=== PATIENT | male | born 1950 | race Caucasian/White ===

== ENCOUNTER → 2018-08-13 09:35 | Outpatient (CLI) | payer MEDICARE, MEDICAID, SELFPAY ==
[2018-08-13 10:54] LABS: Appearance Urine UA CLEAR; Bilirubin Urine UA NEGATIVE (NEGATIVE); Color Urine UA YELLOW; Glucose Urine UA NEGATIVE (Normal); Ketones Urine UA NEGATIVE (NEGATIVE); Leukocyte Esterase Urine UA NEGATIVE (NEGATIVE); Nitrite Urine UA Negative (Negative); Occult Blood Urine UA NEGATIVE (Negative); Protein Urine UA NEGATIVE (Negative); Specific Gravity Urine UA 1.015 (1.000-1.035); Urobilinogen Urine UA 0.2 E.U./dL (0.2)
[2018-08-13 10:59] LABS: Add Manual Diff / Slide Review NO; Basophils Percent Auto 0.4 % (0-2); Eosinophils Percent Auto 0.4 % (2-4); Hematocrit 31.2 % (41-53); Hemoglobin 10.9 g/dL (13.5-17.5); Lymphocytes Percent Auto 13.9 % (25-40); Mean Corpuscular Hemoglobin 32.1 PG (26-34); Mean Corpuscular Volume 91.8 fL (80-100); Neutrophils Absolute Auto 5700 /uL (3000-5900); Neutrophils Percent Auto 78.3 % (50-75); Platelet Count 258 X10^3/uL (150-400); Red Cell Distribution Width 13.4 % (11.6-14.8); White Blood Cell Count 7.2 X10^3/uL (4.5-11.0)
[2018-08-13 11:09] LABS: Alanine Aminotransferase 27 IU/L (21-72); Albumin 4.4 g/dL (3.5-5.0); Albumin Globulin Ratio 1.3 (1.0-2.8); Alkaline Phosphatase 69 U/L (38-126); Aspartate Aminotransferase 29 IU/L (17-59); BUN Creatinine Ratio 32.5 (6-22); Bilirubin Total 0.5 mg/dL (0.2-1.3); Blood Urea Nitrogen 26 mg/dL (9-20); Calcium 9.3 mg/dL (8.4-10.2); Carbon Dioxide 28 mmol/L (22-32); Chloride 100 mmol/L (98-107); Cholesterol 166 mg/dL (140-199); Estimated Glomerular Filt Rate > 60.0 mL/min (>60); Globulin 3.3 g/dL (1.7-4.1); Glucose 90 mg/dL (80-110); HDL Cholesterol 64 mg/dL (40-60); HEMOLYSIS < 15 (0-50); LDL Cholesterol Calculated 90 mg/dL (<100); Potassium 4.5 mmol/L (3.4-5.1); Sodium 139 mmol/L (137-145); Total Protein 7.7 g/dL (6.3-8.2); Triglycerides 59 mg/dL (35-150)
[2018-08-13 12:18] LABS: Thyroid Stimulating Hormone 0.93 uIU/mL (0.47-4.68)
== END ==
PROVIDERS: PCP Family Medicine; Visit Provider Family Medicine
DX: I10 Essential (primary) hypertension (principal); Z51.81 Encounter for therapeutic drug level monitoring; Z12.5 Encounter for screening for malignant neoplasm of prostate
CPT/HCPCS: 36415; 80053; 80061; 81003; 84153; 84443; 85025

== ENCOUNTER 2018-10-02 11:14 | Day surgery (SDC) | payer MEDICARE, MEDICAID, SELFPAY ==
[2018-10-02] VITALS (9 sets, daily range): BP systolic 77–160; BP diastolic 39–63; PULSE 51–57; RESP 12–17; TEMP 35.8–36.3; O2SAT 98–100; BMI 25.2
--- NOTE | 2018-10-02 | PATH_ITS ---
[facility] Accession Number: [id number] . 01 Material submitted: . SCHATZKI RING BIOPSIES . 02 Diagnosis: Schatzki Ring, Biopsies: Squamocolumnar junction mucosa with chronic inflammation and reactive epithelial changes, but negative for dysplasia and malignancy. Negative for specialized metaplasia of Daley's type esophagus. Negative for squamous intraepithelial eosinophils. MRV/10/03/2018 . 02 Electronically signed: . Reji Wilburn MD, Pathologist NPI- [id number] . 01 Gross description: . Received in one formalin-filled container labeled with the patient's name and labeled Schatzki's ring, are four 0.1-0.4 cm portions of tissue, entirely submitted in cassette A. ([id number]) /FRR . 02 Pathologist provided ICD-10: R13.10 . 02 CPT . 513234 Specimen Comment: A duplicate report has been generated due to demographic updates. Performed at: 01 [facility] [address] [facility], [place], [place] [id number] MD Akash Sandhu MD Phone: [phone] Performed at: 02 [facility] [address] [place], [place] [id number] MD Norma Altamirano MD Phone: [phone]
--- NOTE | 2018-10-02 | DI.RAD.S_ITS ---
PROCEDURE: XR CHEST 1V INDICATIONS: Abdominal pain post colonoscopy rule out free air TECHNIQUE: One view of the chest was acquired. COMPARISON: None. FINDINGS: Surgical changes and devices: None. Lungs and pleura: No pleural effusions or pneumothorax. Lungs are clear. Mediastinum: Mediastinal contours appear normal. Heart size is normal. Bones and chest wall: In this patient with this given history, scrutiny is given to air within the abdomen. None can be seen. No suspicious bony lesions. IMPRESSION: No abdominal free air is seen. If there is strong clinical concern for free intra-abdominal gas, then please consider a dedicated CT of the abdomen and pelvis for further evaluation. Dictated by: Tonny Brower M.D. on 10/02/2018 at 13:56 Approved by: Tonny Brower M.D. on 10/02/2018 at 13:57
[2018-10-02] MEDS: LACTATED RINGERS 1,000 ML 200 ML IV ×2 (12:22→14:05)
--- NOTE | 2018-10-02 12:38 | PM.PREOP ---
Pre-operative Note Interval Note Pre-op Check: Yes History & Physical Reviewed by Physician and Yes Exam Performed Changes: No
[2018-10-02] MEDS: TETRACAINE/BENZOCAINE/BUTAMBEN (CETACAINE) BOTTLE 1 SPRAY TOP (13:04)
--- NOTE | 2018-10-02 14:20 | PM.OP.ENDO ---
Operative Date/Time/Diagnoses Date of procedure: 10/02/18 Time of procedure: 14:10 Pre-op diagnosis: Anemia. Post-op diagnosis: same (Extensive sigmoid diverticulosis with stricture. Schatzki ring of the distal esophagus. Small hiatal hernia) Procedure & Clinicians Study performed: EGD with cold biopsy and balloon dilatation through the scope. Colonoscopy. Indications: Try to determine cause of anemia Surgeon: Zack Mendoza Procedure Notes SCOAP/Timeout: Performed Procedure in detail: The patient had topical anesthetic applied to oropharynx. She was placed in the supine position and underwent monitored anesthesia care. We avoided the use of narcotics due to his reaction to them in the past. The anesthesiologist was involved because of his developmental delay and limited ability to cooperate. A bite block was inserted and the scope was advanced through it into the esophagus. The patient since anatomy near the laryngeal area was completely distorted. It was very difficult to see his epiglottis cords arytenoids clearly. I ultimately was able to cannulate the esophagus. The esophagus was unremarkable until I reached the distal extent. At about 40 cm near the GE junction there was a obvious Schatzki ring. However there was not a great deal of narrowing of the opening.. The stomach insufflated well. There were no lesions seen in the body, antrum or at the incisura. The patient was noted to have a small hiatal hernia. The pyloric channel was patent. The duodenum was unremarkable to the 4th part. The scope was brought back into the stomach and retroflexed. The proximal stomach was remarkable for a hiatal hernia seen from below.. The scope was straightened and brought out through the esophagus again. I biopsied the Schatzki ring and then dilated it with a through the scope balloon dilated to an 18 mm size. This was done gradually. No other lesions were seen. The scope was removed and the patient tolerated the procedure well. The patient was then repositioned in left lateral decubitus position and digital exam of the anus was unremarkable. His prostate is normal in size without a mass. The scope was inserted. I had a very difficult time getting through the sigmoid colon due to very extensive sigmoid diverticulosis. There was stricture ring and tortuosity. Ice and finally made my way through into the descending transverse and ascending colon. Pressure was applied and a stiffener inserted in order to get to the cecum. It was very difficult to see the ileocecal valve but the appendix was obviously visible. The scope was gradually brought out. I could identify no other me significant findings on the way out. The scope was brought very slowly through the anal canal and no lesions were seen except some small hemorrhoids near the anal verge. Scope withdrawal time: Over 7 min. Sedation minutes: 0 Findings: diverticulosis (Sigmoid. Extensive with stricture and tortuosity.) and internal hemorrhoids (Small) Specimen(s): other (GE junction biopsies at the Schatzki ring sent) Complications: none Recommendations: Colonscopy in 10 years Follow up: as needed Disposition: PACU
[2018-10-02] MEDS: ONDANSETRON 4 MG/2 ML INJ IV (14:42)
--- NOTE | 2018-10-02 14:44 | SUR.PHASEI ---
airway out, pt gradually awake, belly semi soft and pt states it its tender, rubs upper and lower abdomen, dr kunz made aware chest xray ordered and taken read by dr kunz. pt needs to pass gas, explained to pt, pt turned on l side and knees brought up to chest. pt c/o nausea, zofran given.
--- NOTE | 2018-10-02 15:00 | SUR.PHASEI ---
addendum: bp low on arrival, treated with fluids, eventually came wnl.
--- NOTE | 2018-10-02 15:04 | SUR.PHASEI ---
second addendum, pt with + flatus on arrival to pacu.
--- NOTE | 2018-10-02 15:30 | SUR.PHASEII ---
Report received. Pt reported side pain, abd soft. Ambulated to bathroom, 2 person assist. Passed very small bm. Ambulated back to bed. Reported side pain improving. Offered po intake, pt declined. Call light within reach.
--- NOTE | 2018-10-02 17:20 | SUR.PHASEII ---
1645: pt up to restroom and was able to pass a bowel movement and pass gas as well and several burps. Pt reports that he feels, much better. This was reported to Dr. Mendoza who gave a verbal order to discharge pt to home.
== END 2018-10-02 17:18 | disposition home or self-care (01) ==
PROVIDERS: PCP Family Medicine; Visit Provider Specialist
PROC: 0DJ08ZZ Inspection of Upper Intestinal Tract, Via Natural or Artificial Opening Endoscopic (ICD-10-PCS; CPT 43235; principal; 2018-10-02 12:30)
PROC: 0DJD8ZZ Inspection of Lower Intestinal Tract, Via Natural or Artificial Opening Endoscopic (ICD-10-PCS; CPT 45378; 2018-10-02 12:30)
DX: D64.9 Anemia, unspecified (principal); K57.30 Diverticulosis of large intestine without perforation or abscess without bleeding; K44.9 Diaphragmatic hernia without obstruction or gangrene; K22.2 Esophageal obstruction; K64.8 Other hemorrhoids; R62.50 Unspecified lack of expected normal physiological development in childhood
CPT/HCPCS: 43249; 45378; 43239; 71045; 88305; J2405; J2704

== ENCOUNTER → 2019-01-09 13:59 | Outpatient (CLI) | payer MEDICARE, MEDICAID, SELFPAY ==
[2019-01-09 15:14] LABS: Alanine Aminotransferase 73 IU/L (21-72); Albumin 4.4 g/dL (3.5-5.0); Albumin Globulin Ratio 1.2 (1.0-2.8); Alkaline Phosphatase 90 U/L (38-126); Aspartate Aminotransferase 61 IU/L (17-59); BUN Creatinine Ratio 41.4 (6-22); Bilirubin Total 0.3 mg/dL (0.2-1.3); Blood Urea Nitrogen 29 mg/dL (9-20); Calcium 9.8 mg/dL (8.4-10.2); Carbon Dioxide 26 mmol/L (22-32); Chloride 101 mmol/L (98-107); Estimated Glomerular Filt Rate > 60.0 mL/min (>60); Globulin 3.6 g/dL (1.7-4.1); Glucose 76 mg/dL (80-110); HEMOLYSIS < 15 (0-50); Sodium 135 mmol/L (137-145)
[2019-01-09 15:22] LABS: Potassium 5.6 mmol/L (3.4-5.1)
[2019-01-09 16:17] LABS: Folate 19.7 ng/mL (2.76-20.0); Vitamin B12 703 pg/mL (239-931)
== END ==
PROVIDERS: PCP Family Medicine; Visit Provider Nurse Practitioner Family
DX: R41.89 Other symptoms and signs involving cognitive functions and awareness (principal); R46.89 Other symptoms and signs involving appearance and behavior
CPT/HCPCS: 36415; 80053; 82607; 82746

== ENCOUNTER → 2019-01-13 11:07 | Outpatient (CLI) | payer MEDICARE, MEDICAID, SELFPAY ==
[2019-01-13 11:39] LABS: Appearance Urine UA CLEAR; Bilirubin Urine UA NEGATIVE (NEGATIVE); Color Urine UA YELLOW; Glucose Urine UA NEGATIVE (Negative); Ketones Urine UA NEGATIVE (NEGATIVE); Leukocyte Esterase Urine UA NEGATIVE (NEGATIVE); Nitrite Urine UA NEGATIVE (Negative); Occult Blood Urine UA NEGATIVE (Negative); Protein Urine UA NEGATIVE (Negative); Specific Gravity Urine UA 1.015 (1.000-1.035); Urobilinogen Urine UA 0.2 E.U./dL (0.2)
[2019-01-13 11:45] LABS: HEMOLYSIS < 15 (0-50)
[2019-01-13 11:46] LABS: Potassium 5.4 mmol/L (3.4-5.1)
[2019-01-13 11:48] LABS: HEMOLYSIS < 15 (0-50); Iron 70 ug/dL (49-181)
[2019-01-13 11:50] LABS: Add Manual Diff / Slide Review NO; Basophils Absolute Auto 0 /uL (0-100); Basophils Percent Auto 0.6 % (0-2); Eosinophils Absolute Auto 0 /uL (0-450); Eosinophils Percent Auto 0.4 % (2-4); Hematocrit 32.4 % (41-53); Hemoglobin 11.3 g/dL (13.5-17.5); Lymphocytes Absolute Auto 600 /uL (1100-4500); Lymphocytes Percent Auto 11.7 % (25-40); Mean Corpuscular HGB Conc 34.9 % (30-36); Mean Corpuscular Hemoglobin 31.1 PG (26-34); Mean Corpuscular Volume 89.1 fL (80-100); Monocytes Absolute Auto 700 /uL (0-900); Monocytes Percent Auto 12.2 % (3-14); Neutrophils Absolute Auto 4200 /uL (1500-7000); Neutrophils Percent Auto 75.1 % (50-75); Platelet Count 238 X10^3/uL (150-400); Red Blood Cell Count 3.63 X10^6/uL (4.5-5.9); Red Cell Distribution Width 14.2 % (11.6-14.8); White Blood Cell Count 5.6 X10^3/uL (4.5-11.0)
[2019-01-13 11:59] LABS: Percent Iron Saturation 21 % (20-50); Total Iron Binding Capacity 328 ug/dL (261-462); Transferrin 274 mg/dL (206-381)
[2019-01-13 12:19] LABS: TSH w/ Reflex to FT4 2.12 uIU/mL (0.47-4.68)
== END ==
PROVIDERS: PCP Family Medicine; Visit Provider Nurse Practitioner Family
DX: R41.89 Other symptoms and signs involving cognitive functions and awareness (principal); E87.5 Hyperkalemia; D64.9 Anemia, unspecified
CPT/HCPCS: 36415; 81003; 83540; 83550; 84132; 84443; 85025

== ENCOUNTER → 2019-01-15 10:43 | Outpatient (CLI) | payer MEDICARE, MEDICAID, SELFPAY ==
--- NOTE | 2019-01-15 10:44 | DI.US.S_ITS ---
PROCEDURE: US ABDOMEN COMPLETE INDICATIONS: ELEVATED LIVER ENZYMES TECHNIQUE: Real-time scanning was performed of the abdominal and retroperitoneal organs, with image documentation. COMPARISON: None. FINDINGS: This study is limited by body habitus. Liver: Liver overall demonstrates normal size. The liver demonstrates a coarse echotexture. No focal liver lesions are seen. Gallbladder: Potential sludge can be seen within the gallbladder lumen, yet without shadowing stones. Differential diagnosis includes artifact. The gallbladder wall is not thickened, measuring 3 mm or less. No specific pericholecystic fluid is seen. The sonographic Cisneros sign is negative. Biliary ducts: Intrahepatic bile ducts are non-dilated. Extrahepatic bile duct caliber measures 9 mm. Normal is 6-7 mm or less in diameter, or 10 mm or less post-cholecystectomy. Pancreas: Not well-seen Spleen: Not seen. Kidneys: Kidneys are not well-seen. There is a potential 2.9 cm complicated cyst seen on the left side. Aorta: Not seen, obscured by overlying bowel gas. Iliacs: Not seen, obscured by overlying bowel gas. IVC: Intrahepatic inferior vena cava is patent. Miscellaneous: No free abdominal fluid. IMPRESSION: Highly limited study, secondary to body habitus and bowel gas. Sludge versus artifact seen within the gallbladder lumen. The common bile duct appears mildly dilated at 9 mm. Likely 2.9 cm complex cyst in the left kidney. If clinically appropriate, please consider a dedicated CT study for further evaluation. Dictated by: Tonny Brower M.D. on 01/15/2019 at 12:18 Approved by: Tonny Brower M.D. on 01/15/2019 at 12:21
[2019-01-15 12:03] LABS: Ammonia (NH3) < 9.0 umol/L (9-30)
== END ==
PROVIDERS: PCP Family Medicine; Visit Provider Nurse Practitioner Family
DX: R74.8 Abnormal levels of other serum enzymes (principal); R41.89 Other symptoms and signs involving cognitive functions and awareness; R46.89 Other symptoms and signs involving appearance and behavior; N28.1 Cyst of kidney, acquired
CPT/HCPCS: 36415; 76700; 82140

== ENCOUNTER 2019-01-19 11:22 | Inpatient (IN) | payer MEDICARE, MEDICAID, SELFPAY ==
--- NOTE | 2019-01-19 | DI.MRI.S_ITS ---
PROCEDURE: MR HEAD/BRAIN WO CON INDICATIONS: recurrent falls TECHNIQUE: Non-contrast axial T1 spin echo, axial T2 fast spin echo, sagittal and axial FLAIR, coronal T2 fast spin echo, axial gradient echo, axial diffusion and ADC through the brain. COMPARISON: [facility], CT, CT HEAD/BRAIN WO CON, 01/19/2019, 12:32. FINDINGS: Image quality: Severe limited examination (unable to use head coil). CSF spaces: Ventricles appear prominent but symmetric in size and shape. Basal cisterns are patent. No extra-axial fluid collections. Brain: No intracranial bleeds or mass effects. There is cerebral volume loss for age. There are periventricular and deep white matter chronic small vessel ischemic changes. Brainstem appears normal. Diffusion-weighted images show no acute ischemic insults. No chronic ischemic insults. Normal intravascular flow voids are present. Skull and face: Calvarial bone marrow is normal in signal. Orbits are normal. Sinuses: Sinuses and mastoids are clear. IMPRESSION: 1. No acute intracranial abnormalities. 2. Cerebral volume loss and chronic microvascular ischemic changes. 3. Ventricular dilation may be secondary to central atrophy or normal pressure hydrocephalus. 4. Severely limited examination due to inability to perform the exam with a head coil. Dictated by: Pietro Snell M.D. on 01/20/2019 at 9:37 Approved by: Pietro Snell M.D. on 01/20/2019 at 9:41
[2019-01-19 11:30] VITALS: BP 110/53; PULSE 51; RESP 16; TEMP 36; O2SAT 100
--- NOTE | 2019-01-19 11:47 | DI.RAD.S_ITS ---
PROCEDURE: XR CHEST 1V INDICATIONS: weakness falls TECHNIQUE: One view of the chest was acquired. COMPARISON: [facility], CR, XR CHEST 1V, 10/02/2018, 14:37. FINDINGS: Surgical changes and devices: None. Lungs and pleura: Lungs are clear. No pleural effusions or pneumothorax. Mediastinum: Mediastinal contours appear normal. Heart size is normal. Bones and chest wall: No suspicious bony lesions. Within the visualized right upper quadrant of the abdomen, there is a gas-distended structure which may represent partially dilated colon loops but the appearance is nonspecific. IMPRESSION: 1. No acute cardiopulmonary disease. 2. Gas-distended structure in the right upper quadrant of the visualized abdomen may represent partially visualized dilated colon with filling defects. However, consider further evaluation with CT if there are clinical symptoms referrable to this region. Dictated by: Akash Enamorado M.D. on 01/19/2019 at 12:10 Approved by: Akash Enamorado M.D. on 01/19/2019 at 12:16
[2019-01-19 12:08] LABS: Add Manual Diff / Slide Review NO; Basophils Absolute Auto 0 /uL (0-100); Basophils Percent Auto 0.2 % (0-2); Eosinophils Absolute Auto 0 /uL (0-450); Eosinophils Percent Auto 0.3 % (2-4); Hematocrit 33.1 % (41-53); Lymphocytes Absolute Auto 900 /uL (1100-4500); Lymphocytes Percent Auto 9.1 % (25-40); Mean Corpuscular HGB Conc 33.3 % (30-36); Monocytes Absolute Auto 900 /uL (0-900); Monocytes Percent Auto 9.8 % (3-14); Neutrophils Absolute Auto 7600 /uL (1500-7000); Neutrophils Percent Auto 80.6 % (50-75); Platelet Count 228 X10^3/uL (150-400); Red Blood Cell Count 3.55 X10^6/uL (4.5-5.9); Red Cell Distribution Width 14.8 % (11.6-14.8); White Blood Cell Count 9.5 X10^3/uL (4.5-11.0)
[2019-01-19 12:20] LABS: BUN Creatinine Ratio 45.7 (6-22); Blood Urea Nitrogen 32 mg/dL (9-20); Calcium 9.6 mg/dL (8.4-10.2); Carbon Dioxide 26 mmol/L (22-32); Chloride 97 mmol/L (98-107); Estimated Glomerular Filt Rate > 60.0 mL/min (>60); Glucose 125 mg/dL (80-110); HEMOLYSIS 20 (0-50); Sodium 130 mmol/L (137-145)
[2019-01-19 12:23] LABS: Potassium 5.4 mmol/L (3.4-5.1)
--- NOTE | 2019-01-19 12:28 | DI.CT.S_ITS ---
PROCEDURE: CT HEAD/BRAIN WO CON INDICATIONS: Weakness and increased confusion TECHNIQUE: Noncontrast 4.5 mm thick angled axial sections acquired from the foramen magnum to the vertex, with coronal and sagittal reformats. For radiation dose reduction, the following was used: automated exposure control, adjustment of mA and/or kV according to patient size. COMPARISON: None. FINDINGS: Image quality: Excellent. CSF spaces: Basal cisterns are patent. No extra-axial fluid collections. The ventricles are symmetric in shape. Ventricles are slightly prominent relative to sulci. Brain: No intracranial bleeds or masses. There is mild cerebral volume loss for age, with resultant ventricular and sulcal prominence. There are mild periventricular and deep white matter chronic small vessel ischemic changes. There is intracranial internal carotid artery atherosclerosis. Skull and face: Calvarium and visualized facial bones appear intact, without suspicious lesions. Multiple dental caries noted. Sinuses: Mild mucosal thickening noted in the left maxillary sinus. The mastoids are clear. IMPRESSION: 1. No acute intracranial disease process. 2. Mild ventriculomegaly which could be due to central volume loss versus normal pressure hydrocephalus. Please correlate with clinical findings. 3. A mild, diffuse cerebral unless. 4. Mild periventricular and subcortical white matter chronic microvascular ischemic changes. 5. Extensive dental disease. Dictated by: Janice Costello MD, PhD on 01/19/2019 at 12:55 Approved by: Janice Costello MD, PhD on 01/19/2019 at 13:00
--- NOTE | 2019-01-19 12:28 | DI.CT.S_ITS ---
PROCEDURE: CT ABDOMEN PELVIS W CON INDICATIONS: Weakness and confusion TECHNIQUE: After the administration of intravenous contrast, 5 mm thick sections acquired from the diaphragm to the symphysis. 5 mm coronal and sagittal reformats were acquired. For radiation dose reduction, the following was used: automated exposure control, adjustment of mA and/or kV according to patient size. COMPARISON: [facility], CR, XR CHEST 1V, 10/02/2018, 14:37. [facility], CR, XR CHEST 1V, 01/19/2019, 11:59. FINDINGS: Image quality: Excellent. ABDOMEN: Lung bases: Lung bases are clear. Heart size is normal. Solid organs: Liver is normal in size and enhancement. Gallbladder appears normal. Biliary system is non dilated. Pancreas enhances normally. Spleen is normal in size and enhancement. No adrenal nodules on the left but there is a 2.3 x 3.4 cm benign-appearing right adrenal adenoma. Kidneys demonstrate normal size and enhancement, without hydronephrosis. Peritoneum and bowel: Bowel loops demonstrate normal wall thickness and caliber but there is relatively prominent colonic obstipation involving the right colon which appears elongated with the cecum directed cephalad towards the right diaphragm. On an old set of chest plain films this pattern was also present including in September 2018. No free fluid or air. Nodes and vessels: No retroperitoneal or mesenteric adenopathy by size criteria. Aorta and inferior vena cava are normal in size. Miscellaneous: No ventral hernias. PELVIS: Genitourinary: Bladder wall thickness is normal. Miscellaneous: No inguinal hernias or adenopathy. Bones: No suspicious bony lesions. No vertebral body compression fractures. IMPRESSION: Colonic obstipation. 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 Incidental note is made of a benign-appearing low density adrenal adenoma measuring up to 2.3 x 3.4 cm. Dictated by: Misael Simmons M.D. on 01/19/2019 at 13:25 Approved by: Misael Simmons M.D. on 01/19/2019 at 13:40
[2019-01-19 12:31] LABS: Troponin I 0.015 ng/mL (0.01-0.034)
--- NOTE | 2019-01-19 13:02 | PC.NURSE ---
Patient has had frequent falls for the past 2 weeks. Unknown etiology and not witnessed. Parent and caregiver state they have found him on the ground in the barn and in the field. He is developmentally delayed at baseline, but family states this is very abnormal for him. He has had a workup and blood work done over the last two weeks and they found hyperkalemia, which was not treated. No other findings. Upon assessment, he will follow commands, but does not answer questions. Having intermittent bradycardia going down as low as 26 bpm.
[2019-01-19] MEDS: SODIUM CHLORIDE 0.9% 1,000 ML 150 ML IV ×2 (13:10→17:43)
[2019-01-19 13:27] LABS: Procalcitonin 0.13 ng/mL (<0.5)
--- NOTE | 2019-01-19 13:32 | DI.RAD.S_ITS ---
PROCEDURE: XR HIP W PEL IF DONE BILAT 2V INDICATIONS: Ground level fall swelling to left hip TECHNIQUE: AP pelvis with lateral view(s) of the right and left hip(s). COMPARISON: None. FINDINGS: Bones: No fractures or dislocations. Pelvic ring appears intact. No suspicious bony lesions. 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 There is irregularity in greater trochanters bilaterally, likely related to enthesopathy. Soft tissues: The visualized bowel gas pattern is normal. No suspicious soft tissue calcifications. There is a Hernandez catheter in bladder. IMPRESSION: No fracture or dislocation. Dictated by: Pietro Snell M.D. on 01/19/2019 at 14:15 Approved by: Pietro Snell M.D. on 01/19/2019 at 14:24
[2019-01-19 13:45] LABS: Lactate (Lactic Acid) 1.1 mmol/L (0.7-2.1)
--- NOTE | 2019-01-19 14:09 | ED.WEAKNESS ---
HPI - Weakness <BAKARI Acharya - Last Filed: 01/19/19 22:13> General Chief complaint: Weakness Stated complaint: NAUSEA/VOMITING/FALLING DOWN Time Seen by Provider: 01/19/19 12:03 Source: family Mode of arrival: wheelchair Limitations: no limitations History of Present Illness HPI Narrative: 68-year-old male with history of developmental delay and hypertension that is a nonsmoker brought in by family due to increased weakness over the past week to 2 weeks. Family states that he has been having difficulty ambulating over the past couple of days he has had multiple ground level falls over the past several days. They state that he was found out in the past her lying on the ground and was having difficulty getting up. They also report that he has had increased confusion over the past week as well. He is tolerating p.o. intake and fluids well. No known fevers. He was seen by his primary care provider today and was sent here for further evaluation of the weakness and confusion with hope of admission for further evaluation and referral for [facility] facility as family is having difficult time and caring for him at this timeframe. 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 He is not verbal with me at this time. He is awake and alert. Family states that his heart rate has been lower than normal as of recently and due to this they have not wanted to change much as far as blood pressure medications due to his heart rate. No known head injury he does have multiple contusions to his extremities from recent falls. No known discomfort. Related Data Home Medications Medication Instructions Recorded Confirmed brimonidine-timolol [Combigan] 1 drp OPHTHALMIC (EYE) DIRECTED 03/25/17 01/19/19 #0 amlodipine [Norvasc] 5 mg PO DAILY 01/19/19 01/19/19 lisinopril 40 mg PO DAILY 01/19/19 01/19/19 Previous Rx's Medication Instructions Recorded [Men's Depends] See Rx Instructions .ROUTE BID #60 10/02/18 Allergies Allergy/AdvReac Type Severity Reaction Status Date / Time codeine [CODEINE] Allergy Mild n/v Verified 01/19/19 11:30 hydrocodone AdvReac Mild UPSET Verified 01/19/19 11:30 STOMACH Review of Systems <BAKARI Acharya - Last Filed: 01/19/19 22:13> Constitutional Denies fatigue and Reports weakness Eyes Denies change in vision, Denies eye discharge and Denies irritation ENT Ears, Nose, Mouth, and Throat: Denies change in voice, Denies neck pain and Denies sore throat Cardiovascular Denies dyspnea and Denies dyspnea on exertion Comments: Low heart rate Respiratory Denies cough, Denies dyspnea, Denies dyspnea on exertion and Denies wheezing Gastrointestinal Gastrointestinal: Denies abdominal pain, Denies change in bowel habits, Denies diarrhea, Denies nausea and Denies vomiting Genitourinary Denies hematuria, Denies flank pain, Denies urinary incontinence and Denies urinary urgency Musculoskeletal Denies neck pain Integumentary/Breasts Denies pruritus, Denies erythema, Denies rash and Denies wounds Neurologic Denies confusion and Reports weakness Comments: Increased confusion Psychiatric Denies anxiety, Denies confusion, Denies depression, Denies homicidal ideation and Denies suicidal ideation Endocrine Denies fatigue and Denies flushing Hematologic/Lymphatic Denies easy bruising Allergic/Immunologic Denies wheezing PFSH <BAKARI Acharya - Last Filed: 01/19/19 22:13> Medical History Diverticulosis (Acute) Obstipation (Acute) Schatzki's ring of distal esophagus (Acute) Developmental disability (Chronic) Glaucoma (Chronic) Hypertension (Chronic) Partial blindness (Chronic) Surgical History History of colonoscopy (Acute) History of esophagogastroduodenoscopy (EGD) (Acute) Status post hernia repair (12/2015) Family History Father Hypertension Heart disease Mother No problems noted. Social History household members: family Smoking Status: Never smoker alcohol intake: never Family History Father Hypertension Heart disease Mother No problems noted. Social History household members: family Smoking Status: Never smoker alcohol intake: never Exam <BAKARI Acharya - Last Filed: 01/19/19 22:13> Initial Vital Signs Initial Vital Signs: Vital Signs Temperature 96.8 F L 01/19/19 11:30 Pulse Rate 51 L 01/19/19 11:30 Respiratory Rate 16 01/19/19 11:30 Blood Pressure 110/53 L 01/19/19 11:30 Pulse Oximetry 100 01/19/19 11:30 Const General: frail appearing Orientation: alert, awake and not oriented x3 HENMT Mouth: oral mucosae normal and moist mucous membranes Eyes General: appearance normal, both eyes and all related structures Eyelids: eyelids normal Conjunctivae: conjunctivae normal Sclera: sclerae normal Pupils: dilated bilaterally and not reactive Neck Neck: normal visual inspection, trachea midline, No lymphadenopathy, No midline deformity and No JVD Lymphatic: No lymphedema Cardio Rate: bradycardic Rhythm: regular rhythm Heart Sounds: no click, no gallops, no murmurs and no rubs Pulses: normal peripheral pulses GI Inspection: non-distended Palpation: soft, no hepatosplenomegaly, No guarding, No pulsatile mass and No tender Auscultation: normal bowel sounds Skin General: no rashes or lesions noted, No jaundice and No petechiae Neuro General: alert, awake, not oriented x3 and unable to assess gait Cognition: abnormal cognition (Response to verbal stimuli. ) Motor: muscle tone normal throughout Sensory Exam: no sensory deficits noted Extrem General: full ROM, no clubbing, cyanosis or edema, no pedal edema and no calf tenderness Other: Distal sensation is intact to all extremities. Distal pulses are intact upper extremities. Distal cap refill is intact to lower extremities. Distal range of motion is intact lower extremities. Psych Speech and Movement: other <Roni Eckert MD - Last Filed: 01/21/19 02:41> Initial Vital Signs Initial Vital Signs: Vital Signs Temperature 96.8 F L 01/19/19 11:30 Pulse Rate 51 L 01/19/19 11:30 Respiratory Rate 16 01/19/19 11:30 Blood Pressure 110/53 L 01/19/19 11:30 Pulse Oximetry 100 01/19/19 11:30 Course <BAKARI Acharya - Last Filed: 01/19/19 22:13> Orders Ordered: ED Orders 01/21/19 05:00 Basic Metabolic Panel Routine Acetaminophen (Tylenol) 650 mg PO Q6HR PRN PRN Reason: As Needed for Fever/Mild Pain Amlodipine Besylate (Norvasc) 5 mg PO DAILY [facility] Last Admin: 01/20/19 10:17 Dose: 5 mg Enoxaparin Sodium (Lovenox) 40 mg SUBCUT DAILY [facility] Fluconazole (Diflucan) 400 mg PO DAILY [facility] Sodium Chloride (Normal Saline 0.9%) 1,000 mls @ 100 mls/hr IV CONT [facility] Last Infusion: 01/20/19 20:31 Dose: 0 mls/hr Admin: 01/20/19 13:19 Dose: 100 mls/hr Infusion: 01/20/19 02:19 Dose: 0 mls/hr Infusion: 01/19/19 18:00 Dose: 100 mls/hr Admin: 01/19/19 17:43 Dose: 150 mls/hr Infusion: 01/19/19 17:43 Dose: 150 mls/hr Infusion: 01/19/19 15:45 Dose: 150 mls/hr Admin: 01/19/19 13:10 Dose: 150 mls/hr Lisinopril (Zestril) 20 mg PO DAILY [facility] Last Admin: 01/20/19 10:17 Dose: 20 mg Magnesium Hydroxide (Milk Of Magnesia) 30 ml PO DAILY PRN PRN Reason: Constipation Discontinued Medications Carbidopa/Levodopa (Sinemet 10/100) 0.5 each PO TIDWM [facility] Last Admin: 01/20/19 13:17 Dose: Not Given Admin: 01/20/19 10:18 Dose: 0.5 each Admin: 01/19/19 19:57 Dose: 0.5 each Carbidopa/Levodopa (Sinemet 25-100 Tab) 0.5 each PO TIDWM [facility] Last Admin: 01/20/19 20:06 Dose: Not Given Fentanyl (Sublimaze) 50 mcg IV Q5MIN PRN PRN Reason: Pain, Moderate (4-6) Ondansetron HCl (Zofran) 4 mg IV NOW PRN PRN Reason: Nausea And Vomiting Polyethylene Glycol (Miralax) 17 gm PO NOW ONE Stop: 01/19/19 18:51 Last Admin: 01/19/19 19:57 Dose: 17 gm Sodium Biphosphate/Sodium Phosphate (Fleet Enema) 1 each OH NOW ONE Stop: 01/20/19 12:07 Last Admin: 01/20/19 13:19 Dose: 1 each Vital Signs - 8 hr 01/20/19 20:02 01/20/19 20:07 01/20/19 20:11 Temperature 98 F 98 F 98 F Pulse Rate 61 64 60 Respiratory Rate 22 17 15 Blood Pressure 84/38 L 76/42 L 83/40 L Pulse Oximetry 95 93 95 01/20/19 20:21 01/20/19 20:25 01/20/19 20:35 Temperature 98 F 98 F 97.1 F L Pulse Rate 58 L 62 61 Respiratory Rate 18 15 16 Blood Pressure 87/42 L 95/55 L 101/46 L Pulse Oximetry 94 94 93 01/20/19 21:08 01/20/19 21:46 01/20/19 22:35 Temperature 97.8 F 97.3 F L 97.5 F L Pulse Rate 60 61 62 Respiratory Rate 16 16 16 Blood Pressure 99/52 L 108/47 L 111/52 L Pulse Oximetry 97 98 98 01/20/19 23:35 Temperature 97.6 F Pulse Rate 67 Respiratory Rate 18 Blood Pressure 100/45 L Pulse Oximetry 97 <Roni Eckert MD - Last Filed: 01/21/19 02:41> Orders Ordered: ED Orders 01/21/19 05:00 Basic Metabolic Panel Routine Acetaminophen (Tylenol) 650 mg PO Q6HR PRN PRN Reason: As Needed for Fever/Mild Pain Amlodipine Besylate (Norvasc) 5 mg PO DAILY [facility] Last Admin: 01/20/19 10:17 Dose: 5 mg Enoxaparin Sodium (Lovenox) 40 mg SUBCUT DAILY [facility] Fluconazole (Diflucan) 400 mg PO DAILY [facility] Sodium Chloride (Normal Saline 0.9%) 1,000 mls @ 100 mls/hr IV CONT [facility] Last Infusion: 01/20/19 20:31 Dose: 0 mls/hr Admin: 01/20/19 13:19 Dose: 100 mls/hr Infusion: 01/20/19 02:19 Dose: 0 mls/hr Infusion: 01/19/19 18:00 Dose: 100 mls/hr Admin: 01/19/19 17:43 Dose: 150 mls/hr Infusion: 01/19/19 17:43 Dose: 150 mls/hr Infusion: 01/19/19 15:45 Dose: 150 mls/hr Admin: 01/19/19 13:10 Dose: 150 mls/hr Lisinopril (Zestril) 20 mg PO DAILY [facility] Last Admin: 01/20/19 10:17 Dose: 20 mg Magnesium Hydroxide (Milk Of Magnesia) 30 ml PO DAILY PRN PRN Reason: Constipation Discontinued Medications Carbidopa/Levodopa (Sinemet 10/100) 0.5 each PO TIDWM [facility] Last Admin: 01/20/19 13:17 Dose: Not Given Admin: 01/20/19 10:18 Dose: 0.5 each Admin: 01/19/19 19:57 Dose: 0.5 each Carbidopa/Levodopa (Sinemet 25-100 Tab) 0.5 each PO TIDWM [facility] Last Admin: 01/20/19 20:06 Dose: Not Given Fentanyl (Sublimaze) 50 mcg IV Q5MIN PRN PRN Reason: Pain, Moderate (4-6) Ondansetron HCl (Zofran) 4 mg IV NOW PRN PRN Reason: Nausea And Vomiting Polyethylene Glycol (Miralax) 17 gm PO NOW ONE Stop: 01/19/19 18:51 Last Admin: 01/19/19 19:57 Dose: 17 gm Sodium Biphosphate/Sodium Phosphate (Fleet Enema) 1 each OH NOW ONE Stop: 01/20/19 12:07 Last Admin: 01/20/19 13:19 Dose: 1 each Vital Signs - 8 hr 01/20/19 20:02 01/20/19 20:07 01/20/19 20:11 Temperature 98 F 98 F 98 F Pulse Rate 61 64 60 Respiratory Rate 22 17 15 Blood Pressure 84/38 L 76/42 L 83/40 L Pulse Oximetry 95 93 95 01/20/19 20:21 01/20/19 20:25 01/20/19 20:35 Temperature 98 F 98 F 97.1 F L Pulse Rate 58 L 62 61 Respiratory Rate 18 15 16 Blood Pressure 87/42 L 95/55 L 101/46 L Pulse Oximetry 94 94 93 01/20/19 21:08 01/20/19 21:46 01/20/19 22:35 Temperature 97.8 F 97.3 F L 97.5 F L Pulse Rate 60 61 62 Respiratory Rate 16 16 16 Blood Pressure 99/52 L 108/47 L 111/52 L Pulse Oximetry 97 98 98 01/20/19 23:35 Temperature 97.6 F Pulse Rate 67 Respiratory Rate 18 Blood Pressure 100/45 L Pulse Oximetry 97 MDM - Weakness <BAKARI Acharya - Last Filed: 01/19/19 22:13> Lab Data Result diagrams: 01/19/19 11:50 01/19/19 11:50 Lab Results 01/19/19 01/19/19 01/19/19 Range/Units 11:50 11:50 12:46 WBC 9.5 (4.5-11.0) X10^3/uL RBC 3.55 L (4.5-5.9) X10^6/uL Hgb 11.0 L (13.5-17.5) g/dL Hct 33.1 L (41-53) % MCV 93.0 D (80-100) fL MCH 31.0 (26-34) PG MCHC 33.3 (30-36) % RDW 14.8 (11.6-14.8) % Plt Count 228 (150-400) X10^3/uL Neut % (Auto) 80.6 H (50-75) % Lymph % (Auto) 9.1 L (25-40) % [place] % (Auto) 9.8 (3-14) % Eos % (Auto) 0.3 L (2-4) % Baso % (Auto) 0.2 (0-2) % Neut # (Auto) 7600 H (7309-7102) /uL Lymph # (Auto) 900 L (1827-9290) /uL [place] # (Auto) 900 (0-900) /uL Eos # (Auto) 0 (0-450) /uL Baso # (Auto) 0 (0-100) /uL Sodium 130 L (137-145) mmol/L Potassium 5.4 H (3.4-5.1) mmol/L Chloride 97 L (98-107) mmol/L Carbon Dioxide 26 (22-32) mmol/L BUN 32 H (9-20) mg/dL Creatinine 0.70 (0.66-1.25) mg/dL Estimated GFR > 60.0 (>60) mL/min BUN/Creatinine Ratio 45.7 H (6-22) Glucose 125 H (80-110) mg/dL Lactate (0.7-2.1) mmol/L Calcium 9.6 (8.4-10.2) mg/dL Troponin I 0.015 (0.01-0.034) ng/mL Procalcitonin 0.13 (<0.5) ng/mL Urine Color Urine Appearance Urine pH (4.5-8.0) Ur Specific [place] (1.000-1.035) Urine Protein (Negative) Urine Glucose (UA) (Negative) g/dL Urine Ketones (NEGATIVE) Urine Occult Blood (Negative) Urine Nitrate (Negative) Urine Bilirubin (NEGATIVE) Urine Urobilinogen (0.2) E.U./dL Ur Leukocyte Esterase (NEGATIVE) Urine RBC (0-5/HPF) Urine WBC (0-5/HPF) Ur Squamous Epith Cells Urine Bacteria (None) Hyaline Casts (None) Ur Culture Indicated? 01/19/19 01/19/19 Range/Units 13:08 13:30 WBC (4.5-11.0) X10^3/uL RBC (4.5-5.9) X10^6/uL Hgb (13.5-17.5) g/dL Hct (41-53) % MCV (80-100) fL MCH (26-34) PG MCHC (30-36) % RDW (11.6-14.8) % Plt Count (150-400) X10^3/uL Neut % (Auto) (50-75) % Lymph % (Auto) (25-40) % [place] % (Auto) (3-14) % Eos % (Auto) (2-4) % Baso % (Auto) (0-2) % Neut # (Auto) (3319-3233) /uL Lymph # (Auto) (9712-3047) /uL [place] # (Auto) (0-900) /uL Eos # (Auto) (0-450) /uL Baso # (Auto) (0-100) /uL Sodium (137-145) mmol/L Potassium (3.4-5.1) mmol/L Chloride (98-107) mmol/L Carbon Dioxide (22-32) mmol/L BUN (9-20) mg/dL Creatinine (0.66-1.25) mg/dL Estimated GFR (>60) mL/min BUN/Creatinine Ratio (6-22) Glucose (80-110) mg/dL Lactate 1.1 (0.7-2.1) mmol/L Calcium (8.4-10.2) mg/dL Troponin I (0.01-0.034) ng/mL Procalcitonin (<0.5) ng/mL Urine Color Yellow Urine Appearance Sl cloudy Urine pH 5.0 (4.5-8.0) Ur Specific [place] 1.025 (1.000-1.035) Urine Protein Negative (Negative) Urine Glucose (UA) Negative (Negative) g/dL Urine Ketones Negative (NEGATIVE) Urine Occult Blood 1+ H (Negative) Urine Nitrate Negative (Negative) Urine Bilirubin Negative (NEGATIVE) Urine Urobilinogen 0.2 (0.2) E.U./dL Ur Leukocyte Esterase Negative (NEGATIVE) Urine RBC 0-1/hpf (0-5/HPF) Urine WBC 0-1/hpf (0-5/HPF) Ur Squamous Epith Cells 0-1 /hpf Urine Bacteria Occasional (0-1) (None) Hyaline Casts 30-100/lpf (None) Ur Culture Indicated? Cult not indicated Imaging Data CT scan - abdomen: Radiologist's impression: [place] [address] CT Scan Report Signed Patient: Bridger Rogers#: [id number] : 1950Acct:[id number] Age/Sex: 68 / MDate of Service: 01/19/19 Loc: ED Accession Number: [id number] Procedure: CT abdomen pelvis w con Ordering Provider: Abram Shore PROCEDURE: CT ABDOMEN PELVIS W CON INDICATIONS: Weakness and confusion TECHNIQUE: After the administration of intravenous contrast, 5 mm thick sections acquired from the diaphragm to the symphysis. 5 mm coronal and sagittal reformats were acquired. For radiation dose reduction, the following was used: automated exposure control, adjustment of mA and/or kV according to patient size. COMPARISON: [facility], CR, XR CHEST 1V, 10/02/2018, 14:37. [facility], CR, XR CHEST 1V, 01/19/2019, 11:59. FINDINGS: Image quality: Excellent. ABDOMEN: Lung bases: Lung bases are clear. Heart size is normal. Solid organs: Liver is normal in size and enhancement. Gallbladder appears normal. Biliary system is non dilated. Pancreas enhances normally. Spleen is normal in size and enhancement. No adrenal nodules on the left but there is a 2.3 x 3.4 cm benign-appearing right adrenal adenoma. Kidneys demonstrate normal size and enhancement, without hydronephrosis. Peritoneum and bowel: Bowel loops demonstrate normal wall thickness and caliber but there is relatively prominent colonic obstipation involving the right colon which appears elongated with the cecum directed cephalad towards the right diaphragm. On an old set of chest plain films this pattern was also present including in September 2018. No free fluid or air. Nodes and vessels: No retroperitoneal or mesenteric adenopathy by size criteria. Aorta and inferior vena cava are normal in size. Miscellaneous: No ventral hernias. PELVIS: Genitourinary: Bladder wall thickness is normal. Miscellaneous: No inguinal hernias or adenopathy. Bones: No suspicious bony lesions. No vertebral body compression fractures. IMPRESSION: Colonic obstipation. 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 Incidental note is made of a benign-appearing low density adrenal adenoma measuring up to 2.3 x 3.4 cm. Dictated by: Misael Simmons M.D. on 01/19/2019 at 13:25 Approved by: Misael Simmons M.D. on 01/19/2019 at 13:40 CT scan - head: Radiologist's impression: [place] [address] CT Scan Report Signed Patient: Bridger Rogers#: [id number] : 1950Acct:[id number] Age/Sex: 68 / MDate of Service: 01/19/19 Loc: ED Accession Number: [id number] Procedure: CT head/brain wo con Ordering Provider: Abram Shore PROCEDURE: CT HEAD/BRAIN WO CON INDICATIONS: Weakness and increased confusion TECHNIQUE: Noncontrast 4.5 mm thick angled axial sections acquired from the foramen magnum to the vertex, with coronal and sagittal reformats. For radiation dose reduction, the following was used: automated exposure control, adjustment of mA and/or kV according to patient size. COMPARISON: None. FINDINGS: Image quality: Excellent. CSF spaces: Basal cisterns are patent. No extra-axial fluid collections. The ventricles are symmetric in shape. Ventricles are slightly prominent relative to sulci. Brain: No intracranial bleeds or masses. There is mild cerebral volume loss for age, with resultant ventricular and sulcal prominence. There are mild periventricular and deep white matter chronic small vessel ischemic changes. There is intracranial internal carotid artery atherosclerosis. Skull and face: Calvarium and visualized facial bones appear intact, without suspicious lesions. Multiple dental caries noted. Sinuses: Mild mucosal thickening noted in the left maxillary sinus. The mastoids are clear. IMPRESSION: 1. No acute intracranial disease process. 2. Mild ventriculomegaly which could be due to central volume loss versus normal pressure hydrocephalus. Please correlate with clinical findings. 3. A mild, diffuse cerebral unless. 4. Mild periventricular and subcortical white matter chronic microvascular ischemic changes. 5. Extensive dental disease. Dictated by: Janice Costello MD, PhD on 01/19/2019 at 12:55 Approved by: Janice Costello MD, PhD on 01/19/2019 at 13:00 ECG Data Interpretation: EKG shows sinus bradycardia no ST elevation or depression. No ectopy. Ventricular rate of 51. QRS duration of 109. QTC of 393. MDM Narrative Medical decision making narrative: CT scan of the abdomen shows findings of some a colonic obstipation with no signs of a blockage and no acute findings. Incidental findings of chronic lung a meza of the cecum extending up to the pre hepatic space.CT scan of the head was obtained and shows mild ventriculomegaly which could be due to central volume loss or or hydro megaly otherwise no other acute findings are found. Chest x-ray was negative for any acute findings. hip and pelvis x-ray was negative for any acute findings. CBC was negative for elevated white count. CBC does show anemia which is consistent with prior lab values. BMP shows hyponatremia and hyperkalemia of 5.4. Hyperkalemia is consistent with his prior lab values. EKG shows sinus bradycardia with no ST elevation or depression heart rate is consistent with a prior vital signs readings for for the last few months. troponin was obtained was negative. Procalcitonin was negative. Lactate was normal. Urinalysis was negative for urinary tract infection. Emergent causes of his symptoms are not found in the emergency room. Primary care provider desires admission for further care with hope of getting him into [facility] facility in the next few days. Family states that MRI is pending for head for further evaluation and discussion of possible neurology consult. patient is admitted to observation <Roni Eckert MD - Last Filed: 01/21/19 02:41> Lab Data Lab Results 01/19/19 01/19/19 01/19/19 Range/Units 11:50 11:50 12:46 WBC 9.5 (4.5-11.0) X10^3/uL RBC 3.55 L (4.5-5.9) X10^6/uL Hgb 11.0 L (13.5-17.5) g/dL Hct 33.1 L (41-53) % MCV 93.0 D (80-100) fL MCH 31.0 (26-34) PG MCHC 33.3 (30-36) % RDW 14.8 (11.6-14.8) % Plt Count 228 (150-400) X10^3/uL Neut % (Auto) 80.6 H (50-75) % Lymph % (Auto) 9.1 L (25-40) % [place] % (Auto) 9.8 (3-14) % Eos % (Auto) 0.3 L (2-4) % Baso % (Auto) 0.2 (0-2) % Neut # (Auto) 7600 H (9724-0812) /uL Lymph # (Auto) 900 L (0204-6146) /uL [place] # (Auto) 900 (0-900) /uL Eos # (Auto) 0 (0-450) /uL Baso # (Auto) 0 (0-100) /uL Sodium 130 L (137-145) mmol/L Potassium 5.4 H (3.4-5.1) mmol/L Chloride 97 L (98-107) mmol/L Carbon Dioxide 26 (22-32) mmol/L BUN 32 H (9-20) mg/dL Creatinine 0.70 (0.66-1.25) mg/dL Estimated GFR > 60.0 (>60) mL/min BUN/Creatinine Ratio 45.7 H (6-22) Glucose 125 H (80-110) mg/dL Lactate (0.7-2.1) mmol/L Calcium 9.6 (8.4-10.2) mg/dL Troponin I 0.015 (0.01-0.034) ng/mL Procalcitonin 0.13 (<0.5) ng/mL Urine Color Urine Appearance Urine pH (4.5-8.0) Ur Specific [place] (1.000-1.035) Urine Protein (Negative) Urine Glucose (UA) (Negative) g/dL Urine Ketones (NEGATIVE) Urine Occult Blood (Negative) Urine Nitrate (Negative) Urine Bilirubin (NEGATIVE) Urine Urobilinogen (0.2) E.U./dL Ur Leukocyte Esterase (NEGATIVE) Urine RBC (0-5/HPF) Urine WBC (0-5/HPF) Ur Squamous Epith Cells Urine Bacteria (None) Hyaline Casts (None) Ur Culture Indicated? 01/19/19 01/19/19 Range/Units 13:08 13:30 WBC (4.5-11.0) X10^3/uL RBC (4.5-5.9) X10^6/uL Hgb (13.5-17.5) g/dL Hct (41-53) % MCV (80-100) fL MCH (26-34) PG MCHC (30-36) % RDW (11.6-14.8) % Plt Count (150-400) X10^3/uL Neut % (Auto) (50-75) % Lymph % (Auto) (25-40) % [place] % (Auto) (3-14) % Eos % (Auto) (2-4) % Baso % (Auto) (0-2) % Neut # (Auto) (0013-1995) /uL Lymph # (Auto) (3208-9841) /uL [place] # (Auto) (0-900) /uL Eos # (Auto) (0-450) /uL Baso # (Auto) (0-100) /uL Sodium (137-145) mmol/L Potassium (3.4-5.1) mmol/L Chloride (98-107) mmol/L Carbon Dioxide (22-32) mmol/L BUN (9-20) mg/dL Creatinine (0.66-1.25) mg/dL Estimated GFR (>60) mL/min BUN/Creatinine Ratio (6-22) Glucose (80-110) mg/dL Lactate 1.1 (0.7-2.1) mmol/L Calcium (8.4-10.2) mg/dL Troponin I (0.01-0.034) ng/mL Procalcitonin (<0.5) ng/mL Urine Color Yellow Urine Appearance Sl cloudy Urine pH 5.0 (4.5-8.0) Ur Specific [place] 1.025 (1.000-1.035) Urine Protein Negative (Negative) Urine Glucose (UA) Negative (Negative) g/dL Urine Ketones Negative (NEGATIVE) Urine Occult Blood 1+ H (Negative) Urine Nitrate Negative (Negative) Urine Bilirubin Negative (NEGATIVE) Urine Urobilinogen 0.2 (0.2) E.U./dL Ur Leukocyte Esterase Negative (NEGATIVE) Urine RBC 0-1/hpf (0-5/HPF) Urine WBC 0-1/hpf (0-5/HPF) Ur Squamous Epith Cells 0-1 /hpf Urine Bacteria Occasional (0-1) (None) Hyaline Casts 30-100/lpf (None) Ur Culture Indicated? Cult not indicated Discharge Plan Departure Patient Disposition: Admitted as Observation Clinical Impression: Weakness, Confusion Discharge Date/Time: 01/19/19 15:46 Interventions: ED Discharge Assessment Last Done: 01/19/19 15:46 Admit Date/Time: 01/20/19 10:33 Admit Provider: Jonathan Mancia <Roni Eckert MD - Last Filed: 01/21/19 02:41> Cosign ED Attending Cosdeonature Attestation: I was present in the ER at the time this patient's care. I was available for verbal consultation or to see the patient directly if requested. I agree with the assessment and management plan.
[2019-01-19 14:14] LABS: Appearance Urine UA SL CLOUDY; Bilirubin Urine UA NEGATIVE (NEGATIVE); Color Urine UA YELLOW; Glucose Urine UA NEGATIVE (Negative); Ketones Urine UA NEGATIVE (NEGATIVE); Leukocyte Esterase Urine UA NEGATIVE (NEGATIVE); Nitrite Urine UA NEGATIVE (Negative); Occult Blood Urine UA 1+ (Negative); Protein Urine UA NEGATIVE (Negative); Specific Gravity Urine UA 1.025 (1.000-1.035); Urobilinogen Urine UA 0.2 E.U./dL (0.2)
--- NOTE | 2019-01-19 14:19 | ED_ITS ---
HPI - Weakness <BAKARI Acharya - Last Filed: 01/19/19 22:13> General Chief complaint: Weakness Stated complaint: NAUSEA/VOMITING/FALLING DOWN Time Seen by Provider: 01/19/19 12:03 Source: family Mode of arrival: wheelchair Limitations: no limitations History of Present Illness HPI Narrative: 68-year-old male with history of developmental delay and hypertension that is a nonsmoker brought in by family due to increased weakness over the past week to 2 weeks. Family states that he has been having difficulty ambulating over the past couple of days he has had multiple ground level falls over the past several days. They state that he was found out in the past her lying on the ground and was having difficulty getting up. They also report that he has had increased confusion over the past week as well. He is tolerating p.o. intake and fluids well. No known fevers. He was seen by his primary care provider today and was sent here for further evaluation of the weakness and confusion with hope of admission for further evaluation and referral for [facility] facility as family is having difficult time and caring for him at this timeframe. 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 He is not verbal with me at this time. He is awake and alert. Family states that his heart rate has been lower than normal as of recently and due to this they have not wanted to change much as far as blood pressure medications due to his heart rate. No known head injury he does have multiple contusions to his extremities from recent falls. No known discomfort. Related Data Home Medications Medication Instructions Recorded Confirmed brimonidine-timolol [Combigan] 1 drp OPHTHALMIC (EYE) DIRECTED 03/25/17 01/19/19 #0 amlodipine [Norvasc] 5 mg PO DAILY 01/19/19 01/19/19 lisinopril 40 mg PO DAILY 01/19/19 01/19/19 Previous Rx's Medication Instructions Recorded [Men's Depends] See Rx Instructions .ROUTE BID #60 10/02/18 Allergies Allergy/AdvReac Type Severity Reaction Status Date / Time codeine [CODEINE] Allergy Mild n/v Verified 01/19/19 11:30 hydrocodone AdvReac Mild UPSET Verified 01/19/19 11:30 STOMACH Review of Systems <BAKARI Acharya - Last Filed: 01/19/19 22:13> Constitutional Denies fatigue and Reports weakness Eyes Denies change in vision, Denies eye discharge and Denies irritation ENT Ears, Nose, Mouth, and Throat: Denies change in voice, Denies neck pain and Denies sore throat Cardiovascular Denies dyspnea and Denies dyspnea on exertion Comments: Low heart rate Respiratory Denies cough, Denies dyspnea, Denies dyspnea on exertion and Denies wheezing Gastrointestinal Gastrointestinal: Denies abdominal pain, Denies change in bowel habits, Denies diarrhea, Denies nausea and Denies vomiting Genitourinary Denies hematuria, Denies flank pain, Denies urinary incontinence and Denies u rinary urgency Musculoskeletal Denies neck pain Integumentary/Breasts Denies pruritus, Denies erythema, Denies rash and Denies wounds Neurologic Denies confusion and Reports weakness Comments: Increased confusion Psychiatric Denies anxiety, Denies confusion, Denies depression, Denies homicidal ideation and Denies suicidal ideation Endocrine Denies fatigue and Denies flushing Hematologic/Lymphatic Denies easy bruising Allergic/Immunologic Denies wheezing PFSH <BAKARI Acharya - Last Filed: 01/19/19 22:13> Medical History Diverticulosis (Acute) Obstipation (Acute) Schatzki's ring of distal esophagus (Acute) Developmental disability (Chronic) Glaucoma (Chronic) Hypertension (Chronic) Partial blindness (Chronic) Surgical History History of colonoscopy (Acute) History of esophagogastroduodenoscopy (EGD) (Acute) Status post hernia repair (12/2015) Family History Father Hypertension Heart disease Mother No problems noted. Social History household members: family Smoking Status: Never smoker alcohol intake: never Family History Father Hypertension Heart disease Mother No problems noted. Social History household members: family Smoking Status: Never smoker alcohol intake: never Exam <BAKARI Acharya - Last Filed: 01/19/19 22:13> Initial Vital Signs Initial Vital Signs: Vital Signs Temperature 96.8 F L 01/19/19 11:30 Pulse Rate 51 L 01/19/19 11:30 Respiratory Rate 16 01/19/19 11:30 Blood Pressure 110/53 L 01/19/19 11:30 Pulse Oximetry 100 01/19/19 11:30 Const General: frail appearing Orientation: alert, awake and not oriented x3 HENMT Mouth: oral mucosae normal and moist mucous membranes Eyes General: appearance normal, both eyes and all related structures Eyelids: eyelids normal Conjunctivae: conjunctivae normal Sclera: sclerae normal Pupils: dilated bilaterally and not reactive Neck Neck: normal visual inspection, trachea midline, No lymphadenopathy, No midline deformity and No JVD Lymphatic: No lymphedema Cardio Rate: bradycardic Rhythm: regular rhythm Heart Sounds: no click, no gallops, no murmurs and no rubs Pulses: normal peripheral pulses GI Inspection: non-distended Palpation: soft, no hepatosplenomegaly, No guarding, No pulsatile mass and No tender Auscultation: normal bowel sounds Skin General: no rashes or lesions noted, No jaundice and No petechiae Neuro General: alert, awake, not oriented x3 and unable to assess gait Cognition: abnormal cognition (Response to verbal stimuli. ) Motor: muscle tone normal throughout Sensory Exam: no sensory deficits noted Extrem General: full ROM, no clubbing, cyanosis or edema, no pedal edema and no calf tenderness Other: Distal sensation is intact to all extremities. Distal pulses are intact upper extremities. Distal cap refill is intact to lower extremities. Distal range of motion is intact lower extremities. Psych Speech and Movement: other <Roni Eckert MD - Last Filed: 01/21/19 02:41> Initial Vital Signs Initial Vital Signs: Vital Signs Temperature 96.8 F L 01/19/19 11:30 Pulse Rate 51 L 01/19/19 11:30 Respiratory Rate 16 01/19/19 11:30 Blood Pressure 110/53 L 01/19/19 11:30 Pulse Oximetry 100 01/19/19 11:30 Course <BAKARI Acharya - Last Filed: 01/19/19 22:13> Orders Ordered: ED Orders 01/21/19 05:00 Basic Metabolic Panel Routine Acetaminophen (Tylenol) 650 mg PO Q6HR PRN PRN Reason: As Needed for Fever/Mild Pain Amlodipine Besylate (Norvasc) 5 mg PO DAILY [facility] Last Admin: 01/20/19 10:17 Dose: 5 mg Enoxaparin Sodium (Lovenox) 40 mg SUBCUT DAILY [facility] Fluconazole (Diflucan) 400 mg PO DAILY [facility] Sodium Chloride (Normal Saline 0.9%) 1,000 mls @ 100 mls/hr IV CONT [facility] Last Infusion: 01/20/19 20:31 Dose: 0 mls/hr Admin: 01/20/19 13:19 Dose: 100 mls/hr Infusion: 01/20/19 02:19 Dose: 0 mls/hr Infusion: 01/19/19 18:00 Dose: 100 mls/hr Admin: 01/19/19 17:43 Dose: 150 mls/hr Infusion: 01/19/19 17:43 Dose: 150 mls/hr Infusion: 01/19/19 15:45 Dose: 150 mls/hr Admin: 01/19/19 13:10 Dose: 150 mls/hr Lisinopril (Zestril) 20 mg PO DAILY [facility] Last Admin: 01/20/19 10:17 Dose: 20 mg Magnesium Hydroxide (Milk Of Magnesia) 30 ml PO DAILY PRN PRN Reason: Constipation Discontinued Medications Carbidopa/Levodopa (Sinemet 10/100) 0.5 each PO TIDWM [facility] Last Admin: 01/20/19 13:17 Dose: Not Given Admin: 01/20/19 10:18 Dose: 0.5 each Admin: 01/19/19 19:57 Dose: 0.5 each Carbidopa/Levodopa (Sinemet 25-100 Tab) 0.5 each PO TIDWM [facility] Last Admin: 01/20/19 20:06 Dose: Not Given Fentanyl (Sublimaze) 50 mcg IV Q5MIN PRN PRN Reason: Pain, Moderate (4-6) Ondansetron HCl (Zofran) 4 mg IV NOW PRN PRN Reason: Nausea And Vomiting Polyethylene Glycol (Miralax) 17 gm PO NOW ONE Stop: 01/19/19 18:51 Last Admin: 01/19/19 19:57 Dose: 17 gm Sodium Biphosphate/Sodium Phosphate (Fleet Enema) 1 each MT NOW ONE Stop: 01/20/19 12:07 Last Admin: 01/20/19 13:19 Dose: 1 each Vital Signs - 8 hr 01/20/19 20:02 01/20/19 20:07 01/20/19 20:11 Temperature 98 F 98 F 98 F Pulse Rate 61 64 60 Respiratory Rate 22 17 15 Blood Pressure 84/38 L 76/42 L 83/40 L Pulse Oximetry 95 93 95 01/20/19 20:21 01/20/19 20:25 01/20/19 20:35 Temperature 98 F 98 F 97.1 F L Pulse Rate 58 L 62 61 Respiratory Rate 18 15 16 Blood Pressure 87/42 L 95/55 L 101/46 L Pulse Oximetry 94 94 93 01/20/19 21:08 01/20/19 21:46 01/20/19 22:35 Temperature 97.8 F 97.3 F L 97.5 F L Pulse Rate 60 61 62 Respiratory Rate 16 16 16 Blood Pressure 99/52 L 108/47 L 111/52 L Pulse Oximetry 97 98 98 01/20/19 23:35 Temperature 97.6 F Pulse Rate 67 Respiratory Rate 18 Blood Pressure 100/45 L Pulse Oximetry 97 <Roni Eckert MD - Last Filed: 01/21/19 02:41> Orders Ordered: ED Orders 01/21/19 05:00 Basic Metabolic Panel Routine Acetaminophen (Tylenol) 650 mg PO Q6HR PRN PRN Reason: As Needed for Fever/Mild Pain Amlodipine Besylate (Norvasc) 5 mg PO DAILY [facility] Last Admin: 01/20/19 10:17 Dose: 5 mg Enoxaparin Sodium (Lovenox) 40 mg SUBCUT DAILY [facility] Fluconazole (Diflucan) 400 mg PO DAILY [facility] Sodium Chloride (Normal Saline 0.9%) 1,000 mls @ 100 mls/hr IV CONT [facility] Last Infusion: 01/20/19 20:31 Dose: 0 mls/hr Admin: 01/20/19 13:19 Dose: 100 mls/hr Infusion: 01/20/19 02:19 Dose: 0 mls/hr Infusion: 01/19/19 18:00 Dose: 100 mls/hr Admin: 01/19/19 17:43 Dose: 150 mls/hr Infusion: 01/19/19 17:43 Dose: 150 mls/hr Infusion: 01/19/19 15:45 Dose: 150 mls/hr Admin: 01/19/19 13:10 Dose: 150 mls/hr Lisinopril (Zestril) 20 mg PO DAILY [facility] Last Admin: 01/20/19 10:17 Dose: 20 mg Magnesium Hydroxide (Milk Of Magnesia) 30 ml PO DAILY PRN PRN Reason: Constipation Discontinued Medications Carbidopa/Levodopa (Sinemet 10/100) 0.5 each PO TIDWM [facility] Last Admin: 01/20/19 13:17 Dose: Not Given Admin: 01/20/19 10:18 Dose: 0.5 each Admin: 01/19/19 19:57 Dose: 0.5 each Carbidopa/Levodopa (Sinemet 25-100 Tab) 0.5 each PO TIDWM [facility] Last Admin: 01/20/19 20:06 Dose: Not Given Fentanyl (Sublimaze) 50 mcg IV Q5MIN PRN PRN Reason: Pain, Moderate (4-6) Ondansetron HCl (Zofran) 4 mg IV NOW PRN PRN Reason: Nausea And Vomiting Polyethylene Glycol (Miralax) 17 gm PO NOW ONE Stop: 01/19/19 18:51 Last Admin: 01/19/19 19:57 Dose: 17 gm Sodium Biphosphate/Sodium Phosphate (Fleet Enema) 1 each MT NOW ONE Stop: 01/20/19 12:07 Last Admin: 01/20/19 13:19 Dose: 1 each Vital Signs - 8 hr 01/20/19 20:02 01/20/19 20:07 01/20/19 20:11 Temperature 98 F 98 F 98 F Pulse Rate 61 64 60 Respiratory Rate 22 17 15 Blood Pressure 84/38 L 76/42 L 83/40 L Pulse Oximetry 95 93 95 01/20/19 20:21 01/20/19 20:25 01/20/19 20:35 Temperature 98 F 98 F 97.1 F L Pulse Rate 58 L 62 61 Respiratory Rate 18 15 16 Blood Pressure 87/42 L 95/55 L 101/46 L Pulse Oximetry 94 94 93 01/20/19 21:08 01/20/19 21:46 01/20/19 22:35 Temperature 97.8 F 97.3 F L 97.5 F L Pulse Rate 60 61 62 Respiratory Rate 16 16 16 Blood Pressure 99/52 L 108/47 L 111/52 L Pulse Oximetry 97 98 98 01/20/19 23:35 Temperature 97.6 F Pulse Rate 67 Respiratory Rate 18 Blood Pressure 100/45 L Pulse Oximetry 97 [facility] - Weakness <BAKARI Acharya - Last Filed: 01/19/19 22:13> Lab Data Result diagrams: 01/19/19 11:50 01/19/19 11:50 Lab Results 01/19/19 01/19/19 01/19/19 Range/Units 11:50 11:50 12:46 WBC 9.5 (4.5-11.0) X10^3/uL RBC 3.55 L (4.5-5.9) X10^6/uL Hgb 11.0 L (13.5-17.5) g/dL Hct 33.1 L (41-53) % MCV 93.0 D (80-100) fL MCH 31.0 (26-34) PG MCHC 33.3 (30-36) % RDW 14.8 (11.6-14.8) % Plt Count 228 (150-400) X10^3/uL Neut % (Auto) 80.6 H (50-75) % Lymph % (Auto) 9.1 L (25-40) % Sandoval % (Auto) 9.8 (3-14) % Eos % (Auto) 0.3 L (2-4) % Baso % (Auto) 0.2 (0-2) % Neut # (Auto) 7600 H (0426-4468) /uL Lymph # (Auto) 900 L (8731-3879) /uL Sandoval # (Auto) 900 (0-900) /uL Eos # (Auto) 0 (0-450) /uL Baso # (Auto) 0 (0-100) /uL Sodium 130 L (137-145) mmol/L Potassium 5.4 H (3.4-5.1) mmol/L Chloride 97 L (98-107) mmol/L Carbon Dioxide 26 (22-32) mmol/L BUN 32 H (9-20) mg/dL Creatinine 0.70 (0.66-1.25) mg/dL Estimated GFR > 60.0 (>60) mL/min BUN/Creatinine Ratio 45.7 H (6-22) Glucose 125 H (80-110) mg/dL Lactate (0.7-2.1) mmol/L Calcium 9.6 (8.4-10.2) mg/dL Troponin I 0.015 (0.01-0.034) ng/mL Procalcitonin 0.13 (<0.5) ng/mL Urine Color Urine Appearance Urine pH (4.5-8.0) Ur Specific [place] (1.000-1.035) Urine Protein (Negative) Urine Glucose (UA) (Negative) g/dL Urine Ketones (NEGATIVE) Urine Occult Blood (Negative) Urine Nitrate (Negative) Urine Bilirubin (NEGATIVE) Urine Urobilinogen (0.2) E.U./dL Ur Leukocyte Esterase (NEGATIVE) Urine RBC (0-5/HPF) Urine WBC (0-5/HPF) Ur Squamous Epith Cells Urine Bacteria (None) Hyaline Casts (None) Ur Culture Indicated? 01/19/19 01/19/19 Range/Units 13:08 13:30 WBC (4.5-11.0) X10^3/uL RBC (4.5-5.9) X10^6/uL Hgb (13.5-17.5) g/dL Hct (41-53) % MCV (80-100) fL MCH (26-34) PG MCHC (30-36) % RDW (11.6-14.8) % Plt Count (150-400) X10^3/uL Neut % (Auto) (50-75) % Lymph % (Auto) (25-40) % Sandoval % (Auto) (3-14) % Eos % (Auto) (2-4) % Baso % (Auto) (0-2) % Neut # (Auto) (6267-9837) /uL Lymph # (Auto) (4209-2379) /uL Sandoval # (Auto) (0-900) /uL Eos # (Auto) (0-450) /uL Baso # (Auto) (0-100) /uL Sodium (137-145) mmol/L Potassium (3.4-5.1) mmol/L Chloride (98-107) mmol/L Carbon Dioxide (22-32) mmol/L BUN (9-20) mg/dL Creatinine (0.66-1.25) mg/dL Estimated GFR (>60) mL/min BUN/Creatinine Ratio (6-22) Glucose (80-110) mg/dL Lactate 1.1 (0.7-2.1) mmol/L Calcium (8.4-10.2) mg/dL Troponin I (0.01-0.034) ng/mL Procalcitonin (<0.5) ng/mL Urine Color Yellow Urine Appearance Sl cloudy Urine pH 5.0 (4.5-8.0) Ur Specific [place] 1.025 (1.000-1.035) Urine Protein Negative (Negative) Urine Glucose (UA) Negative (Negative) g/dL Urine Ketones Negative (NEGATIVE) Urine Occult Blood 1+ H (Negative) Urine Nitrate Negative (Negative) Urine Bilirubin Negative (NEGATIVE) Urine Urobilinogen 0.2 (0.2) E.U./dL Ur Leukocyte Esterase Negative (NEGATIVE) Urine RBC 0-1/hpf (0-5/HPF) Urine WBC 0-1/hpf (0-5/HPF) Ur Squamous Epith Cells 0-1 /hpf Urine Bacteria Occasional (0-1) (None) Hyaline Casts 30-100/lpf (None) Ur Culture Indicated? Cult not indicated Imaging Data CT scan - abdomen: Radiologist's impression: [place] [address] CT Scan Report Signed Patient: Bridger Rogers#: [id number] : 1950Acct:[id number] Age/Sex: 68 / MDate of Service: 01/19/19 Loc: ED Accession Number: [id number] Procedure: CT abdomen pelvis w con Ordering Provider: Abram Shore PROCEDURE: CT ABDOMEN PELVIS W CON INDICATIONS: Weakness and confusion TECHNIQUE: After the administration of intravenous contrast, 5 mm thick sections acquired from the diaphragm to the symphysis. 5 mm coronal and sagittal reformats were acquired. For radiation dose reduction, the following was used: automated exposure control, a djustment of mA and/or kV according to patient size. COMPARISON: [facility], CR, XR CHEST 1V, 10/02/2018, 14:37. [facility], CR, XR CHEST 1V, 01/19/2019, 11:59. FINDINGS: Image quality: Excellent. ABDOMEN: Lung bases: Lung bases are clear. Heart size is normal. Solid organs: Liver is normal in size and enhancement. Gallbladder appears normal. Biliary system is non dilated. Pancreas enhances normally. Spleen is normal in size and enhancement. No adrenal nodules on the left but there is a 2.3 x 3.4 cm benign- appearing right adrenal adenoma. Kidneys demonstrate normal size and enhancement, without hydronephrosis. Peritoneum and bowel: Bowel loops demonstrate normal wall thickness and caliber but there is relatively prominent colonic obstipation involving the right colon which appears elongated with the cecum directed cephalad towards the right diaphragm. On an old set of chest plain films this pattern was also present including in September 2018. No free fluid or air. Nodes and vessels: No retroperitoneal or mesenteric adenopathy by size criteria. Aorta and inferior vena cava are normal in size. Miscellaneous: No ventral hernias. PELVIS: Genitourinary: Bladder wall thickness is normal. Miscellaneous: No inguinal hernias or adenopathy. Bones: No suspicious bony lesions. No vertebral body compression fractures. IMPRESSION: Colonic obstipation. 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 Incidental note is made of a benign-appearing low density adrenal adenoma measuring up to 2.3 x 3.4 cm. Dictated by: Misael Simmons M.D. on 01/19/2019 at 13:25 Approved by: Misael Simmons M.D. on 01/19/2019 at 13:40 CT scan - head: Radiologist's impression: [place] [address] CT Scan Report Signed Patient: Bridger Rogers#: [id number] : 1950Acct:[id number] Age/Sex: 68 / MDate of Service: 01/19/19 Loc: ED Accession Number: [id number] Procedure: CT head/brain wo con Ordering Provider: Abram Sohre PROCEDURE: CT HEAD/BRAIN WO CON INDICATIONS: Weakness and increased confusion TECHNIQUE: Noncontrast 4.5 mm thick angled axial sections acquired from the foramen magnum to the vertex, with coronal and sagittal reformats. For radiation dose reduction, the following was used: automated exposure control, adjustment of mA and/or kV according to patient size. COMPARISON: None. FINDINGS: Image quality: Excellent. CSF spaces: Basal cisterns are patent. No extra-axial fluid collections. The ventricles are symmetric in shape. Ventricles are slightly prominent relative to sulci. Brain: No intracranial bleeds or masses. There is mild cerebral volume loss for age, with resultant ventricular and sulcal prominence. There are mild periventricular and deep white matter chronic small vessel ischemic changes. There is intracranial internal carotid artery atherosclerosis. Skull and face: Calvarium and visualized facial bones appear intact, without suspicious lesions. Multiple dental caries noted. Sinuses: Mild mucosal thickening noted in the left maxillary sinus. The mastoids are clear. IMPRESSION: 1. No acute intracranial disease process. 2. Mild ventriculomegaly which could be due to central volume loss versus normal pressure hydrocephalus. Please correlate with clinical findings. 3. A mild, diffuse cerebral unless. 4. Mild periventricular and subcortical white matter chronic microvascular ischemic changes. 5. Extensive dental disease. Dictated by: Janice Costello MD, PhD on 01/19/2019 at 12:55 Approved by: Janice Costello MD, PhD on 01/19/2019 at 13:00 ECG Data Interpretation: EKG shows sinus bradycardia no ST elevation or depression. No ectopy. Ventricular rate of 51. QRS duration of 109. QTC of 393. MDM Narrative Medical decision making narrative: CT scan of the abdomen shows findings of some a colonic obstipation with no signs of a blockage and no acute findings. Incidental findings of chronic lung a meza of the cecum extending up to the pre hepatic space.CT scan of the head was obtained and shows mild ventriculomegaly which could be due to central volume loss or or hydro megaly otherwise no other acute findings are found. Chest x-ray was negative for any acute findings. hip and pelvis x-ray was negative for any acute findings. CBC was negative for elevated white count. CBC does show anemia which is consistent with prior lab values. BMP shows hyponatremia and hyperkalemia of 5.4. Hyperkalemia is consistent with his prior lab values. EKG shows sinus bradycardia with no ST elevation or depression heart rate is consistent with a prior vital signs readings for for the last few months. troponin was obtained was negative. Procalcitonin was negative. Lactate was normal. Urinalysis was negative for urinary tract infection. Emergent causes of his symptoms are not found in the emergency room. Primary care provider desires admission for further care with hope of getting him into [facility] in the next few days. Family states that MRI is pending for head for further evaluation and discussion of possible neurology consult. patient is admitted to observation <Roni Eckert MD - Last Filed: 01/21/19 02:41> Lab Data Lab Results 01/19/19 01/19/19 01/19/19 Range/Units 11:50 11:50 12:46 WBC 9.5 (4.5-11.0) X10^3/uL RBC 3.55 L (4.5-5.9) X10^6/uL Hgb 11.0 L (13.5-17.5) g/dL Hct 33.1 L (41-53) % MCV 93.0 D (80-100) fL MCH 31.0 (26-34) PG MCHC 33.3 (30-36) % RDW 14.8 (11.6-14.8) % Plt Count 228 (150-400) X10^3/uL Neut % (Auto) 80.6 H (50-75) % Lymph % (Auto) 9.1 L (25-40) % Sandoval % (Auto) 9.8 (3-14) % Eos % (Auto) 0.3 L (2-4) % Baso % (Auto) 0.2 (0-2) % Neut # (Auto) 7600 H (3984-4805) /uL Lymph # (Auto) 900 L (1855-1333) /uL Sandoval # (Auto) 900 (0-900) /uL Eos # (Auto) 0 (0-450) /uL Baso # (Auto) 0 (0-100) /uL Sodium 130 L (137-145) mmol/L Potassium 5.4 H (3.4-5.1) mmol/L Chloride 97 L (98-107) mmol/L Carbon Dioxide 26 (22-32) mmol/L BUN 32 H (9-20) mg/dL Creatinine 0.70 (0.66-1.25) mg/dL Estimated GFR > 60.0 (>60) mL/min BUN/Creatinine Ratio 45.7 H (6-22) Glucose 125 H (80-110) mg/dL Lactate (0.7-2.1) mmol/L Calcium 9.6 (8.4-10.2) mg/dL Troponin I 0.015 (0.01-0.034) ng/mL Procalcitonin 0.13 (<0.5) ng/mL Urine Color Urine Appearance Urine pH (4.5-8.0) Ur Specific [place] (1.000-1.035) Urine Protein (Negative) Urine Glucose (UA) (Negative) g/dL Urine Ketones (NEGATIVE) Urine Occult Blood (Negative) Urine Nitrate (Negative) Urine Bilirubin (NEGATIVE) Urine Urobilinogen (0.2) E.U./dL Ur Leukocyte Esterase (NEGATIVE) Urine RBC (0-5/HPF) Urine WBC (0-5/HPF) Ur Squamous Epith Cells Urine Bacteria (None) Hyaline Casts (None) Ur Culture Indicated? 01/19/19 01/19/19 Range/Units 13:08 13:30 WBC (4.5-11.0) X10^3/uL RBC (4.5-5.9) X10^6/uL Hgb (13.5-17.5) g/dL Hct (41-53) % MCV (80-100) fL MCH (26-34) PG MCHC (30-36) % RDW (11.6-14.8) % Plt Count (150-400) X10^3/uL Neut % (Auto) (50-75) % Lymph % (Auto) (25-40) % Sandoval % (Auto) (3-14) % Eos % (Auto) (2-4) % Baso % (Auto) (0-2) % Neut # (Auto) (4151-5791) /uL Lymph # (Auto) (0371-3437) /uL Sandoval # (Auto) (0-900) /uL Eos # (Auto) (0-450) /uL Baso # (Auto) (0-100) /uL Sodium (137-145) mmol/L Potassium (3.4-5.1) mmol/L Chloride (98-107) mmol/L Carbon Dioxide (22-32) mmol/L BUN (9-20) mg/dL Creatinine (0.66-1.25) mg/dL Estimated GFR (>60) mL/min BUN/Creatinine Ratio (6-22) Glucose (80-110) mg/dL Lactate 1.1 (0.7-2.1) mmol/L Calcium (8.4-10.2) mg/dL Troponin I (0.01-0.034) ng/mL Procalcitonin (<0.5) ng/mL Urine Color Yellow Urine Appearance Sl cloudy Urine pH 5.0 (4.5-8.0) Ur Specific [place] 1.025 (1.000-1.035) Urine Protein Negative (Negative) Urine Glucose (UA) Negative (Negative) g/dL Urine Ketones Negative (NEGATIVE) Urine Occult Blood 1+ H (Negative) Urine Nitrate Negative (Negative) Urine Bilirubin Negative (NEGATIVE) Urine Urobilinogen 0.2 (0.2) E.U./dL Ur Leukocyte Esterase Negative (NEGATIVE) Urine RBC 0-1/hpf (0-5/HPF) Urine WBC 0-1/hpf (0-5/HPF) Ur Squamous Epith Cells 0-1 /hpf Urine Bacteria Occasional (0-1) (None) Hyaline Casts 30-100/lpf (None) Ur Culture Indicated? Cult not indicated Discharge Plan Departure Patient Disposition: Admitted as Observation Clinical Impression: Weakness, Confusion Discharge Date/Time: 01/19/19 15:46 Interventions: ED Discharge Assessment Last Done: 01/19/19 15:46 Admit Date/Time: 01/20/19 10:33 Admit Provider: Jonathan Mnacia <Roni Eckert MD - Last Filed: 01/21/19 02:41> Cosign ED Attending Cosignature Attestation: I was present in the ER at the time this patient's care. I was available for verbal consultation or to see the patient directly if requested. I agree with the assessment and management plan.
[2019-01-19 14:35] LABS: Bacteria Urine Occasional (0-1); Culture Indicated Urine Cult Not Indicated; Hyaline Casts Urine 30-100/LPF; RBC Urine 0-1/HPF (0-5/HPF); Squamous Epithelial Cell Urine 0-1 /HPF; WBC Urine 0-1/HPF (0-5/HPF)
[2019-01-19 15:28] VITALS: BP 125/41; PULSE 52; RESP 16; O2SAT 100
[2019-01-19 15:44] VITALS: BMI 28.2
[2019-01-19 16:27] VITALS: BP 130/42; PULSE 51; RESP 18; TEMP 36.6; O2SAT 100
--- NOTE | 2019-01-19 16:47 | PC.NURSE ---
Admit Pt is admitted to room 208, slide board to bed. Admission completed with assistance of sister who is primary caregiver. BA. Developmental delay, nearly blind. Multiple contusions to L side from increased falls. Shauna completed physical assessment.
--- NOTE | 2019-01-19 19:00 | PM.HP.1 ---
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 He has had multiple ground level falls over the past week. Also noted to have increase in confusion. Patient unable to give detailed history but noted to be in some discomfort and also pointing to his abdomen as area of discomfort. Noted to have contusion on the left hip and some swelling around left ankle. Evaluation in the ER noted sinus bradycardia with rate in the 30s to 50s on monitor. Labs looked okay except for mildly elevated BUN and potassium. Head CT with mild chronic microvascular disease, mild ventriculomegaly, extensive dental disease, without acute findings. Hip x-rays without fracture. Chest x-ray without acute cardiopulmonary disease. Abdomen and pelvic CT with contrast showed chronic elongation of the cecum with extension of cecum cephalad to the pre hepatic space and relatively prominent right-sided colonic obstipation. Patient History Medical History Developmental disability (Chronic) Glaucoma (Chronic) Hypertension (Chronic) Partial blindness (Chronic) Surgical History Status post hernia repair (12/2015) Family History Father Hypertension Heart disease Mother No problems noted. Social History household members: family Smoking Status: Never smoker alcohol intake: never Family & Social History Social History: household members family Safety & Behavioral: Feels Safe in Current Unwilling to Answer Environment Been Physically Hurt or Unwilling to Answer Threatened By a Person Suicide Plan Description No Plan Tobacco & Substance use: Smoking Status Never smoker alcohol intake never Meds Home Medications Medication Instructions Recorded Confirmed Type brimonidine-timolol [Combigan] 1 drp OPHTHALMIC (EYE) DIRECTED 03/25/17 01/19/19 History #0 [Men's Depends] See Rx Instructions .ROUTE BID #60 10/02/18 01/19/19 Rx amlodipine [Norvasc] 5 mg PO DAILY 01/19/19 01/19/19 History lisinopril 40 mg PO DAILY 01/19/19 01/19/19 History Allergies Allergy/AdvReac Type Severity Reaction Status Date / Time codeine [CODEINE] Allergy Mild n/v Verified 01/19/19 11:30 hydrocodone AdvReac Mild UPSET Verified 01/19/19 11:30 STOMACH Review of Systems Review of Systems All systems reviewed & are unremarkable except as noted in HPI and below Exam Vital Signs (past 8 hours): - 01/19/19 11:30 01/19/19 15:28 01/19/19 16:27 Temperature 96.8 F L 97.8 F Pulse Rate 51 L 52 L 51 L Respiratory Rate 16 16 18 Blood Pressure 110/53 L 130/42 L Blood Pressure [Right Arm] 125/41 L Pulse Oximetry 100 100 100 Oxygen Delivery Method Room Air Narrative Exam Narrative: GENERAL: Alert elderly male who appears in some discomfort HEAD: Atraumatic. Normocephalic. EYES: Pupils 4-5 mm equal, round. Extraocular motions intact. No scleral icterus. No injection or drainage. NECK: Trachea midline. No JVD or lymphadenopathy. CARDIOVASCULAR: Regular rhythm without murmurs, gallops, or rubs. RESPIRATORY: Clear to auscultation bilaterally. GASTROINTESTINAL: Abdomen with hypoactive bowel sounds, soft with mild superficial guarding, nonlocalized tenderness, no abdominal mass, no hepatosplenomegaly EXTREMITIES: Contusion noted on left hip, mild swelling of the left ankle without point tenderness or deformity NEUROLOGICAL: Patient in flexed posture and has extreme rigidity of all 4 extremities, noted also loss of facial features and some drooling typical of Parkinson's, no resting tremor but he does have bilateral tremor with attempted active extension of elbow SKIN: warm, dry, no rash Rectal: Enlarged prostate without nodule, no stool in rectum Objective Labs Result Diagrams: 01/19/19 11:50 01/19/19 11:50 Labs: Laboratory Results - last 24 hr 01/19/19 01/19/19 01/19/19 11:50 11:50 12:46 WBC 9.5 RBC 3.55 L Hgb 11.0 L Hct 33.1 L MCV 93.0 D MCH 31.0 MCHC 33.3 RDW 14.8 Plt Count 228 Neut % (Auto) 80.6 H Lymph % (Auto) 9.1 L [place] % (Auto) 9.8 Eos % (Auto) 0.3 L Baso % (Auto) 0.2 Neut # (Auto) 7600 H Lymph # (Auto) 900 L [place] # (Auto) 900 Eos # (Auto) 0 Baso # (Auto) 0 Sodium 130 L Potassium 5.4 H Chloride 97 L Carbon Dioxide 26 BUN 32 H Creatinine 0.70 Estimated GFR > 60.0 BUN/Creatinine Ratio 45.7 H Glucose 125 H Lactate Calcium 9.6 Troponin I 0.015 Procalcitonin 0.13 Urine Color Urine Appearance Urine pH Ur Specific [place] Urine Protein Urine Glucose (UA) Urine Ketones Urine Occult Blood Urine Nitrate Urine Bilirubin Urine Urobilinogen Ur Leukocyte Esterase Urine RBC Urine WBC Ur Squamous Epith Cells Urine Bacteria Hyaline Casts Ur Culture Indicated? 01/19/19 01/19/19 13:08 13:30 WBC RBC Hgb Hct MCV MCH MCHC RDW Plt Count Neut % (Auto) Lymph % (Auto) [place] % (Auto) Eos % (Auto) Baso % (Auto) Neut # (Auto) Lymph # (Auto) [place] # (Auto) Eos # (Auto) Baso # (Auto) Sodium Potassium Chloride Carbon Dioxide BUN Creatinine Estimated GFR BUN/Creatinine Ratio Glucose Lactate 1.1 Calcium Troponin I Procalcitonin Urine Color Yellow Urine Appearance Sl cloudy Urine pH 5.0 Ur Specific [place] 1.025 Urine Protein Negative Urine Glucose (UA) Negative Urine Ketones Negative Urine Occult Blood 1+ H Urine Nitrate Negative Urine Bilirubin Negative Urine Urobilinogen 0.2 Ur Leukocyte Esterase Negative Urine RBC 0-1/hpf Urine WBC 0-1/hpf Ur Squamous Epith Cells 0-1 /hpf Urine Bacteria Occasional (0-1) Hyaline Casts 30-100/lpf Ur Culture Indicated? Cult not indicated Assessment & Plan Assessment & Plan narrative: This is a 68-year-old male with developmental delay, legal blindness, hypertension brought in by family due to deterioration over past couple weeks with frequent falls and decrease in mental status. 1. Recurrent falls -patient has parkinsonian features with masked face, drooling, extreme rigidity of upper and lower extremities; cannot rule out small strokes not seen on CT; also has mild ventriculomegaly on head CT which could be cerebral volume loss versus NPH -obtain brain MRI -start Sinemet 1/2 tablet of 25/100 mg 3 times daily with meals and increase dose as tolerated -PT/OT consult -ST consult 2. Left hip contusion -no fracture on x-ray -Tylenol as needed for pain 3. Possible mild dehydration -note elevated BUN from baseline -provide hydration with normal saline 100 cc/hour 4. Hyperkalemia -serum K 5.4 on admit -decrease patient's lisinopril to 20 mg daily, provide IV hydration 5. Hypertension, controlled -continue amlodipine 5 mg daily but reduce lisinopril dose to 20 mg daily as noted above due to hyperkalemia 6. Possible right colonic obstipation -abdomen pelvic CT shows high riding in cecum with possible right-sided obstipation although this seems to be more of a chronic finding -ordered MiraLax 17 g x1 dose then reassess 7. Code status DNR Quality VTE Deep Vein Thrombosis/Pulmonary Embolism Present on Admission: No
[2019-01-19] MEDS: POLYETHYLENE GLYCOL 3350 17 GM POWD.PACK PO (19:57)
[2019-01-19] MEDS: CARBIDOPA-LEVODOPA 10/100 TABLET 0.5 EACH PO (19:57)
[2019-01-19 20:17] VITALS: BP 122/54; PULSE 57; RESP 18; TEMP 36.4; O2SAT 99
[2019-01-20] VITALS (18 sets, daily range): BP systolic 76–114; BP diastolic 38–64; PULSE 58–68; RESP 14–22; TEMP 36.1–36.6; O2SAT 93–98
--- NOTE | 2019-01-20 01:16 | PC.NURSE ---
2300- Pt admit for inc weakness/rigidity/falls @ home. Developmental delay present; upon assessment excessive drool found on pillow/bed. Pt repositioned, body remains rigid. Hernandez in place per MD order; jarret care complete. NS running into patent IV. VSS; tele on and in place. Pt unable to state needs at this time. 0100- Correct call light placed in pt's room (tactile squeeze call light).
[2019-01-20] MEDS: AMLODIPINE 5 MG TABLET PO (10:17)
[2019-01-20] MEDS: LISINOPRIL 20 MG TABLET PO (10:17)
[2019-01-20] MEDS: CARBIDOPA-LEVODOPA 10/100 TABLET 0.5 EACH PO (10:18)
--- NOTE | 2019-01-20 11:25 | PT.IIE ---
Surgical History (Last Reviewed 01/19/19 @ 14:14 by BAKARI Acharya) Status post hernia repair (12/2015) Medical History (Last Reviewed 01/19/19 @ 14:14 by BAKARI Acharya) Developmental disability (Chronic) Glaucoma (Chronic) Hypertension (Chronic) Partial blindness (Chronic) Physical Therapy Inpatient Evaluation/Re-Eval M1 PT/OT-IP Prior Functional Status Start: 01/20/19 12:30 Freq: NEEDED Status: Active Protocol: Document 01/20/19 11:25 AB (Rec: 01/20/19 12:50 AB [email or web address]) Medical Review Prior Functional Status Medical History Reviewed Yes Communication able to make needs known Mobility and Gait stated that he is modified independent with all mobilities and ambulation without AD Social History Household Members family Living Arrangements House Number of Stairs To Enter/Railing? no steps to enter Home Environment Standard Height Toilet Walk in Shower Additional Social History Comment has a recliner chair at home and stated that , that is where he usually stays. pt lives with his sister and [id number] M2 PT-IP Current Condition Start: 01/20/19 12:30 Freq: NEEDED Status: Active Protocol: Document 01/20/19 11:25 AB (Rec: 01/20/19 12:50 AB [email or web address]) Physical Therapy Current Condition Current Condition Evaluation Date 01/20/19 Treatment Diagnosis falls; tachycardia; difficulty in walking Onset Date 01/19/19 Precautions Other Precautions Falls; legally blind M3 PT-IP Subjective Start: 01/20/19 12:30 Freq: NEEDED Status: Active Protocol: Document 01/20/19 11:25 AB (Rec: 01/20/19 12:50 AB [email or web address]) Subjective Physical Therapy Visit Type Type Initial Evaluation Visit Start Time 11:25 Visit Stop Time 12:00 Total Visit Minutes 35 Number of CONTRACT ADMINISTRATION COORDINATOR Visits 0 Physical Therapy Visit Comments Patient Comments pt initially refusing to get up but agreed afterwards. M4 PT-IP Mobility and Gait Start: 01/20/19 12:30 Freq: NEEDED Status: Active Protocol: Document 01/20/19 11:25 AB (Rec: 01/20/19 12:50 AB [email or web address]) PT-Bed Mobility Assessment Supine to Sit Supine to Sit Maximum Assistance 1 Person Assistance Head of Bed Elevated Bedrails PT-Transfer Assessment Sit to and From Stand Sit to and from Stand Maximum Assistance Use of Upper Extremities Equipment Transfer Assistive Device Front Wheeled Walker Orthotic/Prosthetic Devices or Brace: No Transfers Transfer Destination Chair Transfer Technique Stand Step Pivot Transfer Ability Level of Assist Maximum Assistance 2 Person Assistance Comments Mobility Comments pt with (+) overall body rigidity. required cues for upright posture. pt required assist with weight shifting to be able to advance BLE forward. PT-Balance Assessment Sitting Balance and Reactions Static Sitting Balance Ability Fair Dynamic Sitting Balance Ability Fair Standing Balance and Reactions Static Standing Balance Ability Poor Dynamic Standing Balance Ability Poor Device Used FWW M5 PT-IP Objective Assessments Start: 01/20/19 12:30 Freq: NEEDED Status: Active Protocol: Document 01/20/19 11:25 AB (Rec: 01/20/19 12:50 AB [id number]) Orientation Orientation/Cognition Level of Alertness Alert Orientation Name Age Birthday Month Date Year Day of Week Place Situation Safety Awareness Decreased Safety Awareness Memory Description Short Term Impaired Assisted Impaired Gross Range of Motion Lower Extremity ROM Assessment Bilaterally Impaired Impairments decrease B ankle DF/PF Strength Lower Extremity Strength Assessment Bilaterally Impaired Knee 3-/5 Muscle Tone Muscle Tone WNL Yes Comments Muscle Tone Comments (+) UE rigidity M6 PT-IP Treatment Start: 01/20/19 12:30 Freq: NEEDED Status: Active Protocol: Document 01/20/19 11:25 AB (Rec: 01/20/19 12:50 AB [email or web address]) Physical Therapy Treatment Education Education Provided Safety M7 PT-IP Assessment and Plan Start: 01/20/19 12:30 Freq: NEEDED Status: Active Protocol: Document 01/20/19 11:25 AB (Rec: 01/20/19 12:50 AB [email or web address]) PT Summary Assessment and Plan Potential Rehabilitation Potential Fair Summary Impairments Pain ROM Strength Balance Coordination Sensation Tone Cognition Bed Mobility Transfers Gait Activity Tolerance Assessment Summary pt requiring 2 person assist with mobility and will require SNF rehab at this time to imprve strength and functional independence. Goals Transfer Goal Minimal Assistance Front Wheeled Walker Gait Goal Minimal Assistance Gait Distance 100 Days to Meet Goals 5 Frequency of Treatment Frequency Of Treatment Once a Day Treatment Plan Physical Therapy Treatment Plan Bed Mobility Training Transfer Training Gait Training Therapeutic Exercise Balance Retraining Discharge Planning Hot or Cold Pack Neuromuscular Re-ed Coordination Retraining Manual Therapy Other Recommendations and Next Treatment ambulation Focus
--- NOTE | 2019-01-20 12:07 | OT.IP.EVAL ---
Past Medical History (Last Reviewed 01/19/19 @ 14:14 by BAKARI Acharya) Developmental disability (Chronic) Glaucoma (Chronic) Hypertension (Chronic) Partial blindness (Chronic) Surgical History (Last Reviewed 01/19/19 @ 14:14 by BAKARI Acharya) Status post hernia repair (12/2015) Occupational Therapy Inpatient Evaluation/Re-Eval M1 PT/OT-IP Prior Functional Status Start: 01/20/19 12:30 Freq: NEEDED Status: Active Protocol: Document 01/20/19 12:07 PJUte (Rec: 01/20/19 13:34 [facility] [email or web address]) Medical Review Prior Functional Status Medical History Reviewed Yes Communication able to make needs known Mobility and Gait Pt states he ambulated without a device, RN reports pt's sister confirms this Activities of Daily Living and IADL's Pt states he was independent with all self care and stood to shower. Social History Household Members family Living Arrangements House Number of Stairs To Enter/Railing? no steps to enter Home Environment Standard Height Toilet Walk in Shower Additional Social History Comment Pt has hx of developmental delay and lives with sister and brother in law on small farm in [place]. Pt has had gradual worsening of abdominal pain, N/V and multiple falls over last 1-2 weeks, and was found down outside by family. M2 OT-IP Current Condition Start: 01/20/19 13:05 Freq: Status: Active Protocol: Document 01/20/19 12:07 PJM (Rec: 01/20/19 13:34 [facility] [email or web address]) Occupational Therapy Current Condition Current Condition Evaluation Date 01/20/19 Treatment Diagnosis decreased self care,mobility, BUE function due to possible new dx Parkinsons Diagnosis Onset Date 01/19/19 Post Operative Precautions Other Precautions fall risk, NPO due to severe dysphagia M3 OT- IP Subjective and Pain Start: 01/20/19 13:05 Freq: Status: Active Protocol: Document 01/20/19 12:07 PJM (Rec: 01/20/19 13:34 [facility] [email or web address]) OT- Subjective Occupational Therapy Visit Type Type Initial Evaluation Visit Start Time 11:31 Visit Stop Time 12:07 Total Visit Minutes 36 Occupational Therapy Visit Comments Patient Comments Pt responds with 1 word answers to questions in very soft voice. Patient/Caregiver Goals non verbalized this session OT Pain Assessment Pain When Pain Assessed After Treatment Pain Present Pain Present Pain Reported FLACC Pain Scale Face Occasional grimace/frown Legs Uneasy, restless, tense Activity Arching, rigid, jerking Cry No cry (awake or asleep) Consolability Reassurable with touch FLACC Total 5 Location Abdomen Scale Used pt has generalized rigidity M4 OT- IP ADL's Start: 01/20/19 13:05 Freq: Status: Active Protocol: Document 01/20/19 12:07 PJ (Rec: 01/20/19 13:34 [facility] [email or web address]) OT [id number] General Evaluation Diet Level for Self-Feeding NPO at present Comments OT Self-Feeding Comments pt having difficulty managing own secretions, drooling when head forward and coughing if head too far back in chair OT ADL-Grooming General Evaluation Grooming Ability Maximum Assistance Areas Needing Assistance Face Washing Comments OT Grooming Comments pt can wipe mouth briefly with either hand with fair thoroughness OT ADL-Oral Care General Eval Oral Care Ability Maximum Assistance OT ADL-Dressing General Eval Upper Body Dressing Ability Total Assistance Lower Body Dressing Ability Total Assistance OT ADL-Toileting General Evaluation Toileting Ability Total Assistance Areas Needing Assistance Empty Catheter or Colostomy Comments OT Toileting Comments stephens in place OT ADL-Bathing Bathing Type Bathing Type Bed Bath General Evaluation Bathing Ability Total Assistance M5 OT- IP IADL's Start: 01/20/19 13:05 Freq: Status: Active Protocol: Document 01/20/19 12:07 PJM (Rec: 01/20/19 13:34 [facility] [email or web address]) OT-Instrumental Activities of Daily Living Deficits IADL Deficits Identified Deficits Home Safety Awareness Awareness of Need for Assistance at Home Decreased Awareness Home Safety Comments pt's sister and brother in law provide assist with all IADLS at home Medication Management Medication Management Caregiver Administers Money Management Money Management Caregiver Provides Assistance Meal Preparation Meal Preparation Caregiver Provides Assist Director And Professor Director And Professor Caregiver Provides Assist Driving Driving Caregiver Provides Assist M6 OT- IP Functional Cognition Start: 01/20/19 13:05 Freq: Status: Active Protocol: Document 01/20/19 12:07 PJM (Rec: 01/20/19 13:34 [facility] [email or web address]) Cognitive Factors Limiting Selfcare Function Cognitive Ability Level of Alertness Drowsy Patient Orientation Name Age Birthday Month Year Place Ability to Follow Commands Able to Follow One Step Commands with Increased Time Cognitive Comments Cognitive Assessment Comments Pt presents with significantly slowed speed of processing but does follow one step commands. Very flat affect with minimal verbalizations. 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 M7 OT- IP Mobility and Balance Start: 01/20/19 13:05 Freq: Status: Active Protocol: Document 01/20/19 12:07 PJM (Rec: 01/20/19 13:34 [facility] [email or web address]) OT- Bed Mobility Assessment Rolling Type of Rolling Roll to Left Level of Assistance Maximum Assistance 1 Person Assistance Head of Bed Elevated Bedrails Supine to Sit Supine to Sit Assist Maximum Assistance Scooting Scooting to Edge of Bed Maximum Assistance OT-Transfer Assessment Sit to and From Stand Sit to and from Stand Maximum Assistance 2 Person Assistance Transfers Transfer Ability Maximum Assistance 2 Person Assistance Technique Transfer Destination Bed Chair Transfer Technique Stand Step Pivot Devices Transfer Assistive Devices Gait Belt Front Wheeled Walker Comments Mobility Comments pt has difficulty coming to full stand OT- Gait Assessment Gait Gait Assistance Required: Maximum Assistance 2 Person Assist Distance (Feet) 2 Assistive Devices Assistive Device Gait Belt Front Wheeled Walker Comments Gait Ability Comments shuffling steps with decreased weight shifting OT- Balance Assessment Sitting Balance and Reactions Static Sitting Balance Ability Fair Dynamic Sitting Balance Ability Poor Standing Balance and Reactions Static Standing Balance Ability Poor Dynamic Standing Balance Ability Poor M8 OT- IP Objective Assessments Start: 01/20/19 13:05 Freq: Status: Active Protocol: Document 01/20/19 12:07 PJ (Rec: 01/20/19 13:34 [facility] [email or web address]) OT Gross Range of Motion Upper Extremity Range of Motion Assessment Left Impaired ROM Impairments Severe BUE rigidity interferes with all AROM in BUE, LUE appears worse than RUE today. R shldr scaption to ~70 degrees, L shldr scaption to about 45. Pt has difficulty achieving full elbow extension due to flexor tone/rigidity and is about -30 degrees from full active extension in BUE. Can achieve full passive elbow extension with stretching and tone inhibition techniques. Pt has mass grasp and release in B hands. OT Strength Upper Extremity Strength Shoulder B 3-/5 Elbow B 3/5 flex, 3-/5 ext Hand B 3/5 mass finger flex/ extension Hand Certified Registered Nurse Anesthetist Strength Hand Dominance Left OT- Coordination Assessment Comments Coordination Comments Gross and fine coordination impaired by severe BUE rigidity. Pt has difficulty with isolated finger movement due to rigidity. OT-Muscle Tone Assessment Muscle Tone WNL No Muscle Tone Location Bilateral Upper Extremity Type of Tone Rigidity Flexor Severity of Tone Severe Comments Muscle Tone Comments Pt resting in bed with elbows and hands fisted. OT Sensation Assessment Comments Summary Comments Pt appears to detect lt touch in BUE and startles easily. M9 OT- IP Assessment and Plan Start: 01/20/19 13:05 Freq: Status: Active Protocol: Document 01/20/19 12:07 PJM (Rec: 01/20/19 13:34 [facility] [id number]) OT Summary Assessment and Plan Potential Rehabilitation Potential Fair Analytic Complexity at Evaluation Low Summary OT Impairments Pain Range of Motion Strength Balance Coordination Tone Functional Cognition Functional Mobility Self-Feeding Grooming Dressing Toileting Bathing Toilet Transfers Shower Transfers Assessment Summary Low complexity OT assessment completed on this 68 yr old man with hx of developmental delay admitted with new dx of possible Parkinsons vs normopressure hydrocephalus and with abdominal pain. Pt is legally blind at baseline from glaucoma. He is alert, but drowsy, and able to state name, place, month, year, date and age. He does follow one step commands with increased time. Pt presents with severe rigidity of all limbs with BUE's resting with elbows flexed and hands fisted with decreased AROM noted as described above. Pt currently requires max assist of 2 for all bed mobility and stand step transfer to chair. He is NPO due to inability to manage his own secretions and severe dysphagia. He is total assist with all self care at present due to decreased BUE function and rigidity. Pt is far below his recent baseline level of function. Recommend SNF at d/c for further rehab services and pt not safe to return home at present due to high care needs. Goals Grooming Goal Minimal Assistance Dressing Goal Moderate Assistance Toilet Transfer Goal Moderate Assistance Bedside Commode Days to Meet Goals 7 Frequency of Treatment Frequency Of Treatment Once a Day Treatment Plan OT Treatment Plan ADL Training Functional Cognition Training Functional Mobility Therapeutic Exercises Patient/Family Education Discharge Planning Discharge Recommendations OT Discharge Recommendations SNF Rehab Home Equipment Needs to be determined in next rehab setting
--- NOTE | 2019-01-20 12:24 | ST.IPIE ---
Care Team Visit Care Team Role Provider Type Cecelia Ortega DO Primary Care Provider Physician Specialty: Family Practice Address: [address] [place] [address], [id number] Email: [email or web address] BAKARI Acharya Emergency Provider Advanced Workforce Development Specialist Specialty: Emergency Medicine Address: [address] [place] [address], [facility] Email: Jonathan Mancia MD Admit Provider Physician Attending Provider Specialty: Internal Medicine Address: [address] [place] [address], [id number] Email: Past Medical History (Last Reviewed 01/19/19 @ 14:14 by BAKARI Acharya) Developmental disability (Chronic Medical) Glaucoma (Chronic Medical) Hypertension (Chronic Medical) Partial blindness (Chronic Medical) ST IP Initial Evaulation Report SENIOR COMMISSIONS ANALYST Clinical Swallow Evaluation Start: 01/20/19 10:33 Freq: Status: Active Protocol: Document 01/20/19 10:34 MARTA (Rec: 01/20/19 10:34 MARTA [id number]) Clinical Swallow Evaluation Session Time Visit Start Time 09:50 Visit Stop Time 10:28 Total Visit Minutes [address] Mancia Reason for Referral Difficulty swallowing Setting Assessment Location Acute Care Visit Type Note Type Initial Evaluation Next Note Type Next Note Type Treatment Note Patient Information Identification Type Name ID Card History Patient is 68-year-old male with history of developmental delay, legally blind due to glaucoma, hypertension brought to ER by family due to progressive weakness over the past couple of weeks. He has had multiple ground level falls over the past week. Also noted to have increase in confusion. Head CT with mild chronic microvascular disease, mild ventriculomegaly, extensive dental disease, without acute findings. Hip x -rays without fracture. Chest x-ray without acute cardiopulmonary disease. Abdomen and pelvic CT with contrast showed chronic elongation of the cecum with extension of cecum cephalad to the pre hepatic space and relatively prominent right- sided colonic obstipation. MRI Head w/o contrast: No acute intracranial abnormalities; Cerebral volume loss and chronic microvascular ischemic changes; Ventricular dilation may be secondary to central atrophy or normal pressure hydrocephalus; Severely limited examination due to inability to perform the exam with a head coil. Subjective Observations Pt was lying in bed awake having just returned from MRI upon SENIOR COMMISSIONS ANALYST's arrival. He appropriately greeted the clinician and was oriented to person, place and month/year. He reported difficulty swallowing both during and prior to hospital admittance, stating he sometimes had choking. He was positioned upright in bed and agreeable to swallow evaluation. Throughout the evaluation, the pt did not initiate conversation but did vocalize per SENIOR COMMISSIONS ANALYST's instructions (saying ah and counting to 5 independently). Evaluation Liquids Trialed Ice Chips Thin [place] Honey Solids Trialed Puree Mechanical Soft Administration Type Tea Spoon Cup Single Sip Controlled Cup Sip Self-Feeding Oral Impairment Moderately Impaired Oral Phase Comments Oral Peripheral Exam limited d /t pt's difficulty following directions and seeing demonstrations. Pt has natural but poor dentition with many teeth broken or worn to or near gumline. Lingual ROM within normal limits, reduced strength and coordination. Hyolaryngeal elevation/ excursion reduced per palpation. Unable to visualize velum. Oral Phase: Slowed movements with delay in a/p propulsion and swallow trigger up to 8 sec, likely with spillage to pharynx prior to swallow onset ; less so with greater bulk (e .g., yogurt vs applesauce or liquid). Pt only minimally responsive to verbal and tactile cues to swallow. Limited mastication observed with diced fruit x1 trial. Adequate oral clearance. Pharyngeal Impairment Moderately Impaired Pharyngeal Phase Comments Immediate cough and/or throat clearing observed with thin liquid trials via tsp and single cup sips. Delayed throat clearing ice chip, NTL via tsp and cup, and applesauce, with occasional delayed cough noted. No overt s/sx of aspiration observed with trials of yogurt and HTL. Assessed intake of small pills administered one at a time in yogurt followed by additional single bites of yogurt. Mild throat clearing present following administration of last pill. Approx 2-3 minutes after final intake, the pt burped and then vomited. Unclear if pt vomited medication, but presumably he did. NPO status implemented. SENIOR COMMISSIONS ANALYST to follow up again this afternoon. Pt was informed of swallow exam results, NPO status and ST POC. He verbalized agreement. Findings Dysphagia Type Moderate oropharyngeal dysphagia. Rehabilitation Potential Fair Impressions Dysphagia secondary to reduced oral awareness, airway protection secondary and strength, coordination, and/or ROM of swallow musculature. Pt limited in ability to follow cues for safe swallow strategies at present but may be stimulable to training. Swallow safety is complicated by vomit response likely secondary to colonic obstipation. Recommend NPO status at this time for pt safety. SENIOR COMMISSIONS ANALYST to closely follow for re-evaluation with hopeful return to oral intake as pt's general status stabilizes. Diet Recommendations Liquids Order NPO Diet Order NPO Medication Recommendations Not Recommended by Mouth Treatment Plan Appropriate for Therapy Yes Therapy Recommendations Ongoing evaluation of swallow function/safety with return to oral intake with least restrictive diet when appropriate. Training of safe swallow strategies and swallow exercises as tolerated by pt. Dysphagia Goals 1. Pt will participate in ongoing evaluation of swallow function/safety with return to oral intake with least restrictive diet when appropriate. 2. Pt will perform safe swallow strategies with verbal /tactile prompts as needed to reduce risk of aspiration. 3. Pt will perform swallow exercises with verbal/tactile prompts as needed to improve swallow function and reduce risk of aspiration. SENIOR COMMISSIONS ANALYST Follow Up Daily over course of hospital stay
[2019-01-20] MEDS: SODIUM CHLORIDE 0.9% 1,000 ML 100 ML IV (13:19)
[2019-01-20] MEDS: FLEETS ENEMA 1 EACH PR (13:19)
--- NOTE | 2019-01-20 15:31 | SLP.IPNOTE ---
Talked with Nsg to determine if appropriate for re-evaluation of swallow this afternoon. No real change has been seen in the pt and family is not present for case history or consultation. The has access to suction if needed for secretion management. ST will follow up again tomorrow.
--- NOTE | 2019-01-20 15:47 | CM.DANOTE ---
DCP/Assessment: Reviewed chart. Patient is a 68yr old male admitted to [facility] with n/v and unsteady gait. PCP listed is Dr. Ortega. Primary payor 1)Medicare 2)Medicaid. DPOA is sister/Quin Perez # [phone]. Attempted to meet with patient today. Patient with h/o developmental delay, and legally blind. Spoke with RN whom reports that patient not at all at his baseline. Patient currently NPO because of failing swallow evaluation today. RN reports that patient resides with family, they are not currently at bedside. Family reports to nursing that patient has been falling throughout the week. Sister/Quin is primary caregiver. Notified RN that CM team would follow up with patient/family on 04-23-19. Unclear at this time if patient will need surgery evaluation for PEG tube or if he will regain ability to swallow. P: INSULATION TECHNICIAN to evaluate when family/DPOA at bedside or by telephone. ONIEL Weaver Discharge Planning/Care Management Advanced directive, confirm from FAMILY Start: 01/19/19 17:47 Freq: Q24H Status: Active Protocol: Document 01/19/19 17:47 KMH (Rec: 01/19/19 20:36 KMH [id number]) Advance Directive, confirm on record Time 17:00 Person contacted sister Copy received No CM Discharge Assessment Start: 01/20/19 15:32 Freq: Status: Active Protocol: Document 01/20/19 15:32 KJS (Rec: 01/20/19 15:47 KJS [id number]) Discharge Planning Assessment Assigned Oven Press Tender ONIEL Weaver Contact Information Quin Perez (sister) Advance Directives? Yes History Provided By Medical Record Has Patient been admitted in last 30 No days? Prior Living Arrangements House Household Members family Type of transporation used prior to Relies on Others admit Independent with ADL's Currently needs assist w/ADL's per RN Is patient alert and oriented? No: Develpmentaly delayed Caregiver for Another No Comment Pending outcome of hospitalization Discharge Plan [facility] Facility Review Status In Process Please Provide Date Initial DC 01/20/19 Assessment Was Performed Next Review Type Continued Stay Review
--- NOTE | 2019-01-20 19:27 | P.CONS_ITS ---
History of Present Illness Date Patient Seen: 01/20/19 Time Patient Seen: 19:24 Chief complaint: NAUSEA/VOMITING/FALLING DOWN Reason for consult: dysphagia Requesting provider: Jonathan Mancia Narrative: 68-year-old developmentally delayed male admitted within the last couple a days for dysphagia, vague abdominal pain, constipation, and frequent falling. He has undergone extensive evaluation including speech therapy, MRI of the brain, and CT scan of the abdomen /pelvis with no obvious etiology for his symptoms. Patient really cannot offer any further history although he does admit to some vague abdominal pain. Per speech pathology, however, he has been unable to swallow safely even with various maneuvers. He has been NPO throughou t the day and has been sitting upright drooling. He has been unable to handle his own secretions as well. I have confirmed this with his attending nurse. Nonetheless patient denies any chest pain or shortness of breath. [facility] Medical History Diverticulosis (Acute) Obstipation (Acute) Schatzki's ring of distal esophagus (Acute) Developmental disability (Chronic) Glaucoma (Chronic) Hypertension (Chronic) Partial blindness (Chronic) Surgical History History of colonoscopy (Acute) History of esophagogastroduodenoscopy (EGD) (Acute) Status post hernia repair (12/2015) Family History Father Hypertension Heart disease Mother No problems noted. Social History household members: family Smoking Status: Never smoker alcohol intake: never Family History Father Hypertension Heart disease Mother No problems noted. Social History household members: family Smoking Status: Never smoker alcohol intake: never Comment: patient's medical [id number] and sinter press operator is his sister, Quin Wyatt Home Medications Medication Instructions Recorded Confirmed Type brimonidine-timolol [Combigan] 1 drp OPHTHALMIC (EYE) DIRECTED 03/25/17 01/19/19 History #0 [Men's Depends] See Rx Instructions .ROUTE BID #60 10/02/18 01/19/19 Rx amlodipine [Norvasc] 5 mg PO DAILY 01/19/19 01/19/19 History lisinopril 40 mg PO DAILY 01/19/19 01/19/19 History Allergies Allergy/AdvReac Type Severity Reaction Status Date / Time codeine [CODEINE] Allergy Mild n/v Verified 01/19/19 11:30 hydrocodone AdvReac Mild UPSET Verified 01/19/19 11:30 STOMACH Review of Systems Review of Systems unobtainable due to mental condition Exam Vital Signs (past 8 hours): - 01/20/19 12:23 01/20/19 15:39 Temperature 97.4 F L 96.9 F L Pulse Rate 58 L 61 Respiratory Rate 16 14 Blood Pressure 114/57 L 112/49 L Pulse Oximetry 96 97 Oxygen Delivery Method Room Air Oxygen Flow Rate 0 Narrative Exam Narrative: relatively thin male sitting upright in bed in no acute distress but he does appear uncomfortable. he is alert and able to answer my questions. No stridor. No wheezes. No hoarseness. He does point to the upper part of his chest near the sternal notch where he is complaining of some pain. Neck is supple however without lymphadenopathy or masses. Trachea is midline. No subcutaneous emphysema. No supraclavicular lymphadenopathy chest clear to auscultation abdomen is soft and nondistended. He is not tympanitic. He does not really demonstrate any tenderness on examination. No masses. extremities show no clubbing or cyanosis Objective Labs Result Diagrams: 01/19/19 11:50 01/19/19 11:50 Labs: I have personally reviewed his MRI of the brain, bilateral hip x-rays obtained after his recent fall, previous endoscopy notes from September 2018, and CT scan of the abdomen and pelvis this admission. All findings are as above. Assessment & Plan Assessment & Plan narrative: 68-year-old male with dysphagia and vague abdominal pain which potentially appears to be retrosternal pain although the patient is obviously not a reliable historian. His sister does give a history regarding the patient's eating habits where he does not chew his food thoroughly and will occasion have difficulty swallowing. However, he has no history of esophageal food impaction. Nonetheless the patient is unable to tolerate his own secretions this evening and he has no clear etiology for his dysphagia. Given the above history and known distal esophageal stricture there is a distinct possibility of esophageal food impaction. I believe it is imperative to evaluate for such this evening. Fortunately he has no evidence of airway compromise at this time. No evidence clinically of esophageal or gastric perforation. I recommended to the patient and his sister EGD this evening under anesthesia. Technical details were discussed. She understands he requires general anesthesia given his other comorbid medical conditions including developmental delay. In addition, he may require prolonged endoscopy procedure for removal of foreign body impaction which require general anesthesia as well. Risks, benefits, alternatives to the endoscopy were explained. Risks including but not limited to anesthesia, bleeding, aspiration, infection, pain, nondiagnostic study, need for dilatation, esophageal perforation, gastric perforation, duodenal perforation, recurrent stricture, need for major thoracic surgery, need for major abdominal surgery, and all attendant risks of major surgery were discussed with her at length over the telephone. She was unable to return to the hospital this evening. She also understands I may find an esophageal foreign body but be unable to remove it successfully under which circumstances he would require transfer to a tertiary level center with more advanced gastroenterology services. She understands these services are not available [facility]. All questions were answered to her satisfaction, and she voiced understanding. She wished to proceed on behalf of her brother. Verbal consent was given to me via telephone as well as the evening charge nurse, Munira. we will proceed urgently this evening as above.
--- NOTE | 2019-01-20 19:32 | PC.NURSE ---
Addendum entered by Sandra Martinez R.N. 01/20/19 23:09: Pt returned to room, minimal findings, canidaesis on scope, Per Dr Thompson, adding diflucan. Lungs are dim, Spo2 RA mid to high 90's. IVF infusing. Updated Quin, sister, after return from PACU. Original Note: Pm shift Pt remains strict NPO, denies pain. Able to answer simple yes and no questions. Not able to fully make needs known. Delay to speech, but compared to this RN's admission of Pt 24 hours ago, improved mentation. Appears to continue with difficulty managing secretions. Excessive drool, cough noted. Held PO meds. Dr Thompson into see Pt [id number], call into sister Quin to obtain consent to scope and assess for retained fb to esophogus. Consent over the phone with ux architect Renee and Dr Thompson. Pt down to OR 1914.
--- NOTE | 2019-01-20 19:36 | PM.PREOP ---
Pre-operative Note Interval Note History & Physical reviewed/Exam performed by Physician: Yes Changes to H&P: No H&P completed within 30 days and has changed as indicated here:: Patient seen and examined this evening. History and physical examination/consult note placed on the chart. Obviously, there have been no changes within the last hour. Proceed with urgent EGD under anesthesia as planned.
--- NOTE | 2019-01-20 20:03 | PM.OP.1 ---
Operative Date/Time/Diagnoses Date of procedure: 01/20/19 Time of procedure: 20:03 Pre-op diagnosis: dysphagia Post-op diagnosis: other ( nonobstructing Schatzki's ring and esophageal candidiasis) Procedure & Clinicians Procedure: 1. Esophagogastroduodenoscopy Same procedure as scheduled: Yes Indications: 68-year-old developmentally delayed male who presented recently with inexplicable dysphagia, inability to swallow secretions, repeated falls, and vague upper abdominal pain of unclear etiology. Examination and evaluation were suggestive of possible esophageal foreign body impaction. Therefore urgent EGD was recommended. Surgeon: Kamlesh Thompson Click Yes if Unassisted: Yes Anesthesia Type: General Operative Notes Findings: 1. normal upper esophagus and upper esophageal sphincter 2. Evidence of esophageal candidiasis with associated esophagitis through the distal 3rd of the esophagus including the gastroesophageal junction 3. Schatzki's ring which was otherwise widely patent and only mildly inflamed. No dilatation was performed. 4. Minimal gastritis mostly at the antrum 5. hiatal hernia 6. Widely patent pylorus with normal duodenum 7. No evidence of esophageal foreign body or other pathology except as above Closure Type: not applicable Specimen(s): none sent Prosthetic devices, grafts, tissues, transplants, or devices: none Estimated Blood Loss (mL): 2 Blood products transfused: none Procedure in detail: after obtaining informed consent from the patient's medical fstma-fo-ynhashao and sister, Quin, the patient was brought to the endoscopy suite. He was attached all appropriate cardiopulmonary monitors per the Anesthesiology Service. He required general anesthesia for his multiple comorbid medical conditions as previously documented in consult note on the chart from earlier today. SCOAP time out was performed per standard protocol. After satisfactory induction of anesthesia bite block was inserted. Gastroscope was placed over the tongue to the oropharynx and the upper esophageal sphincter was easily intubated. Under direct visualization of the esophageal lumen the scope was advanced distally into the stomach which was insufflated easily with air. Retroflexed view was performed. Pylorus was visualized and easily intubated. Scope was advanced to the distal 2nd portion the duodenum. Scope was slowly withdrawn and the bowel was meticulously and circumferentially examined. Again, all findings are as above. Stomach was suctioned of as much air and fluid as possible. Scope was withdrawn back into the esophagus which was meticulously and circumferentially examined for its entire length. Again, findings are as above. Scope was withdrawn through the mouth and the procedure terminated. Bite block was removed. Anesthesia was reversed and patient extubated in the operating room. He was taken recovery in stable condition. Complications: none Condition: stable Disposition: PACU Plan for aftercare: 1. Return to regular floor for ongoing convalescence and management per Internal Medicine service 2. will begin Diflucan for esophagitis 3. Consider Gastrografin enema for his unrelated obstipation and to evaluate for potential sigmoid stricture secondary to prior diverticulitis
--- NOTE | 2019-01-20 20:23 | P.PN_ITS ---
Subjective Date Patient Seen: 01/20/19 Interval history: This is a 68-year-old male with developmental delay, legal blindness, hypertension brought in by family due to deterioration over past couple weeks with frequent falls and decrease in mental status. Noted to have severe dysphagia and unable to manage secretions. Patient had a consult with Dr. Thompson who performed EGD which showed evidence of esophageal candidiasis with associated esophagitis through distal 3rd of esophagus including GE junction, patent Schatzki ring Exam Vital Signs (past 8 hours): - 01/20/19 12:23 01/20/19 15:39 01/20/19 20:02 Temperature 97.4 F L 96.9 F L 98 F Pulse Rate 58 L 61 61 Respiratory Rate 16 14 22 Blood Pressure 114/57 L 112/49 L 84/38 L Pulse Oximetry 96 97 95 01/20/19 20:07 01/20/19 20:11 Temperature 98 F 98 F Pulse Rate 64 60 Respiratory Rate 17 15 Blood Pressure 76/42 L 83/40 L Pulse Oximetry 93 95 Oxygen Delivery Method Nasal Cannula Oxygen Flow Rate 2 Narrative Exam Narrative: General: Alert but clearly uncomfortable male spitting up his secretions Lungs: Clear to auscultate Heart: Regular rate Abdomen: Generally tender with superficial guarding Extremities: No edema Objective Labs Result Diagrams: 01/19/19 11:50 01/19/19 11:50 Assessment & Plan Assessment & Plan narrative: This is a 68-year-old male with developmental delay, legal blindness, hypertension brought in by family due to acute deterioration over past couple weeks with frequent falls and decrease in mental status. Noted to have severe dysphagia and unable to manage secretions. Noted to have abdominal pain and tenderness on exam. 1. Esophageal candidiasis with distal 3rd esophagitis -EGD 01/20/[address] Thompson -this is likely a big contributor to patient's dysphagia and clinical decline over the past 2 weeks -patient previously had EGD on 10/02/2018 for anemia evaluation and had dilation of Schatzki ring which appears to be widely patent on current EGD -started Diflucan IV for esophageal candidiasis 2. Severe dysphagia -likely due to esophageal Jaclyn -NPO due to aspiration risk -maintain IV hydration -continue daily speech therapy evaluation 3. Obstipation -abdomen pelvic CT showed high riding in cecum with possible right-sided obstipation although the right colon findings were noted on previous imaging -outpatient colonoscopy 10/02/2018 was done to evaluate anemia, showed extensive sigmoid diverticulosis with stricture ring and tortuosity of the sigmoid, no colon lesions, entire colon examined -patient had medium bowel movement after fleets enema 01/20/2019 4. Recurrent ground level fall with left hip contusion -initial exam raised concern for possible undiagnosed Parkinson's due to patient's extreme rigidity and reported chest filling gait but on further thought his acute deterioration is more likely due to the GI issues, and diminished p.o. intake causing weakness, therefore discontinued prior order for Sinemet -no fracture on x-ray -continue PT and OT 5. Hyperkalemia -serum K 5.4 on admit -decreased patient's lisinopril to 20 mg daily, provide IV hydration 5. Hypertension, controlled -continue amlodipine 5 mg daily but reduce lisinopril dose to 20 mg daily as not ed above due to hyperkalemia -meds on hold due to NPO status Quality VTE Deep Vein Thrombosis/Pulmonary Embolism Present on Admission: No
[2019-01-21] VITALS (9 sets, daily range): BP systolic 88–114; BP diastolic 43–63; PULSE 70–77; RESP 15–20; TEMP 36.2–36.9; O2SAT 91–95
--- NOTE | 2019-01-21 | DI.RAD.S_ITS ---
PROCEDURE: XR ANKLE LT MIN 3V INDICATIONS: left ankle pain, edema after falling TECHNIQUE: 3 views of the ankle were acquired. COMPARISON: [facility], , ANKLE 3 VIEWS LEFT, 12/24/2017, 12:13. FINDINGS: Bones: No acute fractures or dislocations. Ankle mortise is normally aligned. Previously noted well-corticated ossicle along the lateral aspect of the tibial epiphysis is again compatible with the sequela of prior trauma, and is unchanged from comparison exam 12/24/17. Degenerative changes at the inferior aspect of the left medial malleolus are also similar to prior comparison exam. Soft tissues: No tibiotalar joint effusion. Calcaneal enthesopathy noted. Vascular calcifications are noted. IMPRESSION: No acute fracture or dislocation of the left ankle. Consider followup radiographs in 7-10 days if there is continued clinical concern. Dictated by: Aaron Rubio M.D. on 01/21/2019 at 9:56 Approved by: Aaron Rubio M.D. on 01/21/2019 at 10:09
--- NOTE | 2019-01-21 00:59 | PC.NURSE ---
2300- Pt lying on back w/ IV fluids running into patent IV. Able to tell me his first name, and stated that he had pain in his L foot. Applied foot cradle to bilat feet. Hernandez catheter patent & bag secured. Unable to turn himself; q2hr turns taking place. Pt seen by ENGINEERING EXECUTIVE today, NPO diet as they have not cleared this pt for safe swallowing. NO PO meds will be given thru the night. 0100- Pt turned to L side, L hip cushioned as pt has a lump on L hip from recent fall.
[2019-01-21 06:15] LABS: Blood Urea Nitrogen 18 mg/dL (9-20); Calcium 8.7 mg/dL (8.4-10.2); Carbon Dioxide 25 mmol/L (22-32); Chloride 101 mmol/L (98-107); Estimated Glomerular Filt Rate > 60.0 mL/min (>60); Glucose 61 mg/dL (80-110); HEMOLYSIS < 15 (0-50); Potassium 4.2 mmol/L (3.4-5.1); Sodium 132 mmol/L (137-145)
--- NOTE | 2019-01-21 09:25 | PM.PN.1 ---
Subjective Date Patient Seen: 01/21/19 Time Patient Seen: 09:25 Interval history: Patient complaining of left foot and ankle pain today. Unable to offer much more history than that. However, he seems to be denying chest pain, shortness of breath, or abdominal pain. Continues to have difficulties with dysphagia and remains NPO. Exam Vital Signs (past 8 hours): - 01/21/19 03:31 01/21/19 07:24 Temperature 97.8 F 98.4 F Pulse Rate 71 70 Respiratory Rate 19 16 Blood Pressure 114/54 L 109/46 L Pulse Oximetry 95 92 Oxygen Delivery Method Room Air Oxygen Flow Rate 0 Narrative Exam Narrative: He is lying in bed in no acute distress. Alert. Responds to my questions as above. Seems to be handling his secretions at the moment and not drooling at the time of my visit. No crackles or wheezes Abdomen soft and nondistended. He did have a bowel movement after enema therapy yesterday. Extremities show no clubbing. No cyanosis. However his left ankle is quite edematous and he is tender with passive range of motion. Dorsal pedis pulses palpable bilaterally. Able to wiggle his toes to command. No obvious deformity. Objective Labs Result Diagrams: 01/19/19 11:50 01/21/19 05:36 Labs: Laboratory Results - last 24 hr 01/21/19 05:36 Sodium 132 L Potassium 4.2 D Chloride 101 Carbon Dioxide 25 BUN 18 Creatinine 0.60 L Estimated GFR > 60.0 BUN/Creatinine Ratio 30.0 H Glucose 61 L Calcium 8.7 Assessment & Plan Assessment & Plan narrative: 68-year-old developmentally delayed male status post EGD last night with no evidence of esophageal food impaction but ongoing issues with dysphagia. I suspect he is having significant esophagitis from his Jaclyn infection which is making him quite hesitant to swallow. I doubt he has an obvious mechanical or neurologic issue for such. Because he is NPO we will convert to IV Diflucan. Order was written. Will also obtain left ankle x-rays in light of his recent fall. Small possibility of an occult fracture or dislocation. Hopefully he will respond to the above measures with regard to the esophagitis and be able to return to a diet eventually. He is a poor candidate for feeding tube placement such as a PEG as I believe he would be high risk of pulling the tube out. At this point I would recommend the above measures and wait and see. If he has issues with recurrent obstipation that I would continue enema therapy or even consider Gastrografin enema if he can cooperate with the exam. Orders were written. Case reviewed with the attending nurse. Quality VTE Deep Vein Thrombosis/Pulmonary Embolism Present on Admission: No
[2019-01-21] MEDS: FLUCONAZOLE 400 MG/200 ML PIGGYBACK 100 MG IV (10:19)
[2019-01-21] MEDS: ENOXAPARIN 40 MG/0.4 ML SYRINGE SUBCUT (10:28)
--- NOTE | 2019-01-21 12:15 | OT.IP.TRT ---
Current Diagnoses Dysphagia, unspecified (01/20/19) Surgery Performed Operation Date: 01/20/19 19:25 Actual Procedures p Esophagogastroduodenoscopy with Removal Foreign Body - Kamlesh Thompson MD Occupational Therapy Treatment Note M2 OT-IP Current Condition Start: 01/20/19 13:05 Freq: Status: Active Protocol: Document 01/20/19 12:07 PJM (Rec: 01/20/19 13:34 PJM [id number]) Occupational Therapy Current Condition Current Condition Evaluation Date 01/20/19 Treatment Diagnosis decreased self care,mobility, BUE function due to possible new dx Parkinsons Diagnosis Onset Date 01/19/19 Post Operative Precautions Other Precautions fall risk, NPO due to severe dysphagia M3 OT- IP Subjective and Pain Start: 01/20/19 13:05 Freq: Status: Active Protocol: Document 01/21/19 12:15 PJM (Rec: 01/21/19 16:31 PJM [id number]) OT- Subjective Occupational Therapy Visit Type Type Treatment Note Visit Start Time 11:50 Visit Stop Time 12:15 Total Visit Minutes 25 Notes Pt awake and alert in bed; agreeable to in bed tx but declines out of bed to chair as chair is too uncomfortable. Occupational Therapy Visit Comments Patient/Caregiver Goals none verbalized this session OT Pain Assessment Pain Present Pain Present Pain Reported Location Left Ankle Scale Used does not rate on pain scale, moves L ankle to command in bed M4 OT- IP ADL's Start: 01/20/19 13:05 Freq: Status: Active Protocol: Document 01/21/19 12:15 PJM (Rec: 01/21/19 16:31 PJ [email or web address]) OT WDL-Ghre-Gwkwmyj General Evaluation Diet Level for Self-Feeding NPO Comments OT Self-Feeding Comments pt continues to demonstrate frequent drooling when bed in chair position. Pt able to wipe mouth more thoroughly today using non dominant R hand better than L. Pt frequently dropping washcloth out of L hand. OT ADL-Grooming General Evaluation Grooming Ability Standby Assistance Areas Needing Assistance Face Washing Comments OT Grooming Comments after set up in bed with improved thoroughness today OT ADL-Dressing General Eval Upper Body Dressing Ability Total Assistance Lower Body Dressing Ability Total Assistance OT ADL-Toileting General Evaluation Toileting Ability Total Assistance Areas Needing Assistance Empty Catheter or Colostomy Devices Toileting Assistive Devices Bedpan OT ADL-Bathing Bathing Type Bathing Type Bed Bath General Evaluation Bathing Ability Total Assistance M5 OT- IP IADL's Start: 01/20/19 13:05 Freq: Status: Active Protocol: Document 01/20/19 12:07 PJ (Rec: 01/20/19 13:34 [facility] [email or web address]) OT-Instrumental Activities of Daily Living Deficits IADL Deficits Identified Deficits Home Safety Awareness Awareness of Need for Assistance at Home Decreased Awareness Home Safety Comments pt's sister and brother in law provide assist with all IADLS at home Medication Management Medication Management Caregiver Administers Money Management Money Management Caregiver Provides Assistance Meal Preparation Meal Preparation Caregiver Provides Assist Senior Sous Chef Senior Sous Chef Caregiver Provides Assist Driving Driving Caregiver Provides Assist M6 OT- IP Functional Cognition Start: 01/20/19 13:05 Freq: Status: Active Protocol: Document 01/21/19 12:15 PJ (Rec: 01/21/19 16:31 [facility] [id number]) Cognitive Factors Limiting Selfcare Function Cognitive Ability Level of Alertness Alert Patient Orientation Name Month Date Year Place Attention Span Ability Capable of Focused Attention Ability to Follow Commands Able to Follow One Step Commands with Increased Time Cognitive Comments Cognitive Assessment Comments Pt alert and oriented; speaking in longer phrases and sentences today in response to questions. Speed of processing faster today. Very flat affect persists. M7 OT- IP Mobility and Balance Start: 01/20/19 13:05 Freq: Status: Active Protocol: Document 01/20/19 12:07 PJ (Rec: 01/20/19 13:34 [facility] [email or web address]) OT- Bed Mobility Assessment Rolling Type of Rolling Roll to Left Level of Assistance Maximum Assistance 1 Person Assistance Head of Bed Elevated Bedrails Supine to Sit Supine to Sit Assist Maximum Assistance Scooting Scooting to Edge of Bed Maximum Assistance OT-Transfer Assessment Sit to and From Stand Sit to and from Stand Maximum Assistance 2 Person Assistance Transfers Transfer Ability Maximum Assistance 2 Person Assistance Technique Transfer Destination Bed Chair Transfer Technique Stand Step Pivot Devices Transfer Assistive Devices Gait Belt Front Wheeled Walker Comments Mobility Comments pt has difficulty coming to full stand OT- Gait Assessment Gait Gait Assistance Required: Maximum Assistance 2 Person Assist Distance (Feet) 2 Assistive Devices Assistive Device Gait Belt Front Wheeled Walker Comments Gait Ability Comments shuffling steps with decreased weight shifting OT- Balance Assessment Sitting Balance and Reactions Static Sitting Balance Ability Fair Dynamic Sitting Balance Ability Poor Standing Balance and Reactions Static Standing Balance Ability Poor Dynamic Standing Balance Ability Poor M8 OT- IP Objective Assessments Start: 01/20/19 13:05 Freq: Status: Active Protocol: Document 01/21/19 12:15 PJM (Rec: 01/21/19 16:31 [facility] [id number]) OT Gross Range of Motion Upper Extremity Range of Motion Assessment Left Impaired ROM Impairments R shoulder PROM has hard end feel at 90 degrees flexion and 70 degrees abduction. Distal PROM WFL except elbow extension ~-10 degrees from full extension and wrist ext/ flexion limited to ~20-30 degrees. L shoulder PROM has hard end feel at 100 degrees flexion and 80 degrees abduction. Distal PROM WFL except for wrist ext/flexion limited to about 30-45 degrees. Provided AROM/AAROM exercises x 3-5 reps for B shoulders, elbows, forearms, wrists and finger flexion/extension. Pt has LUE lag in all planes. OT Strength Upper Extremity Strength Assessment Left Impaired Shoulder R 4/5 L 3+/5 Elbow R flexion 4+/5, ext 4/5 L flexion 4-/5, ext 4-/5 Wrist R ext 4+/5 L ext 4-/5 Hand R 4-/5 L 3+/5 Comments Strength Comments further muscle testing completed today with LUE ( dominant) weaker than R OT- Coordination Assessment Comments Coordination Comments Pt frequently dropping washcloth out of L dominant hand and using R hand 50% of the time OT-Muscle Tone Assessment Muscle Tone Location Bilateral Upper Extremity Type of Tone Rigidity Flexor Severity of Tone Mild Comments Muscle Tone Comments Rigidity decreased today in BUE but pt still tends to rest with elbows/hands flexed on chest in bed OT Sensation Assessment Comments Summary Comments pt appears to detect lt touch in B hands and denies deficits M9 OT- IP Assessment and Plan Start: 01/20/19 13:05 Freq: Status: Active Protocol: Document 01/21/19 12:15 PJM (Rec: 01/21/19 16:31 [facility] [email or web address]) OT Summary Assessment and Plan Summary Progress Towards Goals Slow Progress due to Medical Issues Assessment Summary Pt more alert today with faster speed of processing and longer verbal responses today. Decreased BUE rigidity noted. LUE weakness and decreased L (dominant) hand function more noticeable today during BUE exercises and face washing. Pt declining out of bed due to too uncomfortable in chair, so worked with pt with bed in chair position. Pt will need SNF at d/c due to [facility] care needs. Goals Grooming Goal Minimal Assistance Dressing Goal Moderate Assistance Toilet Transfer Goal Moderate Assistance Bedside Commode Days to Meet Goals 7 Frequency of Treatment Frequency Of Treatment Once a Day Treatment Plan OT Treatment Plan ADL Training Functional Cognition Training Functional Mobility Therapeutic Exercises Patient/Family Education Discharge Planning Discharge Recommendations OT Discharge Recommendations SNF Rehab Home Equipment Needs to be determined in next rehab setting
--- NOTE | 2019-01-21 12:48 | PT.IPTN ---
Current Diagnoses Dysphagia, unspecified (01/20/19) Surgery Performed Operation Date: 01/20/19 19:25 Actual Procedures p Esophagogastroduodenoscopy with Removal Foreign Body - Kamlesh Thompson MD Physical Therapy Treatment Note M2 PT-IP Current Condition Start: 01/20/19 12:30 Freq: NEEDED Status: Active Protocol: Document 01/20/19 11:25 AB (Rec: 01/20/19 12:50 AB [email or web address]) Physical Therapy Current Condition Current Condition Evaluation Date 01/20/19 Treatment Diagnosis falls; tachycardia; difficulty in walking Onset Date 01/19/19 Precautions Other Precautions Falls; legally blind M3 PT-IP Subjective Start: 01/20/19 12:30 Freq: NEEDED Status: Active Protocol: Document 01/21/19 12:46 AB (Rec: 01/21/19 12:48 AB [id number]) Subjective Physical Therapy Visit Type Type Patient Refusal Notes pt refused PT. Pt does not want to get out of bed. offered to do even sitting on EOB and pt refused. asked pt if he wants PT to check back on him later and pt stated No .
[2019-01-21] MEDS: KETOROLAC 15 MG/ML VIAL IV (12:51)
[2019-01-21] MEDS: SODIUM CHLORIDE 0.9% 1,000 ML 100 ML IV ×2 (12:54→22:50)
--- NOTE | 2019-01-21 13:59 | CM.DPNOTE ---
Addendum entered by ONIEL Elizondo 01/22/19 14:43: DPOA is not dtr, it is pt's sister. Original Note: Reviewed chart. Therapy team recommending SNF at this time. Placed call to dtr/ROXANNE Tsai, explained role. She explained she would typically be at the hospital by now but it has been snowing since this morning and she will not drive in the snow. This ASBESTOS CLOTH INSPECTOR hopeful to complete a face to face w/Quin so will contact her in the AM to see if she will be visiting pt tomorrow. Following closely. STARLA
--- NOTE | 2019-01-21 14:37 | ST.IPDYTX ---
Care Team Visit Care Team Role Provider Type Cecelia Ortega DO Primary Care Provider Physician Specialty: Family Practice Address: [address] [place] [address], [id number] Email: [email or web address] Kamlesh Thompson MD Other Providers Physician Specialty: General Surgery Address: [address] [place] [id number] Email: [email or web address] Acharya Emergency Provider Advanced Raw Stock Machine Loader Specialty: Emergency Medicine Address: [address] [place] [address], [id number] Email: Jonathan Mancia MD Admit Provider Physician Attending Provider Specialty: Internal Medicine Address: [address] [place] [address] Email: WILD ANIMAL CARETAKER Dysphagia Treatment WILD ANIMAL CARETAKER Dysphagia Treatment Start: 01/20/19 10:33 Freq: Status: Active Protocol: Document 01/21/19 13:31 MARTA (Rec: 01/21/19 13:32 MARTA [email or web address]) Dysphagia Treatment Session Time Visit Start Time 12:33 Visit Stop Time 13:13 Total Visit Minutes 40 Setting Assessment Location Acute Care Visit Type Note Type Treatment Note Next Note Type Next Note Type Treatment Note Patient Information Subjective Observations Pt was awake lying in bed and listening to music. He was more conversant today than yesterday and restated information previously given to him from [facility] regarding his sister's concern about driving in the snow. He correctly recalled that she would call him later in the day. He denied nausea or stomach pain and was agreeable to dysphagia treatment. Treatment Liquids Trialed [place] Honey Solids Trialed Puree Administration Type Tea Spoon Cup Single Sip Controlled Cup Sip Self-Feeding Dependent Feeding Oral Strategies Upright at 90 degrees Double Swallow Controlled Bite/Sip Size Pharyngeal Strategies Sitting Upright (90 deg) Double Swallow Small Bites and Sips Additional Dysphagia Treatment Use of 1-2-3 swallow command Strategies with pureed textures Treatment Activities Assessed pt's swallow function /safety with trials of NTL, HTL, and applesauce. Pt able to self-feed from cup, required [id number] assistance with spoon feeding. Mild throat clearing observed 1x each with NTL and HTL, occurred after pt vocalized post-swallow. No other overt s /sx of aspiration were observed. Improved timing of swallow trigger with liquids today. Pt continues to hold applesauce and exhibit delayed trigger with suspected early flow to pharynx, increasing risk of aspiration. Pt was able to follow commands for 3-count swallow but unable to produce double swallow with verbal/ tactile commands. Consulted with Nsg and informed of diet recommendations and verbal prompts. Assessment Patient Response to Treatment Good Rehab Potential Good Assessment of Improvement Improved swallow trigger with trials of liquid with reduced s/sx of aspiration. Pt continues with slow oral prep and swallow trigger with pureed solids, likely resulting in premature spillage to pharynx while airway is open. He tolerated trials well, burping once but no emesis or c/o upset stomach . Recommend resuming oral intake with nectar-thick liquid diet only without straw, 1:1 supervision for single sips taken slowly. No solid diet recommended at this time. Oral meds okay in NTL or applesauce with 3-count verbal prompt (1-2-3 swallow) to reduce aspiration risk from early spillage to pharynx. Diet Recommendations Recommendations Upgrade Liquid Order Liquids Order [place] Diet Order NPO Medication Recommendations Whole in Carrier Comments Meds in NTL or applesauce w/ verbal cue 1-2-3 swallow Additional Dietary Needs Controlled Sips No Straws 1:1 Supervision Treatment Plan Placement Recommendation after Discharge Custodial Facility Appropriate for Continued Therapy Yes Therapy Recommendations Ongoing evaluation of swallow function/safety with return to oral intake with least restrictive diet when appropriate. Training of safe swallow strategies and swallow exercises as tolerated by pt. Dysphagia Goals 1. Pt will participate in ongoing evaluation of swallow function/safety with return to oral intake with least restrictive diet when appropriate. 2. Pt will perform safe swallow strategies with verbal /tactile prompts as needed to reduce risk of aspiration. 3. Pt will perform swallow exercises with verbal/tactile prompts as needed to improve swallow function and reduce risk of aspiration.
--- NOTE | 2019-01-21 21:48 | PM.PN.1 ---
Subjective Date Patient Seen: 01/21/19 Time Patient Seen: 21:48 Interval history: History of developmental delay, legal blindness, and hypertension. Presented for hospital admission due to decrease in mental status and overall deterioration of well being. Patient found to have dysphagia and difficulty managing secretions. Underwent EGD on 01/21 and was diagnosed with esophageal candidiasis through the distal 3rd of esophagus including GE junction, consequently he was started on IV Diflucan. Patient complained of left ankle pain, which was imaged and was negative for acute pathology. At time of patient evaluation he denied ankle pain. Patient's blood pressure has been suboptimal, he was NPO status and his antihypertensives have not been given. For the past 24 hr went into atrial fibrillation with controlled ventricular rate, this is believed to be of new onset. Patient is asymptomatic. Exam Vital Signs (past 8 hours): - 01/21/19 14:00 01/21/19 15:35 01/21/19 15:40 Temperature 98.1 F 98 F Pulse Rate 72 74 Respiratory Rate 15 18 Blood Pressure 88/43 L 101/55 L Pulse Oximetry 93 93 93 01/21/19 19:58 Temperature 97.1 F L Pulse Rate 77 Respiratory Rate 20 Blood Pressure 110/63 Pulse Oximetry 94 Oxygen Delivery Method Room Air Oxygen Flow Rate 0 Narrative Exam Narrative: Constitutional: no acute distress Lungs: CTA, no dyspnea or tachypnea Heart: irregularly irregular, no murmur Abdomen: non-tender, non-distended Extremities: no edema, post of distal extremities are diminished Objective Labs Result Diagrams: 01/22/19 06:00 01/22/19 06:00 Labs: Laboratory Results - last 24 hr 01/21/19 05:36 Sodium 132 L Potassium 4.2 D Chloride 101 Carbon Dioxide 25 BUN 18 Creatinine 0.60 L Estimated GFR > 60.0 BUN/Creatinine Ratio 30.0 H Glucose 61 L Calcium 8.7 Assessment & Plan Assessment & Plan narrative: Esophageal candidiasis with distal 3rd esophagitis, s/p EGD on 01/20/19 - Diflucan for esophageal candidiasis, continue IV formulation today and consider switching to p.o. on 01/22/2019 - Slowly advancing diet New onset atrial fibrillation with controlled ventricular rate Asymptomatic. - Echo in am - CBC, BMP, Mg, TSH in am - Continue IV fluids Left ankle pain, acute XR Ankle: No acute fracture or dislocation of the left ankle. Previously noted well-corticated ossicle along the lateral aspect of the tibial epiphysis is again compatible with the sequela of prior trauma, and is unchanged from comparison exam 12/24/17. Consider follow-up radiographs in 7-10 days if there is continued clinical concern. - complained of ankle pain earlier in the day; however, denied at time of evaluation. Also, no overt tenderness, deformity or edema of the left ankle with palpation; perfusion intact. - continue to monitor for recurrence, may need to consider follow-up radiographs in 7-10 days if continues to be of concern Obstipation Abdomen pelvic CT showed high riding in cecum with possible right-sided obstipation although the right colon findings were noted on previous imaging. Outpatient colonoscopy 10/02/2018 was done to evaluate anemia, showed extensive sigmoid diverticulosis with stricture ring and tortuosity of the sigmoid, no colon lesions, entire colon examined - Continue enema therapy, consider Gastrografin enema if continues to have recurrent issues with obstipation - Last BM 01/20/2019 Hypotension, acute, asymptomatic Periods of hypotension earlier in the day. History of underlying hypertension. 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 Patient has been NPO and has not been receiving any antihypertensive agents. - monitor BP trend - hold lisinopril and amlodipine at this time, re-evaluate daily and resume antihypertensive agents accordingly - continue IV fluids Hyperkalemia, potentially ACEi induced, now resolved Resolved with IV hydration. Also, patient has been off lisinopril for a number of days History of Schatzki Ring, non-obstructive per most recent EGD Quality VTE Deep Vein Thrombosis/Pulmonary Embolism Present on Admission: No
[2019-01-22] VITALS (14 sets, daily range): BP systolic 82–126; BP diastolic 39–76; PULSE 57–71; RESP 14–18; TEMP 35.6–36.8; O2SAT 91–95
--- NOTE | 2019-01-22 01:00 | PC.NURSE ---
2300- Pt remains in bed; NS running per orders. Stephens catheter in place draining pale yellow urine; q2hr turns & cleaning taking place. Pt's BP slightly low today--102/48 when checked at rest. Orthostatics unable to be completed as pt cannot stand/sit at this time. Tele in place, with afib on monitor; MD aware. [place] thick diet tolerated w/ evening shift. L ankle remains swollen; feet in foam support. 0200- Pt sipping thickened water thru the night w/o difficulty or coughing. 0530- Pt very constipated w/ hard impacted feces. Removed by this RN; pt cleaned and turned. 175 mL out of stephens catheter, dec urine production remains...will consult with hospitalist. Pt slightly hypotensive, see flowsheets for details. Asymptomatic w/ IV fluids running into patent IV.
--- NOTE | 2019-01-22 06:00 | DI.ECHO.S_ITS ---
[facility]---------+ [facility] +---------+ : : [address] : : : : [id number] : : : : Phone: [phone]+ Echocardiogram Report + + :Name: JOANNA STEPHENS Study Date: 01/23/2019 Height: 65 in : :[facility] Weight: 169 lb: : Gender: Male BSA: 1.8 m2 : :: 1950 Age: 68 yrs : :Reason For Study: Atrial fibrillation : : Performed By: Roberta Hayes : :Referring: PEDRO PAYNE : + + Interpretation Summary The ejection fraction is estimated to be 60-65%. Left ventricular wall motion is normal. The right ventricle grossly appears normal in size with probable normal systolic function. The left atrium is moderately dilated. There is mild to moderate mitral regurgitation. The aortic valve is moderately calcified. There is moderate aortic regurgitation. There is mild tricuspid regurgitation. The right ventricular systolic pressure is estimated to be at least 53 mmHg based on an estimated right atrial pressure of 15 mm Hg. Procedure: A two-dimensional transthoracic echocardiogram with color flow and Doppler was performed. The study quality was technically adequate. There is no prior echocardiogram noted for this patient. The patient was in normal sinus rhythm during the exam. Left Ventricle: The left ventricle is normal in size, wall thickness, and systolic function without any focal wall motion abnormalities. The ejection fraction is estimated to be 60-65%. Left ventricular wall motion is normal. Right Ventricle: The right ventricle grossly appears normal in size with probable normal systolic function. Atria: The left atrium is moderately dilated. The right atrium is mildly dilated. The interatrial septum is intact with no evidence for an atrial septal defect. Mitral Valve: The mitral valve leaflets appear mildly thickened, but open well. There is mild to moderate mitral regurgitation. Aortic Valve: The aortic valve is moderately calcified. The aortic valve opens well. There is no aortic valve stenosis. There is moderate aortic regurgitation. Tricuspid Valve: The tricuspid valve leaflets are thin and pliable. There is mild tricuspid regurgitation. The right ventricular systolic pressure is estimated to be at least 53 mmHg based on an estimated right atrial pressure of 15 mm Hg. Pulmonic Valve: The pulmonic valve is not well seen, but is grossly normal. There is mild pulmonic regurgitation. Great Vessels: The aortic root is normal size. The ascending aorta could not be visualized. The aortic arch is normal in size. The IVC is dilated (diameter is greater than 2.1 cm) and it collapses less than 50% with a sniff. This suggests a high right atrial pressure of 15 mm Hg. Pericardium/ Pleura There is no pericardial effusion. There is no pleural effusion. MMode/2D Measurements & Calculations LVIDd: 5.1 cm Ao root diam: 3.3 cm LVIDs: 3.0 cm Aortic Jxn: 2.5 cm FS: 41.6 % Ao Arch Diam (Prox Trans): 2.7 cm EPSS: 0.78 cm IVSd: 1.1 cm LVPWd: 0.98 cm LV terry. diameter/BSA (cm/m^2): 2.8 LV sys. diameter/BSA (cm/m^2): 1.6 LA dimension: 4.2 cm RA long axis: 5.4 cm LA A2 area: 24.7 cm2 RA area: 21.7 cm2 LA A4 area: 25.1 cm2 RA vol: 73.9 ml LA length (vol): 6.6 cm RA : 40.2 ml/m2 LA vol: 79.6 ml IVC diam: 2.4 cm LA vol index: 43.2 ml/m2 RVDd major: 6.3 cm RVD1 (basal): 4.2 cm RVD2 (mid): 4.3 cm AURE (plan): 2.2 cm2 Doppler Measurements & Calculations Ao V2 max: 147.7 cm/sec AI P1/2t: 387.5 msec Ao V2 mean: 91.7 cm/sec AI dec slope: 315.1 cm/sec2 Ao max P.7 mmHg Ao mean P.1 mmHg Ao V2 VTI: 32.0 cm MV E max chirag: 118.4 cm/sec TR max chirag: 307.6 cm/sec MV A max chirag: 33.0 cm/sec TR max P.9 mmHg MV E/A: 3.6 PA V2 max: 89.5 cm/sec Med Peak E' Chirag: 4.8 cm/sec PA V2 mean: 61.0 cm/sec E/E' med: 24.4 PA mean P.7 mmHg Lat Peak E' Chirag: 8.8 cm/sec PA Accel Time: 0.11 sec E/E' lat: 13.4 E/e' average: 18.9 MV dec time: 0.16 sec MV P1/2t: 46.4 msec MR ERO: 0.29 cm2 MV P1/2t max chirag: 118.6 cm/sec MR flow rate: 156.4 cm3/sec MVA(P1/2t): 4.7 cm2 MR PISA radius: 0.80 cm Reading Physician:05:22 PM
[2019-01-22 06:24] LABS: Add Manual Diff / Slide Review NO; Basophils Absolute Auto 0 /uL (0-100); Basophils Percent Auto 0.3 % (0-2); Eosinophils Absolute Auto 0 /uL (0-450); Eosinophils Percent Auto 0.5 % (2-4); Hemoglobin 9.4 g/dL (13.5-17.5); Lymphocytes Absolute Auto 800 /uL (1100-4500); Lymphocytes Percent Auto 12.7 % (25-40); Mean Corpuscular HGB Conc 33.8 % (30-36); Mean Corpuscular Hemoglobin 31.6 PG (26-34); Mean Corpuscular Volume 93.4 fL (80-100); Monocytes Absolute Auto 800 /uL (0-900); Monocytes Percent Auto 12.4 % (3-14); Neutrophils Absolute Auto 4600 /uL (1500-7000); Neutrophils Percent Auto 74.1 % (50-75); Platelet Count 160 X10^3/uL (150-400); Red Blood Cell Count 2.99 X10^6/uL (4.5-5.9); Red Cell Distribution Width 14.7 % (11.6-14.8); White Blood Cell Count 6.3 X10^3/uL (4.5-11.0)
[2019-01-22 06:33] LABS: BUN Creatinine Ratio 33.8 (6-22); Blood Urea Nitrogen 27 mg/dL (9-20); Calcium 8.4 mg/dL (8.4-10.2); Carbon Dioxide 25 mmol/L (22-32); Chloride 104 mmol/L (98-107); Estimated Glomerular Filt Rate > 60.0 mL/min (>60); Glucose 73 mg/dL (80-110); HEMOLYSIS < 15 (0-50); Magnesium 1.7 mg/dL (1.6-2.3); Potassium 4.3 mmol/L (3.4-5.1); Sodium 133 mmol/L (137-145)
--- NOTE | 2019-01-22 07:12 | PM.PN.1 ---
Subjective Date Patient Seen: 01/22/19 Interval history: Bridger Rogers is a 68-year-old male with developmental delay, legal blindness, hypertension brought in by family due to deterioration over past couple weeks with frequent falls and decrease in mental status. Noted to have severe dysphagia and unable to manage secretions. Patient had a consult with Dr. Thompson who performed EGD which showed evidence of esophageal candidiasis with associated esophagitis through distal 3rd of esophagus including GE junction, patent Schatzki ring. overnight: Patient went atrial fibrillation on 01/21/2019 at 0730 and spontaneously converted to sinus rhythm on 01/22/2019 at 0400. The patient is resting in bed comfortably. He complains of left heel pain which is boggy on exam and in offloading brace. He also states that he did not sleep well but does not provide a specific reason just states that a lot was going on. He is emotionally labile and appears scared. He states that his swallowing has improved. He denies headache, shortness of breath, chest pain, abdominal pain, nausea, vomiting, fever, chills, pain around Hernandez catheter, diarrhea or constipation. He is voiding via Hernandez catheter and eliminating without difficulty. He is tolerating slow advancement of his diet with guidelines per speech therapy for safe swallowing. 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 However, incidental finding of right benign appearing adrenal adenoma and concern for primary adrenal insufficiency, therefore, will check a.m. cortisol and ACTH and possibly proceed with ACTH stim test. Exam Vital Signs (past 8 hours): - 01/22/19 00:54 01/22/19 02:16 01/22/19 06:00 Temperature 98.2 F Pulse Rate 71 70 Respiratory Rate 16 16 Blood Pressure 108/51 L 99/53 L Pulse Oximetry 91 93 93 Oxygen Delivery Method Room Air Oxygen Flow Rate 0 Narrative Exam Narrative: General: Older gentleman sitting in bed and in no acute distress, well-developed, well-nourished, appears timid and scared, developmentally delayed. HEENT: Normocephalic, atraumatic. External ears without defect. Pupils equal, round, and reactive to light. Anicteric sclerae, moist conjunctivae, and no lid lag. Neck: Supple with full range of motion. No lymphadenopathy or thyromegaly. Cardiovascular: Regular rate and rhythm without murmurs, rubs, or gallops appreciated Pulmonary: Clear to auscultation bilaterally without crackles, wheezes, or rhonchi. Normal respiratory effort with no use of accessory muscles. Abdomen: Soft, bowel sounds present, nontender, nondistended. No hepatosplenomegaly or masses appreciated. Extremities: No clubbing or cyanosis. Left foot in offloading brace with boggy posterior heel and tender to touch. Skin: Normal temperature, turgor, and texture; no rash, ulcers, or subcutaneous nodules appreciated. Neurological: Cranial nerves grossly intact. Psychiatric: developmentally delayed, timid and scared, teary-eyed. Objective Labs Result Diagrams: 01/22/19 06:00 01/22/19 06:00 Labs: Laboratory Results - last 24 hr 01/22/19 01/22/19 06:00 06:00 WBC 6.3 RBC 2.99 L Hgb 9.4 L Hct 28.0 L MCV 93.4 MCH 31.6 MCHC 33.8 RDW 14.7 Plt Count 160 Neut % (Auto) 74.1 Lymph % (Auto) 12.7 L [place] % (Auto) 12.4 Eos % (Auto) 0.5 L Baso % (Auto) 0.3 Neut # (Auto) 4600 Lymph # (Auto) 800 L [place] # (Auto) 800 Eos # (Auto) 0 Baso # (Auto) 0 Sodium 133 L Potassium 4.3 Chloride 104 Carbon Dioxide 25 BUN 27 H Creatinine 0.80 Estimated GFR > 60.0 BUN/Creatinine Ratio 33.8 H Glucose 73 L Calcium 8.4 Magnesium 1.7 Assessment & Plan Assessment & Plan narrative: Bridger Rogers is a 68-year-old male with developmental delay, legal blindness, hypertension brought in by family due to deterioration over past couple weeks with frequent falls and decrease in mental status. Noted to have severe dysphagia and unable to manage secretions. Patient had a consult with Dr. Thompson who performed EGD which showed evidence of esophageal candidiasis with associated esophagitis through distal 3rd of esophagus including GE junction, patent Schatzki ring. 1. Esophageal candidiasis, with severe dysphagia, present on admission. Improving. -EGD 01/20/[address] Thompson demonstrated esophageal candidiasis with associated esophagitis through the distal 3rd of the esophagus including the gastroesophageal junction and minimal gastritis mostly at the antrum. This is likely a big contributor to patient's dysphagia and clinical decline over the past 2 weeks -Patient previously had EGD on 10/02/2018 for anemia evaluation and had dilation of Schatzki ring which appears to be widely patent on current EGD. -Continue Diflucan 400 mg daily oral suspension for 14-21 days to treat esophageal candidiasis. -Continue daily speech therapy evaluation and advance diet as tolerated and safely. 2. Hypotension, not present on admission. Active. -Likely secondary to hypovolemia and dehydration. However, there was incidental finding of right benign-appearing adrenal adenoma and possibility of adrenal insufficiency. Therefore will evaluate for adrenal insufficiency with a.m. cortisol and ACTH. Depending upon results may then proceed with ACTH stem test. 3. Obstipation , present on admission. Resolving. -Abdomen pelvic CT showed high riding in cecum with possible right-sided obstipation although the right colon findings were noted on previous imaging. -Outpatient colonoscopy 10/02/2018 was done to evaluate anemia, showed extensive sigmoid diverticulosis with stricture ring and tortuosity of the sigmoid, no colon lesions, entire colon examined -Patient had medium bowel movement after fleets enema 01/20/2019 and again on 01/22/2019. 4. Recurrent ground level fall with left hip contusion , present on admission. Stable. -Initial exam raised concern for possible undiagnosed Parkinson's due to patient's extreme rigidity and reported chest filling gait but on further thought his acute deterioration is more likely due to the GI issues, and diminished p.o. intake causing weakness, therefore, prior order for Sinemet was discontinued. Another possibility is symptomatic hypotension from adrenal insufficiency which is being assessed as above. -No fracture on x-ray of hip or foot. -Continue PT and OT 5. Hyperkalemia , present on admission. Resolved. -Serum K 5.4 on admit. Trended down to 4.3 today. -Continue IV fluid hydration with NS at 100 mL/hr. BP meds held as below. -There is possibility that his chronic hyperkalemia is related to adrenal insufficiency and see workup as above. 6. Hypertension, not present on admission. - Held blood pressure medications S patient has been hypotensive as above. Disposition: Likely to discharge in several days depending upon tolerated in of advancement in diet, continued bowel movements, and workup for adrenal insufficiency. Quality VTE Deep Vein Thrombosis/Pulmonary Embolism Present on Admission: No
[2019-01-22 07:19] LABS: Thyroid Stimulating Hormone 1.58 uIU/mL (0.47-4.68)
[2019-01-22] MEDS: SODIUM CHLORIDE 0.9% 500 ML 1000 ML IV ×2 (07:54→12:00)
--- NOTE | 2019-01-22 07:59 | P.PN_ITS ---
Subjective Date Patient Seen: 01/22/19 Time Patient Seen: 07:52 Interval history: patient states he is hungry and wishes to eat. Denies any pain with swallowing. No abdominal pain. However, he is concerned about his significant constipation. Per nursing notes he has evidence of fecal impaction which was manually removed last evening. He has responded to enema therapy within the last couple of days as well. No dysuria, but Hernandez catheter is in place currently. Patient denies any chest pain or shortness of breath. Exam Vital Signs (past 8 hours): - 01/22/19 00:54 01/22/19 02:16 01/22/19 06:00 Temperature 98.2 F Pulse Rate 71 70 Respiratory Rate 16 16 Blood Pressure 108/51 L 99/53 L Pulse Oximetry 91 93 93 Oxygen Delivery Method Room Air Oxygen Flow Rate 0 Narrative Exam Narrative: patient is sitting in bed in no acute distress. Alert. Appears less somnolent today. Speaking in mostly complete sentences today appropriately given his baseline functional status. He is not actively drooling at the moment. However, he does have some coarse rhonchi. He remains on swallowing precautions per speech therapy. Irregular rhythm Abdomen is soft, nondistended, nontender extremities show no clubbing or cyanosis Objective Labs Result Diagrams: 01/22/19 06:00 01/22/19 06:00 Labs: Laboratory Results - last 24 hr 01/22/19 01/22/19 01/22/19 06:00 06:00 06:00 WBC 6.3 RBC 2.99 L Hgb 9.4 L Hct 28.0 L MCV 93.4 MCH 31.6 MCHC 33.8 RDW 14.7 Plt Count 160 Neut % (Auto) 74.1 Lymph % (Auto) 12.7 L [place] % (Auto) 12.4 Eos % (Auto) 0.5 L Baso % (Auto) 0.3 Neut # (Auto) 4600 Lymph # (Auto) 800 L [place] # (Auto) 800 Eos # (Auto) 0 Baso # (Auto) 0 Sodium 133 L Potassium 4.3 Chloride 104 Carbon Dioxide 25 BUN 27 H Creatinine 0.80 Estimated GFR > 60.0 BUN/Creatinine Ratio 33.8 H Glucose 73 L Calcium 8.4 Magnesium 1.7 TSH 1.58 left ankle film yesterday showed no acute fracture or dislocation. I discussed this with the patient. Assessment & Plan Assessment & Plan narrative: 68-year-old developmentally delayed male with dysphagia and potential evidence of aspiration. Dysphagia is of unclear etiology although may be related to esophageal candidiasis for which he is now being treated. No evidence of stroke or other significant neurologic issue. Continue speech therapy with dietary modifications per their recommendation. Again, I anticipate that he will be able to recover swallowing function with therapy, and he remains relatively poor candidate for any type of gastrostomy tube. Obstipation remains an issue. However, this appears to be a chronic condition as well exacerbated by his hospitalization and lack of mobility. Difficult to administer an oral bowel regimen in light of his dysphagia. Therefore would recommend enema therapy and suppositories as needed. He may require Gastrografin enema to ensure that he does not have any type of stricture that would be clinically significant. However, he has no compelling evidence of such or any type of obstructing colon lesion. his colonoscopy of September 2018 showed no neoplasm. At this point he has no need for any further surgical intervention. His hypotension and initial electrolyte disturbances consisting of hyponatremia and hyperkalemia could be consistent with adrenal insufficiency now responding to normal saline boluses and infusion. At this point we will follow him peripherally, but we are happy to see him at any time should have any new issues. Quality VTE Deep Vein Thrombosis/Pulmonary Embolism Present on Admission: No
[2019-01-22] MEDS: DEXTROSE 5%-0.45% NS 1,000 ML 100 ML IV (08:12)
[2019-01-22] MEDS: ENOXAPARIN 40 MG/0.4 ML SYRINGE SUBCUT (09:06)
[2019-01-22] MEDS: ACETAMINOPHEN 325 MG TABLET 650 MG PO (09:06)
[2019-01-22] MEDS: MAGNESIUM SULFATE 2 GM/50 ML PIGGYBACK IV (09:08)
[2019-01-22] MEDS: FLUCONAZOLE 40 MG/ML SUSP 400 MG PO (10:37)
--- NOTE | 2019-01-22 11:32 | PT.IPTN ---
Current Diagnoses Dysphagia, unspecified (01/20/19) Surgery Performed Operation Date: 01/20/19 19:25 Actual Procedures p Esophagogastroduodenoscopy with Removal Foreign Body - Kamlesh Thompson MD Physical Therapy Treatment Note M2 PT-IP Current Condition Start: 01/20/19 12:30 Freq: NEEDED Status: Active Protocol: Document 01/20/19 11:25 AB (Rec: 01/20/19 12:50 AB [id number]) Physical Therapy Current Condition Current Condition Evaluation Date 01/20/19 Treatment Diagnosis falls; tachycardia; difficulty in walking Onset Date 01/19/19 Precautions Other Precautions Falls; legally blind M3 PT-IP Subjective Start: 01/20/19 12:30 Freq: NEEDED Status: Active Protocol: Document 01/22/19 10:45 HH (Rec: 01/22/19 11:32 HH [id number]) Subjective Physical Therapy Visit Type Type Treatment Note Visit Start Time 10:45 Visit Stop Time 11:15 Total Visit Minutes 30 Physical Therapy Visit Comments Patient Comments Pt agreeable to mobilize with PT. Therapy Pain Assessment Pain Present Pain Present Denied Pain M4 PT-IP Mobility and Gait Start: 01/20/19 12:30 Freq: NEEDED Status: Active Protocol: Document 01/22/19 10:45 HH (Rec: 01/22/19 11:32 HH [id number]) PT-Bed Mobility Assessment Supine to Sit Supine to Sit Moderate Assistance Head of Bed Elevated Bedrails Scooting Scooting to Edge of Bed Minimal Assistance PT-Transfer Assessment Sit to and From Stand Sit to and from Stand Moderate Assistance 1 Person Assistance Use of Upper Extremities Equipment Transfer Assistive Device Front Wheeled Walker Orthotic/Prosthetic Devices or Brace: No Transfers Transfer Destination Bed Chair Transfer Technique Stand Step Pivot Transfer Ability Level of Assist Moderate Assistance 2 Person Assistance Use of Upper Extremities Comments Mobility Comments pt cont present overall body rigidity L>R. required max cues for upright posture, guidance due to severe impaired vision. pt required assist with weight shifting to be able to advance BLE forward. Gait Assessment Gait Gait Assistance Required: Moderate Assistance 1 Person Assist Distance (Feet) 3 Able to Maintain Weight Bearing Status Yes During Gait Assistive Devices Assistive Device Front Wheeled Walker Gait Deviations General Gait Pattern Decreased Stride Length Decreased Feet Clearance Flexed Trunk Step-to Gait Factors Limiting Gait Function Factors Limiting Gait Function Abnormal Tonal Influences Decreased Activity Tolerance Decreased Sensation Decreased Strength Difficulty Following Directions Limited Range of Motion Pain Poor Balance Poor Safety Awareness Comments Gait Comments Pt got up and amb to bedside chair with mod A Pt required max cues for upright posture, directional guidance and sequencing of feet placements primarily due to his severe impaired vision. PT-Balance Assessment Sitting Balance and Reactions Static Sitting Balance Ability Fair Dynamic Sitting Balance Ability Fair Standing Balance and Reactions Static Standing Balance Ability Poor Dynamic Standing Balance Ability Poor Device Used FWW 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 Ordained Minister Impaired Gross Range of Motion Lower Extremity ROM Assessment Bilaterally Impaired Impairments decrease B ankle DF/PF Strength Lower Extremity Strength Assessment Bilaterally Impaired Knee 3-/5 Muscle Tone Muscle Tone WNL Yes Comments Muscle Tone Comments (+) UE rigidity M6 PT-IP Treatment Start: 01/20/19 12:30 Freq: NEEDED Status: Active Protocol: Document 01/20/19 11:25 AB (Rec: 01/20/19 12:50 AB [email or web address]) Physical Therapy Treatment Education Education Provided Safety M7 PT-IP Assessment and Plan Start: 01/20/19 12:30 Freq: NEEDED Status: Active Protocol: Document 01/22/19 10:45 HH (Rec: 01/22/19 11:32 HH [id number]) PT Summary Assessment and Plan Potential Rehabilitation Potential Fair Status of Condition at Evaluation Evolving Summary Impairments Pain ROM Strength Balance Coordination Sensation Tone Cognition Bed Mobility Transfers Gait Activity Tolerance Assessment Summary Pt required mod A for 2 people for overall mobility due to his poor vision and signficiant rigidity. Pt has a very high fall risk that will require SNF rehab at this time to imprve strength and functional independence. Goals Bed Mobility Goal Standby Assistance Transfer Goal Minimal Assistance Front Wheeled Walker Gait Goal Minimal Assistance Gait Distance 100 Days to Meet Goals 5 Frequency of Treatment Frequency Of Treatment Once a Day Treatment Plan Physical Therapy Treatment Plan Bed Mobility Training Transfer Training Gait Training Therapeutic Exercise Balance Retraining Discharge Planning Hot or Cold Pack Neuromuscular Re-ed Coordination Retraining Manual Therapy Other Recommendations and Next Treatment ambulation Focus Discharge Recommendations PT Discharge Recommendations SNF Rehab Equipment Needed for Home Before FWW Discharge
[2019-01-22] MEDS: DEXTROSE 5%-0.9% NS 1,000 ML 125 ML IV ×2 (12:01→20:52)
--- NOTE | 2019-01-22 13:40 | ST.IPDYTX ---
[employer] Dysphagia Treatment [employer] Dysphagia Treatment Start: 01/20/19 10:33 Freq: Status: Active Protocol: Document 01/22/19 13:27 TLC (Rec: 01/22/19 13:40 TLC [id number]) Dysphagia Treatment Session Time Visit Start Time 12:40 Visit Stop Time 13:15 Total Visit Minutes 35 Setting Assessment Location Acute Care Visit Type Note Type Treatment Note Next Note Type Next Note Type Treatment Note Patient Information Subjective Observations Pt was awake sitting up in bed eating lunch with assistance from nursing education specialist. His sister and [id number] were present. Per nursing, patient is requesting diet texture upgrade. He denies nausea. Treatment Liquids Trialed Thin Bandana Solids Trialed Puree Dysphagia Mechanical Administration Type Cup Single Sip Controlled Cup Sip Self-Feeding Oral Strategies Upright at 90 degrees Double Swallow Controlled Bite/Sip Size Alternate Liquids/Solids Pharyngeal Strategies Double Swallow Small Bites and Sips Alternate Liquids/Solids Treatment Activities Patient self-fed trials of peaches and soft sandwich as well as thin liquids from cup given set-up assistance. He did not exhibit overt signs of aspiration during trials; however, mild changes in vocal quality observed following bites of sandwich. Per family, patient tends to eat fast and take a bite when he has not yet completely swallowed the first. Education provided to the patient regarding importance of double swallow and alternating liquids/solids especially in the presence esophageal narrowing. Assessment Patient Response to Treatment Good Rehab Potential Good Assessment of Improvement Significant improvement in swallowing ability. Patient able to resume solid diet and upgrade to thin liquids. Recommend dysphagia mechanical textures for patient ease given history of esophageal issues. He requires set-up assistance given vision impairments, but is able to self-feed once he is set-up. Distant supervision as well as occasional reminders to implement strategies ( slow rate, small bites/sips, double swallow as needed) are recommended. Diet Recommendations Recommendations Upgrade Diet Order Liquids Order Thin Diet Order Dysphagia Mechanical Medication Recommendations As Tolerated Additional Dietary Needs Single Sips No Straws 1:1 Assistance Reminders to Use Strategies Treatment Plan Appropriate for Continued Therapy Yes Therapy Recommendations Ongoing evaluation of swallow function/safety. Training of safe swallow strategies and swallow exercises as tolerated by pt. Dysphagia Goals 1. Pt will perform safe swallow strategies with verbal /tactile prompts as needed to reduce risk of aspiration.
--- NOTE | 2019-01-22 14:43 | CM.IDA ---
Met w/pt's sister and her Aly this afternoon, explained role and reviewed DCP options. According to our conversation: Pt functions, cognitively, at approx a 12 yo level. He has been very physically functional his entire life and able to live indp w/supervision nearby. Pt always lived very near his parents who provided some supervision and assist until they . 19 yrs ago Quin and her began caring for pt in [place]. 9 years ago they moved to [place], they have many animals and pt spends time daily w/them. Pt is able to dress himself, shower himself and ambulates w/no AD. Pt and family have arranged pt's home in such a way that allows him to move around safely, and d/t his blindness, family never move a single item. Pt has approx 66 hrs of care giving monthly through [facility], CM is Roberta Estrada. Quin assists pt w/shopping, errands, medication management, also cooks for him daily. Quin pays all of pt's bills as his DPOA. Quin admits that 19 years ago pt was approx 440+ pounds and is currently 170 pounds. Weight loss was 100% diet that was (is) controlled by Quin. Re: DCP options; Quin recognizes that pt will not be able to DC back home if he requires 1-2 max assist. They request a referral be sent to [facility]. Quin and Aly asked about termite treater care planning and this MEDICAL ASSISTANT SUPERVISOR strongly encouraged them to discuss this w/ [facility]. [facility] vs [facility] (?) [facility] care funding will need to come from pt's Medicaid per family. Family very concerned for pt because he is far from his functional baseline right now and they hope he can home after short SNF stay. Following closely. Medical POC continues, Dr Mi's prog note today indicates r/o of adrenal insufficiency. Pt will be ready in Medicare's standards for SNF on Saturday. Referral sent to [facility] per family's request. ONIEL Elizondo Discharge Planning/Care Management Advanced directive, confirm from FAMILY Start: 01/19/19 17:47 Freq: Q24H Status: Active Protocol: Document 01/19/19 17:47 KMH (Rec: 01/19/19 20:36 [facility] [id number]) Advance Directive, confirm on record Time 17:00 Person contacted sister Copy received No Document 01/20/19 17:47 NC (Rec: 01/20/19 18:34 NC [id number]) Advance Directive, confirm on record Time 17:00 Person contacted sister Copy received No CM Discharge Assessment Start: 01/20/19 15:32 Freq: Status: Active Protocol: Document 01/20/19 15:32 KJS (Rec: 01/20/19 15:47 KJS [id number]) Discharge Planning Assessment Assigned Shove Up ONIEL Weaver Contact Information Quin Perez (sister) Advance Directives? Yes History Provided By Medical Record Has Patient been admitted in last 30 No days? Prior Living Arrangements House Household Members family Type of transporation used prior to Relies on Others admit Independent with ADL's Currently needs assist w/ADL's per RN Is patient alert and oriented? No: Develpmentaly delayed Caregiver for Another No Comment Pending outcome of hospitalization Discharge Plan Detention Facility Review Status In Process Please Provide Date Initial DC 01/20/19 Assessment Was Performed Next Review Type Continued Stay Review
--- NOTE | 2019-01-22 15:32 | OT.IP.TRT ---
Current Diagnoses Dysphagia, unspecified (01/20/19) Surgery Performed Operation Date: 01/20/19 19:25 Actual Procedures p Esophagogastroduodenoscopy with Removal Foreign Body - Kamlesh Thompson MD Occupational Therapy Treatment Note M2 OT-IP Current Condition Start: 01/20/19 13:05 Freq: Status: Active Protocol: Document 01/20/19 12:07 PJM (Rec: 01/20/19 13:34 PJM [id number]) Occupational Therapy Current Condition Current Condition Evaluation Date 01/20/19 Treatment Diagnosis decreased self care,mobility, BUE function due to possible new dx Parkinsons Diagnosis Onset Date 01/19/19 Post Operative Precautions Other Precautions fall risk, NPO due to severe dysphagia M3 OT- IP Subjective and Pain Start: 01/20/19 13:05 Freq: Status: Active Protocol: Document 01/22/19 15:32 PJM (Rec: 01/22/19 16:33 PJM [email or web address]) OT- Subjective Occupational Therapy Visit Type Type Treatment Note Visit Start Time 15:07 Visit Stop Time 15:32 Total Visit Minutes 25 Notes Pt asleep in bed; alerts easily to voice. Agreeable to tx with encouragement. Occupational Therapy Visit Comments Patient Comments I will do it as long as I don't have to get out of bed. Patient/Caregiver Goals none verbalized this session OT Pain Assessment Pain When Pain Assessed After Treatment Pain Present Pain Present Pain Reported M4 OT- IP ADL's Start: 01/20/19 13:05 Freq: Status: Active Protocol: Document 01/22/19 15:32 PJM (Rec: 01/22/19 16:33 PJM [email or web address]) OT [id number] General Evaluation Diet Level for Self-Feeding now upgraded to DMA w/thins with 1:1 supervision, swallow strategies Self-Feeding Ability Standby Assistance Areas Needing Assistance Drinking From Cup/Glass Comments OT Self-Feeding Comments pt able to drink from cup with R hand when rinsing mouth after oral care. Better lip closure noted today with no drooling this session. OT ADL-Oral Care General Eval Oral Care Ability Minimal Assistance Areas of Assistance Brushing Teeth Retrieving/Set-Up of Items Devices Oral Care Devices Toothbrush Comments Oral Care Comments Pt needs mod+ verbal cues to encourage indep with oral care set up as pt stating I can't see but low vision is a long standing problem and pt able to remove and replace toothpaste cap with SBA with encouragement. Min assist to apply paste to brush due to hand weakness and incoordination as well as low vision. Fair thoroughness. Pt able to rinse mouth and take one sip of ice water with no signs of aspiration. OT ADL-Dressing General Eval Upper Body Dressing Ability Total Assistance OT ADL-Toileting General Evaluation Toileting Ability Total Assistance Areas Needing Assistance Empty Catheter or Colostomy OT ADL-Bathing Bathing Type Bathing Type Bed Bath General Evaluation Bathing Ability Total Assistance Driving Caregiver Provides Assist M6 OT- IP Functional Cognition Start: 01/20/19 13:05 Freq: Status: Active Protocol: Document 01/22/19 15:32 PJM (Rec: 01/22/19 16:33 PJM [email or web address]) Cognitive Factors Limiting Selfcare Function Cognitive Ability Level of Alertness Alert Patient Orientation Name Month Year Place Attention Span Ability Capable of Focused Attention Ability to Follow Commands Able to Follow One Step Commands Problem Solving Ability Unable to Identify Errors Needs Assist to Identify Solutions Cognitive Comments Cognitive Assessment Comments Pt initiating longer sentences today with speech faster and clearer than yesterday. M7 OT- IP Mobility and Balance Start: 01/20/19 13:05 Freq: Status: Active Protocol: Document 01/20/19 12:07 PJM (Rec: 01/20/19 13:34 PJM [email or web address]) OT- Bed Mobility Assessment Rolling Type of Rolling Roll to Left Level of Assistance Maximum Assistance 1 Person Assistance Head of Bed Elevated Bedrails Supine to Sit Supine to Sit Assist Maximum Assistance Scooting Scooting to Edge of Bed Maximum Assistance OT-Transfer Assessment Sit to and From Stand Sit to and from Stand Maximum Assistance 2 Person Assistance Transfers Transfer Ability Maximum Assistance 2 Person Assistance Technique Transfer Destination Bed Chair Transfer Technique Stand Step Pivot Devices Transfer Assistive Devices Gait Belt Front Wheeled Walker Comments Mobility Comments pt has difficulty coming to M8 OT- IP Objective Assessments Start: 01/20/19 13:05 Freq: Status: Active Protocol: Document 01/22/19 15:32 PJM (Rec: 01/22/19 16:33 PJM [email or web address]) OT Gross Range of Motion Upper Extremity Range of Motion Assessment Left Impaired ROM Impairments Provided AAROM/AROM to BUE with LUE stiffer and slightly weaker than RUE for shoulder flexion, shoulder abduction, elbow flex/ext, pron/sup, wrist ext and finger flex/ext. Pt needs encouragement to participate. I don't see the point of this. OT- Coordination Assessment Comments Coordination Comments impaired by weakness, decreased isolated finger motion and low vision OT-Muscle Tone Assessment Muscle Tone Location Bilateral Upper Extremity Type of Tone Rigidity Severity of Tone Mild Shane Grade Scale Grade 1 M9 OT- IP Assessment and Plan Start: 01/20/19 13:05 Freq: Status: Active Protocol: Document 01/22/19 15:32 PJM (Rec: 01/22/19 16:33 PJM [email or web address]) OT Summary Assessment and Plan Summary OT Impairments Range of Motion Strength Balance Coordination Tone Functional Cognition Functional Mobility Self-Feeding Grooming Dressing Toileting Bathing Toilet Transfers Shower Transfers Progress Towards Goals Progressing Toward Goals Assessment Summary Pt making daily progress with oral motor function with diet advanced to DMA with thin liquids by S.T. today. Speech improving daily. Pt able to participate in oral care once all items within reach and willing to work on BUE AROM exercises with encouragement. Pt still unable to achieve full elbow extension due to stiffness (~ -20 degrees in BUE) Pt remains very reluctant to mobilize out of bed. Will attempt co tx with P.T. tomorrow for out of bed self care tasks. Recommend SNF at discharge for further rehab services. Goals Self-Feeding Goal Standby Assistance Grooming Goal Minimal Assistance Dressing Goal Moderate Assistance Bathing Goal Moderate Assistance Toilet Transfer Goal Moderate Assistance Bedside Commode OT-Other Goals Bathing goal is for upper body sponge bath Days to Meet Goals 7 Frequency of Treatment Frequency Of Treatment Once a Day Treatment Plan OT Treatment Plan ADL Training Functional Cognition Training Functional Mobility Therapeutic Exercises Patient/Family Education Discharge Planning Discharge Recommendations OT Discharge Recommendations SNF Rehab Home Equipment Needs to be determined in next rehab setting
--- NOTE | 2019-01-22 15:37 | PC.NURSE ---
DAY SHIFT SUMMARY: Patient alert and oriented to self. Delayed speech, quiet, but answers questions appropriately. Patient up to chair with P.T. /2 assist with walker to chair or BSC. Patient had large formed BM today, and reports feeling better afterwards. Gandara in place, draining clear dark yellow urine. Decreased output and decreased blood pressure noted, and Dr. Mi notified, additional 500cc bolus ordered and given. IV fluids changed, and infusing now as ordered. Per ICU patient had bradycardia into 40's then up to 50's on telemetry. Possible that patient was having BM at this time. Dr. Mi notified, EKG done and reviewed by MD. Brief maintained, jarret care and barrier cream provided, patient assisted with repositioning and pressure relief every 2 hours and as needed. Floating heels and foam heel protectors in place. Call light within reach, continue with plan of care, bed alarm on for safety.
[2019-01-22 15:40] LABS: Hematocrit 26.7 % (41-53); Hemoglobin 8.9 g/dL (13.5-17.5)
--- NOTE | 2019-01-22 22:39 | PC.NURSE ---
A&Ox3. 9%RA. Pt got up w/2PA and sat in his recliner for dinner. he ate 100% of his dinner. L.ankle tender to touch. pt used the commode and had 1 small BM. IV fluids infusing. call light in reach. bed alarm active.
[2019-01-23] VITALS (16 sets, daily range): BP systolic 99–149; BP diastolic 45–96; PULSE 57–74; RESP 14–20; TEMP 35.8–36.6; O2SAT 88–97
--- NOTE | 2019-01-23 | DI.RAD.S_ITS ---
PROCEDURE: XR CHEST 1V INDICATIONS: SOB, Cough TECHNIQUE: One view of the chest was acquired. COMPARISON: [facility], CT, CT ABDOMEN PELVIS W CON, 01/19/2019, 12:32. [facility], CR, XR CHEST 1V, 01/19/2019, 11:59. [facility], CR, XR CHEST 1V, 10/02/2018, 14:37. FINDINGS: Surgical changes and devices: None. Lungs and pleura: Lungs are abnormal with a bilateral alveolar infiltration pattern which is consolidative at each lung base medially, greater on the left and right. No pleural effusions or pneumothorax. Mediastinum: Mediastinal contours appear normal. Heart size is normal. Bones and chest wall: No suspicious bony lesions. Overlying soft tissues appear unremarkable. The gas distention pattern in front of the liver better visualized by prior CT scanning from 01/19/19 has almost completely resolved. IMPRESSION: Bilateral pneumonia pattern. This is more prominent at the left lung base than on the right. Resolution of a gas distention pattern involving the right colon superimposed on the liver with reference to the prior CT scanning from 4 days ago. Dictated by: Misael Simmons M.D. on 01/23/2019 at 14:14 Approved by: Misael Simmons M.D. on 01/23/2019 at 14:16
[2019-01-23] MEDS: ACETAMINOPHEN 325 MG TABLET 650 MG PO (01:59)
[2019-01-23] MEDS: DEXTROSE 5%-0.9% NS 1,000 ML 125 ML IV (04:53)
[2019-01-23] MEDS: FLUCONAZOLE 40 MG/ML SUSP 400 MG PO (09:05)
[2019-01-23] MEDS: ENOXAPARIN 40 MG/0.4 ML SYRINGE SUBCUT (09:05)
[2019-01-23 09:29] LABS: BUN Creatinine Ratio 37.1 (6-22); Blood Urea Nitrogen 26 mg/dL (9-20); Calcium 8.1 mg/dL (8.4-10.2); Carbon Dioxide 24 mmol/L (22-32); Chloride 107 mmol/L (98-107); Estimated Glomerular Filt Rate > 60.0 mL/min (>60); Glucose 91 mg/dL (80-110); HEMOLYSIS < 15 (0-50); Potassium 4.1 mmol/L (3.4-5.1); Sodium 135 mmol/L (137-145)
[2019-01-23 09:57] LABS: Cortisol AM (Before 10AM) 10.1 ug/dL (4.46-22.7)
--- NOTE | 2019-01-23 12:25 | OT.IP.TRT ---
Current Diagnoses Dysphagia, unspecified (01/20/19) Surgery Performed Operation Date: 01/20/19 19:25 Actual Procedures p Esophagogastroduodenoscopy with Removal Foreign Body - Kamlesh Thompson MD Occupational Therapy Treatment Note M2 OT-IP Current Condition Start: 01/20/19 13:05 Freq: Status: Active Protocol: Document 01/20/19 12:07 PJM (Rec: 01/20/19 13:34 PJM [id number]) Occupational Therapy Current Condition Current Condition Evaluation Date 01/20/19 Treatment Diagnosis decreased self care,mobility, BUE function due to possible new dx Parkinsons Diagnosis Onset Date 01/19/19 Post Operative Precautions Other Precautions fall risk, NPO due to severe dysphagia M3 OT- IP Subjective and Pain Start: 01/20/19 13:05 Freq: Status: Active Protocol: Document 01/23/19 12:14 [facility] (Rec: 01/23/19 12:25 [facility] [id number]) OT- Subjective Occupational Therapy Visit Type Type Treatment Note Visit Start Time 12:00 Visit Stop Time 12:10 Total Visit Minutes 10 Occupational Therapy Visit Comments Patient Comments Pt's nurse states pt needing to get back to bed for ECHO. OT Pain Assessment Pain When Pain Assessed At Rest Pain Present Pain Present Denied Pain OT ADL-Dressing General Eval Upper Body Dressing Ability Total Assistance OT ADL-Toileting General Evaluation Toileting Ability Total Assistance Areas Needing Assistance Empty Catheter or Colostomy OT ADL-Bathing Bathing Type Bathing Type Bed Bath General Evaluation Bathing Ability Total Assistance M5 OT- IP IADL's Start: 01/20/19 13:05 Freq: Status: Active Protocol: Document 01/20/19 12:07 PJM (Rec: 01/20/19 13:34 PJ [email or web address]) OT-Instrumental Activities of Daily Living Deficits IADL Deficits Identified Deficits Home Safety Awareness Awareness of Need for Assistance at Home Decreased Awareness Home Safety Comments pt's sister and brother in law provide assist with all IADLS at home Medication Management Medication Management Caregiver Administers Money Management Money Management Caregiver Provides Assistance Meal Preparation Meal Preparation Caregiver Provides Assist Personal Care Aid Personal Care Aid Caregiver Provides Assist Driving Driving Caregiver Provides Assist M6 OT- IP Functional Cognition Start: 01/20/19 13:05 Freq: Status: Active Protocol: Document 01/23/19 12:14 [facility] (Rec: 01/23/19 12:25 [facility] [id number]) Cognitive Factors Limiting Selfcare Function Cognitive Ability Level of Alertness Alert Confusional State Patient Orientation Name Attention Span Ability Capable of Focused Attention Unable to Sustain Attention Ability to Follow Commands Able to Follow One Step Commands with Increased Time Able to Follow One Step Commands with Repetition Memory Description Short Term Impaired Problem Solving Ability Unable to Identify Errors Needs Assist to Identify Solutions Cognitive Comments Cognitive Assessment Comments Pt needing repeated instructions to follow commands for transfer and FWW use. M7 OT- IP Mobility and Balance Start: 01/20/19 13:05 Freq: Status: Active Protocol: Document 01/23/19 12:14 [facility] (Rec: 01/23/19 12:25 [facility] [id number]) OT-Transfer Assessment Sit to and From Stand Sit to and from Stand Maximum Assistance 2 Person Assistance Transfers Transfer Ability Maximum Assistance 2 Person Assistance Technique Transfer Destination Bed Transfer Technique Stand Step Pivot Devices Transfer Assistive Devices Gait Belt Front Wheeled Walker Comments Mobility Comments Pt needing MAX A X 2 to stand and very rigid with LLE, assist for balance and to guide FWW. Pt needing hand over hand assist for hand placement as legally blind. OT- Gait Assessment Gait Gait Assistance Required: Maximum Assistance 2 Person Assist Assistive Devices Assistive Device Gait Belt Front Wheeled Walker OT- Balance Assessment Sitting Balance and Reactions Static Sitting Balance Ability Fair Dynamic Sitting Balance Ability Poor Standing Balance and Reactions Static Standing Balance Ability Poor Dynamic Standing Balance Ability Poor M8 OT- IP Objective Assessments Start: 01/20/19 13:05 Freq: Status: Active Protocol: Document 01/22/19 15:32 PJM (Rec: 01/22/19 16:33 PJM [email or web address]) OT Gross Range of Motion Upper Extremity Range of Motion Assessment Left Impaired ROM Impairments Provided AAROM/AROM to BUE with LUE stiffer and slightly weaker than RUE for shoulder flexion, shoulder abduction, elbow flex/ext, pron/sup, wrist ext and finger flex/ext. Pt needs encouragement to participate. I don't see the point of this. OT- Coordination Assessment Comments Coordination Comments impaired by weakness, decreased isolated finger motion and low vision OT-Muscle Tone Assessment Muscle Tone Location Bilateral Upper Extremity Type of Tone Rigidity Severity of Tone Mild Shane Grade Scale Grade 1 M9 OT- IP Assessment and Plan Start: 01/20/19 13:05 Freq: Status: Active Protocol: Document 01/23/19 12:14 [facility] (Rec: 01/23/19 12:25 [facility] [id number]) OT Summary Assessment and Plan Potential Rehabilitation Potential Fair Analytic Complexity at Evaluation Low Summary OT Impairments Range of Motion Strength Balance Coordination Tone Functional Cognition Functional Mobility Self-Feeding Grooming Dressing Toileting Bathing Toilet Transfers Shower Transfers Progress Towards Goals Slow Progress due to Activity Tolerance Assessment Summary Pt still requiring MAX A X 2 for mobility needs which is far from pt's baseline and therefore would benefit from skilled rehab. Goals Self-Feeding Goal Standby Assistance Grooming Goal Minimal Assistance Dressing Goal Moderate Assistance Bathing Goal Moderate Assistance Toilet Transfer Goal Moderate Assistance Bedside Commode OT-Other Goals Bathing goal is for upper body sponge bath Days to Meet Goals 7 Frequency of Treatment Frequency Of Treatment Once a Day Treatment Plan OT Treatment Plan ADL Training Functional Cognition Training Functional Mobility Therapeutic Exercises Patient/Family Education Discharge Planning Discharge Recommendations OT Discharge Recommendations SNF Rehab Home Equipment Needs to be determined in next rehab setting
--- NOTE | 2019-01-23 12:37 | PT.IPTN ---
Current Diagnoses Dysphagia, unspecified (01/20/19) Surgery Performed Operation Date: 01/20/19 19:25 Actual Procedures p Esophagogastroduodenoscopy with Removal Foreign Body - Kamlesh Thompson MD Physical Therapy Treatment Note M2 PT-IP Current Condition Start: 01/20/19 12:30 Freq: NEEDED Status: Active Protocol: Document 01/20/19 11:25 AB (Rec: 01/20/19 12:50 AB [email or web address]) Physical Therapy Current Condition Current Condition Evaluation Date 01/20/19 Treatment Diagnosis falls; tachycardia; difficulty in walking Onset Date 01/19/19 Precautions Other Precautions Falls; legally blind M3 PT-IP Subjective Start: 01/20/19 12:30 Freq: NEEDED Status: Active Protocol: Document 01/23/19 12:00 HH (Rec: 01/23/19 12:37 HH [email or web address]) Subjective Physical Therapy Visit Type Type Treatment Note Visit Start Time 12:00 Visit Stop Time 12:10 Total Visit Minutes 10 Notes RN requested to transfer pt back to bed for cardiogram screen. Physical Therapy Visit Comments Patient Comments Pt agreeable to mobilize with PT to back to bed Therapy Pain Assessment Pain Present Pain Present Denied Pain M4 PT-IP Mobility and Gait Start: 01/20/19 12:30 Freq: NEEDED Status: Active Protocol: Document 01/23/19 12:00 HH (Rec: 01/23/19 12:37 HH [email or web address]) PT-Bed Mobility Assessment Sit to Supine Sit to Supine Maximum Assistance 2 Person Assistance Scooting Scooting to Edge of Bed Moderate Assistance PT-Transfer Assessment Sit to and From Stand Sit to and from Stand Maximum Assistance 2 Person Assistance Use of Upper Extremities Equipment Transfer Assistive Device Front Wheeled Walker Orthotic/Prosthetic Devices or Brace: No Transfers Transfer Destination Bed Chair Transfer Technique Stand Pivot Transfer Ability Level of Assist Maximum Assistance 2 Person Assistance Comments Mobility Comments Pt up in chair upon assessmnet . Pt required max A x 2 for STS with FWW. He then stand pivot and required max A x 2 for sit to supine. Pt was able to scoot laterally with min A . Pt cont present significant rigidity, flexed posture. Max cues for hand placements and sequencing as well. Gait Assessment Comments Gait Comments did not attempt 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 Custodial Impaired Gross Range of Motion Lower Extremity ROM Assessment Bilaterally Impaired Impairments decrease B ankle DF/PF Strength Lower Extremity Strength Assessment Bilaterally Impaired Knee 3-/5 Muscle Tone Muscle Tone WNL Yes Comments Muscle Tone Comments (+) UE rigidity M6 PT-IP Treatment Start: 01/20/19 12:30 Freq: NEEDED Status: Active Protocol: Document 01/20/19 11:25 AB (Rec: 01/20/19 12:50 AB [email or web address]) Physical Therapy Treatment Education Education Provided Safety M7 PT-IP Assessment and Plan Start: 01/20/19 12:30 Freq: NEEDED Status: Active Protocol: Document 01/23/19 12:00 HH (Rec: 01/23/19 12:37 HH [email or web address]) PT Summary Assessment and Plan Potential Rehabilitation Potential Fair Status of Condition at Evaluation Evolving Summary Impairments Pain ROM Strength Balance Coordination Sensation Tone Cognition Bed Mobility Transfers Gait Activity Tolerance Assessment Summary Pt required increased assistance needed for transfer and bed mobility today max A x 2. Cont present rigidity and max cues for guidance and sequencing. ST eval suspect aspiration PNA. cont to monitor pt's functional mobility and medical status with med team. SNF is still ideal for pt due to his need for extensive assistance for functional mobility Goals Bed Mobility Goal Standby Assistance Transfer Goal Minimal Assistance Front Wheeled Walker Gait Goal Minimal Assistance Gait Distance 100 Days to Meet Goals 5 Frequency of Treatment Frequency Of Treatment Once a Day Treatment Plan Physical Therapy Treatment Plan Bed Mobility Training Transfer Training Gait Training Therapeutic Exercise Balance Retraining Discharge Planning Hot or Cold Pack Neuromuscular Re-ed Coordination Retraining Manual Therapy Other Recommendations and Next Treatment ambulation Focus Discharge Recommendations PT Discharge Recommendations SNF Rehab Equipment Needed for Home Before FWW Discharge
--- NOTE | 2019-01-23 15:06 | ST.IPDYTX ---
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 Once this morning briefly following discussion with nursing who reported patient's oxygen sats had decreased requiring 3L of O2. Patient observed to be coughing intermittently both during oral intake and not during intake. Increased drooling on this date compared to yesterday. Concern for impairments in secretion management and possible aspiration. Patient seen this afternoon with meal, following chest x-ray which revealed bilateral pneumonia pattern. Treatment Liquids Trialed Thin [place] Solids Trialed Dysphagia Mechanical Administration Type Cup Single Sip Controlled Cup Sip Dependent Feeding Oral Strategies Upright at 90 degrees Double Swallow Controlled Bite/Sip Size Alternate Liquids/Solids Pharyngeal Strategies Double Swallow Small Bites and Sips Alternate Liquids/Solids Treatment Activities Patient observed to be drooling from left corner of mouth today. During meal, observed adequate oral intake, no obvious deficits in lingual weakness for chewing or bolus transport. Adequate sensation as patient used lingual sweep to clear oral residue in corner of mouth and wiped drool when sensed. Pharyngeally, patient observed to have intermittent cough every ~8-10 bites. Ongoing discussion regarding use of double swallow as needed. No overt signs of aspiration with liquids; however, cannot be ruled out at this time. Assessment Assessment of Improvement Overall worse than yesterday with need for supplemental oxygen and weakness as reported by PT. Consulted with Dr. Mi regarding concerns for aspiration. Will hold off on MBSS at this time, start on antibiotics for pneumonia and continue to monitor patient for aspiration. Given patient' s esophageal impairments patient could likely be aspirating reflux or his own secretions. Recommend upright posture during meals and HOB elevated at all times. Recommend downgrade liquids to nectar thick given patient's overall weakness. Diet Recommendations Recommendations Downgrade Liquid Order Liquids Order [place] Diet Order Dysphagia Mechanical Medication Recommendations As Tolerated Additional Dietary Needs Single Sips No Straws 1:1 Assistance Reminders to Use Strategies Treatment Plan Placement Recommendation after Discharge Senior Living Facility Appropriate for Continued Therapy Yes Therapy Recommendations Ongoing evaluation of swallow function/safety. Training of safe swallow strategies and swallow exercises as tolerated by pt. Dysphagia Goals 1. Pt will perform safe swallow strategies with verbal /tactile prompts as needed to reduce risk of aspiration.
[2019-01-23] MEDS: PIPERACILLIN-TAZO 3.375 GM/50 ML FROZ.PIGGY IV ×2 (15:55→21:45)
--- NOTE | 2019-01-23 18:34 | P.PN_ITS ---
Subjective Date Patient Seen: 01/23/19 Interval history: Bridger Rogers is a 68-year-old male with developmental delay, legal blindness, hypertension brought in by family due to deterioration over past couple weeks with frequent falls and decrease in mental status. Noted to have severe dysphagia and unable to manage secretions. Patient had a consult with Dr. Thompson who performed EGD which showed evidence of esophageal candidiasis with associated esophagitis through distal 3rd of esophagus including GE junction, patent Schatzki ring. The patient is resting in bed comfortably. He complains of mild shortness of breath and cough which started yesterday afternoon. He is eager to continue to be able to eat. Concern for aspiration, therefore, ordered a chest x-ray which demonstrated bilateral infiltrates L>R. Discussed with speech therapist and placed patient back on dysphagia mechanical without thin liquids at this time. Started Zosyn for possible aspiration pneumonia versus pneumonitis. He is currently on 1 L of supplemental oxygen to maintain saturations above 92%. He denies headache, shortness of breath, chest pain, abdominal pain, nausea, vomiting, fever, chills, pain around Hernandez catheter, diarrhea or constipation. He is voiding via Hernandez catheter and eliminating without difficulty. Exam Vital Signs (past 8 hours): - 01/23/19 10:47 01/23/19 13:30 01/23/19 15:10 Temperature 97.5 F L 96.5 F L Pulse Rate 57 L 64 Pulse Rate [Orthostatic Sitting] Pulse Rate [Orthostatic Standing] Respiratory Rate 16 18 Blood Pressure 124/58 L 110/45 L Blood Pressure [Orthostatic Sitting] Blood Pressure [Orthostatic Standing] Pulse Oximetry 97 96 97 01/23/19 16:02 01/23/19 18:21 Temperature Pulse Rate Pulse Rate [Orthostatic Sitting] 63 Pulse Rate [Orthostatic Standing] 74 Respiratory Rate Blood Pressure Blood Pressure [Orthostatic Sitting] 129/56 L Blood Pressure [Orthostatic Standing] 149/59 H Pulse Oximetry 96 Oxygen Delivery Method Nasal Cannula Oxygen Flow Rate 1 Narrative Exam Narrative: General: Older gentleman sitting in bed and in no acute distress, well- developed, well-nourished, appears timid and scared, developmentally delayed. HEENT: Normocephalic, atraumatic. External ears without defect. Pupils equal, round, and reactive to light. Anicteric sclerae, moist conjunctivae, and no lid lag. Neck: Supple with full range of motion. No lymphadenopathy or thyromegaly. Cardiovascular: Regular rate and rhythm without murmurs, rubs, or gallops appreciated Pulmonary: Clear to auscultation bilaterally without crackles, wheezes, or rhonchi. Normal respiratory effort with no use of accessory muscles. Abdomen: Soft, bowel sounds present, nontender, nondistended. No hepatosplenomegaly or masses appreciated. Extremities: No clubbing or cyanosis. Left foot in offloading brace with boggy posterior heel and tender to touch. Skin: Normal temperature, turgor, and texture; no rash, ulcers, or subcutaneous nodules appreciated. Neurological: Cranial nerves grossly intact. Psychiatric: Developmentally delayed, timid and scared, teary-eyed. Objective Labs Result Diagrams: 01/22/19 15:12 01/23/19 08:15 Labs: Laboratory Results - last 24 hr 01/23/19 01/23/19 08:15 08:15 Sodium 135 L Potassium 4.1 Chloride 107 Carbon Dioxide 24 BUN 26 H Creatinine 0.70 Estimated GFR > 60.0 BUN/Creatinine Ratio 37.1 H Glucose 91 Calcium 8.1 L Cortisol AM Sample 10.1 Assessment & Plan Assessment & Plan narrative: Bridger Rogers is a 68-year-old male with developmental delay, legal blindness, hypertension brought in by family due to deterioration over past couple weeks with frequent falls and decrease in mental status. Noted to have severe dysphagia and unable to manage secretions. Patient had a consult with Dr. Thompson who performed EGD which showed evidence of esophageal candidiasis with associated esophagitis through distal 3rd of esophagus including GE junction, patent Schatzki ring. 1. Esophageal candidiasis, with severe dysphagia, present on admission. Improving. -EGD 01/20/[address] Thompson demonstrated esophageal candidiasis with associated esophagitis through the distal 3rd of the esophagus including the gastroesophageal junction and minimal gastritis mostly at the antrum. This is likely a big contributor to patient's dysphagia and clinical decline over the past 2 weeks -Patient previously had EGD on 10/02/2018 for anemia evaluation and had dilation of Schatzki ring which appears to be widely patent on current EGD. -Continue Diflucan 400 mg daily oral suspension for 14-21 days to treat esophageal candidiasis. -Continue daily speech therapy evaluation and advance diet as tolerated and safely. 2. Acute hypoxemic respiratory failure secondary to acute aspiration, not present on admission. Active. -Patient continues to work with speech therapy to advance diet and his diet was advanced to dysphagia mechanical and thin liquids today. He became acutely hypoxemic several hours later and chest x-ray was performed which demonstrated bilateral infiltrates L>R. -Started empiric Zosyn for possible aspiration pneumonia versus pneumonitis. Clinically does not have pneumonia although at high risk. -Continue supplemental oxygen as needed with oxygen saturation goal 92% and greater. 3. Hypotension, not present on admission. Resolved. -Likely secondary to hypovolemia and dehydration. However, there was incidental finding of right benign-appearing adrenal adenoma and possibility of adrenal insufficiency. Evaluating for adrenal insufficiency with a.m. cortisol which was normal and ACTH that is pending. Unlikely to have adrenal insufficiency at this point as hypotension has resolved and electrolytes are stable. 4. Obstipation, present on admission. Resolved. -Abdomen pelvic CT showed high riding in cecum with possible right-sided obstipation although the right colon findings were noted on previous imaging. -Outpatient colonoscopy 10/02/2018 was done to evaluate anemia, showed extensive sigmoid diverticulosis with stricture ring and tortuosity of the sigmoid, no colon lesions, entire colon examined -Patient had medium bowel movement after fleets enema 01/20/2019 and again on 01/22/2019. 5. Recurrent ground level fall with left hip contusion , present on admission. Stable. -Initial exam raised concern for possible undiagnosed Parkinson's due to patient's extreme rigidity and reported chest filling gait but on further thought his acute deterioration is more likely due to the GI issues, and diminished p.o. intake causing weakness, therefore, prior order for Sinemet was discontinued. Another possibility is symptomatic hypotension from adrenal insufficiency which is being assessed as above. -No fracture on x-ray of hip or foot. -Continue PT and OT 6. Hyperkalemia, present on admission. Resolved. -Serum K 5.4 on admit. Trended down to 4.3 today. -Continue IV fluid hydration with NS at 100 mL/hr. BP meds held as below. -There is possibility that his chronic hyperkalemia is related to adrenal insufficiency and see workup as above. 7. Hypertension, not present on admission. - Held blood pressure medications as patient has been hypotensive as above. Disposition: Likely to discharge in several days depending upon toleration of advancement in diet, continued bowel movements, and resolution of hypoxemia related to aspiration. Quality VTE Deep Vein Thrombosis/Pulmonary Embolism Present on Admission: No
[2019-01-23] MEDS: SODIUM CHLORIDE 0.9% FLUSH 10 ML IV (21:17)
[2019-01-24] VITALS (14 sets, daily range): BP systolic 124–150; BP diastolic 50–68; PULSE 59–85; RESP 14–18; TEMP 36.3–37.2; O2SAT 87–95
[2019-01-24] MEDS: ACETAMINOPHEN 325 MG TABLET 650 MG PO (01:09)
--- NOTE | 2019-01-24 02:56 | PC.NURSE ---
Assumed care of pt at 2300 on 01/23/19. Pt resting in bed during bedside hand-off. Humidification applied to 2L NC, CPOX on sats 90-98%. Reports LLE pain, medicated with Tylenol. Refused to reposition. Hernandez removed on prior shift at approx 1715. Pt states he will notify staff if he needs to void. Briefs on. Bed alarm on. Bulb call light clipped to gown. Pt cooperative with call for needs. Door open for close monitoring.
[2019-01-24 06:44] LABS: Add Manual Diff / Slide Review NO; Basophils Absolute Auto 0 /uL (0-100); Basophils Percent Auto 0.6 % (0-2); Eosinophils Absolute Auto 100 /uL (0-450); Eosinophils Percent Auto 1.3 % (2-4); Hematocrit 30.2 % (41-53); Hemoglobin 10.1 g/dL (13.5-17.5); Lymphocytes Absolute Auto 900 /uL (1100-4500); Lymphocytes Percent Auto 12.5 % (25-40); Mean Corpuscular HGB Conc 33.3 % (30-36); Mean Corpuscular Hemoglobin 30.9 PG (26-34); Mean Corpuscular Volume 92.8 fL (80-100); Monocytes Absolute Auto 800 /uL (0-900); Neutrophils Absolute Auto 5100 /uL (1500-7000); Neutrophils Percent Auto 73.6 % (50-75); Platelet Count 230 X10^3/uL (150-400); Red Blood Cell Count 3.26 X10^6/uL (4.5-5.9); Red Cell Distribution Width 14.9 % (11.6-14.8); White Blood Cell Count 6.9 X10^3/uL (4.5-11.0)
[2019-01-24] MEDS: PIPERACILLIN-TAZO 3.375 GM/50 ML FROZ.PIGGY IV ×3 (06:53→22:41)
[2019-01-24] MEDS: SODIUM CHLORIDE 0.9% FLUSH 10 ML IV ×3 (06:56→21:36)
[2019-01-24 06:57] LABS: Alanine Aminotransferase 70 IU/L (21-72); Albumin 2.9 g/dL (3.5-5.0); Albumin Globulin Ratio 0.9 (1.0-2.8); Alkaline Phosphatase 89 U/L (38-126); Aspartate Aminotransferase 64 IU/L (17-59); BUN Creatinine Ratio 41.7 (6-22); Bilirubin Total 0.4 mg/dL (0.2-1.3); Blood Urea Nitrogen 25 mg/dL (9-20); Calcium 8.4 mg/dL (8.4-10.2); Carbon Dioxide 24 mmol/L (22-32); Chloride 106 mmol/L (98-107); Estimated Glomerular Filt Rate > 60.0 mL/min (>60); Globulin 3.2 g/dL (1.7-4.1); Glucose 80 mg/dL (80-110); HEMOLYSIS < 15 (0-50); Magnesium 1.8 mg/dL (1.6-2.3); Potassium 4.3 mmol/L (3.4-5.1); Sodium 136 mmol/L (137-145); Total Protein 6.1 g/dL (6.3-8.2)
[2019-01-24 07:18] LABS: Procalcitonin < 0.05 ng/mL (<0.5)
[2019-01-24] MEDS: ENOXAPARIN 40 MG/0.4 ML SYRINGE SUBCUT (09:07)
[2019-01-24] MEDS: FLUCONAZOLE 40 MG/ML SUSP 400 MG PO (09:08)
--- NOTE | 2019-01-24 11:20 | PT.IPTN ---
Current Diagnoses Dysphagia, unspecified (01/20/19) Surgery Performed Operation Date: 01/20/19 19:25 Actual Procedures p Esophagogastroduodenoscopy with Removal Foreign Body - Kamlesh Thompson MD Physical Therapy Treatment Note M2 PT-IP Current Condition Start: 01/20/19 12:30 Freq: NEEDED Status: Active Protocol: Document 01/20/19 11:25 AB (Rec: 01/20/19 12:50 AB [id number]) Physical Therapy Current Condition Current Condition Evaluation Date 01/20/19 Treatment Diagnosis falls; tachycardia; difficulty in walking Onset Date 01/19/19 Precautions Other Precautions Falls; legally blind M3 PT-IP Subjective Start: 01/20/19 12:30 Freq: NEEDED Status: Active Protocol: Document 01/24/19 11:20 RCC (Rec: 01/24/19 11:45 RCC [id number]) Subjective Physical Therapy Visit Type Type Treatment Note Visit Start Time 11:20 Visit Stop Time 11:40 Total Visit Minutes 20 Number of SECURITY [employer] OPERATOR Visits 0 Physical Therapy Visit Comments Patient Comments pt willing to get up, states he may feel a little better today. Therapy Pain Assessment Pain Present Pain Present Denied Pain M4 PT-IP Mobility and Gait Start: 01/20/19 12:30 Freq: NEEDED Status: Active Protocol: Document 01/24/19 11:20 RCC (Rec: 01/24/19 11:45 RCC [id number]) PT-Transfer Assessment Sit to and From Stand Sit to and from Stand Moderate Assistance 1 Person Assistance Use of Upper Extremities Equipment Transfer Assistive Device Gait Belt Front Wheeled Walker Transfers Transfer Destination Chair Transfer Technique Stand Step Pivot Transfer Ability Level of Assist Moderate Assistance 1 Person Assistance Use of Upper Extremities Gait Assessment Gait Gait Assistance Required: Moderate Assistance 1 Person Assist Distance (Feet) 5 Assistive Devices Assistive Device Gait Belt Front Wheeled Walker Gait Deviations General Gait Pattern Decreased Stride Length Decreased Feet Clearance Festinating Flexed Trunk Narrow Based Gait Step-to Gait Factors Limiting Gait Function Factors Limiting Gait Function Decreased Activity Tolerance Decreased Strength Difficulty Following Directions Poor Balance Poor Safety Awareness Comments Gait Comments pt ambulated 2.5 ft forward, then 2.5 ft backward, side step to the R x2 back to chair . Waffle cushion placed under buttock per RN request. Chair alarm on, call button in reach . M5 PT-IP Objective Assessments Start: 03/05/19 12:30 Freq: NEEDED Status: Active Protocol: Document 01/20/19 11:25 AB (Rec: 01/20/19 12:50 AB [email or web address]) Orientation Orientation/Cognition Level of Alertness Alert Orientation Name Age Birthday Month Date Year Day of Week Place Situation Safety Awareness Decreased Safety Awareness Memory Description Short Term Impaired Longterm Impaired Gross Range of Motion Lower Extremity ROM Assessment Bilaterally Impaired Impairments decrease B ankle DF/PF Strength Lower Extremity Strength Assessment Bilaterally Impaired Knee 3-/5 Muscle Tone Muscle Tone WNL Yes Comments Muscle Tone Comments (+) UE rigidity M6 PT-IP Treatment Start: 01/20/19 12:30 Freq: NEEDED Status: Active Protocol: Document 01/24/19 11:20 RCC (Rec: 01/24/19 11:45 RCC [id number]) Physical Therapy Treatment Education Education Provided Safety M7 PT-IP Assessment and Plan Start: 01/20/19 12:30 Freq: NEEDED Status: Active Protocol: Document 01/24/19 11:20 RCC (Rec: 01/24/19 11:45 RCC [id number]) PT Summary Assessment and Plan Summary Assessment Summary Pt able to take functional forward and backward steps totalling 5 ft, but did c/o fatigue. He was on RA during session, with O2 saturation down to 88% but increased to 92% at rest after sitting. Pt rigid, but able to take small steps with verbal cuing. He requires manual assistance to stand and to maintain his standing balance statically and dynamically. Overall, pt improved today but still well below his prior functional abilities at his baseline. He is not safe to return home at this point, but demonstrating improvements since yesterday, he is a good candidate for SNF rehabilitation. Goals Bed Mobility Goal Standby Assistance Transfer Goal Minimal Assistance Front Wheeled Walker Gait Goal Minimal Assistance Gait Distance 100 Days to Meet Goals 5 Frequency of Treatment Frequency Of Treatment Once a Day Treatment Plan Other Recommendations and Next Treatment prog. gait, sit<->stand, Focus standing balance. Recommendations To Nursing Amount of Assist Needed 2 Person Assist Discharge Recommendations PT Discharge Recommendations SNF Rehab Equipment Needed for Home Before FWW Discharge
--- NOTE | 2019-01-24 13:34 | OT.IP.TRT ---
Current Diagnoses Dysphagia, unspecified (01/20/19) Surgery Performed Operation Date: 01/20/19 19:25 Actual Procedures p Esophagogastroduodenoscopy with Removal Foreign Body - Kamlesh Thompson MD Occupational Therapy Treatment Note M2 OT-IP Current Condition Start: 01/20/19 13:05 Freq: Status: Active Protocol: Document 01/20/19 12:07 PJM (Rec: 01/20/19 13:34 PJM [id number]) Occupational Therapy Current Condition Current Condition Evaluation Date 01/20/19 Treatment Diagnosis decreased self care,mobility, BUE function due to possible new dx Parkinsons Diagnosis Onset Date 01/19/19 Post Operative Precautions Other Precautions fall risk, NPO due to severe dysphagia M3 OT- IP Subjective and Pain Start: 01/20/19 13:05 Freq: Status: Active Protocol: Document 01/24/19 13:15 CCC (Rec: 01/24/19 13:33 CCC [email or web address]) OT- Subjective Occupational Therapy Visit Type Type Treatment Note Visit Start Time 12:05 Visit Stop Time 12:45 Total Visit Minutes 40 Occupational Therapy Visit Comments Patient Comments Pt cooperative and just getting ready to eat lunch. Pt 's sister and brother in law in the room. OT Pain Assessment Pain When Pain Assessed At Rest Pain Present Pain Present Denied Pain M4 OT- IP ADL's Start: 01/20/19 13:05 Freq: Status: Active Protocol: Document 01/24/19 13:15 CCC (Rec: 01/24/19 13:33 CCC [email or web address]) OT [id number] General Evaluation Self-Feeding Ability Minimal Assistance Areas Needing Assistance Loading Utensil Devices Self-Feeding Devices Adapted Utensil Comments OT Self-Feeding Comments Pt able to drink from cup with right hand with no issues. Pt needing assist at times to load the spoon, pt uses his right hand at times to assist. Pt still needing cues at time to take smaller bites and alternate between solids and liquids. Pt to benefit from larger utensils. OT ADL-Grooming Comments OT Grooming Comments Pt able to wash his hands and face after set-up of wash cloth. M5 OT- IP IADL's Start: 01/20/19 13:05 Freq: Status: Active Protocol: Document 01/20/19 12:07 PJM (Rec: 01/20/19 13:34 PJM [id number]) OT-Instrumental Activities of Daily Living Deficits IADL Deficits Identified Deficits Home Safety Awareness Awareness of Need for Assistance at Home Decreased Awareness Home Safety Comments pt's sister and brother in law provide assist with all IADLS at home Medication Management Medication Management Caregiver Administers Money Management Money Management Caregiver Provides Assistance Meal Preparation Meal Preparation Caregiver Provides Assist Drug Inspector Drug Inspector Caregiver Provides Assist Driving Driving Caregiver Provides Assist M6 OT- IP Functional Cognition Start: 01/20/19 13:05 Freq: Status: Active Protocol: Document 01/24/19 13:15 [facility] (Rec: 01/24/19 13:33 [facility] [email or web address]) Cognitive Factors Limiting Selfcare Function Cognitive Ability Level of Alertness Alert Patient Orientation Name Attention Span Ability Capable of Focused Attention Capable of Sustained Attention Ability to Follow Commands Able to Follow One Step Commands Cognitive Comments Cognitive Assessment Comments Pt able to follow instructions for self feeding and mainly needing vc to slow down and alternate between solids and liquids. M7 OT- IP Mobility and Balance Start: 01/20/19 13:05 Freq: Status: Active Protocol: Document 01/23/19 12:14 [facility] (Rec: 01/23/19 12:25 [facility] [id number]) OT-Transfer Assessment Sit to and From Stand Sit to and from Stand Maximum Assistance 2 Person Assistance Transfers Transfer Ability Maximum Assistance 2 Person Assistance Technique Transfer Destination Bed Transfer Technique Stand Step Pivot Devices Transfer Assistive Devices Gait Belt Front Wheeled Walker Comments Mobility Comments Pt needing MAX A X 2 to stand and very rigid with LLE, assist for balance and to guide FWW. Py needing [place] assist for hand placement as legally blind. OT- Gait Assessment Gait Gait Assistance Required: Maximum Assistance 2 Person Assist Assistive Devices Assistive Device Gait Belt Front Wheeled Walker OT- Balance Assessment Sitting Balance and Reactions Static Sitting Balance Ability Fair Dynamic Sitting Balance Ability Poor Standing Balance and Reactions Static Standing Balance Ability Poor Dynamic Standing Balance Ability Poor M9 OT- IP Assessment and Plan Start: 01/20/19 13:05 Freq: Status: Active Protocol: Document 01/24/19 13:15 [facility] (Rec: 01/24/19 13:33 [facility] [email or web address]) OT Summary Assessment and Plan Potential Rehabilitation Potential Fair Analytic Complexity at Evaluation Low Summary OT Impairments Range of Motion Strength Balance Coordination Tone Functional Cognition Functional Mobility Self-Feeding Grooming Dressing Toileting Bathing Toilet Transfers Shower Transfers Progress Towards Goals Progressing Toward Goals Assessment Summary Pt able to self -feed but needing cues for safety . Per PT able to ambulate short distance, 5ft MODA x 1 today. Pt still far from baseline and will benefit from skilled rehab. Goals Self-Feeding Goal Standby Assistance Grooming Goal Minimal Assistance Dressing Goal Moderate Assistance Bathing Goal Moderate Assistance Toilet Transfer Goal Moderate Assistance Bedside Commode Days to Meet Goals 7 Frequency of Treatment Frequency Of Treatment Once a Day Treatment Plan OT Treatment Plan ADL Training Functional Cognition Training Functional Mobility Therapeutic Exercises Patient/Family Education Discharge Planning Discharge Recommendations OT Discharge Recommendations SNF Rehab
--- NOTE | 2019-01-24 16:52 | P.PN_ITS ---
Subjective Date Patient Seen: 01/24/19 Interval history: Bridger Rogers is a 68-year-old male with developmental delay, legal blindness, hypertension brought in by family due to deterioration over past couple weeks with frequent falls and decrease in mental status. Noted to have severe dysphagia and unable to manage secretions. Patient had a consult with Dr. Thompson who performed EGD which showed evidence of esophageal candidiasis with associated esophagitis through distal 3rd of esophagus including GE junction, patent Schatzki ring. The patient is resting in bed comfortably. He reports his swallowing has improved. He endorses dizziness with ambulation. He also reports his cough is unchanged since yesterday. Noticeable drooling that has improved since admission. He reports he is scared at night as he see shadows in his room. He is legally blind due to macular degeneration. Ask nursing staff to declare themselves when entering room and reassured patient that we are here if he needs us throughout the night. He denies headache, shortness of breath, chest pain, abdominal pain, nausea, vomiting, fever, chills, dysuria, diarrhea or constipation. Removed Hernandez catheter. He is voiding and eliminating without difficulty. Exam Vital Signs (past 8 hours): - 01/24/19 11:58 01/24/19 16:51 Temperature 97.6 F 97.5 F L Pulse Rate 59 L 63 Respiratory Rate 16 16 Blood Pressure 124/50 L 134/55 L Pulse Oximetry 94 91 Fraction of Inspired Oxygen 32 Oxygen Delivery Method Nasal Cannula Oxygen Flow Rate 0 Narrative Exam Narrative: General: Older gentleman sitting in bed and in no acute distress, well- developed, well-nourished, appears timid and scared, developmentally delayed. HEENT: Normocephalic, atraumatic. External ears without defect. Pupils equal, round, and reactive to light. Anicteric sclerae, moist conjunctivae, and no lid lag. Neck: Supple with full range of motion. No lymphadenopathy or thyromegaly. Cardiovascular: Regular rate and rhythm without murmurs, rubs, or gallops appreciated Pulmonary: Clear to auscultation bilaterally without crackles, wheezes, or rhonchi. Normal respiratory effort with no use of accessory muscles. Abdomen: Soft, bowel sounds present, nontender, nondistended. No hepatosple nomegaly or masses appreciated. Extremities: No clubbing or cyanosis. Left foot in offloading brace with boggy posterior heel and tender to touch. Skin: Normal temperature, turgor, and texture; no rash, ulcers, or subcutaneous nodules appreciated. Neurological: Cranial nerves grossly intact. Psychiatric: Developmentally delayed, timid and appears scared. Objective Labs Result Diagrams: 01/24/19 06:15 01/24/19 06:15 Labs: Laboratory Results - last 24 hr 01/24/19 01/24/19 01/24/19 06:15 06:15 06:15 WBC 6.9 RBC 3.26 L Hgb 10.1 L Hct 30.2 L MCV 92.8 MCH 30.9 MCHC 33.3 RDW 14.9 H Plt Count 230 Neut % (Auto) 73.6 Lymph % (Auto) 12.5 L [place] % (Auto) 12.0 Eos % (Auto) 1.3 L Baso % (Auto) 0.6 Neut # (Auto) 5100 Lymph # (Auto) 900 L [place] # (Auto) 800 Eos # (Auto) 100 Baso # (Auto) 0 Sodium 136 L Potassium 4.3 Chloride 106 Carbon Dioxide 24 BUN 25 H Creatinine 0.60 L Estimated GFR > 60.0 BUN/Creatinine Ratio 41.7 H Glucose 80 Calcium 8.4 Magnesium 1.8 Total Bilirubin 0.4 AST 64 H ALT 70 Alkaline Phosphatase 89 Total Protein 6.1 L Albumin 2.9 L Globulin 3.2 Albumin/Globulin Ratio 0.9 L Procalcitonin < 0.05 Assessment & Plan Assessment & Plan narrative: Bridger Rogers is a 68-year-old male with developmental delay, legal blindness, hypertension brought in by family due to deterioration over past couple weeks with frequent falls and decrease in mental status. Noted to have severe dysphagia and unable to manage secretions. Patient had a consult with Dr. Thompson who performed EGD which showed evidence of esophageal candidiasis with associated esophagitis through distal 3rd of esophagus including GE junction, patent Schatzki ring. 1. Esophageal candidiasis, with severe dysphagia, present on admission. Improving. -EGD 01/20/[address] Thompson demonstrated esophageal candidiasis with associated esophagitis through the distal 3rd of the esophagus including the gastroesophageal junction and minimal gastritis mostly at the antrum. This is likely a big contributor to patient's dysphagia and clinical decline over the past 2 weeks -Patient previously had EGD on 10/02/2018 for anemia evaluation and had dilation of Schatzki ring which appears to be widely patent on current EGD. -Continue Diflucan 400 mg daily oral suspension for 14-21 days to treat esophageal candidiasis. -Continue daily speech therapy evaluation and advance diet as tolerated and safely. 2. Acute hypoxemic respiratory failure secondary to acute aspiration, not present on admission. Resolved. -Patient continues to work with speech therapy to advance diet and his diet was advanced to dysphagia mechanical and thin liquids today. He became acutely hypoxemic several hours later and chest x-ray was performed which demonstrated bilateral infiltrates L>R. -Started empiric Zosyn for possible aspiration pneumonia versus pneumonitis. Du e to persistence of cough will order respiratory viral PCR as he has had several visitors. Clinically does not have pneumonia although at high risk now. -Will consider repeating chest x-ray in 1-2 days. -Continue supplemental oxygen as needed with oxygen saturation goal 92% and greater. 3. Hypotension, not present on admission. Resolved. -Likely secondary to hypovolemia and dehydration. However, there was incidental finding of right benign-appearing adrenal adenoma and possibility of adrenal insufficiency. Evaluating for adrenal insufficiency with a.m. cortisol which was normal and ACTH that is pending. Unlikely to have adrenal insufficiency at this point as hypotension has resolved and electrolytes are stable. -Received IV fluid hydration with NS at 100 mL/hr and discontinued once a dequately hydrated. 4. Obstipation, present on admission. Resolved. -Abdomen pelvic CT showed high riding in cecum with possible right-sided obstipation although the right colon findings were noted on previous imaging. -Outpatient colonoscopy 10/02/2018 was done to evaluate anemia, showed extensive sigmoid diverticulosis with stricture ring and tortuosity of the sigmoid, no colon lesions, entire colon examined -Patient had medium bowel movement after fleets enema 01/20/2019 and again on 01/22/2019. 5. Recurrent ground level fall with left hip contusion , present on admission. Stable. -Initial exam raised concern for possible undiagnosed Parkinson's due to patient's extreme rigidity and reported chest filling gait but on further thought his acute deterioration is more likely due to the GI issues, and diminished p.o. intake causing weakness, therefore, prior order for Sinemet was discontinued. Another possibility is symptomatic hypotension from adrenal insufficiency which is being assessed as above. -No fracture on x-ray of hip or foot. -Continue PT and OT. 6. Hyperkalemia, present on admission. Resolved. -Serum K 5.4 on admit. Trended down to 4.3 today. -Received IV fluid hydration with NS at 100 mL/hr and discontinued once adequately hydrated. 7. Hypertension, not present on admission. -BP meds to restart tomorrow as patients blood pressure is trending up. Disposition: Likely to discharge in several days depending upon toleration of advancement in diet and improvement overall. Quality VTE Deep Vein Thrombosis/Pulmonary Embolism Present on Admission: No
[2019-01-24 21:36] LABS: Adenovirus Not Detected (Not Detect); Bordetella pertussis Not Detected (Not Detect); Chlamydophila pneumoniae Not Detected (Not Detect); Coronavirus 229E Not Detected (Not Detect); Coronavirus HKU1 Not Detected (Not Detect); Coronavirus NL 63 Not Detected (Not Detect); Coronavirus OC43 Not Detected (Not Detect); Human Metapneumovirus Not Detected (Not Detect); Human Rhinovirus/Enterovirus Not Detected (Not Detect); Influenza A Not Detected (Not Detect); Influenza B Not Detected (Not Detect); Mycoplasma pneumoniae Not Detected (Not Detect); Parainfluenza Virus 1 Not Detected (Not Detect); Parainfluenza Virus 2 Not Detected (Not Detect); Parainfluenza Virus 3 Not Detected (Not Detect); Parainfluenza Virus 4 Not Detected (Not Detect); Respiratory Syncytial Virus Not Detected (Not Detect)
[2019-01-25] VITALS (13 sets, daily range): BP systolic 106–146; BP diastolic 47–65; PULSE 63–88; RESP 14–18; TEMP 36.6–37.2; O2SAT 89–96
--- NOTE | 2019-01-25 | DI.RAD.S_ITS ---
PROCEDURE: XR CHEST 1V INDICATIONS: Reasses aspiration/infiltrates, by exam no PNA TECHNIQUE: One view of the chest was acquired. COMPARISON: [facility], CR, XR CHEST 1V, 01/23/2019, 13:27. FINDINGS: Surgical changes and devices: None. Lungs and pleura: Diffuse bilateral pulmonary infiltrates and probable posteriorly layering right pleural fluid. Findings may potentially represent congestive heart failure. Mediastinum: Mediastinal contours appear normal. Normal heart size. Bones and chest wall: No suspicious bony lesions. Overlying soft tissues appear unremarkable. IMPRESSION: Diffuse bilateral pulmonary infiltrates and probable posteriorly layering right pleural fluid. Question congestive heart failure exacerbation. Dictated by: Maycol Dixon M.D. on 01/25/2019 at 18:05 Approved by: Maycol Dixon M.D. on 01/25/2019 at 18:07
--- NOTE | 2019-01-25 06:22 | PC.NURSE ---
Assumed care of pt at 2300 on 01/24/19. Pt resting in bed during bedside hand-off. RA sats 88, Applied NC 1 L sats increased to 90-92%. As pt sleeps sats decrease, oxygen titrated up to 3L over the shift. Pt is breathing through his mouth but states he doesn't want a mask or the NC in mouth. Sats now 95% 3L NC. Pt is very weak 3 PA to stand. Per [facility] Hospitalist okay to wait for P.T. to get him up for orthostatic VS. Bed alarm on. Door open for close monitoring.
[2019-01-25] MEDS: PIPERACILLIN-TAZO 3.375 GM/50 ML FROZ.PIGGY IV ×3 (06:45→22:00)
[2019-01-25] MEDS: SODIUM CHLORIDE 0.9% FLUSH 10 ML IV ×3 (06:45→20:01)
--- NOTE | 2019-01-25 07:11 | PM.PN.1 ---
Subjective Date Patient Seen: 01/25/19 Interval history: Bridger Rogers is a 68-year-old male with developmental delay, legal blindness, hypertension brought in by family due to deterioration over past couple weeks with frequent falls and decrease in mental status. Noted to have severe dysphagia and unable to manage secretions. Patient had a consult with Dr. Thompson who performed EGD which showed evidence of esophageal candidiasis with associated esophagitis through distal 3rd of esophagus including GE junction, patent Schatzki ring. The patient is resting in bed comfortably. He reports his swallowing has improved. He endorses dizziness with ambulation. He also reports his cough is unchanged since yesterday. Noticeable drooling that has improved since admission. He reports he was slightly scared last night as he see shadows in his room. He is legally blind due to macular degeneration. Continue to have nursing staff declare themselves when entering room and reassured patient that we are here if he needs us throughout the night. He denies headache, shortness of breath, chest pain, abdominal pain, nausea, vomiting, fever, chills, dysuria, diarrhea or constipation. He is voiding and eliminating without difficulty. Exam Vital Signs (past 8 hours): - 01/24/19 23:00 01/25/19 00:00 01/25/19 05:45 Temperature 97.4 F L Pulse Rate 72 Pulse Rate [Orthostatic Lying] 69 Respiratory Rate 16 Blood Pressure 148/66 H Blood Pressure [Orthostatic Lying] 141/65 H Pulse Oximetry 90 L 93 01/25/19 06:00 Temperature 98.9 F Pulse Rate 69 Pulse Rate [Orthostatic Lying] Respiratory Rate 18 Blood Pressure 141/65 H Blood Pressure [Orthostatic Lying] Pulse Oximetry 92 Fraction of Inspired Oxygen 32 Oxygen Delivery Method Nasal Cannula Oxygen Flow Rate 2.5 Narrative Exam Narrative: General: Older gentleman sitting in bed and in no acute distress, well-developed, well-nourished, appears timid and scared, developmentally delayed. HEENT: Normocephalic, atraumatic. External ears without defect. Pupils equal, round, and reactive to light. Anicteric sclerae, moist conjunctivae, and no lid lag. Neck: Supple with full range of motion. No lymphadenopathy or thyromegaly. Cardiovascular: Regular rate and rhythm without murmurs, rubs, or gallops appreciated Pulmonary: Clear to auscultation bilaterally without crackles, wheezes, or rhonchi. Normal respiratory effort with no use of accessory muscles. Abdomen: Soft, bowel sounds present, nontender, nondistended. No hepatosplenomegaly or masses appreciated. Extremities: No clubbing or cyanosis. Left foot in offloading brace with boggy posterior heel and tender to touch. Bilateral edema of hands otherwise no edema of other extremities. Skin: Normal temperature, turgor, and texture; no rash, ulcers, or subcutaneous nodules appreciated. Neurological: Cranial nerves grossly intact. Psychiatric: Developmentally delayed, timid and appears scared. Objective Labs Result Diagrams: 01/25/19 07:45 01/25/19 07:45 Labs: Laboratory Results - last 24 hr 01/24/19 01/24/19 01/24/19 06:15 06:15 06:15 WBC 6.9 RBC 3.26 L Hgb 10.1 L Hct 30.2 L MCV 92.8 MCH 30.9 MCHC 33.3 RDW 14.9 H Plt Count 230 Neut % (Auto) 73.6 Lymph % (Auto) 12.5 L [place] % (Auto) 12.0 Eos % (Auto) 1.3 L Baso % (Auto) 0.6 Neut # (Auto) 5100 Lymph # (Auto) 900 L [place] # (Auto) 800 Eos # (Auto) 100 Baso # (Auto) 0 Sodium 136 L Potassium 4.3 Chloride 106 Carbon Dioxide 24 BUN 25 H Creatinine 0.60 L Estimated GFR > 60.0 BUN/Creatinine Ratio 41.7 H Glucose 80 Calcium 8.4 Magnesium 1.8 Total Bilirubin 0.4 AST 64 H ALT 70 Alkaline Phosphatase 89 Total Protein 6.1 L Albumin 2.9 L Globulin 3.2 Albumin/Globulin Ratio 0.9 L Procalcitonin < 0.05 Chlamy pneumoniae PCR Adenovirus (PCR) B.parapertussis DNA PCR Coronavirus OC43 (PCR) Coronavirus HKU1 (PCR) Coronavirus 229E (PCR) Coronavirus NL63 (PCR) Human Metapneumovir PCR Influenza Type A (PCR) Influenza Type B (PCR) M. pneumoniae (PCR) Parainfluenza 1 (PCR) Parainfluenza 2 (PCR) Parainfluenza 3 (PCR) Parainfluenza 4 (PCR) RSV (PCR) Entero/Rhino (PCR) 01/24/19 20:11 WBC RBC Hgb Hct MCV MCH MCHC RDW Plt Count Neut % (Auto) Lymph % (Auto) [place] % (Auto) Eos % (Auto) Baso % (Auto) Neut # (Auto) Lymph # (Auto) [place] # (Auto) Eos # (Auto) Baso # (Auto) Sodium Potassium Chloride Carbon Dioxide BUN Creatinine Estimated GFR BUN/Creatinine Ratio Glucose Calcium Magnesium Total Bilirubin AST ALT Alkaline Phosphatase Total Protein Albumin Globulin Albumin/Globulin Ratio Procalcitonin Chlamy pneumoniae PCR Not detected Adenovirus (PCR) Not detected B.parapertussis DNA PCR Not detected Coronavirus OC43 (PCR) Not detected Coronavirus HKU1 (PCR) Not detected Coronavirus 229E (PCR) Not detected Coronavirus NL63 (PCR) Not detected Human Metapneumovir PCR Not detected Influenza Type A (PCR) Not detected Influenza Type B (PCR) Not detected M. pneumoniae (PCR) Not detected Parainfluenza 1 (PCR) Not detected Parainfluenza 2 (PCR) Not detected Parainfluenza 3 (PCR) Not detected Parainfluenza 4 (PCR) Not detected RSV (PCR) Not detected Entero/Rhino (PCR) Not detected Assessment & Plan Assessment & Plan narrative: Bridger Rogers is a 68-year-old male with developmental delay, legal blindness, hypertension brought in by family due to deterioration over past couple weeks with frequent falls and decrease in mental status. Noted to have severe dysphagia and unable to manage secretions. Patient had a consult with Dr. Thompson who performed EGD which showed evidence of esophageal candidiasis with associated esophagitis through distal 3rd of esophagus including GE junction, patent Schatzki ring. 1. Esophageal candidiasis, with severe dysphagia, present on admission. Improving. -EGD 01/20/[address] Thompson demonstrated esophageal candidiasis with associated esophagitis through the distal 3rd of the esophagus including the gastroesophageal junction and minimal gastritis mostly at the antrum. This is likely a big contributor to patient's dysphagia and clinical decline over the past 2 weeks -Patient previously had EGD on 10/02/2018 for anemia evaluation and had dilation of Schatzki ring which appears to be widely patent on current EGD. -Continue Diflucan 400 mg daily oral suspension for 21 days to treat esophageal candidiasis. -Continue daily speech therapy evaluation and advancement of diet as tolerated and safely. 2. Acute hypoxemic respiratory failure secondary to acute aspiration, not present on admission. Resolved. -Patient continues to work with speech therapy to advance diet and his diet was advanced to dysphagia mechanical and thin liquids. He became acutely hypoxemic several hours later and chest x-ray was performed which demonstrated bilateral infiltrates L>R. -Continue empiric Zosyn for possible aspiration pneumonia versus pneumonitis. Due to persistence of cough ordered respiratory viral PCR which was negative. Clinically does not have pneumonia although at high risk now. -Repeating chest x-ray today to assure resolution, pending. -Ordered Lasix 20 mg IV x1 and echocardiogram, pending. -Continue supplemental oxygen as needed with oxygen saturation goal 92% and greater. No longer on supplemental oxygen. 3. Hypotension, not present on admission. Resolved. -Likely secondary to hypovolemia and dehydration. However, there was incidental finding of right benign-appearing adrenal adenoma and possibility of adrenal insufficiency. Evaluating for adrenal insufficiency with a.m. cortisol which was normal and ACTH that is pending. Unlikely to have adrenal insufficiency at this point as hypotension has resolved and electrolytes are stable. -Received IV fluid hydration with NS at 100 mL/hr and discontinued once adequately hydrated. 4. Obstipation, present on admission. Resolved. -Abdomen pelvic CT showed high riding in cecum with possible right-sided obstipation although the right colon findings were noted on previous imaging. -Outpatient colonoscopy 10/02/2018 was done to evaluate anemia, showed extensive sigmoid diverticulosis with stricture ring and tortuosity of the sigmoid, no colon lesions, entire colon examined -Patient had medium bowel movement after fleets enema 01/20/2019 and again on 01/22/2019. 5. Recurrent ground level fall with left hip contusion , present on admission. Stable. -Initial exam raised concern for possible undiagnosed Parkinson's due to patient's extreme rigidity and reported chest filling gait but on further thought his acute deterioration is more likely due to the GI issues, and diminished p.o. intake causing weakness, therefore, prior order for Sinemet was discontinued. Another possibility is symptomatic hypotension from adrenal insufficiency which is being assessed as above. -No fracture on x-ray of hip or foot. -Continue PT and OT. 6. Hyperkalemia, present on admission. Resolved. -Serum K 5.4 on admit. Trended down to 4.3 today. -Received IV fluid hydration with NS at 100 mL/hr and discontinued once adequately hydrated. 7. Hypertension, not present on admission. -Restarted amlodipine 5 mg daily and lisinopril 40 mg daily. Disposition: Likely to discharge in several days depending upon toleration of advancement in diet and improvement overall. Quality VTE Deep Vein Thrombosis/Pulmonary Embolism Present on Admission: No
[2019-01-25 08:00] LABS: Add Manual Diff / Slide Review NO; Basophils Absolute Auto 0 /uL (0-100); Basophils Percent Auto 0.3 % (0-2); Eosinophils Absolute Auto 100 /uL (0-450); Eosinophils Percent Auto 0.8 % (2-4); Hematocrit 28.7 % (41-53); Hemoglobin 9.6 g/dL (13.5-17.5); Lymphocytes Absolute Auto 700 /uL (1100-4500); Lymphocytes Percent Auto 9.9 % (25-40); Mean Corpuscular HGB Conc 33.6 % (30-36); Mean Corpuscular Hemoglobin 31.1 PG (26-34); Mean Corpuscular Volume 92.4 fL (80-100); Monocytes Absolute Auto 1000 /uL (0-900); Monocytes Percent Auto 13.5 % (3-14); Neutrophils Absolute Auto 5500 /uL (1500-7000); Neutrophils Percent Auto 75.5 % (50-75); Platelet Count 257 X10^3/uL (150-400); Red Cell Distribution Width 14.5 % (11.6-14.8); White Blood Cell Count 7.3 X10^3/uL (4.5-11.0)
[2019-01-25 08:05] LABS: Alanine Aminotransferase 59 IU/L (21-72); Albumin 2.8 g/dL (3.5-5.0); Albumin Globulin Ratio 0.9 (1.0-2.8); Alkaline Phosphatase 85 U/L (38-126); Aspartate Aminotransferase 42 IU/L (17-59); Bilirubin Total 0.5 mg/dL (0.2-1.3); Blood Urea Nitrogen 18 mg/dL (9-20); Calcium 8.2 mg/dL (8.4-10.2); Carbon Dioxide 26 mmol/L (22-32); Chloride 102 mmol/L (98-107); Estimated Glomerular Filt Rate > 60.0 mL/min (>60); Globulin 3.1 g/dL (1.7-4.1); Glucose 80 mg/dL (80-110); HEMOLYSIS < 15 (0-50); Potassium 4.2 mmol/L (3.4-5.1); Sodium 134 mmol/L (137-145); Total Protein 5.9 g/dL (6.3-8.2)
[2019-01-25] MEDS: FLUCONAZOLE 40 MG/ML SUSP 400 MG PO (08:47)
[2019-01-25] MEDS: ENOXAPARIN 40 MG/0.4 ML SYRINGE SUBCUT (08:48)
[2019-01-25 08:49] LABS: Procalcitonin < 0.05 ng/mL (<0.5)
--- NOTE | 2019-01-25 12:09 | PT.IPTN ---
Current Diagnoses Dysphagia, unspecified (01/20/19) Surgery Performed Operation Date: 01/20/19 19:25 Actual Procedures p Esophagogastroduodenoscopy with Removal Foreign Body - Kamlesh Thompson MD Physical Therapy Treatment Note M2 PT-IP Current Condition Start: 01/20/19 12:30 Freq: NEEDED Status: Active Protocol: Document 01/20/19 11:25 AB (Rec: 01/20/19 12:50 AB [id number]) Physical Therapy Current Condition Current Condition Evaluation Date 01/20/19 Treatment Diagnosis falls; tachycardia; difficulty in walking Onset Date 01/19/19 Precautions Other Precautions Falls; legally blind M3 PT-IP Subjective Start: 01/20/19 12:30 Freq: NEEDED Status: Active Protocol: Document 01/25/19 10:00 CLB (Rec: 01/25/19 12:09 CLB [id number]) Subjective Physical Therapy Visit Type Type Treatment Note Visit Start Time 10:00 Visit Stop Time 10:15 Total Visit Minutes 15 Number of DROP WIRE HANGER Visits 1 Physical Therapy Visit Comments Patient Comments Pt agreeable to ambulate with therapy. Pt stated he feels shakey. Therapy Pain Assessment Pain Present Pain Present Denied Pain M4 PT-IP Mobility and Gait Start: 01/20/19 12:30 Freq: NEEDED Status: Active Protocol: Document 01/25/19 10:00 CLB (Rec: 01/25/19 12:09 CLB [id number]) PT-Transfer Assessment Sit to and From Stand Sit to and from Stand Moderate Assistance 2 Person Assistance Use of Upper Extremities Equipment Transfer Assistive Device Gait Belt Front Wheeled Walker Transfers Transfer Destination Bedside Commode Transfer Technique Stand Step Pivot Transfer Ability Level of Assist Moderate Assistance 1 Person Assistance Use of Upper Extremities Comments Mobility Comments Pt required Min A to scoot to edge of chair. Pt requires verbal and tactile cues for hand placement during transfers. Once pt stood he needed to use BSC, pt required Mod A for stand pivot transfer with Max verbal cues to perform transfers. Gait Assessment Comments Gait Comments Pt needing to use BSC once standing. 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 Pharmacy Affairs Assistant Impaired Gross Range of Motion Lower Extremity ROM Assessment Bilaterally Impaired Impairments decrease B ankle DF/PF Strength Lower Extremity Strength Assessment Bilaterally Impaired Knee 3-/5 Muscle Tone Muscle Tone WNL Yes Comments Muscle Tone Comments (+) UE rigidity M6 PT-IP Treatment Start: 01/20/19 12:30 Freq: NEEDED Status: Active Protocol: Document 01/24/19 11:20 RCC (Rec: 01/24/19 11:45 RCC [id number]) Physical Therapy Treatment Education Education Provided Safety M7 PT-IP Assessment and Plan Start: 01/20/19 12:30 Freq: NEEDED Status: Active Protocol: Document 01/25/19 10:00 CLB (Rec: 01/25/19 12:09 CLB [id number]) PT Summary Assessment and Plan Summary Assessment Summary Pt able to transfer with stand step pivot to [facility] Mod A x1 with max verbal cues. Pt BP in sitting 122/51, standing 146/ 58. O2 saturation on 2L remained in range of 90-93% during transfer. Pt required assist with doffing brief. Pt left on BSC with call light and RN present in room. Goals Bed Mobility Goal Standby Assistance Transfer Goal Minimal Assistance Front Wheeled Walker Gait Goal Minimal Assistance Gait Distance 100 Days to Meet Goals 5 Frequency of Treatment Frequency Of Treatment Once a Day Treatment Plan Physical Therapy Treatment Plan Bed Mobility Training Transfer Training Gait Training Therapeutic Exercise Balance Retraining Discharge Planning Hot or Cold Pack Neuromuscular Re-ed Coordination Retraining Manual Therapy Other Recommendations and Next Treatment prog. gait, sit<->stand, Focus standing balance. Recommendations To Nursing Amount of Assist Needed 2 Person Assist Discharge Recommendations PT Discharge Recommendations SNF Rehab Equipment Needed for Home Before FWW Discharge
[2019-01-25] MEDS: AMLODIPINE 5 MG TABLET PO (13:19)
[2019-01-25] MEDS: LISINOPRIL 20 MG TABLET PO (13:19)
--- NOTE | 2019-01-25 15:35 | CM.DPC ---
DCP/continued: Reviewed chart. Received notification that patient denied by [facility]? Attempted to meet with patient but he was asleep. Therefore, placed call to DPOA/sister Quin. She reports being frustrated because she does not even know what's wrong with her brother? Sister reports that she has missed the doctor on several occasions. Sister reports that prior to admit patient somewhat I in ADL's. He [place] on family property in [place]. Sister would really like patient to go to [facility] if at all possible. Notified sister that WATER PROJECT ENGINEER would check again with [facility] re: acceptance and why they declined. In addition, sister requesting to speak with MD about patient's current condition. WATER PROJECT ENGINEER will discuss with MD tomorrow in AM rounds 3-11-19. P: CM team to follow closely. Will ask [facility] to re-evaluate for potential placement. Also requested that sister get second and/or third SNF choice. ONIEL Weaver
[2019-01-25 15:46] LABS: Adrenocorticotropic Hormone 26 pg/mL (6-50)
--- NOTE | 2019-01-25 22:55 | PC.NURSE ---
1500-bedside report, safety checks done. assumed care of patient. 2100-family member Aly called back for update. 2200-vss. patient asking when he is going home. ligths remain on for comfort.
[2019-01-26] VITALS (12 sets, daily range): BP systolic 85–138; BP diastolic 47–97; PULSE 75–110; RESP 16–20; TEMP 36.3–37; O2SAT 91–97
[2019-01-26] MEDS: FUROSEMIDE 20 MG/2 ML VIAL IV (00:12)
--- NOTE | 2019-01-26 03:58 | PC.NURSE ---
Pt has been able to sleep this shift; did not wake him for orthos, VSS in laying position.
[2019-01-26 06:12] LABS: Add Manual Diff / Slide Review NO; Basophils Absolute Auto 0 /uL (0-100); Basophils Percent Auto 0.5 % (0-2); Eosinophils Absolute Auto 0 /uL (0-450); Eosinophils Percent Auto 0.6 % (2-4); Hemoglobin 10.3 g/dL (13.5-17.5); Lymphocytes Absolute Auto 1000 /uL (1100-4500); Mean Corpuscular HGB Conc 34.2 % (30-36); Mean Corpuscular Hemoglobin 31.3 PG (26-34); Mean Corpuscular Volume 91.5 fL (80-100); Monocytes Absolute Auto 1200 /uL (0-900); Monocytes Percent Auto 13.7 % (3-14); Neutrophils Absolute Auto 6200 /uL (1500-7000); Neutrophils Percent Auto 73.2 % (50-75); Platelet Count 289 X10^3/uL (150-400); Red Blood Cell Count 3.28 X10^6/uL (4.5-5.9); Red Cell Distribution Width 14.6 % (11.6-14.8); White Blood Cell Count 8.4 X10^3/uL (4.5-11.0)
[2019-01-26 06:23] LABS: BUN Creatinine Ratio 21.4 (6-22); Blood Urea Nitrogen 15 mg/dL (9-20); Calcium 8.3 mg/dL (8.4-10.2); Carbon Dioxide 30 mmol/L (22-32); Chloride 98 mmol/L (98-107); Estimated Glomerular Filt Rate > 60.0 mL/min (>60); Glucose 83 mg/dL (80-110); HEMOLYSIS < 15 (0-50); Sodium 135 mmol/L (137-145)
[2019-01-26] MEDS: PIPERACILLIN-TAZO 3.375 GM/50 ML FROZ.PIGGY IV ×3 (06:54→22:42)
[2019-01-26] MEDS: ENOXAPARIN 40 MG/0.4 ML SYRINGE SUBCUT (08:35)
[2019-01-26] MEDS: FLUCONAZOLE 40 MG/ML SUSP 400 MG PO (08:35)
[2019-01-26] MEDS: SODIUM CHLORIDE 0.9% FLUSH 10 ML IV ×2 (08:35→21:07)
--- NOTE | 2019-01-26 09:39 | OT.IP.TRT ---
Current Diagnoses Dysphagia, unspecified (01/20/19) Surgery Performed Operation Date: 01/20/19 19:25 Actual Procedures p Esophagogastroduodenoscopy with Removal Foreign Body - Kamlesh Thompson MD Occupational Therapy Treatment Note M2 OT-IP Current Condition Start: 01/20/19 13:05 Freq: Status: Active Protocol: Document 01/20/19 12:07 PJM (Rec: 01/20/19 13:34 PJM [id number]) Occupational Therapy Current Condition Current Condition Evaluation Date 01/20/19 Treatment Diagnosis decreased self care,mobility, BUE function due to possible new dx Parkinsons Diagnosis Onset Date 01/19/19 Post Operative Precautions Other Precautions fall risk, nectar thick M3 OT- IP Subjective and Pain Start: 01/20/19 13:05 Freq: Status: Active Protocol: Document 01/26/19 09:31 CCC (Rec: 01/26/19 09:37 [facility] [id number]) OT- Subjective Occupational Therapy Visit Type Type Treatment Note Visit Start Time 09:06 Visit Stop Time 09:26 Total Visit Minutes 20 Occupational Therapy Visit Comments Patient Comments Pt not feeling well, states feels dizzy. BP taken and nursing notified. M4 OT- IP ADL's Start: 01/20/19 13:05 Freq: Status: Active Protocol: Document 01/24/19 13:15 [facility] (Rec: 01/24/19 13:33 [facility] [id number]) OT EKE-Dfmm-Ilicyiu General Evaluation Self-Feeding Ability Minimal Assistance Areas Needing Assistance Loading Utensil Devices Self-Feeding Devices Adapted Utensil Comments OT Self-Feeding Comments Pt able to drink from cup with right hand with no issues. Pt needing assist at times to load the spoon, pt uses his right hand at times to assist. Pt still needing cues at time to take smaller bites and alternate between solids and liquids. OT ADL-Grooming Comments OT Grooming Comments Pt able to wash his hands and face after set-up of wash cloth. M5 OT- IP IADL's Start: 01/20/19 13:05 Freq: Status: Active Protocol: Document 01/20/19 12:07 PJM (Rec: 01/20/19 13:34 PJM [id number]) OT-Instrumental Activities of Daily Living Deficits IADL Deficits Identified Deficits Home Safety Awareness Awareness of Need for Assistance at Home Decreased Awareness Home Safety Comments pt's sister and brother in law provide assist with all IADLS at home Medication Management Medication Management Caregiver Administers Money Management Money Management Caregiver Provides Assistance Meal Preparation Meal Preparation Caregiver Provides Assist Ostomy Rn Ostomy Rn Caregiver Provides Assist Driving Driving Caregiver Provides Assist M6 OT- IP Functional Cognition Start: 01/20/19 13:05 Freq: Status: Active Protocol: Document 01/26/19 09:31 [facility] (Rec: 01/26/19 09:37 [facility] [id number]) Cognitive Factors Limiting Selfcare Function Cognitive Ability Level of Alertness Alert Patient Orientation Name Attention Span Ability Capable of Focused Attention Unable to Sustain Attention Ability to Follow Commands Able to Follow One Step Commands Problem Solving Ability Unable to Identify Errors Needs Assist to Identify Solutions Cognitive Comments Cognitive Assessment Comments Pt needing vc,physical cues as well due to decreased vision in order to follow commands for squat pivot transfer. Initially not wanting to get back to bed , even after explanation that BP low. Nursing aid came in and able to convince pt to get back to bed. M7 OT- IP Mobility and Balance Start: 01/20/19 13:05 Freq: Status: Active Protocol: Document 01/26/19 09:31 [facility] (Rec: 01/26/19 09:37 [facility] [id number]) OT-Transfer Assessment Sit to and From Stand Sit to and from Stand Maximum Assistance 2 Person Assistance Transfers Transfer Ability Maximum Assistance 2 Person Assistance Technique Transfer Destination Bed Transfer Technique Squat Pivot Devices Transfer Assistive Devices Gait Belt Comments Mobility Comments Pt needing MAX A X 2 stand pivot with gait belt. Pt resisting movements and also dependent for bed mobility back in bed. Once in bed pt able to assist to scoot hips over to the left of the bed. Call light bulb given to pt. BP sitting 82/46 and 86/49 and after transfer to bed and back into supine 121/57. OT- Balance Assessment Sitting Balance and Reactions Static Sitting Balance Ability Fair Dynamic Sitting Balance Ability Poor Standing Balance and Reactions Static Standing Balance Ability Poor Dynamic Standing Balance Ability Poor M8 OT- IP Objective Assessments Start: 01/20/19 13:05 Freq: Status: Active Protocol: Document 01/22/19 15:32 PJM (Rec: 01/22/19 16:33 PJM [id number]) OT Gross Range of Motion Upper Extremity Range of Motion Assessment Left Impaired ROM Impairments Provided AAROM/AROM to BUE with LUE stiffer and slightly weaker than RUE for shoulder flexion, shoulder abduction, elbow flex/ext, pron/sup, wrist ext and finger flex/ext. Pt needs encouragement to participate. I don't see the point of this. OT- Coordination Assessment Comments Coordination Comments impaired by weakness, decreased isolated finger motion and low vision OT-Muscle Tone Assessment Muscle Tone Location Bilateral Upper Extremity Type of Tone Rigidity Severity of Tone Mild Shane Grade Scale Grade 1 M9 OT- IP Assessment and Plan Start: 01/20/19 13:05 Freq: Status: Active Protocol: Document 01/26/19 09:31 [facility] (Rec: 01/26/19 09:37 [facility] [id number]) OT Summary Assessment and Plan Potential Rehabilitation Potential Fair Analytic Complexity at Evaluation Low Summary OT Impairments Range of Motion Strength Balance Coordination Tone Functional Cognition Functional Mobility Self-Feeding Grooming Dressing Toileting Bathing Toilet Transfers Shower Transfers Assessment Summary Pt having low bp and only able to tolerate transfer back to bed at this time. Pt will continue to benefit from skilled rehab when medically stable. Goals Self-Feeding Goal Standby Assistance Grooming Goal Minimal Assistance Dressing Goal Moderate Assistance Bathing Goal Moderate Assistance Toilet Transfer Goal Moderate Assistance Bedside Commode Days to Meet Goals 7 Frequency of Treatment Frequency Of Treatment Once a Day Treatment Plan OT Treatment Plan ADL Training Functional Cognition Training Functional Mobility Therapeutic Exercises Patient/Family Education Discharge Planning Discharge Recommendations OT Discharge Recommendations SNF Rehab
--- NOTE | 2019-01-26 09:41 | PT.IPTN ---
Current Diagnoses Dysphagia, unspecified (01/20/19) Surgery Performed Operation Date: 01/20/19 19:25 Actual Procedures p Esophagogastroduodenoscopy with Removal Foreign Body - Kamlesh Thompson MD Physical Therapy Treatment Note M2 PT-IP Current Condition Start: 01/20/19 12:30 Freq: NEEDED Status: Active Protocol: Document 01/20/19 11:25 AB (Rec: 01/20/19 12:50 AB [id number]) Physical Therapy Current Condition Current Condition Evaluation Date 01/20/19 Treatment Diagnosis falls; tachycardia; difficulty in walking Onset Date 01/19/19 Precautions Other Precautions Falls; legally blind M3 PT-IP Subjective Start: 01/20/19 12:30 Freq: NEEDED Status: Active Protocol: Document 01/26/19 09:05 [facility]B (Rec: 01/26/19 09:40 [facility]B [id number]) Subjective Physical Therapy Visit Type Type Treatment Note Visit Start Time 09:05 Visit Stop Time 09:25 Total Visit Minutes [address] TECHNICIAN Visits 2 Physical Therapy Visit Comments Patient Comments Pt states he is not feeling well and is dizzy. Therapy Pain Assessment Pain Present Pain Present Denied Pain M4 PT-IP Mobility and Gait Start: 01/20/19 12:30 Freq: NEEDED Status: Active Protocol: Document 01/26/19 09:05 CLB (Rec: 01/26/19 09:40 [facility] [id number]) PT-Bed Mobility Assessment Sit to Supine Sit to Supine Maximum Assistance 2 Person Assistance Scooting Scooting to Edge of Bed Moderate Assistance PT-Transfer Assessment Sit to and From Stand Sit to and from Stand Moderate Assistance 2 Person Assistance Use of Upper Extremities Equipment Transfer Assistive Device Gait Belt Transfers Transfer Destination Bed Transfer Technique Squat Pivot Transfer Ability Level of Assist Maximum Assistance 2 Person Assistance Gait Assessment Comments Gait Comments Unable due to BP 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 Group Home Impaired Gross Range of Motion Lower Extremity ROM Assessment Bilaterally Impaired Impairments decrease B ankle DF/PF Strength Lower Extremity Strength Assessment Bilaterally Impaired Knee 3-/5 Muscle Tone Muscle Tone WNL Yes Comments Muscle Tone Comments (+) UE rigidity M6 PT-IP Treatment Start: 01/20/19 12:30 Freq: NEEDED Status: Active Protocol: Document 01/24/19 11:20 RCC (Rec: 01/24/19 11:45 [facility] [id number]) Physical Therapy Treatment Education Education Provided Safety M7 PT-IP Assessment and Plan Start: 01/20/19 12:30 Freq: NEEDED Status: Active Protocol: Document 01/26/19 09:05 CLB (Rec: 01/26/19 09:40 CLB [id number]) PT Summary Assessment and Plan Summary Assessment Summary Pt stated he didn't feel well and was dizzy. BP taken in chair in seated position, BP 82/46,pt refused being reclined, after 2 minutes BP in sitting 86/49. 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 Stand Pivot transfer Max A x2 and Max A x2 sit-supine and Mod A x2 to HOB. BP 121/57 in supine. Pt on 1.5 L O2, O2 saturation 95% during tx. Pt left in supine HOB elevated to ~30 degrees with alarm on and call light in hand. Goals Bed Mobility Goal Standby Assistance Transfer Goal Minimal Assistance Front Wheeled Walker Gait Goal Minimal Assistance Gait Distance 100 Days to Meet Goals 5 Frequency of Treatment Frequency Of Treatment Once a Day Treatment Plan Physical Therapy Treatment Plan Bed Mobility Training Transfer Training Gait Training Therapeutic Exercise Balance Retraining Discharge Planning Hot or Cold Pack Neuromuscular Re-ed Coordination Retraining Manual Therapy Recommendations To Nursing Amount of Assist Needed 2 Person Assist Discharge Recommendations PT Discharge Recommendations SNF Rehab Equipment Needed for Home Before FWW Discharge
--- NOTE | 2019-01-26 14:53 | PC.NURSE ---
Day shift pt denies pain. Coughing spells increase with any activity. pt is 2 person assist to BSC and to chair with FWW. this AM, BP was low and he was orhtostatic and symptomatic. BP meds not given. In afternoon, BP increased and no longer orhtostatic. pt had 2 soft BM this shift. hourly rounding provided, call light within reach.
--- NOTE | 2019-01-26 15:52 | CM.DPC ---
DCP/continued: Reviewed chart. Spoke with MD/Dr. Mart she confirms that patient will need SNF but will not be medically stable today. Spoke with RN/Sandrita re: patient needs. Patient currently 2 person assist. Patient is able to eat but has 1/1 because he is very slow. Placed call to Oly at [facility]. [employer] requested that they re-review for admit. Family really want patient in [place] if possible. Notified Oly that patient's needs are primarily therapy. Oly concerned primarily about meals and 1/1 care. RN confirms to Oly that patient is capable of feeding himself just very slow. Also patient with vision deficit which makes it difficult. Otherwise, patient has been very appropriate. [facility] in agreement to re-evaluate for admit later this week. Per Oly they do not plan on having male bed till the end of the week. In addition, Oly plans to call patient's sister/Quin re: baseline and d/c plan after therapy completed. P: Pending. Hopeful that [facility] will reconsider. Per family it is a hardship for them to have patient go out of town. Patient resides in [place] and [facility] unable to accept patient's at this time. ONIEL Weaver
--- NOTE | 2019-01-26 16:25 | PM.PN.1 ---
Subjective Date Patient Seen: 01/26/19 Interval history: Chart reviewed patient seen and examined. Patient is a 68-year-old male admitted to the hospital found to have esophageal candidiasis and a Schatzki ring. He initially was obstipated but that has improved. In addition the patient has had continued hypotension. He is orthostatic. He had an ACTH stimulation test and cortisol test which was negative. Patient continues on both lisinopril and amlodipine. With standing he is hypotensive. Patient has no specific complaints. He tolerated his diet without difficulty today. Exam Vital Signs (past 8 hours): - 01/26/19 09:00 01/26/19 12:00 01/26/19 15:43 Temperature 97.9 F 97.7 F Pulse Rate 88 75 Pulse Rate [Orthostatic Lying] 95 H Pulse Rate [Orthostatic Sitting] 84 Pulse Rate [Orthostatic Standing] 83 Respiratory Rate 18 18 Blood Pressure 113/69 109/47 L Blood Pressure [Orthostatic Lying] 121/56 L Blood Pressure [Orthostatic Sitting] 89/49 L Blood Pressure [Orthostatic Standing] 85/49 L Pulse Oximetry 97 91 Fraction of Inspired Oxygen 21 Oxygen Delivery Method Nasal Cannula Oxygen Flow Rate 1.5 Narrative Exam Narrative: Elderly gentleman resting comfortably in no obvious distress lungs: Clear to auscultation, with coarse breath sounds at the bases cardiac exam: Regular rate and rhythm , normal S1 and S2 abdomen:nondistended , nontender extremities: No edema Objective Labs Result Diagrams: 01/26/19 06:00 01/26/19 06:00 Labs: Laboratory Results - last 24 hr 01/26/19 01/26/19 06:00 06:00 WBC 8.4 RBC 3.28 L Hgb 10.3 L Hct 30.0 L MCV 91.5 MCH 31.3 MCHC 34.2 RDW 14.6 Plt Count 289 Neut % (Auto) 73.2 Lymph % (Auto) 12.0 L [place] % (Auto) 13.7 Eos % (Auto) 0.6 L Baso % (Auto) 0.5 Neut # (Auto) 6200 Lymph # (Auto) 1000 L [place] # (Auto) 1200 H Eos # (Auto) 0 Baso # (Auto) 0 Sodium 135 L Potassium 4.0 Chloride 98 Carbon Dioxide 30 BUN 15 Creatinine 0.70 Estimated GFR > 60.0 BUN/Creatinine Ratio 21.4 Glucose 83 Calcium 8.3 L Assessment & Plan (1) Esophageal candidiasis: Problem details: continue Diflucan Current visit: Yes Status: Acute (2) Schatzki's ring: Problem details: will continue treatment as outlined by Current visit: Yes Status: Acute (3) Hypotension: Problem details: will discontinue lisinopril amlodipine will check orthostatic vital signs tomorrow Current visit: Yes Status: Acute (4) Obstipation: Problem details: no further issues Current visit: Yes Status: Acute (5) Developmental delay, borderline: Current visit: Yes Status: Acute Assessment & Plan narrative: anticipate discharge to [facility] tomorrow. Quality VTE Deep Vein Thrombosis/Pulmonary Embolism Present on Admission: No
--- NOTE | 2019-01-26 17:16 | ST.IPDYTX ---
COSMETICS COUNTER MANAGER Dysphagia Treatment COSMETICS COUNTER MANAGER Dysphagia Treatment Start: 01/20/19 10:33 Freq: Status: Active Protocol: Document 01/26/19 17:01 TLC (Rec: 01/26/19 17:15 TLC [id number]) Dysphagia Treatment Session Time Total Visit Minutes 30 Setting Assessment Location Acute Care Visit Type Note Type Treatment Note Next Note Type Next Note Type Treatment Note Patient Information Subjective Observations Patient seen this afternoon in between meals. He agreed to sit up and eat a snack. He became tearful at one point saying today was a rough day. He also mentioned he was scared. Nursing was notified. Treatment Liquids Trialed Thin [place] Solids Trialed Dysphagia Mechanical Administration Type Cup Single Sip Controlled Cup Sip Dependent Feeding Oral Strategies Upright at 90 degrees Double Swallow Controlled Bite/Sip Size Alternate Liquids/Solids Pharyngeal Strategies Double Swallow Small Bites and Sips Alternate Liquids/Solids Treatment Activities No drooling observed today, though patient reported he felt weak today and this was noticeable as he fatigued through out the meal. He was able to self-feed ~75% of his jell-o from the cup. He requested my assistance for feeding the rest. Trials of thin liquids were self- administered by the patient. He exhibited a delayed throat clear on 3 occasions with sips of water. No overt signs of aspiration during trials today . Assessment Patient Response to Treatment Good Rehab Potential Good Assessment of Improvement Patient appears better than Saturday as he is more effectively managing his secretions and not drooling. He was also weaned from the oxygen and is on room air at this time. Given weakness, recommend continuing nectar thick liquids at this time. Diet Recommendations Recommendations Continue Current Diet Liquids Order [place] Diet Order Dysphagia Mechanical Medication Recommendations As Tolerated Additional Dietary Needs Single Sips No Straws 1:1 Assistance Reminders to Use Strategies Treatment Plan Placement Recommendation after Discharge Assisted Facility Appropriate for Continued Therapy Yes Therapy Recommendations Ongoing evaluation of swallow function/safety. Training of safe swallow strategies and swallow exercises as tolerated by pt. Advance diet when appropriate. Dysphagia Goals 1. Pt will perform safe swallow strategies with verbal /tactile prompts as needed to reduce risk of aspiration.
[2019-01-27] VITALS (10 sets, daily range): BP systolic 106–154; BP diastolic 44–71; PULSE 62–82; RESP 17–18; TEMP 36.3–37.1; O2SAT 91–96
--- NOTE | 2019-01-27 00:26 | PC.NURSE ---
2300- Pt lying in bed w/ IV Zosyn hanging per orders. Denies pain at this time, using urinal w/ minimal assistance. Pt states he 'wants the lights on because things keep biting his wires in his room at night'. Pt is oriented to person, time, and place. He knows he is in the hospital however, still feels like people and things are in his room at night. Reoriented to situation; lights turned down, pt reminded of safety in the hospital. 0020- IV Zosyn stopped. Persistent dry cough present, O2 sats in range.
[2019-01-27] MEDS: PIPERACILLIN-TAZO 3.375 GM/50 ML FROZ.PIGGY IV (06:35)
[2019-01-27 07:22] LABS: BUN Creatinine Ratio 27.1 (6-22); Blood Urea Nitrogen 19 mg/dL (9-20); Calcium 8.2 mg/dL (8.4-10.2); Carbon Dioxide 30 mmol/L (22-32); Chloride 99 mmol/L (98-107); Estimated Glomerular Filt Rate > 60.0 mL/min (>60); Glucose 78 mg/dL (80-110); HEMOLYSIS < 15 (0-50); Potassium 4.2 mmol/L (3.4-5.1); Sodium 135 mmol/L (137-145)
[2019-01-27 07:27] LABS: Add Manual Diff / Slide Review NO; Basophils Absolute Auto 0 /uL (0-100); Basophils Percent Auto 0.4 % (0-2); Eosinophils Absolute Auto 100 /uL (0-450); Eosinophils Percent Auto 1.1 % (2-4); Hematocrit 27.4 % (41-53); Hemoglobin 9.4 g/dL (13.5-17.5); Lymphocytes Absolute Auto 1200 /uL (1100-4500); Lymphocytes Percent Auto 14.7 % (25-40); Mean Corpuscular HGB Conc 34.5 % (30-36); Mean Corpuscular Hemoglobin 31.5 PG (26-34); Mean Corpuscular Volume 91.5 fL (80-100); Monocytes Absolute Auto 900 /uL (0-900); Monocytes Percent Auto 11.7 % (3-14); Neutrophils Absolute Auto 5800 /uL (1500-7000); Neutrophils Percent Auto 72.1 % (50-75); Platelet Count 328 X10^3/uL (150-400); Red Blood Cell Count 2.99 X10^6/uL (4.5-5.9); Red Cell Distribution Width 14.4 % (11.6-14.8); White Blood Cell Count 8.1 X10^3/uL (4.5-11.0)
[2019-01-27] MEDS: SODIUM CHLORIDE 0.9% FLUSH 10 ML IV (08:30)
--- NOTE | 2019-01-27 09:56 | OT.IP.TRT ---
Current Diagnoses Candidal esophagitis (01/20/19) Hypotension, unspecified (01/20/19) Esophageal obstruction (01/20/19) Constipation, unspecified (01/20/19) Dysphagia, unspecified (01/20/19) Unspecified lack of expected normal physiological development in childhood (01/20/19) Surgery Performed Operation Date: 01/20/19 19:25 Actual Procedures p Esophagogastroduodenoscopy with Removal Foreign Body - Kamlesh Thompson MD Occupational Therapy Treatment Note M2 OT-IP Current Condition Start: 01/20/19 13:05 Freq: Status: Active Protocol: Document 01/20/19 12:07 PJM (Rec: 01/20/19 13:34 PJM [id number]) Occupational Therapy Current Condition Current Condition Evaluation Date 01/20/19 Treatment Diagnosis decreased self care,mobility, BUE function due to possible new dx Parkinsons Diagnosis Onset Date 01/19/19 Post Operative Precautions Other Precautions fall risk, NPO due to severe dysphagia M3 OT- IP Subjective and Pain Start: 01/20/19 13:05 Freq: Status: Active Protocol: Document 01/27/19 09:33 [facility] (Rec: 01/27/19 09:55 [facility] [email or web address]) OT- Subjective Occupational Therapy Visit Type Type Treatment Note Visit Start Time 08:37 Visit Stop Time 09:32 Total Visit Minutes 55 Occupational Therapy Visit Comments Patient Comments Pt agreeable to get up and wantng to try to use the BSC. Pt very cooperative and pleasant. OT Pain Assessment Pain When Pain Assessed At Rest Pain Present Pain Present Denied Pain M4 OT- IP ADL's Start: 01/20/19 13:05 Freq: Status: Active Protocol: Document 01/27/19 09:33 [facility] (Rec: 01/27/19 09:55 [facility] [email or web address]) OT [id number] General Evaluation Self-Feeding Ability Standby Assistance Devices Self-Feeding Devices Adapted Utensil Comments OT Self-Feeding Comments Pt would benefit from plate guard or adaptive plate as has difficulty to load food onto spoon, mainly due to legally blind and tends to use his right hand to assist. Pt mainly needing assist for set- up, and vc of location of food items as pt can not see. Pt needing occasional cues to alternate between solids and liquids. Pt does a good job to be sure to clear his mouth. Pt also needing cues at times to take smaller bites. OT ADL-Grooming General Evaluation Grooming Ability Standby Assistance Areas Needing Assistance Retrieving/Set-up of Grooming Items Comments OT Grooming Comments Pt needing set-up assist and able to do grooming while sitting on BSC. OT ADL-Oral Care General Eval Oral Care Ability Standby Assistance Areas of Assistance Retrieving/Set-Up of Items Devices Oral Care Devices Sponge/Foam Tipped Swab Comments Oral Care Comments Set-up assist. OT ADL-Dressing General Eval Lower Body Dressing Ability Maximum Assistance Areas Needing Assistance Underpants/Brief Comments OT Dressing Comments Pt due to weakness having difficulty to raise up his legs to assist for donning brief over his feet and needing MAX A. OT ADL-Toileting General Evaluation Toileting Ability Maximum Assistance Areas Needing Assistance Manage Clothing Perform Perineal Hygiene Comments OT Toileting Comments One person to stand pt with FWW MODA x 2 to stand and then one person to assist to stand and another dependent for hygiene and brief needs. M5 OT- IP IADL's Start: 01/20/19 13:05 Freq: Status: Active Protocol: Document 01/20/19 12:07 PJ (Rec: 01/20/19 13:34 PJ [id number]) OT-Instrumental Activities of Daily Living Deficits IADL Deficits Identified Deficits Home Safety Awareness Awareness of Need for Assistance at Home Decreased Awareness Home Safety Comments pt's sister and brother in law provide assist with all IADLS at home Medication Management Medication Management Caregiver Administers Money Management Money Management Caregiver Provides Assistance Meal Preparation Meal Preparation Caregiver Provides Assist Blueprinting And Photocopy Supervisor Blueprinting And Photocopy Supervisor Caregiver Provides Assist Driving Driving Caregiver Provides Assist M6 OT- IP Functional Cognition Start: 01/20/19 13:05 Freq: Status: Active Protocol: Document 01/27/19 09:33 [facility] (Rec: 01/27/19 09:55 [facility] [email or web address]) Cognitive Factors Limiting Selfcare Function Cognitive Ability Level of Alertness Alert Patient Orientation Name Attention Span Ability Capable of Focused Attention Capable of Sustained Attention Ability to Follow Commands Able to Follow One Step Commands Problem Solving Ability Needs Assist to Identify Solutions Cognitive Comments Cognitive Assessment Comments Mainly needing assist for problem solving as pt unable to see and only see shadows. Pt able to identify his needs appropriately. M7 OT- IP Mobility and Balance Start: 01/20/19 13:05 Freq: Status: Active Protocol: Document 01/27/19 09:33 [facility] (Rec: 01/27/19 09:55 [facility] [email or web address]) OT- Bed Mobility Assessment Rolling Type of Rolling Roll to Left Supine to Sit Supine to Sit Assist Maximum Assistance 2 Person Assistance OT-Transfer Assessment Sit to and From Stand Sit to and from Stand Moderate Assistance 2 Person Assistance Transfers Transfer Ability Moderate Assistance 2 Person Assistance Technique Transfer Destination Bed Bedside Commode Chair Transfer Technique Stand Step Pivot Devices Transfer Assistive Devices Gait Belt Front Wheeled Walker Comments Mobility Comments MAX A x2 to bed mobility and improved to MODA x 2 with FWW. OT- Balance Assessment Sitting Balance and Reactions Static Sitting Balance Ability Good Dynamic Sitting Balance Ability Fair Standing Balance and Reactions Static Standing Balance Ability Poor M8 OT- IP Objective Assessments Start: 01/20/19 13:05 Freq: Status: Active Protocol: Document 01/22/19 15:32 PJM (Rec: 01/22/19 16:33 PJM [id number]) OT Gross Range of Motion Upper Extremity Range of Motion Assessment Left Impaired ROM Impairments Provided AAROM/AROM to BUE with LUE stiffer and slightly weaker than RUE for shoulder flexion, shoulder abduction, elbow flex/ext, pron/sup, wrist ext and finger flex/ext. Pt needs encouragement to participate. I don't see the point of this. OT- Coordination Assessment Comments Coordination Comments impaired by weakness, decreased isolated finger motion and low vision OT-Muscle Tone Assessment Muscle Tone Location Bilateral Upper Extremity Type of Tone Rigidity Severity of Tone Mild Shane Grade Scale Grade 1 M9 OT- IP Assessment and Plan Start: 01/20/19 13:05 Freq: Status: Active Protocol: Document 01/27/19 09:33 [facility] (Rec: 01/27/19 09:55 [facility] [email or web address]) OT Summary Assessment and Plan Potential Rehabilitation Potential Good Analytic Complexity at Evaluation Low Summary OT Impairments Range of Motion Strength Balance Coordination Tone Functional Cognition Functional Mobility Self-Feeding Grooming Dressing Toileting Bathing Toilet Transfers Shower Transfers Progress Towards Goals Progressing Toward Goals Assessment Summary Pt doing better today with mobility and BP. Pt willing to walk and walking to walk to get stronger. Pt mainly supervision for eating for set -up and occasional cues for rate and alternate between solids and liquids. Pt very pleasant and cooperative and a good rehab potential to get back to prior level which was MOD I Goals Self-Feeding Goal Standby Assistance Grooming Goal Minimal Assistance Dressing Goal Moderate Assistance Bathing Goal Moderate Assistance Toilet Transfer Goal Moderate Assistance Bedside Commode Days to Meet Goals 7 Frequency of Treatment Frequency Of Treatment Once a Day Treatment Plan OT Treatment Plan ADL Training Functional Cognition Training Functional Mobility Therapeutic Exercises Patient/Family Education Discharge Planning Discharge Recommendations OT Discharge Recommendations [facility] Re[facility]
--- NOTE | 2019-01-27 10:31 | PT.IPTN ---
Current Diagnoses Candidal esophagitis (01/20/19) Hypotension, unspecified (01/20/19) Esophageal obstruction (01/20/19) Constipation, unspecified (01/20/19) Dysphagia, unspecified (01/20/19) Unspecified lack of expected normal physiological development in childhood (01/20/19) Surgery Performed Operation Date: 01/20/19 19:25 Actual Procedures p Esophagogastroduodenoscopy with Removal Foreign Body - Kamlesh Thompson MD Physical Therapy Treatment Note M2 PT-IP Current Condition Start: 01/20/19 12:30 Freq: NEEDED Status: Active Protocol: Document 01/20/19 11:25 [facility] (Rec: 01/20/19 12:50 [facility] [id number]) Physical Therapy Current Condition Current Condition Evaluation Date 01/20/19 Treatment Diagnosis falls; tachycardia; difficulty in walking Onset Date 01/19/19 Precautions Other Precautions Falls; legally blind M3 PT-IP Subjective Start: 01/20/19 12:30 Freq: NEEDED Status: Active Protocol: Document 01/27/19 08:40 [facility] (Rec: 01/27/19 10:31 [facility] [id number]) Subjective Physical Therapy Visit Type Type Treatment Note Visit Start Time 08:40 Visit Stop Time 09:10 Total Visit Minutes 30 Notes Co-treated with OT Diamond Number of SALES SYSTEMS ENGINEER Visits 3 Physical Therapy Visit Comments Patient Comments Pt willing to get up to chair for breakfast. Therapy Pain Assessment Pain Present Pain Present Pain Reported Location Bilateral Arm Description With Movement Pain Management Techniques Modification of Treatment M4 PT-IP Mobility and Gait Start: 01/20/19 12:30 Freq: NEEDED Status: Active Protocol: Document 01/27/19 08:40 [facility] (Rec: 01/27/19 10:31 [facility] [id number]) PT-Bed Mobility Assessment Rolling Type of Rolling Log Rolling Roll to Left Level of Assist Maximal Assistance 2 Person Assistance Supine to Sit Supine to Sit Maximum Assistance 2 Person Assistance Sit to Supine Sit to Supine Maximum Assistance 2 Person Assistance Scooting Scooting to Edge of Bed Moderate Assistance PT-Transfer Assessment Sit to and From Stand Sit to and from Stand Moderate Assistance 2 Person Assistance Use of Upper Extremities Equipment Transfer Assistive Device Gait Belt Front Wheeled Walker Transfers Transfer Destination Bed Chair Bedside Commode Transfer Technique Stand Step Pivot Transfer Ability Level of Assist Moderate Assistance 2 Person Assistance Comments Mobility Comments Pt requiring Max A x2 for log roll and cues for sequencing log roll. Pt also requires cues for sequencing hand and foot placement for sit-stand. Pt able to transfer from bed to [place] using stand step pivot with max verbal cues/Mod A x2 and assist with walker management. Pt able to stand for several minutes CGA x1 as OT performed pericare. Pt needed assist doffing and donning brief. Gait Assessment Gait Gait Assistance Required: Moderate Assistance 2 Person Assist Distance (Feet) 2 Assistive Devices Assistive Device Gait Belt Front Wheeled Walker Gait Deviations General Gait Pattern Decreased Stride Length Decreased Feet Clearance Festinating Flexed Trunk Narrow Based Gait Step-to Gait Factors Limiting Gait Function Factors Limiting Gait Function Decreased Activity Tolerance Decreased Strength Difficulty Following Directions Poor Balance Poor Safety Awareness Comments Gait Comments Pt BP was better today and pt was able to ambulate ~2ft with chair follow. Pt uses shuffled gait and required verbal cues to lift foot and shift weight. At times pt was only marching in place rather than walking forward, cues required. 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 Licensed Practical Nurse Clinic Nurse Impaired Gross Range of Motion Lower Extremity ROM Assessment Bilaterally Impaired Impairments decrease B ankle DF/PF Strength Lower Extremity Strength Assessment Bilaterally Impaired Knee 3-/5 Muscle Tone Muscle Tone WNL Yes Comments Muscle Tone Comments (+) UE rigidity M6 PT-IP Treatment Start: 01/20/19 12:30 Freq: NEEDED Status: Active Protocol: Document 01/24/19 11:20 [facility] (Rec: 01/24/19 11:45 [facility] [id number]) Physical Therapy Treatment Education Education Provided Safety M7 PT-IP Assessment and Plan Start: 01/20/19 12:30 Freq: NEEDED Status: Active Protocol: Document 01/27/19 08:40 [facility] (Rec: 01/27/19 10:31 [facility] [id number]) PT Summary Assessment and Plan Summary Assessment Summary Pt BP in supine 125/51, sitting 124/61 and after transfer to [place] 140/64. Pt O2 saturation was 88% on RA at EOB increased to 90-91% with cues for PLB. O2 saturation after transfer to [place] 91% on RA. Pt able to stand several minutes with CGA during pericare and ambulated ~2ft with chair follow. Pt required Max A x2 for bed mobility and Mod A x2 for transfer and gait. Pt would benefit with PT twice a day, after speaking with PT Olivia pt will be seen twice a day. Goals Bed Mobility Goal Standby Assistance Transfer Goal Minimal Assistance Front Wheeled Walker Gait Goal Minimal Assistance Gait Distance 100 Days to Meet Goals 5 Frequency of Treatment Frequency Of Treatment Twice a Day Treatment Plan Physical Therapy Treatment Plan Bed Mobility Training Transfer Training Gait Training Therapeutic Exercise Balance Retraining Discharge Planning Hot or Cold Pack Neuromuscular Re-ed Coordination Retraining Manual Therapy Other Recommendations and Next Treatment prog. gait, sit<->stand, Focus standing balance. Recommendations To Nursing Amount of Assist Needed 2 Person Assist Discharge Recommendations PT Discharge Recommendations SNF Rehab Equipment Needed for Home Before FWW Discharge
[2019-01-27] MEDS: FLUCONAZOLE 40 MG/ML SUSP 400 MG PO (10:36)
[2019-01-27] MEDS: ENOXAPARIN 40 MG/0.4 ML SYRINGE SUBCUT (10:36)
[2019-01-27] MEDS: ACETAMINOPHEN 325 MG TABLET 650 MG PO (10:37)
--- NOTE | 2019-01-27 14:17 | P.PN_ITS ---
Subjective Date Patient Seen: 01/27/19 Interval history: Patient is sitting up to a chair. He was able to eat indep endently. The patient reports some shaking. He was able to clear his secretions. He is not short of breath. Patient is still weak but working with PT. He is slow to respond. His blood pressure medications have been discontinued. He was hypotensive yesterday and has not been orthostatic today. Exam Vital Signs (past 8 hours): - 01/27/19 08:40 01/27/19 09:53 01/27/19 13:00 Temperature 98.2 F 97.4 F L Pulse Rate 64 62 Pulse Rate [Orthostatic Lying] 64 Pulse Rate [Orthostatic Sitting] 73 Pulse Rate [Orthostatic Standing] 78 Respiratory Rate 18 18 Blood Pressure 125/51 L 112/44 L Blood Pressure [Orthostatic Lying] 125/51 L Blood Pressure [Orthostatic Sitting] 124/61 Blood Pressure [Orthostatic Standing] 154/71 H Pulse Oximetry 94 93 96 Fraction of Inspired Oxygen 21 Oxygen Delivery Method Room Air Oxygen Flow Rate 0 Narrative Exam Narrative: Ill appearing elderly male Lungs: clear to auscultation CV: RRR nl Sl S2 Abd: soft/ non tender/ non distended Ext: no edema Objective Labs Result Diagrams: 01/27/19 06:20 01/27/19 06:20 Labs: Laboratory Results - last 24 hr 01/27/19 01/27/19 06:20 06:20 WBC 8.1 RBC 2.99 L Hgb 9.4 L Hct 27.4 L MCV 91.5 MCH 31.5 MCHC 34.5 RDW 14.4 Plt Count 328 Neut % (Auto) 72.1 Lymph % (Auto) 14.7 L Edwards % (Auto) 11.7 Eos % (Auto) 1.1 L Baso % (Auto) 0.4 Neut # (Auto) 5800 Lymph # (Auto) 1200 Edwards # (Auto) 900 Eos # (Auto) 100 Baso # (Auto) 0 Sodium 135 L Potassium 4.2 Chloride 99 Carbon Dioxide 30 BUN 19 Creatinine 0.70 Estimated GFR > 60.0 BUN/Creatinine Ratio 27.1 H Glucose 78 L Calcium 8.2 L Assessment & Plan (1) Esophageal candidiasis: Problem details: Esophageal candidasis, present on admission Improving with diflucan Current visit: Yes Status: Acute (2) Schatzki's ring: Problem details: will continue treatment as outlined by Current visit: Yes Status: Acute (3) Hypotension: Problem details: will discontinue lisinopril amlodipine will check orthostatic vital signs tomorrow blood pressure improved Current visit: Yes Status: Acute (4) Obstipation: Problem details: no further issues Current visit: Yes Status: Acute (5) Developmental delay, borderline: Current visit: Yes Status: Acute (6) Acute metabolic encephalopathy: Problem details: present on admission, improving daily Current visit: Yes Status: Acute Assessment & Plan narrative: Awaiting placement. Spoke to Sister today. She will continue to look at facilities for him to go to at discharge. Quality VTE Deep Vein Thrombosis/Pulmonary Embolism Present on Admission: No
--- NOTE | 2019-01-27 15:15 | CM.DPC ---
DCP/continued: Reviewed chart. Per Dr. Mart patient is medically stable for discharge. HEARING AID REPAIR TECHNICIAN notified Dr. Mart that patient's sister/Quin wants to speak with her re: patient's status. Dr. Mart in agreement to call her. HEARING AID REPAIR TECHNICIAN spoke with Quin this AM and she reports that she does not feel like patient is medically stable for discharge. Quin made aware of appeal process/rights. Also notified Quin that HEARING AID REPAIR TECHNICIAN attempted placement at [facility]. Per [facility] they did re-evaluate and cannot accept secondary to high acuity. Therefore, sister/Quin notified that [facility] is not an option. They have reviewed twice and do not feel they can accommodate patient's needs. Quin not comfortable with providing HEARING AID REPAIR TECHNICIAN with second or third SNF choice at this time. She reports that she would like to tour/view facilities before making decision. Dr. Mart aware that family has not chosen additional SNF's. Dr. Mart in agreement for family to tour today and discharge patient tomorrow 01-28-19. Left message this afternoon with sister requesting return phone call with SNF choices. HEARING AID REPAIR TECHNICIAN has received call from Dr. Ortega's office re: medical concerns from sister. Referred them to Dr. Mart and provided her with Dr. Ortega cell phone number. In addition, received phone call from from [facility]? requesting call re: discharge and family concerns. Did not call back because no permission from patient and/or DPOA given. P: Pending SNF choice. DPOA may want to appeal discharge. No second/third SNF choice has been provided. Dr. Mart aware. ONIEL Weaver
--- NOTE | 2019-01-27 15:48 | ST.IPDYTX ---
Care Team Visit Care Team Role Provider Type Cecelia Ortega DO Primary Care Provider Physician Specialty: Family Practice Address: [address] [place] [address], [id number] Email: [email or web address] Kamlesh Thompson MD Other Providers Physician Specialty: General Surgery Address: [address] [place] [address] Email: [email or web address] Acharya Emergency Provider Advanced Tar Worker Specialty: Emergency Medicine Address: [address] [place] [address], [id number] Email: Jonathan Mancia MD Admit Provider Physician Attending Provider Specialty: Internal Medicine Address: [address] [place] [address] Email: GRINDING MACHINE OPERATOR Dysphagia Treatment GRINDING MACHINE OPERATOR Dysphagia Treatment Start: 01/20/19 10:33 Freq: Status: Active Protocol: Document 01/27/19 15:32 [facility] (Rec: 01/27/19 15:48 [facility] [email or web address]) Dysphagia Treatment Session Time Visit Start Time 10:00 Visit Stop Time 10:25 Total Visit Minutes 25 Setting Assessment Location Acute Care Visit Type Note Type Treatment Note Next Note Type Next Note Type Treatment Note Patient Information Identification Type Name ID Card Subjective Observations Pt was seen midmorning. Nsg/ SERVICE OPERATIONS MANAGER reported the pt did well with breakfast, self-feeding with occasional assistance for proper bite size secondary to vision impairments. No overt s/sx of aspiration were observed. At the start of treatment, the pt was sitting up in the chair listening to music. He c /o his hands shaking, which he stated was unusual, as well as pain in his left ankle and calf areas on both legs. Nsg was present and administered medication including Tylenol at the end of the treatment session. Dr. Mart was present at the end of tx as well, and the pt was heard to report to her concerns of not remembering things. Treatment Liquids Trialed Thin Solids Trialed Dysphagia Mechanical Administration Type Cup Single Sip Cup Consecutive Sips Self-Feeding Oral Strategies Upright at 90 degrees Controlled Bite/Sip Size Pharyngeal Strategies Sitting Upright (90 deg) Small Bites and Sips Treatment Activities No drooling observed today. The pt self-fed from cup and spoon. Occasional assistance was required to manage appropriate bite sizes and reduce rate of intake. The pt consumed ~6 oz thin liquid in single and consecutive sips from cup and 4 bites of diced peaches without overt s/sx of aspiration. He did, however, exhibit wet vocal quality ~3 minutes after end of trials when answering MD questions. He was prompted to cough and swallow, which cleared his vocal quality. Mastication of peaches was moderately impaired d/t poor dentition but adequate for safe swallow during trials and for pt comfort; however, small bites and soft foods are recommended to reduce risk of aspiration and potential choking. Assessment Patient Response to Treatment Good Rehab Potential Good Assessment of Improvement Pt appears to be swallowing thin liquids better. However, presence of wet vocal quality after trials indicates continued incomplete closure of laryngeal vestibule, which increases the pt's risk of aspiration and subsequent consequences. Recommend continuing NTLs at this time until the pt is more medically stable, particularly until esophageal candidasis resolves . Given pt's dental status, recommend continueing dysphagia mechanical textures as well. Diet Recommendations Recommendations Continue Current Diet Liquids Order Bowring Diet Order Dysphagia Mechanical Medication Recommendations As Tolerated Comments Meds in NTL or applesauce w/ verbal cue 1-2-3 swallow Additional Dietary Needs Single Sips No Straws 1:1 Assistance Reminders to Use Strategies Treatment Plan Placement Recommendation after Discharge Senior Living Facility Appropriate for Continued Therapy Yes Therapy Recommendations Ongoing evaluation of swallow function/safety. Training of safe swallow strategies and swallow exercises as tolerated by pt. Dysphagia Goals 1. Pt will perform safe swallow strategies with verbal /tactile prompts as needed to reduce risk of aspiration. 2. Pt will tolerate least restrictive diet to meet his nutrition and hydration needs. Follow Up Plan Daily over course of hospital stay
--- NOTE | 2019-01-27 15:54 | PT.IPTN ---
Current Diagnoses Candidal esophagitis (01/20/19) Metabolic encephalopathy (01/20/19) Hypotension, unspecified (01/20/19) Esophageal obstruction (01/20/19) Constipation, unspecified (01/20/19) Dysphagia, unspecified (01/20/19) Unspecified lack of expected normal physiological development in childhood (01/20/19) Surgery Performed Operation Date: 01/20/19 19:25 Actual Procedures p Esophagogastroduodenoscopy with Removal Foreign Body - Kamlesh Thompson MD Physical Therapy Treatment Note M2 PT-IP Current Condition Start: 01/20/19 12:30 Freq: NEEDED Status: Active Protocol: Document 01/20/19 11:25 AB (Rec: 01/20/19 12:50 AB [email or web address]) Physical Therapy Current Condition Current Condition Evaluation Date 01/20/19 Treatment Diagnosis falls; tachycardia; difficulty in walking Onset Date 01/19/19 Precautions Other Precautions Falls; legally blind M3 PT-IP Subjective Start: 01/20/19 12:30 Freq: NEEDED Status: Active Protocol: Document 01/27/19 13:45 CLB (Rec: 01/27/19 15:54 CLB [id number]) Subjective Physical Therapy Visit Type Type Treatment Note Visit Start Time 13:45 Visit Stop Time 14:10 Total Visit Minutes 25 Notes Co-treated with OT Diamond Number of SECURITY SYSTEMS TECHNICIAN Visits 4 Physical Therapy Visit Comments Patient Comments Pt willing to try and walk then wants to go back to bed. Therapy Pain Assessment Pain Present Pain Present Pain Reported Location Bilateral Arm Description With Movement Pain Management Techniques Modification of Treatment M4 PT-IP Mobility and Gait Start: 01/20/19 12:30 Freq: NEEDED Status: Active Protocol: Document 01/27/19 13:45 CLB (Rec: 01/27/19 15:54 CLB [id number]) PT-Bed Mobility Assessment Sit to Supine Sit to Supine Maximum Assistance 2 Person Assistance Scooting Scooting Up and Down in Bed Moderate Assistance PT-Transfer Assessment Sit to and From Stand Sit to and from Stand Moderate Assistance 2 Person Assistance Use of Upper Extremities Equipment Transfer Assistive Device Gait Belt Front Wheeled Walker Transfers Transfer Destination Bed Chair Transfer Technique Stand Step Pivot Transfer Ability Level of Assist Moderate Assistance 2 Person Assistance Comments Mobility Comments Pt continues to require Max A for bed mobility and Mod A x2 for sit-stand for safety. Gait Assessment Gait Gait Assistance Required: Moderate Assistance 2 Person Assist Distance (Feet) 5 Assistive Devices Assistive Device Gait Belt Front Wheeled Walker Gait Deviations General Gait Pattern Decreased Stride Length Decreased Feet Clearance Festinating Flexed Trunk Narrow Based Gait Step-to Gait Factors Limiting Gait Function Factors Limiting Gait Function Decreased Activity Tolerance Decreased Strength Difficulty Following Directions Poor Balance Poor Safety Awareness Comments Gait Comments Pt ambulated with chair follow ~5ft Mod A x1 from chair towards sink. Pt uses small steps with verbal cues for step sequencing. 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 Impaired Gross Range of Motion Lower Extremity ROM Assessment Bilaterally Impaired Impairments decrease B ankle DF/PF Strength Lower Extremity Strength Assessment Bilaterally Impaired Knee 3-/5 Muscle Tone Muscle Tone WNL Yes Comments Muscle Tone Comments (+) UE rigidity M6 PT-IP Treatment Start: 01/20/19 12:30 Freq: NEEDED Status: Active Protocol: Document 01/24/19 11:20 RCC (Rec: 01/24/19 11:45 RCC [id number]) Physical Therapy Treatment Education Education Provided Safety M7 PT-IP Assessment and Plan Start: 01/20/19 12:30 Freq: NEEDED Status: Active Protocol: Document 01/27/19 13:45 CLB (Rec: 01/27/19 15:54 CLB [id number]) PT Summary Assessment and Plan Summary Assessment Summary Pt BP in sitting 120/49, pt BP after 4 ft in sitting 120/44, Pt BP 129/71 in supine. Pt required Max A x2 for bed mobility and Mod A x2 for transfer and gait. . Goals Bed Mobility Goal Standby Assistance Transfer Goal Minimal Assistance Front Wheeled Walker Gait Goal Minimal Assistance Gait Distance 100 Days to Meet Goals 5 Frequency of Treatment Frequency Of Treatment Twice a Day Treatment Plan Physical Therapy Treatment Plan Bed Mobility Training Transfer Training Gait Training Therapeutic Exercise Balance Retraining Discharge Planning Hot or Cold Pack Neuromuscular Re-ed Coordination Retraining Manual Therapy Other Recommendations and Next Treatment prog. gait, sit<->stand, Focus standing balance. Recommendations To Nursing Amount of Assist Needed 2 Person Assist Discharge Recommendations PT Discharge Recommendations SNF Rehab Equipment Needed for Home Before FWW Discharge
[2019-01-27 15:56] LABS: HEMOLYSIS < 15 (0-50); Iron 35 ug/dL (49-181)
[2019-01-27 16:07] LABS: Percent Iron Saturation 15 % (20-50); Total Iron Binding Capacity 228 ug/dL (261-462); Transferrin 161 mg/dL (206-381)
--- NOTE | 2019-01-27 19:58 | PC.NURSE ---
Patient was very quiet and cooperative today. No laurie was observed in the mouth or the back of the throat. Mouth was pink and moist. Skin integrity is a big priority for this patient as we observed the patient experiencing pain in the back of the heels even with padded protection. the coccix was at high risk for deep tissue pressure injury because the skin was not stage 1 but close to stage 1 pressure injury.
[2019-01-27] MEDS: AMOXICILLIN/CLAV 875/125 MG 1 TAB PO (20:13)
--- NOTE | 2019-01-27 22:34 | PC.NURSE ---
Pt turned in bed, heels floating and feet in foam boots; skin red but blanches to heels and sacrum; bruises scattered to BUEs, bruise to right hip; LS clear, pt taking meds whole with applesauce; pt was able to self-feed with adaptive utensils; pt using urinal to void; bed alarm active and door open for patient observation from nurse station
[2019-01-28] VITALS (7 sets, daily range): BP systolic 121–157; BP diastolic 56–80; PULSE 56–74; RESP 15–20; TEMP 36.8–37.1; O2SAT 92–97
--- NOTE | 2019-01-28 00:45 | PC.NURSE ---
2300- Pt on nectar thick diet w/ adaptive utensils; tolerating well. Q2hr turns taking place, coccyx red & blanchable; heels red & blanchable. Heels floating. Orthostatic BP checked qshift.
[2019-01-28] MEDS: ENOXAPARIN 40 MG/0.4 ML SYRINGE SUBCUT (09:05)
[2019-01-28] MEDS: AMLODIPINE 2.5 MG TABLET PO (09:05)
[2019-01-28] MEDS: AMOXICILLIN/CLAV 875/125 MG 1 TAB PO (09:05)
[2019-01-28] MEDS: ACETAMINOPHEN 325 MG TABLET 650 MG PO (09:05)
[2019-01-28] MEDS: FLUCONAZOLE 40 MG/ML SUSP 400 MG PO (09:30)
--- NOTE | 2019-01-28 10:22 | PT.IPTN ---
Current Diagnoses Candidal esophagitis (01/20/19) Metabolic encephalopathy (01/20/19) Hypotension, unspecified (01/20/19) Esophageal obstruction (01/20/19) Constipation, unspecified (01/20/19) Dysphagia, unspecified (01/20/19) Unspecified lack of expected normal physiological development in childhood (01/20/19) Surgery Performed Operation Date: 01/20/19 19:25 Actual Procedures p Esophagogastroduodenoscopy with Removal Foreign Body - Kamlesh Thompson MD Physical Therapy Treatment Note M2 PT-IP Current Condition Start: 01/20/19 12:30 Freq: NEEDED Status: Active Protocol: Document 01/20/19 11:25 AB (Rec: 01/20/19 12:50 AB [email or web address]) Physical Therapy Current Condition Current Condition Evaluation Date 01/20/19 Treatment Diagnosis falls; tachycardia; difficulty in walking Onset Date 01/19/19 Precautions Other Precautions Falls; legally blind M3 PT-IP Subjective Start: 01/20/19 12:30 Freq: NEEDED Status: Active Protocol: Document 01/28/19 09:42 SCOTTY (Rec: 01/28/19 10:22 LJ [email or web address]) Subjective Physical Therapy Visit Type Type Treatment Note Visit Start Time 09:42 Visit Stop Time 10:08 Total Visit Minutes 26 Notes Co-treated with OT Diamond Physical Therapy Visit Comments Patient Comments Pt willing to try and walk then wants to go back to bed. Therapy Pain Assessment Pain Present Pain Present Pain Reported M4 PT-IP Mobility and Gait Start: 01/20/19 12:30 Freq: NEEDED Status: Active Protocol: Document 01/28/19 09:42 SCOTTY (Rec: 01/28/19 10:22 LJ [email or web address]) PT-Bed Mobility Assessment Sit to Supine Sit to Supine Moderate Assistance 1 Person Assistance Scooting Scooting Up and Down in Bed Maximum Assistance PT-Transfer Assessment Sit to and From Stand Sit to and from Stand Minimal Assistance 1 Person Assistance Use of Upper Extremities Equipment Transfer Assistive Device Gait Belt Front Wheeled Walker Transfers Transfer Destination Bed Chair Transfer Technique Stand Step Pivot Transfer Ability Level of Assist Minimal Assistance 1 Person Assistance Use of Upper Extremities Comments Mobility Comments Pt improved mobility requiring Eren x1 with sit<>stand and transfers. Verbal cueing for upright posture and hand placement. Pt requiring ModA for assist with legs into bed and repositioning. Gait Assessment Gait Gait Assistance Required: Minimum Assistance 2 Person Assist Distance (Feet) 8 Assistive Devices Assistive Device Gait Belt Front Wheeled Walker Gait Deviations General Gait Pattern Decreased Stride Length Decreased Feet Clearance Festinating Flexed Trunk Narrow Based Gait Factors Limiting Gait Function Factors Limiting Gait Function Decreased Activity Tolerance Decreased Strength Difficulty Following Directions Poor Balance Poor Safety Awareness Comments Gait Comments Pt ambulates from chair to wall 8' with chair following. Sit>stand from chair to bed requiring Eren x1 and Eren x1 for transfer from chair to bed . Pt demonstrates good control with stand>sit 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 Long-Term Impaired Gross Range of Motion Lower Extremity ROM Assessment Bilaterally Impaired Impairments decrease B ankle DF/PF Strength Lower Extremity Strength Assessment Bilaterally Impaired Knee 3-/5 Muscle Tone Muscle Tone WNL Yes Comments Muscle Tone Comments (+) UE rigidity M6 PT-IP Treatment Start: 01/20/19 12:30 Freq: NEEDED Status: Active Protocol: Document 01/24/19 11:20 RCC (Rec: 01/24/19 11:45 RCC [id number]) Physical Therapy Treatment Education Education Provided Safety M7 PT-IP Assessment and Plan Start: 01/20/19 12:30 Freq: NEEDED Status: Active Protocol: Document 01/28/19 09:42 LJ (Rec: 01/28/19 10:22 LJ [email or web address]) PT Summary Assessment and Plan Summary Assessment Summary BP seated 102/52, HR 79 BP standing 110/53, HR 103 BP post ambulation 8' 133/53, MI 81, O2 RA 94% Pt Eren x1 transfers. Erne x2 for ambulation with chair following for safety. Pt still reports dizziness in standing and ambulation Goals Bed Mobility Goal Standby Assistance Transfer Goal Minimal Assistance Front Wheeled Walker Gait Goal Minimal Assistance Gait Distance 100 Days to Meet Goals 5 Frequency of Treatment Frequency Of Treatment Twice a Day Treatment Plan Physical Therapy Treatment Plan Bed Mobility Training Transfer Training Gait Training Therapeutic Exercise Balance Retraining Discharge Planning Hot or Cold Pack Neuromuscular Re-ed Coordination Retraining Manual Therapy Other Recommendations and Next Treatment prog. gait, sit<->stand, Focus standing balance. Recommendations To Nursing Amount of Assist Needed 2 Person Assist Discharge Recommendations PT Discharge Recommendations SNF Rehab Equipment Needed for Home Before FWW Discharge
--- NOTE | 2019-01-28 11:01 | OT.IP.TRT ---
Current Diagnoses Candidal esophagitis (01/20/19) Metabolic encephalopathy (01/20/19) Hypotension, unspecified (01/20/19) Esophageal obstruction (01/20/19) Constipation, unspecified (01/20/19) Dysphagia, unspecified (01/20/19) Unspecified lack of expected normal physiological development in childhood (01/20/19) Surgery Performed Operation Date: 01/20/19 19:25 Actual Procedures p Esophagogastroduodenoscopy with Removal Foreign Body - Kamlesh Thompson MD Occupational Therapy Treatment Note M2 OT-IP Current Condition Start: 01/20/19 13:05 Freq: Status: Active Protocol: Document 01/20/19 12:07 PJM (Rec: 01/20/19 13:34 PJM [id number]) Occupational Therapy Current Condition Current Condition Evaluation Date 01/20/19 Treatment Diagnosis decreased self care,mobility, BUE function due to possible new dx Parkinsons Diagnosis Onset Date 01/19/19 Post Operative Precautions Other Precautions fall risk, NPO due to severe dysphagia M3 OT- IP Subjective and Pain Start: 01/20/19 13:05 Freq: Status: Active Protocol: Document 01/28/19 10:51 CCC (Rec: 01/28/19 11:01 CCC [email or web address]) OT- Subjective Occupational Therapy Visit Type Type Treatment Note Visit Start Time 09:40 Visit Stop Time 10:15 Total Visit Minutes 35 Occupational Therapy Visit Comments Patient Comments Pt states feeling weak , right shoulder sore however not wanting any pain medications. Pt agreeable to try to get up. OT and PROFESSOR OF ANTHROPOLOGY worked with pt together for part of the session. OT Pain Assessment Pain When Pain Assessed At Rest Pain Present Pain Present Pain Reported Location Bilateral Arm Intensity 3 Scale Used Numeric (1 - 10) Description Aching M5 OT- IP IADL's Start: 01/20/19 13:05 Freq: Status: Active Protocol: Document 01/20/19 12:07 PJM (Rec: 01/20/19 13:34 PJM [id number]) OT-Instrumental Activities of Daily Living Deficits IADL Deficits Identified Deficits Home Safety Awareness Awareness of Need for Assistance at Home Decreased Awareness Home Safety Comments pt's sister and brother in law provide assist with all IADLS at home Medication Management Medication Management Caregiver Administers Money Management Money Management Caregiver Provides Assistance Meal Preparation Meal Preparation Caregiver Provides Assist Technical Services Rep Technical Services Rep Caregiver Provides Assist Driving Driving Caregiver Provides Assist M6 OT- IP Functional Cognition Start: 01/20/19 13:05 Freq: Status: Active Protocol: Document 01/28/19 10:51 [facility] (Rec: 01/28/19 11:01 [facility] [email or web address]) Cognitive Factors Limiting Selfcare Function Cognitive Ability Level of Alertness Alert Patient Orientation Name Place Attention Span Ability Capable of Focused Attention Capable of Sustained Attention Ability to Follow Commands Able to Follow One Step Commands Problem Solving Ability Unable to Identify Errors Needs Assist to Identify Solutions Cognitive Comments Cognitive Assessment Comments Pt able to state needs and follow directions. Needing physical cues due to decreased vision. M7 OT- IP Mobility and Balance Start: 01/20/19 13:05 Freq: Status: Active Protocol: Document 01/28/19 10:51 [facility] (Rec: 01/28/19 11:01 [facility] [email or web address]) OT- Bed Mobility Assessment Sit to Supine Sit to Supine Assist Moderate Assistance 1 Person Assistance OT-Transfer Assessment Sit to and From Stand Sit to and from Stand Minimal Assistance Moderate Assistance 1 Person Assistance Transfers Transfer Ability Minimal Assistance 1 Person Assistance Technique Transfer Destination Bed Chair Transfer Technique Stand Step Pivot Devices Transfer Assistive Devices Gait Belt Front Wheeled Walker Comments Mobility Comments Much improved with mobility needs today and now one person assist and BP doing well 102/ 52 sitting, standing 110/68 and after getting up and sitting 133/53. To try walking to toilet tomorrow. Still suggest 2 person for toileting needs. OT- Gait Assessment Gait Gait Assistance Required: Minimum Assistance 1 Person Assist Assistive Devices Assistive Device Gait Belt Front Wheeled Walker OT- Balance Assessment Sitting Balance and Reactions Static Sitting Balance Ability Good Dynamic Sitting Balance Ability Fair Standing Balance and Reactions Static Standing Balance Ability Fair M8 OT- IP Objective Assessments Start: 01/20/19 13:05 Freq: Status: Active Protocol: Document 01/28/19 10:51 [facility] (Rec: 01/28/19 11:01 [facility] [email or web address]) OT Gross Range of Motion Upper Extremity Range of Motion ROM Impairments Able to do gentle ROM to pt's right shoulder and neck to help increase AROm and decrease pain. M9 OT- IP Assessment and Plan Start: 01/20/19 13:05 Freq: Status: Active Protocol: Document 01/28/19 10:51 [facility] (Rec: 01/28/19 11:01 [facility] [email or web address]) OT Summary Assessment and Plan Potential Rehabilitation Potential Good Analytic Complexity at Evaluation Low Summary OT Impairments Range of Motion Strength Balance Coordination Tone Functional Cognition Functional Mobility Self-Feeding Grooming Dressing Toileting Bathing Toilet Transfers Shower Transfers Progress Towards Goals Progressing Toward Goals Assessment Summary Much improved today with mobility needs and opt states able to eat by himself after set-up assist. Pt will benefit from skilled rehab prior to going home. Goals Self-Feeding Goal Standby Assistance Grooming Goal Minimal Assistance Dressing Goal Minimal Assistance Toileting Goal Minimal Assistance Bathing Goal Moderate Assistance Toilet Transfer Goal Minimal Assistance Bedside Commode OT-Other Goals OT goals upgraded. Days to Meet Goals 5 Frequency of Treatment Frequency Of Treatment Once a Day Treatment Plan OT Treatment Plan ADL Training Functional Cognition Training Functional Mobility Therapeutic Exercises Patient/Family Education Discharge Planning Discharge Recommendations OT Discharge Recommendations SNF Rehab
--- NOTE | 2019-01-28 11:54 | ST.IPDYTX ---
Care Team Visit Care Team Role Provider Type Cecelia Ortega DO Primary Care Provider Physician Specialty: Family Practice Address: [address] [place] [address], [id number] Email: [email or web address] Kamlesh Thompson MD Other Providers Physician Specialty: General Surgery Address: [address] [place] [address], [id number] Email: [email or web address] BAKARI Acharya Emergency Provider Advanced Branch Customer Service Representative Specialty: Emergency Medicine Address: [address] [place] [address], [id number] Email: Jonathan Mancia MD Admit Provider Physician Attending Provider Specialty: Internal Medicine Address: [address] [place] [address] Email: DOOR FURRING INSTALLER Dysphagia Treatment DOOR FURRING INSTALLER Dysphagia Treatment Start: 01/20/19 10:33 Freq: Status: Active Protocol: Document 01/28/19 11:36 MARTA (Rec: 01/28/19 11:54 MARTA [email or web address]) Dysphagia Treatment Session Time Visit Start Time 09:04 Visit Stop Time 09:21 Total Visit Minutes 17 Setting Assessment Location Acute Care Visit Type Note Type Treatment Note Next Note Type Next Note Type Treatment Note Patient Information Subjective Observations The pt was awake and sitting in chair, having recently finished breakfast upon DOOR FURRING INSTALLER's arrival. He greeted her appropriately and stated that he was not feeling so great. He noted that his hand is still shaking occasionally. Per Nsg, the pt had chopped melon on his breakfast tray, which he was unable to eat because it was too difficulty to chew and swallow. When asked how the rest of his meal was, he stated, Everything else went down ok. RADIO ARTIST was in agreement with this and reported the pt had self-fed his meal. The pt denied difficulty swallowing medication and was agreeable to DOOR FURRING INSTALLER's assessment of swallow with morning meds. Treatment Solids Trialed Puree Administration Type Tea Spoon Oral Strategies Upright at 90 degrees Controlled Bite/Sip Size Pharyngeal Strategies Sitting Upright (90 deg) Double Swallow Small Bites and Sips Treatment Activities Assessed pt's swallow function /safety with intake of pills whole or split in applesauce. The pt tolerated with frequent wet vocal quality and occasional mild cough/throat clearing, improved with double swallow and clearing best with cough + swallow. Nsg noted such wet vocal quality and throat clearing has not previously been observed with intake of medication. Good oral clearance was observed, although the pt continued mastication/oral manipulation following what appeared to be a complete swallow of the last of 5 pills . The oral cavity was clear of medication and applesauce. The pt was given an additional bite of applesauce to ensure oral and phayrngeal clearance of tablet. Coordinated diet texture with Kitchen via phone call with Director Alcon Chapman to remove melon from the pt's dysphagia mechanical meal options. Assessment Patient Response to Treatment Good Rehab Potential Good Assessment of Improvement Per Nsg and pt report, the pt is improving in ability to self-feed meals. Signs of reduced airway protection and incomplete pharyngeal clearance were observed with intake of meds whole or split in applesauce, e.g., wet voice , mild cough and throat clearing. This improved with use of double swallow and cough+cough techniques. The pt was able to follow all directions but did require verbal cues. Diet Recommendations Recommendations Continue Current Diet Liquids Order [place] [employer] Diet Order Dysphagia Mechanical Medication Recommendations Whole in Carrier Comments Double swallow after each bite . Additional Dietary Needs Single Sips 1:1 Supervision Encourage to Self-Feed Aspiration Precautions Recommended Precautions Upright at 90 Degrees Alternate Liquids/Solids Small Bites/Sips Double Swallow Treatment Plan Placement Recommendation after Discharge [facility] Facility Appropriate for Continued Therapy Yes Therapy Recommendations Ongoing evaluation of swallow function/safety. Training of safe swallow strategies and swallow exercises as tolerated by pt. Dysphagia Goals 1. Pt will perform safe swallow strategies with verbal /tactile prompts as needed to reduce risk of aspiration. 2. Pt will tolerate least restrictive diet to meet his nutrition and hydration needs.
--- NOTE | 2019-01-28 12:44 | P.DS_ITS ---
History of Present Illness Date Patient Seen: 01/28/19 Chief complaint: NAUSEA/VOMITING/FALLING DOWN Narrative: Patient is 68-year-old male with history of developmental delay, legally blind due to glaucoma, hypertension brought to ER by family due to progressive weakness over the past couple of weeks. He has had multiple ground level falls over the past week. Also noted to have increase in confusion. Patient unable to give detailed history but noted to be in some discomfort and also pointing to his abdomen as area of discomfort. Noted to have contusion on the left hip and some swelling around left ankle. Evaluation in the ER noted sinus bradycardia with rate in the 30s to 50s on monitor. Labs looked okay except for mildly elevated BUN and potassium. Head CT with mild chronic microvascular disease, mild ventriculomegaly, extensive dental disease, without acute findings. Hip x-rays without fracture. Chest x-ray without acute cardiopulmonary disease. Abdomen and pelvic CT with contrast showed chronic elongation of the cecum with extension of cecum cephalad to the pre hepatic space and relatively prominent right-sided colonic obstipation. Discharge Providers Date of admission: 01/20/19 10:33 Discharge Date: 01/28/19 Primary care physician: Cecelia Ortega DO Consults: 01/19/19 19:26 Consult to Occupational Therapy Evaluate & Treat Comment: Physician Instructions: Evaluate and treat Consult to Physical Therapy Evaluate & Treat Comment: Physician Instructions: Evaluate and Treat Consult to Speech Therapy Evaluate & Treat Comment: Physician Instructions: Evaluate and treat 01/20/19 13:41 Consult to Physician Routine Comment: Consulting Provider: Kamlesh Thompson Reason for consultation: dysphagia Has provider been notified: Yes Discharge provider: Rosalia Mart MD Summary Discharge Diagnosis: 1. Esophageal candidiasis, present on admission 2. Schatzki's ring, present on admission 3. probable aspiration pneumonitis 4. orthostatic hypotension, resolved 5. hypertension 6. developmental delay 7. acute metabolic encephalopathy, present on admission, now resolved 8. Anemia of chronic disease Hospital Course: patient was admitted to the hospital for confusion malaise and vague abdominal discomfort. He ultimately had an upper endoscopy which confirmed esophageal candidiasis with Schatzki's ring. Patient did not require esophageal dilatation. He was started on Diflucan for his esophagitis. The patient was able to advance his diet. He had improvement in his mental status. The patient was noted to be persistently hypotensive. His blood pressure medications were adjusted. In addition he was given IV hydration. He also underwent a Cortrosyn stimulation test which was negative for adrenal insufficiency. The patient was seen by PT and OT. He made slow but steady progress but was not deemed to be back at baseline enough to return home. Patient underwent cardiac echo during his hospital stay. The results of which are as follows : he ejection fraction is estimated to be 60-65%. Left ventricular wall motion is normal. The right ventricle grossly appears normal in size with probable normal systolic function. The left atrium is moderately dilated. There is mild to moderate mitral regurgitation. The aortic valve is moderately calcified. There is moderate aortic regurgitation. There is mild tricuspid regurgitation. The right ventricular systolic pressure is estimated to be at least 53 mmHg based on an estimated right atrial pressure of 15 mm Hg. Patient was deemed appropriate to be discharged for long term unit for ongoing rehabilitation. Status at Discharge Cognitive/behavioral status at discharge: at baseline, oriented Functional status at discharge: uses cane/walker Overall status at discharge: patient is not back to baseline Time Spent with Patient Less than 30 minutes Exam Vital Signs (past 8 hours): - 01/28/19 05:10 01/28/19 07:59 01/28/19 08:49 Temperature 98.8 F 98.3 F Pulse Rate 62 56 L Pulse Rate [Orthostatic Lying] 62 56 L Pulse Rate [Orthostatic Sitting] 65 58 L Pulse Rate [Orthostatic Standing] 74 65 Respiratory Rate 16 18 Blood Pressure 147/63 H 121/56 L Blood Pressure [Orthostatic Lying] 147/63 H 121/56 L Blood Pressure [Orthostatic Sitting] 142/80 H 134/72 Blood Pressure [Orthostatic Standing] 157/64 H 143/63 H Pulse Oximetry 92 94 01/28/19 09:00 01/28/19 09:30 01/28/19 11:02 Temperature 98.2 F Pulse Rate 70 Pulse Rate [Orthostatic Lying] Pulse Rate [Orthostatic Sitting] Pulse Rate [Orthostatic Standing] Respiratory Rate 20 Blood Pressure 131/63 Blood Pressure [Orthostatic Lying] Blood Pressure [Orthostatic Sitting] Blood Pressure [Orthostatic Standing] Pulse Oximetry 95 95 97 Fraction of Inspired Oxygen 21 Oxygen Delivery Method Room Air Oxygen Flow Rate 0 Narrative Exam Narrative: Pleasant gentleman in no acute distress lungs: Clear to auscultation cardiac exam: Regular rate and rhythm normal S1-S2 abdomen: Soft nontender nondistended extremities: No edema Objective Labs Result Diagrams: 01/27/19 06:20 01/27/19 06:20 Labs: Laboratory Results - last 24 hr 01/27/19 06:20 Iron 35 L TIBC 228 L % Saturation 15 L Transferrin 161 L Discharge Plan Discharge Plan Discharge Problem: Weakness, Confusion Patient Disposition: SNF Transfer to: [facility] Transportation: Cab[facility] I certify the postop hospital long term care is medically necessary on a continuing basis for any conditions for which he/ she received care during this hospitalization.: Yes The receiving facility has agreed to accept transfer and provide medical treatment.: Yes Discharge Med Rec/Prescriptions Prescriptions: New fluconazole [Diflucan] 40 mg/mL Suspension For Reconstitution 400 mg PO DAILY 14 Days RF: 0 amoxicillin-pot clavulanate [Augmentin] 875-125 mg Tablet 1 tab PO BID 5 Days Qty: 10 RF: 0 amlodipine [Norvasc] 2.5 mg Tablet 2.5 mg PO DAILY Qty: 30 RF: 0 Continued Combigan 0.2-0.5 % Drops 1 drp ophthalmic (eye) DIRECTED Qty: 0 RF: 0 [Men's Depends] See Rx Instructions .ROUTE BID Qty: 60 RF: 6 Discontinued amlodipine [Norvasc] 5 mg tablet 5 mg PO DAILY RF: 0 lisinopril 40 mg tablet 40 mg PO DAILY RF: 0 Follow up/Referrals: Cecelia Ortega DO [Primary Care Provider] - Provider Discharge Instructions Diet: Low-sodium Liquid consistency: [place] Consistency Food texture: Regular Skin/Wound/Dressing Care Report to your healthcare provider any signs of infection, such as:: chills, fever [facility] Reason for rehabilitation: Recovery r/t decondition Rehab type: Physical therapy and Occupational therapy Discharge Data Primary Care Provider: Cecelia Ortega Attending Provider: Jonathan Mancia Admit Date/Time: 01/20/19 10:33 Quality VTE Deep Vein Thrombosis/Pulmonary Embolism Present on Admission: No
--- NOTE | 2019-01-28 13:18 | CM.DPC ---
Addendum entered by ONIEL Bello 01/28/19 14:31: ADD: [facility] confirms that they can accept the pt today and can provide w/c van transport around 1500. RAY faxed PASRR, signed med rec, script, d/c summary to [facility] to review. RAY called pt's sister/DPDESIREE Tsai and updated on above information and she plans to meet the pt at [facility] today when pt arrives and she still has some apprehension but agreeable to plan although she still feels rushed. RAY updated RN and LOAD MIXER. Plan: Patient to d/c to [facility] today via facility w/c van at 1500. ONIEL Bello Original Note: DCP SNF Planning: Per , pt still medically stable to d/c to SNF today. RAY received a call from pt's PCP Dr. Ortega from the clinic who states that their office has received multiple calls from pt's sister regarding her concerns with pt's discharge from the hospital and lack of understanding about pt's medical dx. Discussed benefit of Care Conference with pt, sister, and hospital staff to clarify and have a clear d/c discussion. RAY attempted to call pt's sister Quin ([phone]) twice and left ms both times prior to 1000 with request to call back to further discuss concerns and planning. PCP office was also going to call Quin and encourage her to call SW and possibly come to the hospital for further care conference. Per Oly, admissions at [facility], she spoke with pt's sister uQin since sister was wanting pt to stay local in [place] and [facility] previously declined pt twice but now they were willing to consider admit today but sister Quin has frustrations and concerns and did not agree with admit to their facility yet. RAY received a return call from sister Quin around 1200 stating that they had toured facilities and currently their preference would be [facility] and would be agreeable for d/c today. Quin discussed some of her concerns and frustrations with feeling a lack of timely communication etc and RAY confirmed that she had the options for providing her feedback to the hospital and Quin confirmed that she had that information. Quin requested update on pt d/c plan and [facility] review on her home phone [phone]. SW called [facility] with new referral request and faxed clinicals to review for d/c today. PASRR completed. Plan: RAY to follow closely for [facility] review for hopeful placement for rehab today. ONIEL Bello
--- NOTE | 2019-01-28 15:09 | PC.NURSE ---
Discharge pt had some pain this AM, medicated with tylenol and he slept afterwards. report called to Alanis at [facility]. Packet sent with pt and transporter at d/c. pt left in w/c via cabulance. pt took all belongings with him.
== END 2019-01-28 15:05 | DRG 368 ==
LOC: ED 12:03 → AC 14:53
PROVIDERS: Emergency Medicine; Internal Medicine; Nurse Practitioner Adult Health; Nurse Practitioner Gerontology; Surgery; Admitting Provider Internal Medicine; Emergency Provider Nurse Practitioner Family; PCP Family Medicine; Visit Provider Internal Medicine
PROC: 0DJ08ZZ Inspection of Upper Intestinal Tract, Via Natural or Artificial Opening Endoscopic (ICD-10-PCS; CPT 43235; principal; 2019-01-20 19:25)
DX: B37.81 Candidal esophagitis (principal); J69.0 Pneumonitis due to inhalation of food and vomit; J96.01 Acute respiratory failure with hypoxia; G93.41 Metabolic encephalopathy; S70.12XA Contusion of left thigh, initial encounter; W18.30XA Fall on same level, unspecified, initial encounter; Z91.81 History of falling; Y93.9 Activity, unspecified; Y92.009 Unspecified place in unspecified non-institutional (private) residence as the place of occurrence of the external cause; K59.00 Constipation, unspecified; R62.50 Unspecified lack of expected normal physiological development in childhood; E87.5 Hyperkalemia; R00.1 Bradycardia, unspecified; H40.9 Unspecified glaucoma; I10 Essential (primary) hypertension; Z66 Do not resuscitate; K22.2 Esophageal obstruction; H54.8 Legal blindness, as defined in USA; M25.572 Pain in left ankle and joints of left foot; I48.91 Unspecified atrial fibrillation; I95.9 Hypotension, unspecified; D63.8 Anemia in other chronic diseases classified elsewhere
CPT/HCPCS: 36415; 36591; 43235; 70450; 70551; 71045; 73521; 73610; 74177; 80048; 80053; 81001; 82024; 82533; 82962; 83540; 83550; 83605; 83735; 84145; 84443; 84484; 85014; 85018; 85025; 87040; 87633; 92526; 92610; 93005; 93010; 94760; 96360; 96361; 97110; 97116; 97162; 97165; 97530; 97535; 99222; 99231; 99283; 99285; G0378; C8929; J0330; J1450; J1650; J1885; J1940; J2543; J2704; J3010; Q9967

== ENCOUNTER → 2019-01-21 12:00 | Outpatient (CLI) | payer MEDICARE, MEDICAID, SELFPAY ==
[2019-01-19 15:44] VITALS: BMI 28.2
== END ==
PROVIDERS: PCP Family Medicine; Visit Provider Nurse Practitioner Family
DX: R46.89 Other symptoms and signs involving appearance and behavior (principal); R41.89 Other symptoms and signs involving cognitive functions and awareness
CPT/HCPCS: 93010

== ENCOUNTER 2020-01-10 14:29 | Emergency (ER) | payer MEDICARE, MEDICAID, SELFPAY ==
--- NOTE | 2020-01-10 14:32 | DI.RAD.S_ITS ---
PROCEDURE: XR ACUTE ABDOMEN SERIES INDICATIONS: Abdominal pain, vomiting TECHNIQUE: One view chest and two views of the abdomen were acquired. COMPARISON: [facility], CR, XR CHEST 1V, 01/19/2019, 11:59. [facility], CR, XR CHEST 1V, 01/25/2019, 15:02. [facility], CR, XR PELVIS WITH LATERAL HIP LEFT, 01/29/2019, 16:17. FINDINGS: Surgical changes and devices: None. Chest: Lungs are clear. Heart size is normal. No pleural effusions. No pneumoperitoneum. Right diaphragmatic eventration. Abdomen: There is colonic interposition under the right hemidiaphragm. Bowel gas pattern is normal. No suspicious calcifications. Visualized solid organ contours appear normal. Bones: No suspicious bony lesions. IMPRESSION: Normal bowel gas pattern. If clinical symptoms persist or clinical suspicion for pathology is high, CT is suggested for further evaluation. Dictated by: Pietro Snell M.D. on 01/10/2020 at 17:43 Approved by: Pietro Snell M.D. on 01/10/2020 at 17:45
[2020-01-10 14:35] VITALS: BP 174/74; PULSE 75; RESP 20; TEMP 36.3; O2SAT 98; BMI 28.1
[2020-01-10 15:19] LABS: Add Manual Diff / Slide Review NO; Basophils Absolute Auto 100 /uL (0-100); Basophils Percent Auto 0.6 % (0-2); Eosinophils Absolute Auto 0 /uL (0-450); Eosinophils Percent Auto 0.4 % (2-4); Hematocrit 38.7 % (41-53); Lymphocytes Absolute Auto 900 /uL (1100-4500); Lymphocytes Percent Auto 10.2 % (25-40); Mean Corpuscular HGB Conc 33.6 % (30-36); Mean Corpuscular Hemoglobin 31.3 PG (26-34); Mean Corpuscular Volume 93.3 fL (80-100); Monocytes Absolute Auto 500 /uL (0-900); Monocytes Percent Auto 5.1 % (3-14); Neutrophils Absolute Auto 7600 /uL (1500-7000); Neutrophils Percent Auto 83.7 % (50-75); Platelet Count 272 X10^3/uL (150-400); Red Blood Cell Count 4.15 X10^6/uL (4.5-5.9); Red Cell Distribution Width 13.1 % (11.6-14.8); White Blood Cell Count 9.1 X10^3/uL (4.5-11.0)
[2020-01-10] MEDS: SODIUM CHLORIDE 0.9% 1,000 ML 1000 ML IV (15:29)
[2020-01-10] MEDS: ONDANSETRON 4 MG/2 ML INJ IV (15:29)
[2020-01-10 15:30] LABS: INR 1.1 (0.9-1.3); Prothrombin Time 12.2 SECONDS (10.1-12.7)
[2020-01-10 15:32] LABS: PTT Partial Thromboplastin Tim 36 SECONDS (26.4-36.2)
[2020-01-10 15:34] LABS: BUN Creatinine Ratio 33.3 (6-22); Blood Urea Nitrogen 20 mg/dL (9-20); Calcium 9.2 mg/dL (8.4-10.2); Carbon Dioxide 26 mmol/L (22-32); Chloride 102 mmol/L (98-107); Creatine Kinase 29 U/L (55-170); Estimated Glomerular Filt Rate > 60.0 mL/min (>60); Glucose 106 mg/dL (80-110); HEMOLYSIS < 15 (0-50); Potassium 4.6 mmol/L (3.4-5.1); Sodium 137 mmol/L (137-145)
[2020-01-10 15:35] LABS: Lactate (Lactic Acid) 0.8 mmol/L (0.7-2.1)
[2020-01-10 15:46] LABS: Troponin I < 0.012 ng/mL (0.01-0.034)
[2020-01-10 16:23] VITALS: BP 189/77; PULSE 55; RESP 20; O2SAT 95
[2020-01-10 18:00] VITALS: BP 160/67; PULSE 66; RESP 13; O2SAT 98
[2020-01-10] MEDS: KETOROLAC 60 MG/2 ML VIAL 30 MG IV (18:32)
[2020-01-10] MEDS: ONDANSETRON 4 MG ODT SL (18:32)
[2020-01-10] MEDS: ACETAMINOPHEN 325 MG TABLET 650 MG PO (18:33)
--- NOTE | 2020-01-10 18:38 | PC.NURSE ---
Pt has drunk half a glass of water, states I don't need any more right now. Encouraged to drink more by RN.
--- NOTE | 2020-01-10 18:53 | ED.NAVMDI ---
HPI - Nausea/Vomiting/Diarrhea <MAXIMILIANO Murray - Last Filed: 01/10/20 20:54> General Chief complaint: Nausea/Vomiting/Diarrhea Stated complaint: Vomiting Time Seen by Provider: 01/10/20 14:29 Source: EMS Mode of arrival: EMS Limitations: no limitations History of Present Illness HPI Narrative: 69-year-old male currently residing at [facility] facility related to esophageal dilation with history of developmental delay and blindness who presents with a chief complaint of vomiting with abdominal pain. He states he does not know when his last bowel movement was. He started vomiting today. No fevers. No chest pain or shortness of breath. Overall feels well slight headache. The patient does have a history difficulty swallowing, confusion, inguinal hernia Related Data Home Medications Medication Instructions Recorded Confirmed acetaminophen 325 mg tablet 325 mg PO Q6H PRN 07/15/19 07/15/19 bisacodyl 10 mg rectal suppository 10 mg WI DAILY PRN 07/15/19 07/15/19 diclofenac sodium 1 % topical gel 2 gram TOP QID 07/15/19 07/15/19 dorzolamide (PF) 2 % (PF) eye drops EYE-BOTH 07/15/19 07/15/19 ibuprofen 200 mg capsule 200 mg PO Q6H 07/15/19 07/15/19 lidocaine 4 % topical patch 1 patch TOP DAILY PRN 07/15/19 07/15/19 magnesium hydroxide 400 mg/5 mL 5 ml PO BEDTIME PRN 07/15/19 07/15/19 oral suspension mineral oil 118 ml WI ONCE 07/15/19 07/15/19 Allergies Allergy/AdvReac Type Severity Reaction Status Date / Time codeine [CODEINE] Allergy Mild n/v Verified 07/15/19 11:53 hydrocodone AdvReac Mild UPSET Verified 07/15/19 11:53 STOMACH Review of Systems <MAXIMILIANO Murray - Last Filed: 01/10/20 20:54> Review of Systems Narrative: GENERAL: Denies chills, fatigue, malaise, fever, sweats. HEENT: Denies sinus pain, ear pain, sore throat, difficulty swallowing, dizziness. RESPIRATORY: Denies dyspnea, cough, wheezing, hemoptysis, sputum. CARDIOVASCULAR: Denies chest pain, palpitations, orthopnea, edema, GASTROINTESTINAL: See HPI : Denies dysuria, frequency, incontinence, hematuria, urinary retention. MUSCULOSKELETAL: denies weakness, joint pain, or bony pain SKIN: Denies rash, skin lesions, or other NEUROLOGIC: See HPI PSYCHIATRIC: No concerning psychosocial issues. 12 point review of systems is negative except for those stated above Patient History <MAXIMILIANO Murray - Last Filed: 01/10/20 20:54> Medical History Developmental disability (Chronic) Diverticulosis (Acute) Glaucoma (Chronic) Hypertension (Chronic) Obstipation (Acute) Partial blindness (Chronic) Schatzki's ring of distal esophagus (Acute) Surgical History History of colonoscopy (Acute) History of esophagogastroduodenoscopy (EGD) (Acute) Status post hernia repair (12/2015) Family History Father Hypertension Heart disease Mother No problems noted. Social History household members: family Smoking Status: Never smoker alcohol intake: never Smoking Status: Never smoker Exam <MAXIMILIANO Murray - Last Filed: 01/10/20 20:54> Narrative Exam Narrative: GENERAL: This is a well-nourished, well-developed patient, holding nausea bag HEAD: Atraumatic. Normocephalic. No temporal or scalp tenderness. EYES: Pupils equal round and reactive. Extraocular motions intact. No scleral icterus. No injection or drainage. ENT: Nose without bleeding, purulent drainage or septal hematoma. Throat without erythema, tonsillar hypertrophy or exudate. Uvula midline. Airway patent. NECK: Trachea midline. No JVD or lymphadenopathy. Supple, nontender, no meningeal signs. CARDIOVASCULAR: Regular rate and rhythm RESPIRATORY: Coarse bilaterally to auscultation. Breath sounds equal bilaterally. No wheezes, rales, or rhonchi. No cough. No increased respiratory effort. No accessory muscle use. GASTROINTESTINAL: Abdomen soft, diffusely tender, nondistended. No hepato-splenomegaly, or palpable masses. No guarding. Active bowel sounds all 4 quadrants EXTREMITIES: No clubbing, cyanosis, or edema. No joint tenderness, effusion, or edema noted. BACK: Nontender without deformity or crepitance. No flank tenderness. NEURO: Alert, interactive, baseline per EMS SKIN: No rash or erythema on visible skin Initial Vital Signs Initial Vital Signs: Vital Signs Temperature 97.3 F L 01/10/20 14:35 Pulse Rate 75 01/10/20 14:35 Respiratory Rate 01/10/20 14:35 Blood Pressure 174/74 H 01/10/20 14:35 Pulse Oximetry 98 01/10/20 14:35 <Raoul Freed DO - Last Filed: 01/13/20 12:06> Initial Vital Signs Initial Vital Signs: Vital Signs Temperature 97.3 F L 01/10/20 14:35 Pulse Rate 75 01/10/20 14:35 Respiratory Rate 01/10/20 14:35 Blood Pressure 174/74 H 01/10/20 14:35 Pulse Oximetry 98 01/10/20 14:35 Course <MAXIMILIANO Murray - Last Filed: 01/10/20 20:54> Orders Ordered: Discontinued Medications Acetaminophen (Tylenol) 650 mg PO NOW ONE Stop: 01/10/20 18:23 Last Admin: 01/10/20 18:33 Dose: 650 mg Documented by: TANIA Sodium Chloride (Normal Saline 0.9%) 1,000 mls @ 1,000 mls/hr IV BOLUS ONE Stop: 01/10/20 15:31 Last Infusion: 01/10/20 16:30 Dose: 0 mls/hr Documented by: Admin: 01/10/20 15:29 Dose: 1,000 mls/hr Documented by: TANIA Ketorolac Tromethamine (Toradol) 30 mg IV NOW ONE Stop: 01/10/20 18:23 Last Admin: 01/10/20 18:32 Dose: 30 mg Documented by: TANIA Ondansetron HCl (Zofran) 4 mg IV NOW ONE Stop: 01/10/20 14:37 Last Admin: 01/10/20 15:29 Dose: 4 mg Documented by: TANIA Ondansetron HCl (Zofran Odt) 4 mg SL NOW ONE Stop: 01/10/20 18:23 Last Admin: 02/23/20 18:32 Dose: 4 mg Documented by: TANIA Vital Signs Vital signs: Vital Signs - 8 hr 01/10/20 14:35 01/10/20 16:23 01/10/20 18:00 Temperature 97.3 F L Pulse Rate 75 55 L 66 Respiratory Rate 20 20 13 Blood Pressure 174/74 H Blood Pressure [Right Arm] 189/77 H 160/67 H Pulse Oximetry 98 95 98 01/10/20 19:00 Temperature Pulse Rate 68 Respiratory Rate 14 Blood Pressure Blood Pressure [Right Arm] 167/70 H Pulse Oximetry 98 <Raoul Freed, DO - Last Filed: 01/13/20 12:06> Orders Ordered: Discontinued Medications Acetaminophen (Tylenol) 650 mg PO NOW ONE Stop: 01/10/20 18:23 Last Admin: 01/10/20 18:33 Dose: 650 mg Documented by: TANIA Sodium Chloride (Normal Saline 0.9%) 1,000 mls @ 1,000 mls/hr IV BOLUS ONE Stop: 01/10/20 15:31 Last Infusion: 01/10/20 16:30 Dose: 0 mls/hr Documented by: Admin: 01/10/20 15:29 Dose: 1,000 mls/hr Documented by: TANIA Ketorolac Tromethamine (Toradol) 30 mg IV NOW ONE Stop: 01/10/20 18:23 Last Admin: 01/10/20 18:32 Dose: 30 mg Documented by: TANIA Ondansetron HCl (Zofran) 4 mg IV NOW ONE Stop: 01/10/20 14:37 Last Admin: 01/10/20 15:29 Dose: 4 mg Documented by: TANIA Ondansetron HCl (Zofran Odt) 4 mg SL NOW ONE Stop: 01/10/20 18:23 Last Admin: 01/10/20 18:32 Dose: 4 mg Documented by: TANIA Vital Signs Vital signs: Vital Signs - 8 hr 01/10/20 14:35 01/10/20 16:23 01/10/20 18:00 Temperature 97.3 F L Pulse Rate 75 55 L 66 Respiratory Rate 20 20 13 Blood Pressure 174/74 H Blood Pressure [Right Arm] 189/77 H 160/67 H Pulse Oximetry 98 95 98 01/10/20 19:00 Temperature Pulse Rate 68 Respiratory Rate 14 Blood Pressure Blood Pressure [Right Arm] 167/70 H Pulse Oximetry 98 MDM - Nausea/Vomiting/Diarrhea <RENEE Murray- - Last Filed: 01/10/20 20:54> Lab Data Attestation: I reviewed the patient's lab results. Result diagrams: 01/10/20 15:12 01/10/20 15:12 Labs: Lab Results 01/10/20 01/10/20 01/10/20 Range/Units 15:12 15:12 15:12 WBC 9.1 (4.5-11.0) X10^3/uL RBC 4.15 L (4.5-5.9) X10^6/uL Hgb 13.0 L (13.5-17.5) g/dL Hct 38.7 L (41-53) % MCV 93.3 (80-100) fL MCH 31.3 (26-34) PG MCHC 33.6 (30-36) % RDW 13.1 (11.6-14.8) % Plt Count 272 (150-400) X10^3/uL Neut % (Auto) 83.7 H (50-75) % Lymph % (Auto) 10.2 L (25-40) % Charlton % (Auto) 5.1 (3-14) % Eos % (Auto) 0.4 L (2-4) % Baso % (Auto) 0.6 (0-2) % Neut # (Auto) 7600 H (4359-6188) /uL Lymph # (Auto) 900 L (7857-8258) /uL Charlton # (Auto) 500 (0-900) /uL Eos # (Auto) 0 (0-450) /uL Baso # (Auto) 100 (0-100) /uL PT (10.1-12.7) SECONDS INR (0.9-1.3) APTT (26.4-36.2) SECONDS Sodium 137 (137-145) mmol/L Potassium 4.6 (3.4-5.1) mmol/L Chloride 102 (98-107) mmol/L Carbon Dioxide 26 (22-32) mmol/L BUN 20 (9-20) mg/dL Creatinine 0.60 L (0.66-1.25) mg/dL Estimated GFR > 60.0 (>60) mL/min BUN/Creatinine Ratio 33.3 H (6-22) Glucose 106 (80-110) mg/dL Lactate 0.8 (0.7-2.1) mmol/L Calcium 9.2 (8.4-10.2) mg/dL Total Creatine Kinase (55-170) U/L CK-MB (CK-2) CK-MB (CK-2) Rel Index Troponin I (0.01-0.034) ng/mL 01/10/20 01/10/20 Range/Units 15:12 15:12 WBC (4.5-11.0) X10^3/uL RBC (4.5-5.9) X10^6/uL Hgb (13.5-17.5) g/dL Hct (41-53) % MCV (80-100) fL MCH (26-34) PG MCHC (30-36) % RDW (11.6-14.8) % Plt Count (150-400) X10^3/uL Neut % (Auto) (50-75) % Lymph % (Auto) (25-40) % Charlton % (Auto) (3-14) % Eos % (Auto) (2-4) % Baso % (Auto) (0-2) % Neut # (Auto) (6871-3432) /uL Lymph # (Auto) (7597-2101) /uL Charlton # (Auto) (0-900) /uL Eos # (Auto) (0-450) /uL Baso # (Auto) (0-100) /uL PT 12.2 (10.1-12.7) SECONDS INR 1.1 (0.9-1.3) APTT 36 (26.4-36.2) SECONDS Sodium (137-145) mmol/L Potassium (3.4-5.1) mmol/L Chloride (98-107) mmol/L Carbon Dioxide (22-32) mmol/L BUN (9-20) mg/dL Creatinine (0.66-1.25) mg/dL Estimated GFR (>60) mL/min BUN/Creatinine Ratio (6-22) Glucose (80-110) mg/dL Lactate (0.7-2.1) mmol/L Calcium (8.4-10.2) mg/dL Total Creatine Kinase 29 L (55-170) U/L CK-MB (CK-2) TNP CK-MB (CK-2) Rel Index TNP Troponin I < 0.012 (0.01-0.034) ng/mL Urine Dip Bedside Urine Glucose Negative Bedside Urine Bilirubin - Negative Bedside Urine Ketone - Negative Urine Specific Binger 1.015 Bedside Urine Occult Blood - Negative Bedside Urine pH 7 Bedside Urine Protein - Negative Bedside Urine Urobilinogen - Negative Bedside Urine Nitrite - Negative Bedside Urine Leukocytes - Negative Esterase Imaging Data Abdominal x-ray: Radiologist's Impression: [address] [address] XRay Report Signed Patient: Bridger RogersMR#: [id number] : 1950Acct:[id number] Age/Sex: 69 / MDate of Service: 01/10/20 Loc: ED Accession Number: [id number] Procedure: XR acute abdomen series Ordering Provider: Raoul Freed D.O. PROCEDURE: XR ACUTE ABDOMEN SERIES INDICATIONS: Abdominal pain, vomiting TECHNIQUE: One view chest and two views of the abdomen were acquired. COMPARISON: [facility], CR, XR CHEST 1V, 01/19/2019, 11:59. [facility], CR, XR CHEST 1V, 01/25/2019, 15:02. [facility], CR, XR PELVIS WITH LATERAL HIP LEFT, 01/29/2019, 16:17. FINDINGS: Surgical changes and devices: None. Chest: Lungs are clear. Heart size is normal. No pleural effusions. No pneumoperitoneum. Right diaphragmatic eventration. Abdomen: There is colonic interposition under the right hemidiaphragm. Bowel gas pattern is normal. No suspicious calcifications. Visualized solid organ contours appear normal. Bones: No suspicious bony lesions. IMPRESSION: Normal bowel gas pattern. If clinical symptoms persist or clinical suspicion for pathology is high, CT is suggested for further evaluation. Dictated by: Pietro Snell M.D. on 01/10/2020 at 17:43 Approved by: Pietro Snell M.D. on 01/10/2020 at 17:45 ECG Data Attestation: I personally reviewed and interpreted this ECG as follows: Interpretation: SR ventricular rate 61. No ectopy noted. No ST elevation or depression noted. viewed by Dr Freed [facility] Narrative Medical decision making narrative: The patient is a 69-year-old male who presents by EMS for chief complaint of right lower quadrant pain and nausea with vomiting. He is afebrile, no leukocytosis, negative lactate, overall benign lab work. The patient did not vomit throughout his stay in the emergency department. X-ray rules out obstruction. The patient did not vomit during his stay in the emergency department. He was able to tolerate oral medications, oral fluids etcetera. He states on re-examine that his pain is gone and he feels much better would like to go back to his facility so he can go to sleep. Given that he has normal lab work, non acute x-ray, will hold off on CT at this point time especially given that he can tolerate p.o. fluids. He has been nontoxic hemodynamically stable throughout his stay in the emergency department. Discussed with patient to follow up with primary care provider, come back to the emergency department for inability keep down fluids, abdominal pain with fever etcetera. Patient has no questions or concerns upon discharge and states understanding return precautions as well as follow-up care. <Raoul Freed, DO - Last Filed: 01/13/20 12:06> Lab Data Labs: Lab Results 01/10/20 01/10/20 01/10/20 Range/Units 15:12 15:12 15:12 WBC 9.1 (4.5-11.0) X10^3/uL RBC 4.15 L (4.5-5.9) X10^6/uL Hgb 13.0 L (13.5-17.5) g/dL Hct 38.7 L (41-53) % MCV 93.3 (80-100) fL MCH 31.3 (26-34) PG MCHC 33.6 (30-36) % RDW 13.1 (11.6-14.8) % Plt Count 272 (150-400) X10^3/uL Neut % (Auto) 83.7 H (50-75) % Lymph % (Auto) 10.2 L (25-40) % Charlton % (Auto) 5.1 (3-14) % Eos % (Auto) 0.4 L (2-4) % Baso % (Auto) 0.6 (0-2) % Neut # (Auto) 7600 H (4121-2654) /uL Lymph # (Auto) 900 L (4354-8227) /uL Charlton # (Auto) 500 (0-900) /uL Eos # (Auto) 0 (0-450) /uL Baso # (Auto) 100 (0-100) /uL PT (10.1-12.7) SECONDS INR (0.9-1.3) APTT (26.4-36.2) SECONDS Sodium 137 (137-145) mmol/L Potassium 4.6 (3.4-5.1) mmol/L Chloride 102 (98-107) mmol/L Carbon Dioxide 26 (22-32) mmol/L BUN 20 (9-20) mg/dL Creatinine 0.60 L (0.66-1.25) mg/dL Estimated GFR > 60.0 (>60) mL/min BUN/Creatinine Ratio 33.3 H (6-22) Glucose 106 (80-110) mg/dL Lactate 0.8 (0.7-2.1) mmol/L Calcium 9.2 (8.4-10.2) mg/dL Total Creatine Kinase (55-170) U/L CK-MB (CK-2) CK-MB (CK-2) Rel Index Troponin I (0.01-0.034) ng/mL 01/10/20 01/10/20 Range/Units 15:12 15:12 WBC (4.5-11.0) X10^3/uL RBC (4.5-5.9) X10^6/uL Hgb (13.5-17.5) g/dL Hct (41-53) % MCV (80-100) fL MCH (26-34) PG MCHC (30-36) % RDW (11.6-14.8) % Plt Count (150-400) X10^3/uL Neut % (Auto) (50-75) % Lymph % (Auto) (25-40) % Charlton % (Auto) (3-14) % Eos % (Auto) (2-4) % Baso % (Auto) (0-2) % Neut # (Auto) (9463-6839) /uL Lymph # (Auto) (3169-2543) /uL Charlton # (Auto) (0-900) /uL Eos # (Auto) (0-450) /uL Baso # (Auto) (0-100) /uL PT 12.2 (10.1-12.7) SECONDS INR 1.1 (0.9-1.3) APTT 36 (26.4-36.2) SECONDS Sodium (137-145) mmol/L Potassium (3.4-5.1) mmol/L Chloride (98-107) mmol/L Carbon Dioxide (22-32) mmol/L BUN (9-20) mg/dL Creatinine (0.66-1.25) mg/dL Estimated GFR (>60) mL/min BUN/Creatinine Ratio (6-22) Glucose (80-110) mg/dL Lactate (0.7-2.1) mmol/L Calcium (8.4-10.2) mg/dL Total Creatine Kinase 29 L (55-170) U/L CK-MB (CK-2) TNP CK-MB (CK-2) Rel Index TNP Troponin I < 0.012 (0.01-0.034) ng/mL Urine Dip Bedside Urine Glucose Negative Bedside Urine Bilirubin - Negative Bedside Urine Ketone - Negative Urine Specific Binger 1.015 Bedside Urine Occult Blood - Negative Bedside Urine pH 7 Bedside Urine Protein - Negative Bedside Urine Urobilinogen - Negative Bedside Urine Nitrite - Negative Bedside Urine Leukocytes - Negative Esterase Discharge Plan Departure Patient Disposition: Home Clinical Impression: Nausea & vomiting Qualifiers: Vomiting type: unspecified Vomiting Intractability: non-intractable Qualified Code(s): R11.2 - Nausea with vomiting, unspecified Abdominal pain Qualifiers: Abdominal location: generalized Qualified Code(s): R10.84 - Generalized abdominal pain Discharge Date/Time: 01/10/20 21:47 Instructions: DI for Abdominal Pain-Adult, DI for Nausea -- Adult, DI for Vomiting -- Adult Activity Restrictions/Additional Instructions: Today your lab work and x-ray came back with no acute findings. Your abdominal pain has improved throughout your stay in the emergency department and you are able to keep down fluids. Please follow-up with primary care provider. Please come back to the emergency department for any acute concerns such as abdominal pain with fever, inability keep down fluids etcetera Prescriptions: No Action Aspercreme (lidocaine) 4 % adhesive patch,medicated 1 patch TOP DAILY PRNRF: 0 dorzolamide (PF) 2 % drops EYE-BOTH RF: 0 acetaminophen [Tylenol] 325 mg tablet 325 mg PO Q6H PRNRF: 0 bisacodyl [Dulcolax (bisacodyl)] 10 mg suppository 10 mg WI DAILY PRNRF: 0 mineral oil [Fleet Mineral Oil] enema 118 ml WI ONCE RF: 0 magnesium hydroxide [Milk of Magnesia] 400 mg/5 mL suspension 5 ml PO BEDTIME PRNRF: 0 ibuprofen 200 mg capsule 200 mg PO Q6H RF: 0 diclofenac sodium [Voltaren] 1 % gel 2 gram TOP QID RF: 0 Referrals: Cecelia Ortega DO [Primary Care Provider] -
[2020-01-10 19:00] VITALS: BP 167/70; PULSE 68; RESP 14; O2SAT 98
== END 2020-01-10 21:47 | disposition home or self-care (01) ==
PROVIDERS: Emergency Medicine; Emergency Provider Nurse Practitioner Family; PCP Family Medicine
DX: R10.84 Generalized abdominal pain (principal)
CPT/HCPCS: 36415; 74022; 80048; 81003; 82550; 83605; 84484; 85025; 85610; 85730; 93005; 96361; 96374; 96375; 99284; 99285; J1885; J2405

== ENCOUNTER → 2020-03-01 11:04 | Outpatient (CLI) | payer MEDICARE, MEDICAID, SELFPAY ==
--- NOTE | 2020-03-01 | DI.CT.S_ITS ---
PROCEDURE: CT LUMBAR SPINE WO CON INDICATIONS: fell pain mid to lower back TECHNIQUE: Noncontrast 3 mm thick sections acquired from the T12 level to the sacrum. Sagittal and coronal reformats were constructed. In this patient, 3-D reformatted images were also performed. For radiation dose reduction, the following was used: automated exposure control. COMPARISON: [facility], CT, CT ABDOMEN PELVIS W CON, 01/19/2019, 12:32. [facility], CT, CT THORACIC SPINE WO CON, 03/01/2020, 11:09. [facility], CR, XR ACUTE ABDOMEN SERIES, 01/10/2020, 14:51. FINDINGS: Image quality: Excellent. Bones: There is normal bony alignment. No acute vertebral body compression fractures. No suspicious lytic or blastic bony lesions. Central spinal caliber is of normal overall caliber. No pars defects. This patient has transitional lumbar anatomy. For the purposes of this examination, the level with the last pair of ribs is considered to be T12. By this numbering scheme, the L5 level is transitional and partially sacralized. Pseudoarticulation is seen between the right L5 transverse process and the sacrum, as on series 600 image 45. T12-L1: The disc height is relatively well-preserved. Bridging endplate osteophytes are seen. Moderate disc bulge is seen. There is mild to moderate right-sided and no significant left-sided neural foraminal narrowing seen. No central canal narrowing is seen. L1-L2: The disc height is well preserved. Bridging endplate osteophytes are seen. Moderate generalized disc bulge is seen. Mild bilateral neural foraminal narrowing is seen. Rqgg-kz-atryyiql central canal narrowing is seen. L2-L3: Loss of disc height is seen. There is a Schmorl's node seen at the inferior endplate of L2, as on series 4 image 19. Endplate irregularity and sclerosis can be seen. Bridging endplate osteophytes are seen. Moderate disc bulge is seen, which is slightly eccentric to the left. There is moderate left-sided and mild right-sided neural foraminal narrowing seen. Mild to moderate central canal narrowing is seen. L3-L4: Mild to moderate loss of disc height is seen. Moderate generalized disc bulge is seen. Kbar-fi-webkaibo facet hypertrophy is seen. There is moderate bilateral neural foraminal narrowing seen, left worse than right. Mild to moderate central canal narrowing is seen. L4-L5: Mild loss of disc height is seen. Moderate disc bulge is seen, which is eccentric to the right. There is moderate facet hypertrophy seen, left worse than right. There is moderate right-sided and mild to moderate left-sided neural foraminal narrowing seen. Moderate central canal narrowing is seen. L5-S1: Mild loss of disc height is seen. Bridging endplate osteophytes are seen. Focal calcification/ossification can be seen along the posterior aspect of the annulus fibrosis, as on series 5 image 30. Fnmq-qo-pjmoyibs bilateral neural foraminal narrowing is seen. Mild central canal narrowing is seen. Relatively prominent fusion of the sacroiliac joints can be seen. Soft tissues: No retroperitoneal masses or hematomas. There is a simple appearing left renal cyst laterally measuring water density and 3 centimeters. Visualized aorta is normal in caliber. Atherosclerotic calcification is noted. Diverticulosis is seen, without findings of active diverticulitis. The previously seen right adrenal nodule is off the kiilj-cp-jzzr of this study. IMPRESSION: No acute fractures are seen. Multiple levels of degenerative change are seen. 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 Relatively prominent fusion of the sacroiliac joints can be seen. Incidental note is made of: Simple left renal cyst Diverticulosis, without findings of active diverticulitis. Dictated by: Tonny Brower M.D. on 03/01/2020 at 12:47 Approved by: Tonny Brower M.D. on 03/01/2020 at 12:55
--- NOTE | 2020-03-01 11:38 | DI.CT.S_ITS ---
PROCEDURE: CT THORACIC SPINE WO CON INDICATIONS: pain fell mid and lower back pain TECHNIQUE: Noncontrast 3 mm thick sections acquired through the region of interest in the thoracic spine. Sagittal and coronal reformats were then constructed. For radiation dose reduction, the following was used: automated exposure control. COMPARISON: None. FINDINGS: Image quality: Excellent. Bones: There is normal overall bony alignment. No acute vertebral body compression fractures. No suspicious sclerotic or lytic bony lesions. Central spinal canal is of normal overall caliber. Degenerative disc disease and facet osteoarthritis is mild to moderate in overall severity, expected for age, with no area of traumatic subluxation or visualized nerve root impingement. Significant spinal stenosis appears present at the mid cervical spine, estimated to be at approximately C5-C6, at the uppermost imaging margin. Soft tissues: No paravertebral masses or hematomas. Visualized posteromedial lungs appear clear. IMPRESSION: No acute trauma found, no traumatic subluxation identified. Degenerative changes along the thoracic spine are mild to moderate. They appear more prominent at the mid cervical spine partially included at the uppermost imaging of this study. If clinically indicated dedicated cervical spine CT scanning versus MR scanning could be obtained for more accurate assessment, electively. No trauma in that area is suspected based on the imaging appearance from this examination. Dictated by: Misael Simmons M.D. on 03/01/2020 at 13:57 Approved by: Misael Simmons M.D. on 03/01/2020 at 14:03
== END ==
PROVIDERS: PCP Family Medicine; Referring Provider Internal Medicine; Visit Provider Internal Medicine
DX: M54.5 Low back pain (principal); M47.816 Spondylosis without myelopathy or radiculopathy, lumbar region; M43.27 Fusion of spine, lumbosacral region; M54.6 Pain in thoracic spine; M47.814 Spondylosis without myelopathy or radiculopathy, thoracic region; M47.812 Spondylosis without myelopathy or radiculopathy, cervical region; N28.1 Cyst of kidney, acquired; K57.90 Diverticulosis of intestine, part unspecified, without perforation or abscess without bleeding
CPT/HCPCS: 72128; 72131

== ENCOUNTER 2020-03-25 06:51 | Emergency (ER) | payer MEDICARE, MEDICAID, SELFPAY ==
[2020-03-25] VITALS (14 sets, daily range): BP systolic 134–196; BP diastolic 60–98; PULSE 64–82; RESP 11–26; TEMP 36.4–36.9; O2SAT 94–99; BMI 32.8
--- NOTE | 2020-03-25 06:55 | ED_ITS ---
HPI - Chest Pain <Raoul Freed DO - Last Filed: 03/25/20 20:47> General Chief Complaint: Chest Pain Stated Complaint: Chest pain Time Seen by Provider: 03/25/20 06:51 Source: patient and EMS Mode of arrival: EMS Limitations: no limitations History of Present Illness HPI narrative: 69-year-old male nonsmoker with history of developmental delay, hypotension, Schatzki's ring, esophageal candidiasis, shuffling gait and recent falls presents from local retirement facility for evaluation of a sharp and stabbing reproducible epigastric or retrosternal pain this morning. He states there is some radiation to his back. He denies any dizziness, weakness or lightheadedness. He denies any obvious nausea, vomiting or diarrhea. He denies any exertional worsening. He states his symptoms are worse with motion, palpation and deep breath. He states he has had a relatively recent interaction with Cardiology and apparently had a reassuring workup. MD complaint: chest pain Onset (ago): hour(s) Duration: intermittent Onset: during rest Pain location: substernal Severity: moderate Quality: sharp Pain radiation: back Relieving factors: rest Exacerbating factors: inspiration, palpation and movement Treatments prior to arrival chest pain: aspirin and nitroglycerin Related Data Home Medications Medication Instructions Recorded Confirmed acetaminophen 325 mg tablet 325 mg PO Q6H PRN 07/15/19 07/15/19 bisacodyl 10 mg rectal suppository 10 mg [place] DAILY PRN 07/15/19 07/15/19 diclofenac sodium 1 % topical gel 2 gram TOP QID 07/15/19 07/15/19 dorzolamide (PF) 2 % (PF) eye drops EYE-BOTH 07/15/19 07/15/19 ibuprofen 200 mg capsule 200 mg PO Q6H 07/15/19 07/15/19 lidocaine 4 % topical patch 1 patch TOP DAILY PRN 07/15/19 07/15/19 magnesium hydroxide 400 mg/5 mL 5 ml PO BEDTIME PRN 07/15/19 07/15/19 oral suspension mineral oil 118 ml [place] ONCE 07/15/19 07/15/19 Allergies Allergy/AdvReac Type Severity Reaction Status Date / Time codeine [CODEINE] Allergy Mild n/v Verified 07/15/19 11:53 hydrocodone AdvReac Mild UPSET Verified 08/28/19 11:53 STOMACH Review of Systems <Raoul Freed DO - Last Filed: 03/25/20 20:47> Constitutional Constitutional: Denies chills, Denies fatigue, Denies fever(s), Denies frequent falls, Denies lethargy and Denies weakness Eyes Eyes: Denies change in vision, Denies eye discharge, Denies irritation and Denies loss of vision ENT Ears, Nose, Mouth, and Throat: Denies change in voice, Denies dizziness, Denies neck pain, Denies sore throat and Denies throat swelling Cardiovascular Cardiovascular: Reports chest pain, Denies irregular heart rhythm, Denies lightheadedness, Denies palpitations, Denies dyspnea, Denies dyspnea on exertion and Denies orthopnea Respiratory Respiratory: Denies cough, Denies dyspnea, Denies dyspnea on exertion and Denies wheezing Gastrointestinal Gastrointestinal: Denies abdominal pain, Denies change in bowel habits, Denies diarrhea, Denies nausea and Denies vomiting Genitourinary Genitourinary: Denies hematuria, Denies flank pain, Denies urinary incontinence and Denies urinary urgency Musculoskeletal Musculoskeletal: Denies back pain, Denies muscle weakness, Denies neck pain, Denies numbness and Denies tingling Integumentary/Breasts Skin/Breast: Denies pruritus, Denies erythema, Denies rash and Denies wounds Neurologic Neurologic: Denies behavioral changes, Denies confusion, Denies dizziness, Denies frequent falls, Denies loss of vision, Denies numbness, Denies tingling and Denies weakness Psychiatric Psychiatric: Denies anxiety, Denies behavioral changes, Denies confusion, Denies depression, Denies homicidal ideation and Denies suicidal ideation Endocrine Endocrine: Denies fatigue, Denies flushing and Denies palpitations Hematologic/Lymphatic Hematologic/Lymphatic: Denies easy bruising Allergic/Immunologic Allergic/Immunologic: Denies urticaria, Denies throat swelling and Denies wheezing Patient History <Raoul Freed DO - Last Filed: 03/25/20 20:47> Medical History Developmental disability (Chronic) Diverticulosis (Acute) Glaucoma (Chronic) Hypertension (Chronic) Obstipation (Acute) Partial blindness (Chronic) Schatzki's ring of distal esophagus (Acute) Surgical History History of colonoscopy (Acute) History of esophagogastroduodenoscopy (EGD) (Acute) Status post hernia repair (12/2015) Family History Father Hypertension Heart disease Mother No problems noted. Social History household members: family Smoking Status: Never smoker alcohol intake: never Smoking Status: Never smoker Exam <Raoul Freed DO - Last Filed: 03/25/20 20:47> Narrative Exam Narrative: GENERAL: [69] year old patient appears stated age. Well- nourished, well-developed patient, in mild distress. Flat affect, HEAD: Atraumatic. Normocephalic. EYES: Pupils equal round and reactive. Extraocular motions intact. No scleral icterus. No injection or drainage. ENT: Nose without bleeding, purulent drainage. Throat without erythema, tonsillar hypertrophy or exudate. Airway patent. NECK: Trachea midline. Non tender CARDIOVASCULAR: Regular rate and rhythm without murmurs, gallops, or rubs. RESPIRATORY: Clear to auscultation. Breath sounds equal bilaterally. No wheezes, rales, or rhonchi. GASTROINTESTINAL: Abdomen soft, non-tender, nondistended. Reproducible epigastric pain and subxiphoid. EXTREMITIES: No edema or joint tenderness. BACK: Nontender without deformity or crepitance. No flank tenderness. NEURO: AOx3. SKIN: No rash or erythema of visible areas Initial Vital Signs Initial Vital Signs: Vital Signs Temperature 97.6 F 03/25/20 06:58 Pulse Rate 82 03/25/20 06:58 Respiratory Rate 26 H 03/25/20 06:58 Blood Pressure 176/80 H 03/25/20 06:58 Pulse Oximetry 96 03/25/20 06:58 <Susannah Wolff DO - Last Filed: 03/25/20 19:17> Initial Vital Signs Initial Vital Signs: Vital Signs Temperature 97.6 F 03/25/20 06:58 Pulse Rate 82 03/25/20 06:58 Respiratory Rate 26 H 03/25/20 06:58 Blood Pressure 176/80 H 03/25/20 06:58 Pulse Oximetry 96 03/25/20 06:58 Course <Raoul Freed DO - Last Filed: 03/25/20 20:47> Orders Ordered: ED Orders 03/25/20 11:53 MR abdomen wo con Stat Discontinued Medications Hydralazine HCl (Apresoline) 25 mg PO NOW ONE Stop: 03/25/20 12:24 Last Admin: 03/25/20 12:36 Dose: 25 mg Documented by: RSTONE Sodium Chloride (Normal Saline 0.9%) 1,000 mls @ 150 mls/hr IV CONT RODERICK Last Infusion: 03/25/20 15:58 Dose: 0 mls/hr Documented by: Admin: 03/25/20 08:07 Dose: 150 mls/hr Documented by: SIGIFREDO Ketorolac Tromethamine (Toradol) 15 mg IV NOW ONE Stop: 03/25/20 11:38 Last Admin: 03/25/20 12:06 Dose: 15 mg Documented by: SIGIFREDO Vital Signs Vital signs: Vital Signs - 8 hr 03/25/20 13:29 03/25/20 13:33 03/25/20 15:00 Temperature Pulse Rate 75 66 70 Respiratory Rate 19 22 Blood Pressure 181/72 H Blood Pressure [Right Arm] 152/66 H 141/63 H Pulse Oximetry 95 98 03/25/20 15:30 03/25/20 17:57 03/25/20 19:00 Temperature 98.4 F Pulse Rate 69 76 72 Respiratory Rate 12 15 18 Blood Pressure Blood Pressure [Right Arm] 149/98 H 167/60 H 148/66 H Pulse Oximetry 98 98 96 03/25/20 20:11 Temperature 97.6 F Pulse Rate 79 Respiratory Rate 16 Blood Pressure 186/78 H Blood Pressure [Right Arm] Pulse Oximetry 99 <Susannah Wolff DO - Last Filed: 03/25/20 19:17> Orders Ordered: ED Orders 03/25/20 11:53 MR abdomen wo con Stat Discontinued Medications Hydralazine HCl (Apresoline) 25 mg PO NOW ONE Stop: 03/25/20 12:24 Last Admin: 03/25/20 12:36 Dose: 25 mg Documented by: RSTONE Sodium Chloride (Normal Saline 0.9%) 1,000 mls @ 150 mls/hr IV CONT RODERICK Last Infusion: 03/25/20 15:58 Dose: 0 mls/hr Documented by: Admin: 03/25/20 08:07 Dose: 150 mls/hr Documented by: SIGIFREDO Ketorolac Tromethamine (Toradol) 15 mg IV NOW ONE Stop: 03/25/20 11:38 Last Admin: 03/25/20 12:06 Dose: 15 mg Documented by: SIGIFREDO Vital Signs Vital signs: Vital Signs - 8 hr 03/25/20 13:29 03/25/20 13:33 03/25/20 15:00 Temperature Pulse Rate 75 66 70 Respiratory Rate 19 22 Blood Pressure 181/72 H Blood Pressure [Right Arm] 152/66 H 141/63 H Pulse Oximetry 95 98 03/25/20 15:30 03/25/20 17:57 03/25/20 19:00 Temperature 98.4 F Pulse Rate 69 76 72 Respiratory Rate 12 15 18 Blood Pressure Blood Pressure [Right Arm] 149/98 H 167/60 H 148/66 H Pulse Oximetry 98 98 96 03/25/20 20:11 Temperature 97.6 F Pulse Rate 79 Respiratory Rate 16 Blood Pressure 186/78 H Blood Pressure [Right Arm] Pulse Oximetry 99 MDM - Chest Pain <Raoul Freed DO - Last Filed: 03/25/20 20:47> Lab Data Result diagrams: 03/25/20 06:56 03/25/20 06:56 Labs: Lab Results 03/25/20 03/25/20 03/25/20 Range/Units 06:56 06:56 09:14 WBC 6.3 (4.5-11.0) X10^3/uL RBC 4.02 L (4.5-5.9) X10^6/uL Hgb 12.9 L (13.5-17.5) g/dL Hct 37.5 L (41-53) % MCV 93.5 (80-100) fL MCH 32.0 (26-34) PG MCHC 34.3 (30-36) % RDW 13.7 (11.6-14.8) % Plt Count 270 (150-400) X10^3/uL Neut % (Auto) 62.9 (50-75) % Lymph % (Auto) 23.4 L (25-40) % [place] % (Auto) 8.8 (3-14) % Eos % (Auto) 4.0 (2-4) % Baso % (Auto) 0.9 (0-2) % Neut # (Auto) 3900 (9293-5652) /uL Lymph # (Auto) 1500 (6421-0480) /uL [place] # (Auto) 600 (0-900) /uL Eos # (Auto) 300 (0-450) /uL Baso # (Auto) 100 (0-100) /uL Sodium 139 (137-145) mmol/L Potassium 4.5 (3.4-5.1) mmol/L Chloride 105 (98-107) mmol/L Carbon Dioxide 26 (22-32) mmol/L BUN 20 (9-20) mg/dL Creatinine 0.70 (0.66-1.25) mg/dL Estimated GFR > 60.0 (>60) mL/min BUN/Creatinine Ratio 28.6 H (6-22) Glucose 91 (80-110) mg/dL Calcium 9.0 (8.4-10.2) mg/dL Total Bilirubin 0.3 (0.2-1.3) mg/dL AST 25 (17-59) IU/L ALT 14 (<50) IU/L Alkaline Phosphatase 84 (38-126) U/L Total Creatine Kinase 36 L (55-170) U/L CK-MB (CK-2) TNP CK-MB (CK-2) Rel Index TNP Troponin I < 0.012 < 0.012 (0.01-0.034) ng/mL Total Protein 7.5 (6.3-8.2) g/dL Albumin 3.9 (3.5-5.0) g/dL Globulin 3.6 (1.7-4.1) g/dL Albumin/Globulin Ratio 1.1 (1.0-2.8) Lipase 107 (23-300) U/L Urine Dip Bedside Urine Glucose Negative Bedside Urine Bilirubin - Negative Bedside Urine Ketone - Negative Urine Specific Tyro 1.015 Bedside Urine Occult Blood - Negative Bedside Urine pH 6.0 Bedside Urine Protein - Negative Bedside Urine Urobilinogen - Negative Bedside Urine Nitrite - Negative Bedside Urine Leukocytes - Negative Esterase <Susannah Wolff DO - Last Filed: 03/25/20 19:17> Lab Data Attestation: I reviewed the patient's lab results. Labs: Lab Results 03/25/20 03/25/20 03/25/20 Range/Units 06:56 06:56 09:14 WBC 6.3 (4.5-11.0) X10^3/uL RBC 4.02 L (4.5-5.9) X10^6/uL Hgb 12.9 L (13.5-17.5) g/dL Hct 37.5 L (41-53) % MCV 93.5 (80-100) fL MCH 32.0 (26-34) PG MCHC 34.3 (30-36) % RDW 13.7 (11.6-14.8) % Plt Count 270 (150-400) X10^3/uL Neut % (Auto) 62.9 (50-75) % Lymph % (Auto) 23.4 L (25-40) % [place] % (Auto) 8.8 (3-14) % Eos % (Auto) 4.0 (2-4) % Baso % (Auto) 0.9 (0-2) % Neut # (Auto) 3900 (5334-6283) /uL Lymph # (Auto) 1500 (2522-9865) /uL [place] # (Auto) 600 (0-900) /uL Eos # (Auto) 300 (0-450) /uL Baso # (Auto) 100 (0-100) /uL Sodium 139 (137-145) mmol/L Potassium 4.5 (3.4-5.1) mmol/L Chloride 105 (98-107) mmol/L Carbon Dioxide 26 (22-32) mmol/L BUN 20 (9-20) mg/dL Creatinine 0.70 (0.66-1.25) mg/dL Estimated GFR > 60.0 (>60) mL/min BUN/Creatinine Ratio 28.6 H (6-22) Glucose 91 (80-110) mg/dL Calcium 9.0 (8.4-10.2) mg/dL Total Bilirubin 0.3 (0.2-1.3) mg/dL AST 25 (17-59) IU/L ALT 14 (<50) IU/L Alkaline Phosphatase 84 (38-126) U/L Total Creatine Kinase 36 L (55-170) U/L CK-MB (CK-2) TNP CK-MB (CK-2) Rel Index TNP Troponin I < 0.012 < 0.012 (0.01-0.034) ng/mL Total Protein 7.5 (6.3-8.2) g/dL Albumin 3.9 (3.5-5.0) g/dL Globulin 3.6 (1.7-4.1) g/dL Albumin/Globulin Ratio 1.1 (1.0-2.8) Lipase 107 (23-300) U/L Urine Dip Bedside Urine Glucose Negative Bedside Urine Bilirubin - Negative Bedside Urine Ketone - Negative Urine Specific Tyro 1.015 Bedside Urine Occult Blood - Negative Bedside Urine pH 6.0 Bedside Urine Protein - Negative Bedside Urine Urobilinogen - Negative Bedside Urine Nitrite - Negative Bedside Urine Leukocytes - Negative Esterase Imaging Data Chest x-ray: Attestation: I personally reviewed and interpreted this imaging study as follows: My Impression: bilateral opacification, air under diaphragm on right side although does not appear to be free air. Appears similar to prior from January 2019. Radiologist's Impression: [address] [address] XRay Report Signed Patient: Bridger RogersMR#: [id number] : 1950Acct:[id number] Age/Sex: 69 / MDate of Service: 03/25/20 Loc: ED Accession Number: [id number] Procedure: XR chest 1V Ordering Provider: Raoul Freed D.O. PROCEDURE: XR CHEST 1V INDICATIONS: chest pain TECHNIQUE: One view of the chest was acquired. COMPARISON: [facility], , XR CHEST 1V, 01/25/2019, 15:02. FINDINGS: Surgical changes and devices: None. Lungs and pleura: Lungs are clear. No pleural effusions or pneumothorax. Mediastinum: Mediastinal contours appear normal. Heart size is mildly enlarged, as before. Bones and chest wall: No suspicious bony lesions. Overlying soft tissues appear unremarkable. IMPRESSION: No acute cardiopulmonary findings. Stable mild cardiomegaly. Dictated by: Damaris Banerjee M.D. on 03/25/2020 at 9:24 Approved by: Damaris Banerjee M.D. on 03/25/2020 at 9:24 CT scan - abdomen/pelvis: Radiologist's Impression: [address] [address] [address] Scan Report Signed Patient: Bridger RogersMR#: [id number] : 1950Acct:[id number] Age/Sex: 69 / MDate of Service: 03/25/20 Loc: ED Accession Number: [id number] Procedure: CT abdomen pelvis w con Ordering Provider: Susannah Wolff D.O. PROCEDURE: CT ABDOMEN PELVIS W CON INDICATIONS: chest/abd pain TECHNIQUE: After the administration of intravenous contrast, 5 mm thick sections acquired from the diaphragm to the symphysis. 5 mm coronal and sagittal reformats were acquired. For radiation dose reduction, the following was used: automated exposure control, adjustment of mA and/or kV according to patient size. COMPARISON: [facility], CR, XR ACUTE ABDOMEN SERIES, 01/10/2020, 14:51. [facility], CT, CT ABDOMEN PELVIS W CON, 01/19/2019, 12:32. FINDINGS: Image quality: Excellent. ABDOMEN: Lung bases: Lung bases are clear. Heart size is normal. There is trace pericardial effusion. Solid organs: Liver is normal in size and enhancement. Steatosis is present. Gallbladder is unremarkable. Comment bile duct at the sphincter of jackson is distended with air measuring 14 mm compared to 4 mm on prior exam. Pancreas enhances normally. Spleen is normal in size and enhancement. No adrenal nodules. Kidneys demonstrate normal size and enhancement, without hydronephrosis. Left lower lobe renal cyst is present, unchanged and Peritoneum and bowel: Bowel loops are nonobstructed. The appendix is at the upper limits of normal in size. However, no surrounding inflammatory change. Direct comparison to appendix size in the 2019 exam is limited secondary to superimposed dilated fluid filled bowel loops obscuring evaluation. No free fluid or air. Prominent colonic diverticula are present without associated thickening. Nodes and vessels: No retroperitoneal or mesenteric adenopathy by size criteria. Aorta and inferior vena cava are normal in size. Miscellaneous: No ventral hernias. PELVIS: Genitourinary: Bladder wall thickness is normal. Miscellaneous: No inguinal hernias or adenopathy. Bones: No suspicious bony lesions. No vertebral body compression fractures. IMPRESSION: 1. Diverticulosis. 2. Distended distal common bile duct with air as above. This is overall of uncertain clinical significance. 3. Trace pericardial effusion. Dictated by: Jannette Burnham M.D. on 03/25/2020 at 8:56 Approved by: Jannette Burnham M.D. on 03/25/2020 at 9:02 abd US: Radiologist's Impression: [address] [address] Ultrasound Report Signed Patient: Morteza Rogers#: [id number] : 1950Acct:[id number] Age/Sex: 69 / MDate of Service: 03/25/20 Loc: ED Accession Number: [id number] Procedure: US abdomen limited Ordering Provider: Susannah Wolff D.O. PROCEDURE: US ABDOMEN LIMITED INDICATIONS: DILATED BILE DUCT ON CT TECHNIQUE: Real-time focused scanning was performed of the abdomen, with image documentation. COMPARISON: [facility], CT, CT ABDOMEN PELVIS W CON, 03/25/2020, 8:30. FINDINGS: In this patient with this given history, scrutiny is given to common bile duct. The biliary system is not seen on this study. The liver demonstrates normal size. The liver demonstrates generalized increased echogenicity. This decreases ultrasound sensitivity for detection of hepatic masses. The liver is overall not well-seen. The gallbladder is overall poorly seen. There is a positive sonographic Cisneros sign. The pancreas is not seen. IMPRESSION: Nonvisualization of the common bile duct. The liver demonstrates increased echogenicity. This finding is nonspecific, yet it is most commonly attributed to fatty infiltration. Poor visualization of the gallbladder. However, there is a positive sonographic Cisneros sign. Dictated by: Tonny Brower M.D. on 03/25/2020 at 10:03 Approved by: Tonny Brower M.D. on 03/25/2020 at 10:08 MRCP: Radiologist's Impression: [address] [address] Magnetic Resonance Report Signed Patient: Morteza Rogers#: [id number] : 1950Acct:[id number] Age/Sex: 69 / MDate of Service: 03/25/20 Loc: ED Accession Number: [id number] Procedure: MR abdomen wo con Ordering Provider: Susannah Wolff D.O. PROCEDURE: MR ABDOMEN WO CON INDICATIONS: air in biliary duct, abd pain TECHNIQUE: Coronal HASTE through the abdomen, axial 2-D FLASH in- and [id number], and breath-hold T2 FSE with fat saturation through the biliary system and pancreas. Oblique coronal and axial thin-slice HASTE, radial thick-slab HASTE centered on the extrahepatic bile ducts. Intravenous secretin: Not requested. COMPARISON: [facility], US, US ABDOMEN LIMITED, 03/25/2020, 9:34. [facility], CT, CT ABDOMEN PELVIS W CON, 03/25/2020, 8:30. FINDINGS: Image quality: Prominent motion is present throughout the exam limiting areas of evaluation. Pancreas and biliary system: Intra- and extra-hepatic biliary ducts are non dilated. Pancreas is normal in morphology, without adjacent soft tissue edema. Pancreatic duct is normal in caliber, without developmental anomalies. Gallbladder demonstrates no visualized wall thickness. There is an appearance of small stones versus sludge in the dependent portion.. Other solid organs: Liver is normal in size. Spleen is normal in size. No adrenal nodules. Both kidneys are normal in size, without hydronephrosis. Left renal cyst is noted. Nodes and vessels: No retroperitoneal or mesenteric adenopathy by size criteria. Aorta and inferior vena cava are normal in size. Bowel and peritoneum: Unenhanced bowel loops are normal in caliber. No free fluid. Lung bases: No basal pleural effusions. Heart size is normal. Bones and soft tissues: No ventral hernias. Bone marrow is of normal overall signal. IMPRESSION: 1. There is a sludge versus small stones are noted within the gallbladder without wall thickening. 2. No definitive appearance of common bile duct obstruction. Prominent motion is present on multiple sequences limiting evaluation. Dictated by: Jannette Burnham M.D. on 03/25/2020 at 18:26 Approved by: Jannette Burnham M.D. on 03/25/2020 at 18:30 ECG Data Attestation: I personally reviewed and interpreted this ECG as follows: Prior ECG tracings: available for review Interpretation: Sinus rhythm with first-degree AV block. Rate of 77, P are 253 QRS of 92 [address] QTC [address] elevation or depression is appreciated. Patient has prior EKG from 01/10/2020 which appears similar. EKG 2. Shows sinus rhythm with first-degree AV block rate of 74 [place] 266 QRS 88 QTC of 417. No ST elevation nor depression appreciated EKG appears similar to prior from this morning as well as from December 2019. MDM Narrative Medical decision making narrative: Patient signed out to myself by Dr. Freed, patient did relate to me that he woke up this morning with chest pain that he describes somewhat epigastrically but also into the substernal chest region. He described somewhat as pressure. No fevers, some mild cough that is been nonproductive recently. He denies any shortness of breath. He denies any nausea or vomiting other GI or urinary symptoms at this time. Patient does have some developmental delay but is able to answer questions appropriately. He describes a cardiac workup in the last couple years and has seen Cardiology but is no longer following. He has had an EGD which showed Schatzki rings. As well as extensive diverticulosis on a colonoscopy 2 years ago. He had an echo in January of 2019 which shows an EF of 60-65% with normal LV function, mild to moderate MR and moderate AR. Patient states that pain has resolved. He did receive aspirin 324 mg and nitro EN route. His chest x-ray shows bilateral hazy opacities but this does appear fairly similar to a chest x-ray from January of 2019, he also states that he frequently falls and which is 1 of the reasons that he stays in a [facility]. He denies any falls in the last several days. On exam he has some mild to moderate epigastric and mid abdominal pain. Chest pain is not reproducible in the rest of his exam is benign. Patient's CT shows diverticulosis, distended distal common bile duct with air it is 14 mm compared to 4 on prior exam. Pancreas, spleen is normal gallbladder is unremarkable. Steatosis is present over but no other changes. There is a left lower lobe renal cyst that is present and unchanged. Appendix is upper limits normal in size but no inflammatory changes surrounding. Lung bases are clear with trace pericardial effusion. US RUQ ordered for further delineation, US shows visualization of the gallbladder with positive sonographic sign. Liver has increased echogenicity. No visualization of the common bile duct. I spoke with Dr. Ring who recommends MRCP at this time. This was obtained although was delayed secondary to a full schedule. was all reviewed patient's MRCP there is some sludge versus small stones noted the gallbladder without wall thickening no definitive of parents of common bile duct obstruction. There is some motion present multiple sequences limiting evaluation. while suspect patient may have passed a stone through the common bile duct. At this time patient's pain is controlled she would have him follow up outpatient either with General surgery primary care if he continues to have symptoms he should have repeat labs there is some additional differential such as peptic ulcer but her main suspicion is that this time a stone that has passed. Attempted to recontact patient family but unsuccessful at this time. Discharge Plan Departure Patient Disposition: Home Clinical Impression: Atypical chest pain, Abdominal pain Discharge Date/Time: 03/25/20 20:14 Activity Restrictions/Additional Instructions: Today there was air noted in your common bile duct, this was discussed with general surgery and additional imaging including an MRCP was obtained. At this time it is suspected that you passed a stone through the biliary duct. It is recommended that you follow up with either primary care or general surgery for recheck. If you continue to have abdominal pain you should have repeat lab work and likely imaging. They may recommend having your gallbladder removed if you continue to have symptoms. You may continue home medications as prescribed. You may continue take Tylenol as prescribed 3 your home medications for pain and or ibuprofen. Return to ER for fevers, new or increasing abdominal, chest pain, shortness of breath, passing out, persistent vomiting, black or bloody stools or other new or concerning symptoms. Prescriptions: No Action Aspercreme (lidocaine) 4 % adhesive patch,medicated 1 patch TOP DAILY PRNRF: 0 dorzolamide (PF) 2 % drops EYE-BOTH RF: 0 acetaminophen [Tylenol] 325 mg tablet 325 mg PO Q6H PRNRF: 0 bisacodyl [Dulcolax (bisacodyl)] 10 mg suppository 10 mg [place] DAILY PRNRF: 0 mineral oil [Fleet Mineral Oil] enema 118 ml [place] ONCE RF: 0 magnesium hydroxide [Milk of Magnesia] 400 mg/5 mL suspension 5 ml PO BEDTIME PRNRF: 0 ibuprofen 200 mg capsule 200 mg PO Q6H RF: 0 diclofenac sodium [Voltaren] 1 % gel 2 gram TOP QID RF: 0 Referrals: Cecelia Ortega DO [Primary Care Provider] - Crista Ring MD [Physician] -
[2020-03-25 07:06] LABS: Add Manual Diff / Slide Review NO; Basophils Absolute Auto 100 /uL (0-100); Basophils Percent Auto 0.9 % (0-2); Eosinophils Absolute Auto 300 /uL (0-450); Hematocrit 37.5 % (41-53); Hemoglobin 12.9 g/dL (13.5-17.5); Lymphocytes Absolute Auto 1500 /uL (1100-4500); Lymphocytes Percent Auto 23.4 % (25-40); Mean Corpuscular HGB Conc 34.3 % (30-36); Mean Corpuscular Volume 93.5 fL (80-100); Monocytes Absolute Auto 600 /uL (0-900); Monocytes Percent Auto 8.8 % (3-14); Neutrophils Absolute Auto 3900 /uL (1500-7000); Neutrophils Percent Auto 62.9 % (50-75); Platelet Count 270 X10^3/uL (150-400); Red Blood Cell Count 4.02 X10^6/uL (4.5-5.9); Red Cell Distribution Width 13.7 % (11.6-14.8); White Blood Cell Count 6.3 X10^3/uL (4.5-11.0)
[2020-03-25 07:12] LABS: Alanine Aminotransferase 14 IU/L (<50); Albumin 3.9 g/dL (3.5-5.0); Albumin Globulin Ratio 1.1 (1.0-2.8); Alkaline Phosphatase 84 U/L (38-126); Aspartate Aminotransferase 25 IU/L (17-59); BUN Creatinine Ratio 28.6 (6-22); Bilirubin Total 0.3 mg/dL (0.2-1.3); Blood Urea Nitrogen 20 mg/dL (9-20); Carbon Dioxide 26 mmol/L (22-32); Chloride 105 mmol/L (98-107); Creatine Kinase 36 U/L (55-170); Estimated Glomerular Filt Rate > 60.0 mL/min (>60); Globulin 3.6 g/dL (1.7-4.1); Glucose 91 mg/dL (80-110); HEMOLYSIS 16 (0-50); Lipase 107 U/L (23-300); Potassium 4.5 mmol/L (3.4-5.1); Sodium 139 mmol/L (137-145); Total Protein 7.5 g/dL (6.3-8.2)
[2020-03-25 07:24] LABS: Troponin I < 0.012 ng/mL (0.01-0.034)
[2020-03-25] MEDS: SODIUM CHLORIDE 0.9% 1,000 ML 150 ML IV (08:07)
--- NOTE | 2020-03-25 08:40 | DI.CT.S_ITS ---
PROCEDURE: CT ABDOMEN PELVIS W CON INDICATIONS: chest/abd pain TECHNIQUE: After the administration of intravenous contrast, 5 mm thick sections acquired from the diaphragm to the symphysis. 5 mm coronal and sagittal reformats were acquired. For radiation dose reduction, the following was used: automated exposure control, adjustment of mA and/or kV according to patient size. COMPARISON: [facility], CR, XR ACUTE ABDOMEN SERIES, 01/10/2020, 14:51. [facility], CT, CT ABDOMEN PELVIS W CON, 01/19/2019, 12:32. FINDINGS: Image quality: Excellent. ABDOMEN: Lung bases: Lung bases are clear. Heart size is normal. There is trace pericardial effusion. Solid organs: Liver is normal in size and enhancement. Steatosis is present. Gallbladder is unremarkable. Comment bile duct at the sphincter of jackson is distended with air measuring 14 mm compared to 4 mm on prior exam. Pancreas enhances normally. Spleen is normal in size and enhancement. No adrenal nodules. Kidneys demonstrate normal size and enhancement, without hydronephrosis. Left lower lobe renal cyst is present, unchanged and Peritoneum and bowel: Bowel loops are nonobstructed. The appendix is at the upper limits of normal in size. However, no surrounding inflammatory change. Direct comparison to appendix size in the 2019 exam is limited secondary to superimposed dilated fluid filled bowel loops obscuring evaluation. No free fluid or air. Prominent colonic diverticula are present without associated thickening. Nodes and vessels: No retroperitoneal or mesenteric adenopathy by size criteria. Aorta and inferior vena cava are normal in size. Miscellaneous: No ventral hernias. PELVIS: Genitourinary: Bladder wall thickness is normal. Miscellaneous: No inguinal hernias or adenopathy. Bones: No suspicious bony lesions. No vertebral body compression fractures. IMPRESSION: 1. Diverticulosis. 2. Distended distal common bile duct with air as above. This is overall of uncertain clinical significance. 3. Trace pericardial effusion. Dictated by: Jannette Burnham M.D. on 03/25/2020 at 8:56 Approved by: Jannette Burnham M.D. on 03/25/2020 at 9:02
--- NOTE | 2020-03-25 09:08 | DI.US.S_ITS ---
PROCEDURE: US ABDOMEN LIMITED INDICATIONS: DILATED BILE DUCT ON CT TECHNIQUE: Real-time focused scanning was performed of the abdomen, with image documentation. COMPARISON: [facility], CT, CT ABDOMEN PELVIS W CON, 03/25/2020, 8:30. FINDINGS: In this patient with this given history, scrutiny is given to common bile duct. The biliary system is not seen on this study. The liver demonstrates normal size. The liver demonstrates generalized increased echogenicity. This decreases ultrasound sensitivity for detection of hepatic masses. The liver is overall not well-seen. The gallbladder is overall poorly seen. There is a positive sonographic Cisneros sign. The pancreas is not seen. IMPRESSION: Nonvisualization of the common bile duct. The liver demonstrates increased echogenicity. This finding is nonspecific, yet it is most commonly attributed to fatty infiltration. Poor visualization of the gallbladder. However, there is a positive sonographic Cisneros sign. Dictated by: Tonny Brower M.D. on 03/25/2020 at 10:03 Approved by: Tonny Brower M.D. on 03/25/2020 at 10:08
[2020-03-25 09:45] LABS: Troponin I < 0.012 ng/mL (0.01-0.034)
--- NOTE | 2020-03-25 11:53 | DI.MRI.S_ITS ---
PROCEDURE: MR ABDOMEN WO CON INDICATIONS: air in biliary duct, abd pain TECHNIQUE: Coronal HASTE through the abdomen, axial 2-D FLASH in- and [id number], and breath-hold T2 FSE with fat saturation through the biliary system and pancreas. Oblique coronal and axial thin-slice HASTE, radial thick-slab HASTE centered on the extrahepatic bile ducts. Intravenous secretin: Not requested. COMPARISON: [facility], US, US ABDOMEN LIMITED, 03/25/2020, 9:34. [facility], CT, CT ABDOMEN PELVIS W CON, 03/25/2020, 8:30. FINDINGS: Image quality: Prominent motion is present throughout the exam limiting areas of evaluation. Pancreas and biliary system: Intra- and extra-hepatic biliary ducts are non dilated. Pancreas is normal in morphology, without adjacent soft tissue edema. Pancreatic duct is normal in caliber, without developmental anomalies. Gallbladder demonstrates no visualized wall thickness. There is an appearance of small stones versus sludge in the dependent portion.. Other solid organs: Liver is normal in size. Spleen is normal in size. No adrenal nodules. Both kidneys are normal in size, without hydronephrosis. Left renal cyst is noted. Nodes and vessels: No retroperitoneal or mesenteric adenopathy by size criteria. Aorta and inferior vena cava are normal in size. Bowel and peritoneum: Unenhanced bowel loops are normal in caliber. No free fluid. Lung bases: No basal pleural effusions. Heart size is normal. Bones and soft tissues: No ventral hernias. Bone marrow is of normal overall signal. IMPRESSION: 1. There is a sludge versus small stones are noted within the gallbladder without wall thickening. 2. No definitive appearance of common bile duct obstruction. Prominent motion is present on multiple sequences limiting evaluation. Dictated by: Jannette Burnham M.D. on 03/25/2020 at 18:26 Approved by: Jannette Burnham M.D. on 03/25/2020 at 18:30
[2020-03-25] MEDS: KETOROLAC 60 MG/2 ML VIAL 15 MG IV (12:06)
[2020-03-25] MEDS: HYDRALAZINE 25 MG TABLET PO (12:36)
--- NOTE | 2020-03-25 19:36 | PC.NURSE ---
Patient resting comfortably in bed. Offered food and a meal. VSS.
== END 2020-03-25 20:14 | disposition home or self-care (01) ==
PROVIDERS: Emergency Medicine; Emergency Provider Emergency Medicine; PCP Family Medicine
DX: R07.89 Other chest pain (principal); R10.9 Unspecified abdominal pain; K57.90 Diverticulosis of intestine, part unspecified, without perforation or abscess without bleeding; N28.1 Cyst of kidney, acquired
CPT/HCPCS: 36415; 71045; 74177; 74181; 76705; 80053; 81003; 82550; 83690; 84484; 85025; 93005; 96361; 96374; 99285; J1885; Q9967

== ENCOUNTER → 2020-04-03 11:00 | Outpatient (ROUT) | payer MEDICARE, MEDICAID, SELFPAY ==
[2020-04-05 08:54] LABS: COVID19 Sendout Not Detected (Not Detected)
== END ==
PROVIDERS: PCP Family Medicine; Visit Provider Internal Medicine
DX: Z11.59 Encounter for screening for other viral diseases (principal)
CPT/HCPCS: 87635

== ENCOUNTER → 2020-12-10 15:32 | Outpatient (ROUT) | payer MEDICARE, MEDICAID, SELFPAY ==
[2020-12-10 16:05] LABS: BUN Creatinine Ratio 24.1 (6-22); Blood Urea Nitrogen 21 mg/dL (9-20); Carbon Dioxide 29 mmol/L (22-32); Chloride 101 mmol/L (98-107); Estimated Glomerular Filt Rate > 60.0 mL/min (>60); Glucose 96 mg/dL (80-110); HEMOLYSIS < 15 (0-50); Potassium 4.8 mmol/L (3.4-5.1); Sodium 135 mmol/L (137-145)
== END ==
PROVIDERS: PCP Family Medicine; Visit Provider Family Medicine
DX: I10 Essential (primary) hypertension (principal)
CPT/HCPCS: 80048

== ENCOUNTER 2021-08-30 07:31 | Day surgery (SDC) | payer MEDICARE, MEDICAID, SELFPAY ==
[2021-08-30] VITALS (11 sets, daily range): BP systolic 71–148; BP diastolic 33–62; PULSE 61–74; RESP 12–18; TEMP 36.2–36.6; O2SAT 93–96; BMI 34.4
--- NOTE | 2021-08-30 08:28 | PM.PREOP ---
Pre-operative Note COVID-19 COVID-19 status: Negative Interval Note History & Physical reviewed/Exam performed by Physician: Yes Changes to H&P: No
[2021-08-30 08:29] LABS: COVID19 -Nasal RAPID Negative (Negative)
[2021-08-30] MEDS: LACTATED RINGERS 1,000 ML 42 ML IV (08:45)
[2021-08-30] MEDS: LIDOCAINE JELLY 2% 5 ML 1 APPLIC TOP (09:15)
--- NOTE | 2021-08-30 09:23 | P.OP_ITS ---
Operative Date/Time/Diagnoses Date of procedure: 08/30/21 Time of procedure: 09:23 Pre-op diagnosis: dysphagia Post-op diagnosis: same Procedure & Clinicians Procedure: EGD with pneumatic dilatation of esophagus Same procedure as scheduled: Yes Indications: Dysphagia Surgeon: Leanna Braden Click Yes if Unassisted: Yes Anesthesia Type: MAC +/- Operative Notes Findings: Normal appearing stomach and duodenum. Moderate hiatal hernia. Proximal Schatzki's ring Specimen(s): none sent Blood products transfused: none Procedure in detail: Prep diagnosis: Dysphagia with history of Schatzki's ring Postop diagnosis: Same Operative procedure: EGD with esophageal dilatation using pneumatic dilator Surgeon: Genesis Braden MD Anesthetic: Mac Procedure: Patient placed in lateral position. Scope inserted into the esophagus meeting some resistance at the level of Schatzki's ring but with gen tle pressure ?popped? through. We entered into the stomach insufflated, identified the pylorus and intubated into the duodenum. Insufflation extraction scope included retroflexed and the above findings. At the cervical esophageal region I performed a esophageal dilatation using a pneumatic dilator progressing to 18 mm without resistance. Impression: Dysphagia from Schatzki's ring Plan. Pneumatic dilatation carried out without complication
--- NOTE | 2021-08-30 10:51 | SUR.PHASEII ---
Report called to Deborah Whitlock. MAR to be faxed foro medication reconciliation.
== END 2021-08-30 10:40 | disposition home or self-care (01) ==
PROVIDERS: PCP Family Medicine; Referring Provider Surgery; Visit Provider Surgery
PROC: 0DJ08ZZ Inspection of Upper Intestinal Tract, Via Natural or Artificial Opening Endoscopic (ICD-10-PCS; CPT 43235; principal; 2021-08-30 09:00)
DX: K22.2 Esophageal obstruction (principal); G80.9 Cerebral palsy, unspecified; Z20.822 Contact with and (suspected) exposure to COVID-19; K44.9 Diaphragmatic hernia without obstruction or gangrene
CPT/HCPCS: 43249; 43239; 87635; J0330; J2405; J2704; J3010

== ENCOUNTER → 2023-05-13 22:36 | Outpatient (ROUT) | payer MEDICARE, MEDICAID, SELFPAY | PROVIDERS: PCP Family Medicine; Visit Provider Nurse Practitioner Family | DX: T80.90XA Unspecified complication following infusion and therapeutic injection, initial encounter (principal) | CPT/HCPCS: 87070; 87075; 87077; 87147; 87186; 87205 ==

== ENCOUNTER → 2023-07-29 10:39 | Outpatient (CLI) | payer MEDICARE, MEDICAID, SELFPAY ==
--- NOTE | 2023-07-29 | DI.RAD.S_ITS ---
PROCEDURE: FL BARIUM SWALLOW W SPEECH INDICATIONS: ESOPHAGEAL OBSTRUCTION COMPARISON: None. TECHNIQUE: Examination was conducted in conjunction with speech pathology per standard protocol. In the lateral projection, filming was performed of the patient swallowing. AP projection filming may also be performed with patient swallowing. COMPARISON: FINDINGS: Function: The oral preparatory phase appears normal, with proper containment. The subsequent oral propulsive phase, pharyngeal phase, and esophageal phase of swallowing also appear normal with all proffered substances. Transient penetration is noted during swallowing of large quantity of liquid. No pathologic vallecular pooling. Morphology: No cricopharyngeal bar is identified. No cervical esophageal webs. No Zenker's diverticulum. No strictures. IMPRESSION: Transient penetration as described above. No aspiration. Please refer to speech pathology notes for additional findings. Dictated by: José Ybarra M.D. on 07/29/2023 at 13:28 Approved by: José Ybarra M.D. on 07/29/2023 at 13:58
--- NOTE | 2023-07-29 14:21 | ST.SWALLOW ---
Visit Care Team Role Provider Type BAKARI Hyatt Attending Provider Non-Staff Primary Care Provider Referring Provider Specialty: Family Practice Address: [address] [place] [address], [phone] Fax: Email: ST Modified Barium Swallow Study POSTAL CARRIER Modified Barium Swallow Study Start: 07/29/23 10:42 Freq: Status: Active Protocol: Document 07/29/23 10:42 LNK (Rec: 07/29/23 10:50 LNK [id number]) Modified Barium Swallow Study Total Time Visit Start Time 11:00 Visit Stop Time 11:45 Total Visit Minutes [address] Donovan Reason for Referral dysphagia Setting Setting Outpatient Care Patient Information Identification Type Name,Date of Patient History Pt was seen for a Modified Baium Swallow Study (MBSS) at the referral of Dr. Schmitt. Pt is a resident of [facility]. Pt has been reported to be choking on breads and has been reported to be coughing frequently during meals. Pt has a PMH for Cerebral Palsy, developmental delay, GERD, hiatal hernia and Shatzki's ring. According to records reviewed, pt has had GED procedures in the past. His most recent dilation was 08/30 at [facility]. Dr Braden was his surgeon at that time. Subjective Observations Pt arrived to the fluoroscopy chair in his wheelchair. He was not accompanied by [facility] staff nor his POA/ family members. Pt was not a good historian, unable to answer questions related to his reason for the MBS. No medical records re: swallowing were received from [facility] describing pt's difficulty with swallowing. Pt needed max assist to and from the fluoroscopy chair from his wheelchair as he was unable to stand on his own. Instructions were provided to the pt regarding the MBSS procedure, after which he agreed to continue. Patient Positioning Position View Lateral Imaging Lateral View Textures Administered Trials Presented Thin Liquid via Spoon (IDDSI 0 ),Thin Liquid via Cup (IDDSI 0 ),Mildly Thick Liquid via Spoon (IDDSI 2),Mildly Thick Liquid via Cup (IDDSI 2), Regular (IDDSI 7) Barium Tablet No The IDDSI Framework Protocol: IDDSI.1 Oral Impairment Source: The Modified Barium Swallow Impairment Profile (MBSImP??) Lip Closure Escape from interlab.space/lat .junct.;no ext. beyond vermilion border Tongue Control During Bolus Hold Cohesive bolus between tongue to palatal seal Bolus Preparation/Mastication Disorganized chewing/mashing with solid pieces of bolus unchewed Bolus Transport/Lingual Motion Brisk tongue motion Oral Residue Trace residue lining oral structures Location Tongue Initiation of Pharyngeal Swallow Bolus head at posterior angle of ramus (first hyoid excursion) Additional Oral Impairment Observations OME indicated several missing teeth, especially molars. Oral hygiene was poor. Decreased ROM was observed for lingual muscles. Diminished strength of labial and lingual muscles was also noted. Jaw muscle strength was WFL. DKS and speech were observed to be slow. Speech was mildly unintelligible with a soft, quiet voice. ORAL PHASE: Mastication was disorganized with difficulty chewing the cookie trial. Pt's chew pattern was more mashing instead of a typical rotary chew pattern. Pieces of the cookie were noted within the bolus as the pt swallowed the cookie. Pharyngeal Impairment Source: The Modified Barium Swallow Impairment Profile (MBSImP??) Soft Palate Elevation No bolus between soft palate & pharyngeal wall Laryngeal Elevation Part.sup.move.thyroid cart/ part.approx.arytenoids to epiglot.petiole Anterior Hyoid Excursion Partial anterior movement Epiglottic Movement Partial inversion Laryngeal Vestibular Closure Incomplete; narrow column air/ contrast in laryngeal vestibule Pharyngeal Stripping Wave Present - complete Pharyngoesophageal Segment Opening Complete distention & complete duration; no obstruction of flow Tongue Base Retraction Narrow column of contrast/air betwn tongue base & post. pharyngeal wall Pharyngeal Residue Trace residue within/on pharyngeal structures Location Valleculae Additional Pharyngeal Impairment Mild tongue weakness was Observations observed and negatively impacted hyolaryngeal elevation (partial) and epiglottic inversion (partial) . The epiglottis was observed to partially invert with ~1/2 of the epiglottis folded upward and against the posterior pharyngeal wall. This affected the seal of the laryngeal vestibule with penetration of contrast into the vestibule observed x5. Penetration was observed with large liquid bolus sizes and with consecutive swallows. With small single sip swallows , no penetration was obsered. No tracheal aspiration was noted. No reflexive cough observed. A/P View The IDDSI Framework Protocol: IDDSI.1 A/P View Observations Additional A-P Observations Due to the pt's physical disabilities an AP view was not possible. A lateral scan of the esophagus was attempted and partially successful. For one or two of the lateral swallow trials (teaspoonsful), a narrowing of the esophagus near the PES appeared to be present. However, this would need to be verified via esophagram and GI referral. The esophagus did ultimately clear (single swallow of thin contrast) with a hiatal hernia noted. Clinical Impressions Dysphagia Type Oral,Pharyngeal Findings Please see the oral, pharyngeal and AP summaries above for specific details of each swallow phase. Overall, the pt presented with mild oropharyngeal dysphagia. He was able to swallow thin liquids safely with small, single sips only. With larger swallows of liquids penetration into the laryngeal vestibule was observed. No tracheal aspiration was observed. Recommendations for the safest diet for this pt include: Soft and bite-sized ( IDDSI 6) with no breads, OR the breads broken into small pieces for the pt. Because the pt is significantly visually impaired, it is imperative that his foods and liquids are pre cut and arranged in advance to prevent risk of aspiration and/or airway blockage. It is doubtful that the pt would be able to cu his foods and self-monitor his PO intake rate/amount per bite. Thin liquids (IDDSI 0) with no straws is recommended. Swallows from a straw results in reduced bolus control. The bolus size is larger using a straw and is an aspiration risk . Specialized cups are available to pts that control liquid bolus size, which is recommended for this pt. Finally, a recommendation for referral to GI is also made to further evaluate the esophagus/Shatzki's ring as the most recent EGD was performed in 2020. Patient Appropriate for Therapy No Recommendations Diet Liquids Order Thin (IDDSI 0) Diet Order Soft & Bite-sized (IDDSI 6) Medication Recommendation As Tolerated Additional Dietary Needs Chopped Food,Single Sips, Controlled Sips,No Straws Aspiration Precautions Recommended Precautions Upright at 90 Degrees,Frequent Rest Periods,Small Bites/Sips ,Liquids from Cup Treatment Plan Recommended Referrals GI Consult Therapy Strategy Recommendations Sitting Upright (90 deg),No Straw,Liquids from Cup,Small Bites and Sips Placement Recommendation After Discharge [facility]
== END ==
PROVIDERS: PCP Nurse Practitioner Family; Referring Provider Nurse Practitioner Family; Visit Provider Nurse Practitioner Family
DX: K22.2 Esophageal obstruction (principal); F88 Other disorders of psychological development
CPT/HCPCS: 74230; 92611